=== PATIENT | male | born 1950 | race Caucasian/White ===

== ENCOUNTER 2017-04-26 17:25 | Inpatient (IN) | payer BC ==
[2017-04-26] MEDS ORDERED: NS 0.9% 1000 ML* 1,000 ML IV ONE ×2 (17:33→19:58)
[2017-04-26] MEDS ORDERED: Diltiazem IV* 5 MG/ML 5 ML VIAL (for loading dose/IV Push) (25 MG) IV PUSH ONE (17:33)
--- OUTSIDE RECORDS SUMMARY | 2017-04-26 18:16 | XMS REPORT ---
:1950 External Reference #:[id number] Author Organization [facility] Address [address] [place] [address] Phone [phone] Care Team Providers Name Role Phone HCP/LW on file Primary Care Physician Unavailable Payers Type Date Identification Numbers Payment Provider Subscriber Commercial Effective: Policy Number: [employer] Dereck De La Fuente 2016 [id number] Ppo PayID: [id number] [facility] [address] [place] [address] Problems Date Description Provider Status Onset: 11/15/2012 Cough Miguel Moyer D.O. 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 Active Onset: 11/15/2012 Headache Miguel Moyer D.O. Active Onset: 12/14/2012 Chronic rhinitis Miguel Moyer D.O. Active Onset: 12/14/2012 Tobacco user Miguel Moyer D.O. Active Onset: 01/23/2013 Anxiety state Miguel Moyer D.O. Active Onset: 01/23/2013 Old myocardial infarction Miguel Moyer D.O. Active Onset: 01/23/2013 Type 2 diabetes mellitus Miguel Moyer D.O. Active Onset: 03/21/2013 Acute maxillary sinusitis Miguel Moyer D.O. Active Onset: 05/07/2013 Chest pain Miguel Moyer D.O. Active Onset: 05/07/2013 Weight decreased Miguel Moyer D.O. Active Onset: 05/07/2013 Chronic sinusitis Miguel Moyer D.O. Active Onset: 07/06/2013 Panic disorder with agoraphobia Nader Lu M.D. Active Onset: 08/31/2013 Nasal polyp Miguel Moyer D.O. Active Onset: 08/31/2013 Impacted cerumen Miguel Moyer D.O. Active Onset: 05/16/2014 Difficulty breathing Miguel Moyer D.O. Active Onset: 05/16/2014 Hypoxemia Miguel Moyer D.O. Active Onset: 02/14/2015 Tear film insufficiency Miguel Moyer D.O. Active Onset: 12/14/2012 Chronic obstructive lung disease Miguel Moyer D.O. Inactive Inactive: 07/24/2015 Family History Date Family Member(s) Problem(s) Comments Siblings 8 Social History Type Date Description Comments Education pt states college (nos) Marital Status Samantha De La Fuente or Irma. Work Status Retired last worked 2008 Cigarette Use 07/24/2015 Former Cigarette Smoker SMOKED FROM AGE 14 TO JULY 2015 FOR 51 YEARS AT 1 PPD - 51 PACK YEARS ETOH Use Occassional Alcohol Last drink 1 month ago. Recreational Drug Use Denies Drug Use Smoking Patient is a former smoker SMOKED FROM AGE 14 TO JULY 2015 FOR 51 YEARS AT 1 PPD Daily Caffeine Consumes Caffeine 2 pots of coffee a day Exercise Type/Frequency Exercises regularly 4-5 x/ week walking Sun Exposure Does not use sunscreen Seat Belt/Car Seat Seat Belt Use - Yes Contraceptive Methods None Age 1st [place] 16 Years Old STD's No STD History Additional Info Sexual preference is women Allergies, Adverse Reactions, Alerts Date Description Reaction Status Severity Comments 11/01/2012 NKDA active Medications Medication Date Status Form Strength Qnty SIG Indications Ordering Provider Effexor XR 08/02 Active Caps ER 75mg 90cap 1 by mouth every F41.9 24HR s day Bartolome Rivera Ventolin HFA 06/03 Active Aerosol 108(90Bas 54gm inhale 2 puffs e) by mouth every 4 Miguel, mcg/Act hours as needed D.O. for bronchospasm Azelastine 03/31 Active Solution 0.15% 90ml 1-2 sprays bid J31.0 João, HCL (Nasal) Miguel, D.O. Aspirin Ec 08/27 Active Tablets 81mg 30tab Take One Tablet Sopchak, Low Dose /2015 DR s By Mouth Every Miguel, Day D.O. Famotidine 08/17 Active Tablets 40mg 60tab Take One Tablet Sopchak, s Two Times A Day Miguel, as Needed For D.O. Gastroesophageal Reflux Disease Artificial 02/14 Active Ointment 83-15% 1unit use at night as H04.122 Sopchak, Tears /2014 s directed. Miguel D.O. Atorvastatin 11/15 Active Tablets 20mg 90tab Take One Tablet Sopchak, Calcium s By Mouth Every Miguel, Day For D.O. Prevention Of Heart Attack And Stroke Metoprolol 09/27 Active Tablets 25mg 60tab Take One Tablet Sopchak, Tartrate s By Mouth Twice A Miguel, Day D.O. Montelukast 07/09 Active Tablets 10mg 30tab 1 by mouth every Strominge Sodium s day rRamón MD Klonopin 07/02 Active Tablets 0.5mg 60tab take 1 tablet by F40.01 Sopchak, /2014 s mouth 2 times Miguel, per day as D.O. needed for panic attacks F41.9 Symbicort 07/06/2013 Active Aerosol 160-4.5mcg/Act 10.2units Use 2 J44.9 Sopchak, Inhalations Miguel, By Mouth In D.O. The Morning And In The Evening , Gargle After Use R05 Oxygen NC 03/21/2013 Active 2l nc qhs João, Miguel, D.O. Elianarza Pressair 01/23/2013 Active Aerosol 400 1un Inhale One puff J44 Sopchak, mcg its By Mouth Twice .9 Miguel, D.O. /Ac A Day t Epipen 2-Tyson 11/01/2012 Active Solution 0.3 1un use as directed Z91 Sopsandra, Auto-Inject mg/ its for anaphilaxis .03 Miguel, D.O. 0.3 seek medical 0 ML attention after using. Effexor XR 06/30/2016 - Hx Caps ER 37. 30c Take 1 capsule F41 Sopchak, 08/02/2016 24HR 5mg aps by mouth daily .9 Miguel, D.O. with food for anxiety disorder Clotrimazole/Betam 06/03/2016 - Hx Lotion 1-0 30m [facility] a [facility] 07/03/2016 .05 l day to affected .4 Cruz Rivera. Dipropionate % area Clarithromycin 06/03/2016 - Hx Tablets 500 20t 1 by mouth J20 [facility], 06/13/2016 mg abs twice a day .9 Cruz Rivera. Proair HFA 03/01/2016 - Hx Aerosol 108 18u Inhale Two [facility], 06/03/2016 (90 nit Puffs By Mouth Cruz Rivera. Bas s Every 4 Hours e) as Needed For mcg Bronchospasm /Ac t Citalopram 01/15/2016 - Hx Tablets 20m 90t 1 by mouth F40 [facility], Hydrobromide 03/31/2016 g abs every day .01 Bartolome Rivera F41.9 Ventolin HFA 01/03/2016 - Hx Aerosol 108(90Base) Inhale Two Unknown 03/01/2016 mcg/Act Puffs By Mouth Every 4 Hours as Needed For Bronchospasm Azithromycin 11/24/2015 - Hx Tablets 250mg 6t take 2 tablets J4 [facility] , 11/29/2015 ab by mouth one 4. edvin Rivera time on the 1 D.O. first day then take 1 tablet by mouth daily for 4 days Prednisone 11/24/2015 - Hx Tablets 5mg 5t 1 daily for 5 J4 [facility], 12/05/2015 ab days. 4. edvin Rivera 1 D.O. Zostavax 11/24/2015 - Hx Solution Rec 65053Bqc/0.65 1u 1 dose J4 [facility], 12/24/2015 ML ni intramuscular 1 4. Miguel ts time 9 D.O. Zaditor 09/29/2015 - Hx Solution 0.025% 5m 1 drop left eye H1 [facility], 09/29/2015 l every 12 hours 0. Miguel, as needed. 13 D.O. Proair HFA 08/28/2015 - Hx Aerosol 108(90Base) 18 Inhale Two [facility], 11/23/2015 mcg/Act un Puffs By Mouth Miguel, it Every 4 Hours D.O. s as Needed For Bronchospasm Fluticasone 08/12/2015 - Hx Suspension 50mcg/Act 1 spray each Strominge Propionate 06/03/2016 nostil twice r, daily MD Ramón Qnasl 06/30/2015 - Hx Aerosol 80mcg/Act 17 2 sprays each J3 Sopchak, 08/12/2015 .4 nostril once a 2. thai Rivera day 9 D.O. Cefdinir 06/16/2015 - Hx Capsules 300mg 60 1 cap by mouth J3 [facility]ank, 07/16/2015 ca twice a day x 2. Miguel ps 30 days 9 D.O. Ventolin HFA 04/17/2015 - Hx Aerosol 108(90Base) inhale 2 puffs Unknown 08/28/2015 mcg/Act by mouth every 4 hours as needed for bronchospasm Sulfamethoxazole 02/14/2015 - Hx Tablets 800-160mg 20 1 by mouth J João, /Trimethoprim DS 02/24/2015 ta twice a day 2. edvin Rivera 9 D.O. Triamcinolone 07/02/2014 - Hx Aerosol 55mcg/Act 16 2 sprays J3 João, Acetonide 11/24/2015 .5 bilaterally 2. yonis Rivera twice a day. 9 D.O. it s Amoxicillin/Clav 07/02/2014 - Hx Tablets 875-125mg 20 1 by mouth 47 [facility] ulanate 07/12/2014 ta twice a day 3. Janice Rivera bs 9 D.O. Aspirin Ec Low 10/29/2013 - Hx Tablets DR 81mg 30 Take One Tablet E1 [facility], Dose 2015 ta By Mouth Every 1. edvin Rivera Day 9 D.O. Klonopin 08/31/2013 - Hx Tablets 0.5mg 60 take 1 tablet 30 [facility], 09/17/2013 ta by mouth 2 0. edvin Rivera times per day 00 D.O. as needed for panic attacks 300.21 Boost Diabetic 08/31/2013 - Hx Liquid 30units 1 can every day 783.21 João, 11/15/2013 Paolo RiveraO. Proair HFA 08/23/2013 - Hx Aerosol 108 8.5units Inhale Two J44.9 João, 04/17/2015 (90 Puffs By Mouth Bartolome Rivera Bas Every 4 Hours e) as Needed For mcg Bronchospasm /Ac t Citalopram 07/13/2013 - Hx Tablets 40m 30tabs Take One Tablet F40.01 João, Hydrobromide 01/15/2016 g By Mouth Every Blossom Rivera.O. Day F41.9 Oxygen Fingertip 07/06/2013 - Hx 1units use four J44.9 João, Sensor 05/30/2014 times a day Blossom Rivera.Lesly or as necessary Pantoprazole 07/04/2013 - Hx Tablets DR 40mg 1 by mouth João, Sodium 08/18/2015 once a day Bartolome Rivera Citalopram 06/05/2013 - Hx Tablets 20mg 1 po qd 300.21 Sopsandra, Hydrobromide 07/13/2013 Bartolome Rivera 300.00 Nicotine Step 1 05/31/2013 - Hx Patches 21mg/24HR 30units 1 patch 305.1 [facility], 11/15/2013 24HR daily Miguel, remove D.O. old patch before placing new patch. Citalopram 05/29/2013 - Hx Tablets 20mg 90tabs 1/2 tab 300.21 Kitasandra, Hydrobromide 06/05/2013 po qam Bartolome Rivera 300.00 Metoprolol 05/29/2013 - Hx Tablets ER 25mg 90tabs 1 po qd 412 [facility], Succinate ER 09/17/2013 24HR Bartolome Rivera Prednisone 05/29/2013 - Hx Tablets 5mg 4tabs as directed Unknown 06/01/2013 Azelastine HCL 04/23/2013 - Hx Solution 137mcg/ 3units 1-2 sprays 472.0 [facility], 03/31/2016 [place] bid Bartolome Rivera Aspirin Low 04/23/2013 - Hx Tablets 81mg 90tabs 1 po qd 250.00 [facility], Dose 10/29/2013 Bartolome Rivera Symbicort 03/26/2013 - Hx Aerosol 160-4.5 3units 2 puffs 496 [facility], 07/06/2013 mcg/Act once daily; Bartolome Rivera gargle after use 786.2 305.1 Celexa 01/23/2013 - Hx Tablets 10mg 30tabs Take 1 tablet 300.00 [facility] , 05/29/2013 by mouth daily Miguel D.O. Ventolin HFA 01/23/2013 - Hx Aerosol 108(90Ba 2units Inhale 2 puffs 496 [facility], 08/[facility] se) by mouth every Miguel, D.O. mcg/Act 4 hours as needed for bronchospasm Klonopin 01/23/2013 - Hx Tablets 0.5mg 60tabs Take 1 tablet 300.00 [facility], 08/31/2013 by mouth 2 Miguel, D.O. times per day for panic disorder 300.21 Metoprolol Succinate 01/22/2013 - Hx Tablets ER 25mg 90tabs 1 tab po [facility], ER 05/29/2013 24HR daily Miguel D.O. Methylprednisolone 01/22/2013 - Hx Tablets 4mg as directed Unknown Dose Pack 03/21/2013 Flonase 12/14/2012 - Hx Suspension 50mcg 3units Inhale 2 472. [facility], 10/01/2014 /Act sprays into 0 Miguel, nostril daily D.O. in each nostril for nose inflammation Advair Diskus 12/14/2012 - Hx Aerosol 250-5 1units Inhale 1 puff 496 [facility], 03/26/2013 0mcg/ by mouth 2 Miguel, Dose times per day D.O. for chronic obstructive lung disease Bupropion HCL ER 11/22/2012 - Hx Tablets ER 150mg 60tabs 1 tab po in 305. [facility], 01/21/2013 12HR am for 3 1 Miguel, days anf then D.O. increase to 1 twice a day No Active 11/01/2012 - Hx Unknown Medications 11/01/2012 Azithromycin 11/01/2012 - Hx Tablets 250mg 1tabs 1 z-pack Tad 786. [facility], 11/14/2012 2 Miguel, D.O. Proair HFA 11/01/2012 - Hx Aerosol 108(9 8.5unit Inhale Two 786. [facility], 04/18/2013 0Base s Puffs By 2 Miguel, ) Mouth Every 4 D.O. mcg/A Hours as ct Needed For Bronchospasm Prednisone - Hx Tablets 20mg Unknown 01/09/2016 Immunizations CPT Code Status Date Vaccine Lot # [id number] Given 03/23/2017 Influenza Virus Vaccine, Quadrivalent, Split, [id number] Preservative Free 96393 Given 11/24/2015 Influenza Vaccine Split Virus Preservative Free Im [id number] Use 89274 Given 07/24/2015 Prevnar 13 [id number] 45439 Given 01/27/2015 Influenza Virus Vaccine, Quadrivalent, Split, [id number] Preservative Free 55985 Given 11/19/2013 Influenza Virus Vaccine, Quadrivalent, Split, [id number] Preservative Free 95361 Given 04/23/2013 Pneumococcal Immunization [id number] 63843 Given 11/22/2012 Adacel or Boostrix, TDaP [id number] 53407 Given 11/22/2012 Flu, Split Virus 3Yrs [id number] Vital Signs Date Vital Result Comment 04/26/2017 BP Systolic 100 mmHg With automatic cuff BP Diastolic 80 mmHg With automatic cuff Weight 134.00 lb 08/02/2016 BP Systolic 106 mmHg BP Diastolic 68 mmHg Height 64.75 inches 5'4.75" Weight 138.00 lb BMI (Body Mass Index) 23.1 kg/m2 06/30/2016 BP Systolic 110 mmHg BP Diastolic 70 mmHg Weight 137.00 lb with shoes 06/03/2016 BP Systolic 105 mmHg BP Diastolic 68 mmHg Body Temperature 97.7 F Weight 148.00 lb with shoes 03/31/2016 BP Systolic 104 mmHg BP Diastolic 62 mmHg Weight 141.00 lb w/shoes 01/15/2016 BP Systolic 124 mmHg BP Diastolic 78 mmHg Height 64.75 inches 5'4.75" Weight 145.00 lb BMI (Body Mass Index) 24.3 kg/m2 12/30/2015 BP Systolic 108 mmHg BP Diastolic 64 mmHg Weight 145.00 lb 11/24/2015 BP Systolic 102 mmHg BP Diastolic 70 mmHg Body Temperature 97.7 F Weight 145.00 lb with shoes 09/29/2015 BP Systolic 108 mmHg BP Diastolic 68 mmHg Weight 148.00 lb 08/18/2015 BP Systolic 118 mmHg BP Diastolic 78 mmHg Weight 142.00 lb w/shoes 07/24/2015 BP Systolic 110 mmHg BP Diastolic 70 mmHg Heart Rate 57 /min O2 % BldC Oximetry 96 % 94% P 96 after ambulating Weight 139.00 lb with shoes 06/30/2015 BP Systolic 110 mmHg BP Diastolic 68 mmHg Body Temperature 98.0 F Weight 138.00 lb w/shoes 06/16/2015 BP Systolic 119 mmHg BP Diastolic 68 mmHg Heart Rate 68 /min Height 64.50 inches 5'4.50" Weight 135.00 lb BMI (Body Mass Index) 22.8 kg/m2 02/14/2015 BP Systolic 110 mmHg BP Diastolic 68 mmHg Weight 140.00 lb with shoes 11/15/2014 BP Systolic 113 mmHg BP Diastolic 65 mmHg Heart Rate 63 /min O2 % BldC Oximetry 99 % on Ra Height 64.5 inches 5'4.50" with shoes Weight 131.00 lb with shoes BMI (Body Mass Index) 22.1 kg/m2 10/01/2014 BP Systolic 100 mmHg BP Diastolic 54 mmHg Weight 135.00 lb 08/01/2014 BP Systolic 100 mmHg BP Diastolic 70 mmHg Weight 124.00 lb 07/02/2014 BP Systolic 113 mmHg BP Diastolic 60 mmHg Heart Rate 69 /min Weight 120.00 lb w/shoes 05/16/2014 BP Systolic 104 mmHg BP Diastolic 60 mmHg O2 % BldC Oximetry 99 % after ambulation 96% Height 65 inches 5'5" shoes on Weight 120.00 lb shoes on BMI (Body Mass Index) 20.0 kg/m2 11/16/2013 BP Systolic 116 mmHg BP Diastolic 63 mmHg Heart Rate 64 /min Weight 115.00 lb shoes on 09/17/2013 BP Systolic 96 mmHg BP Diastolic 70 mmHg Weight 109.00 lb 08/31/2013 BP Systolic 96 mmHg BP Diastolic 58 mmHg Height 64.25 inches 5'4.25" Weight 115.00 lb BMI (Body Mass Index) 19.6 kg/m2 07/13/2013 BP Systolic 100 mmHg BP Diastolic 70 mmHg Height 64.25 inches 5'4.25" Weight 121.00 lb BMI (Body Mass Index) 20.6 kg/m2 07/06/2013 BP Systolic 80 mmHg BP Diastolic 64 mmHg O2 % BldC Oximetry 13579 % R 95-96, after walking 92-93 Body Temperature 97.6 F Weight 120.00 lb 05/31/2013 BP Systolic 106 mmHg BP Diastolic 62 mmHg Weight 128.00 lb 05/07/2013 BP Systolic 102 mmHg BP Diastolic 74 mmHg Body Temperature 97.5 F Weight 124.00 lb 04/23/2013 BP Systolic 104 mmHg BP Diastolic 60 mmHg Weight 127.00 lb 03/21/2013 BP Systolic 118 mmHg BP Diastolic 76 mmHg Height 64.25 inches 5'4.25" Weight 133.00 lb BMI (Body Mass Index) 22.6 kg/m2 01/23/2013 BP Systolic 110 mmHg BP Diastolic 54 mmHg Heart Rate 58 /min Weight 136.00 lb 12/14/2012 BP Systolic 100 mmHg BP Diastolic 80 mmHg Weight 136.00 lb 11/22/2012 BP Systolic 130 mmHg BP Diastolic 70 mmHg Body Temperature 98.8 F Weight 138.00 lb 11/15/2012 BP Systolic 122 mmHg BP Diastolic 78 mmHg O2 % BldC Oximetry 92 % Weight 141.00 lb 11/01/2012 BP Systolic Recheck 140 mmHg BP Diastolic Recheck 86 mmHg O2 % BldC Oximetry 96 % 95 walking Height 64.25 inches 5'4.25" Weight 141.00 lb BMI (Body Mass Index) 24.0 kg/m2 Results Test Date Test Result H/L Range Note Laboratory test finding 03/23/2017 Hemoglobin A1c 6.5 CBC Auto Diff 03/23/2017 White Blood Count 7.2 10^3/uL 3.5-10.8 1 Red Blood Count 3.93 10^6/uL Low 4.0-5.4 1 Hemoglobin 13.2 g/dL Low 14.0-18.0 1 Hematocrit 39 % Low 42-52 1 Mean Corpuscular Volume 100 fL High 80-94 1 Mean Corpuscular Hemoglobin 34 pg High 27-31 1 Mean Corpuscular HGB Conc 34 g/dL 31-36 1 Red Cell Distribution Width 13 % 10.5-15 1 Platelet Count 261 10^3/uL 150-450 1 Mean Platelet Volume 7 um3 Low 7.4-10.4 1 Abs Neutrophils 3.7 10^3/uL 1.5-7.7 1 Abs Lymphocytes 1.9 10^3/uL 1.0-4.8 1 Abs Monocytes 0.5 10^3/uL 0-0.8 1 Abs Eosinophils 1.0 10^3/uL High 0-0.6 1 Abs Basophils 0 10^3/uL 0-0.2 1 Abs Nucleated RBC 0 10^3/uL 1 Granulocyte % 51.7 % 38-83 1 Lymphocyte % 26.7 % 25-47 1 Monocyte % 7.2 % 1-9 1 Eosinophil % 13.7 % High 0-6 1 Basophil % 0.7 % 0-2 1 Nucleated Red Blood Cells % 0 1 Comp Metabolic Panel 03/23/2017 Sodium 131 mmol/L Low 133-145 1 Potassium 4.3 mmol/L 3.5-5.0 1 Chloride 95 mmol/L Low 101-111 1 Co2 Carbon Dioxide 28 mmol/L 22-32 1 Anion Gap 8 mmol/L 2-11 1 Glucose 92 mg/dL 70-100 1 Blood Urea Nitrogen 10 mg/dL 6-24 1 Creatinine 0.72 mg/dL 0.67-1.17 1 BUN/Creatinine Ratio 13.9 8-20 1 Calcium 9.2 mg/dL 8.6-10.3 1 Total Protein 6.5 g/dL 6.4-8.9 1 Albumin 3.8 g/dL 3.2-5.2 1 Globulin 2.7 g/dL 2-4 1 Albumin/Globulin Ratio 1.4 1-3 1 Total Bilirubin 0.60 mg/dL 0.2-1.0 1 Alkaline Phosphatase 70 U/L 34-104 1 Alt 27 U/L 7-52 1 Ast 28 U/L 13-39 1 Egfr Non- 109.2 >60 1 Egfr 140.5 >60 1, 2 Laboratory test finding 03/23/2017 TSH (Thyroid Stim Horm) 1.53 mcIU/mL 0.34-5.60 1 Magnesium 1.9 mg/dL 1.9-2.7 1 Vitamin D Total 25(Oh) 11.0 ng/mL Low 20-50 1 Laboratory test finding 06/30/2016 Hemoglobin A1c 6.4 Laboratory test finding 03/31/2016 Hemoglobin A1c 6.2 CKMB 01/05/2016 CKMB ng/mL 8.0 ng/mL High 0.6-6.3 Comp Metabolic Panel 01/05/2016 Sodium 131 mmol/L Low 133-145 Potassium 4.3 mmol/L 3.5-5.0 Chloride 94 mmol/L Low 101-111 Co2 Carbon Dioxide 27 mmol/L 22-32 Anion Gap 10 mmol/L 2-11 Glucose 187 mg/dL High 70-100 Blood Urea Nitrogen 10 mg/dL 6-24 Creatinine 0.82 mg/dL 0.67-1.17 BUN/Creatinine Ratio 12.2 8-20 Calcium 10.0 mg/dL 8.6-10.3 Total Protein 7.9 g/dL 6.4-8.9 Albumin 5.0 g/dL 3.2-5.2 Globulin 2.9 g/dL 2-4 Albumin/Globulin Ratio 1.7 1-3 Total Bilirubin 0.70 mg/dL 0.2-1.0 Alkaline Phosphatase 83 U/L 34-104 Alt 17 U/L 7-52 Ast 19 U/L 13-39 Egfr Non- 94.3 >60 Egfr 121.3 >60 3 Laboratory test finding 01/05/2016 Creatine Kinase(CK) 118 U/L 10-223 Lactic Acid 0.9 mmol/L 0.5-2.0 4 B-Type Natriuretic Peptide BNP 259 pg/mL High 5 Laboratory test finding 01/05/2016 Troponin-I (TnI) 0.01 ng/mL <0.03 6 Inr/Protime 01/05/2016 Inr 0.94 0.89-1.11 CBC Auto Diff 01/05/2016 White Blood Count 9.2 10^3/uL 3.5-10.8 Red Blood Count 4.77 10^6/uL 4.0-5.4 Hemoglobin 15.4 g/dL 14.0-18.0 Hematocrit 46 % 42-52 Mean Corpuscular Volume 97 fL High 80-94 Mean Corpuscular Hemoglobin 32 pg High 27-31 Mean Corpuscular HGB Conc 33 g/dL 31-36 Red Cell Distribution Width 13 % 10.5-15 Platelet Count 341 10^3/uL 150-450 Mean Platelet Volume 8 um3 7.4-10.4 Abs Neutrophils 3.4 10^3/uL 1.5-7.7 Abs Lymphocytes 3.0 10^3/uL 1.0-4.8 Abs Monocytes 0.5 10^3/uL 0-0.8 Abs Eosinophils 2.3 10^3/uL High 0-0.6 Abs Basophils 0.1 10^3/uL 0-0.2 Abs Nucleated RBC 0.01 10^3/uL Granulocyte % 36.4 % Low 38-83 Lymphocyte % 32.2 % 25-47 Monocyte % 5.2 % 1-9 Eosinophil % 25.1 % High 0-6 Basophil % 1.1 % 0-2 Nucleated Red Blood Cells % 0.1 Laboratory test finding 12/30/2015 Hemoglobin A1c 6.3 Laboratory test finding 09/29/2015 Hemoglobin A1c 6.2 Urine Microalbumin Random 08/18/2015 Ur Microalbumin (mg/L) < 5.0 mg/L Urine Creatinine 98.87 mg/dL Urine Microalbumin/Creatinine TNP ug/mg <31 7 Xray 07/24/2015 X-Ray, Chest, 2 Views wnl Comp Metabolic Panel 07/24/2015 Sodium 131 mmol/L Low 133-145 Potassium 4.2 mmol/L 3.5-5.0 Chloride 95 mmol/L Low 101-111 Co2 Carbon Dioxide 28 mmol/L 22-32 Anion Gap 8 mmol/L 2-11 Glucose 116 mg/dL High 70-100 Blood Urea Nitrogen 7 mg/dL 6-24 Creatinine 0.62 mg/dL Low 0.67-1.17 BUN/Creatinine Ratio 11.3 8-20 Calcium 8.5 mg/dL Low 8.6-10.3 Total Protein 6.3 g/dL Low 6.4-8.9 Albumin 3.9 g/dL 3.2-5.2 Globulin 2.4 g/dL 2-4 Albumin/Globulin Ratio 1.6 1-3 Total Bilirubin 0.50 mg/dL 0.2-1.0 Alkaline Phosphatase 71 U/L 34-104 Alt 8 U/L 7-52 Ast 12 U/L Low 13-39 Egfr Non- 130.2 >60 Egfr 167.4 >60 8 CBC Auto Diff 07/24/2015 White Blood Count 4.8 10^3/uL 3.5-10.8 Red Blood Count 3.44 10^6/uL Low 4.0-5.4 Hemoglobin 11.1 g/dL Low 14.0-18.0 Hematocrit 33 % Low 42-52 Mean Corpuscular Volume 96 fL High 80-94 Mean Corpuscular Hemoglobin 32 pg High 27-31 Mean Corpuscular HGB Conc 33 g/dL 31-36 Red Cell Distribution Width 13 % 10.5-15 Platelet Count 264 10^3/uL 150-450 Mean Platelet Volume 7 um3 Low 7.4-10.4 Abs Neutrophils 2.8 10^3/uL 1.5-7.7 Abs Lymphocytes 1.1 10^3/uL 1.0-4.8 Abs Monocytes 0.4 10^3/uL 0-0.8 Abs Eosinophils 0.5 10^3/uL 0-0.6 Abs Basophils 0.1 10^3/uL 0-0.2 Abs Nucleated RBC 0 10^3/uL Granulocyte % 56.9 % 38-83 Lymphocyte % 23.5 % Low 25-47 Monocyte % 8.4 % 1-9 Eosinophil % 10.0 % High 0-6 Basophil % 1.2 % 0-2 Nucleated Red Blood Cells % 0.1 Laboratory test finding 06/16/2015 Hemoglobin A1c 6.5 Laboratory test finding 02/14/2015 Hemoglobin A1c 6.7 Laboratory test finding 11/15/2014 Hemoglobin A1c 6.3 CBC Auto Diff 08/01/2014 White Blood Count 7.7 10^3/uL 4.8-10.8 Red Blood Count 3.79 10^6/uL Low 4.0-5.4 Hemoglobin 13.2 g/dL Low 14.0-18.0 Hematocrit 38 % Low 42-52 Mean Corpuscular Volume 99 fL High 80-94 Mean Corpuscular Hemoglobin 35 pg High 27-31 Mean Corpuscular HGB Conc 35 g/dL 31-36 Red Cell Distribution Width 14 % 10.5-15 Platelet Count 242 10^3/uL 150-450 Mean Platelet Volume 7 um3 Low 7.4-10.4 Abs Neutrophils 6.8 10^3/uL 1.5-7.7 Abs Lymphocytes 0.6 10^3/uL Low 1.0-4.8 Abs Monocytes 0.3 10^3/uL 0-0.8 Abs Eosinophils 0 10^3/uL 0-0.6 Abs Basophils 0 10^3/uL 0-0.2 Abs Nucleated RBC 0 10^3/uL Granulocyte % 88.1 % High 38-83 Lymphocyte % 7.8 % Low 25-47 Monocyte % 3.4 % 1-9 Eosinophil % 0.5 % 0-6 Basophil % 0.2 % 0-2 Nucleated Red Blood Cells % 0.1 Comp Metabolic Panel 08/01/2014 Sodium 133 mmol/L 133-145 Potassium 4.3 mmol/L 3.5-5.0 Chloride 97 mmol/L Low 101-111 Co2 Carbon Dioxide 31 mmol/L 22-32 Anion Gap 5 mmol/L 2-11 Glucose 98 mg/dL 70-100 Blood Urea Nitrogen 10 mg/dL 6-24 Creatinine 0.71 mg/dL 0.67-1.17 BUN/Creatinine Ratio 14.1 8-20 Calcium 9.2 mg/dL 8.6-10.3 Total Protein 6.3 g/dL Low 6.4-8.9 Albumin 4.3 g/dL 3.2-5.2 Globulin 2.0 g/dL 2-4 Albumin/Globulin Ratio 2.2 1-3 Total Bilirubin 0.50 mg/dL 0.2-1.0 Alkaline Phosphatase 44 U/L 34-104 Alt 25 U/L 7-52 Ast 17 U/L 13-39 Egfr Non- 111.7 >60 Egfr 143.6 >60 9 Lipid Profile (Trig/Chol/HDL) 08/01/2014 Triglycerides 75 mg/dL 10 Cholesterol 205 mg/dL 11 HDL Cholesterol 81.9 mg/dL 12 LDL Cholesterol 108 mg/dL 13 Laboratory test finding 08/01/2014 Hemoglobin A1c (Glyco 6.3 % High Less than 6.0 14 HGB) Laboratory test finding 05/16/2014 Hemoglobin A1c 6.4 Laboratory test finding 11/16/2013 Hemoglobin A1c 6.1 Manual Differential 09/07/2013 Neutrophil % 52 % 38-83 15 Lymphocytes % 25 % 25-47 15 Monocytes % 6 % 0-13 15 Eosinophils % 17 % High 0-6 15 RBC Morphology Normal Normal 15 Lipid Profile (Trig/Chol/HDL) 09/07/2013 Triglycerides 79 mg/dL 15, 16 Cholesterol 220 mg/dL 15, 17 HDL Cholesterol 52.0 mg/dL 15, 18 LDL Cholesterol 152 mg/dL 15, 19 Vitamin D, 25 Hydroxy 09/07/2013 25-Hydroxy Vitamin D2 <4.0 ng/mL 15 25-Hydroxy Vitamin D3 28 ng/mL 15 25-Hydroxy Vitamin D Total 28 ng/mL 15, 20 Laboratory test finding 09/07/2013 Hepatitis C Antibody Nonreactive Nonreactive 15 TSH (Thyroid Stimulating Horm) 0.64 IU/mL 0.34-5.60 15, 21 Comp Metabolic Panel 09/07/2013 Sodium 130 mmol/L Low 133-145 15 Potassium 5.0 mmol/L 3.7-5.6 15 Chloride 94 mmol/L Low 101-111 15 Co2 Carbon Dioxide 28 mmol/L 22-32 15 Anion Gap 8 mmol/L 2-11 15 Glucose 75 mg/dL 70-100 15 Blood Urea Nitrogen 9 mg/dL 6-24 15 Creatinine 0.80 mg/dL 0.67-1.17 15 BUN/Creatinine Ratio 11.3 8-20 15 Calcium 9.4 mg/dL 8.6-10.3 15 Total Protein 6.5 g/dL 6.4-8.9 15 Albumin 4.3 g/dL 3.2-5.2 15 Globulin 2.2 g/dL 2-4 15 Albumin/Globulin Ratio 2.0 1-3 15 Total Bilirubin 0.60 mg/dL 0.2-1.0 15 Alkaline Phosphatase 56 U/L 34-104 15 Alt 12 U/L 7-52 15 Ast 16 U/L 13-39 15 Egfr Non- 97.6 >60 15 Egfr 125.6 >60 15, 22 CBC Auto Diff 09/07/2013 White Blood Count 5.7 10^3/uL 4.8-10.8 15 Red Blood Count 4.43 10^6/uL 4.0-5.4 15 Hemoglobin 14.7 g/dL 14.0-18.0 15 Hematocrit 42 % 42-52 15 Mean Corpuscular Volume 96 fL High 80-94 15 Mean Corpuscular Hemoglobin 33 pg High 27-31 15 Mean Corpuscular HGB Conc 35 g/dL 31-36 15 Red Cell Distribution Width 14 % 10.5-15 15 Platelet Count 285 10^3/uL 150-450 15 Mean Platelet Volume 7 um3 Low 7.4-10.4 15 Abs Neutrophils 3.0 10^3/uL 1.5-7.7 15 Abs Lymphocytes 1.5 10^3/uL 1.0-4.8 15 Abs Monocytes 0.4 10^3/uL 0-0.8 15 Abs Eosinophils 0.9 10^3/uL High 0-0.6 15 Abs Basophils 0 10^3/uL 0-0.2 15 Abs Nucleated RBC 0 10^3/uL 15 Laboratory test finding 07/13/2013 Hemoglobin A1c 6.2 Laboratory test finding 07/04/2013 Gastric Biopsy/Polyp See Note 23 Arterial Blood Gas 05/28/2013 Nick's Test Performed? YES Arterial Blood Gas pH 7.37 7.35-7.45 Arterial Blood Gas Pco2 51 mmHg High 35-45 Arterial Blood Gas Po2 149 mmHg High 80-105 ABG Hco3 29 mEq/L High 22-26 ABG Base Excess 2 mEq/L -2-2 ABG O2 Saturation 99 % 90-99 Arterial Blood Gas Type OXYGEN Arterial Blood Gas L/M 4 L/MIN 0-20 Arterial Blood Gas Del. OXYMASK Arterial Blood Gas Site R.RAD.ART. Basic Metabolic Panel 05/28/2013 Glucose 106 mg/dL 76-115 BUN 10 mg/dL 5-23 Creatinine 0.7 mg/dL 0.5-1.4 Glom Filtration Rate, Estimate >60 mL/min >60 If >60 mL/min >60 24 BUN/Creat 14.2 ratio Sodium 139 mmol/L 136-145 Potassium 3.8 mmol/L 3.5-5.1 Chloride 107 mmol/L 98-107 Carbon Dioxide 29 mEq/L 18-29 Anion Gap 7 mEq/L Low 8-16 Calcium 8.2 mg/dL Low 8.5-10.1 Laboratory test finding 05/27/2013 Aot Request See Note 25 Arterial Blood Gas 05/26/2013 Nick's Test Performed? YES Arterial Blood Gas pH 7.17 Low 7.35-7.45 26 Arterial Blood Gas Pco2 89 mmHg High 35-45 Arterial Blood Gas Po2 106 mmHg High 80-105 ABG Hco3 32 mEq/L High 22-26 ABG Base Excess 1 mEq/L -2-2 ABG O2 Saturation 96 % 90-99 Arterial Blood Gas Type OXYGEN Arterial Blood Gas L/M 10 L/MIN 0-20 Arterial Blood Gas Del. OXYMASK Arterial Blood Gas Site R.[facility].ART. Comprehensive Metabolic Panel 05/26/2013 Glucose 190 mg/dL High 76-115 BUN 11 mg/dL 5-23 Creatinine 1.1 mg/dL 0.5-1.4 Glom Filtration Rate, Estimate >60 mL/min >60 If >60 mL/min >60 27 BUN/Creat 10.0 ratio Sodium 138 mmol/L 136-145 Potassium 4.0 mmol/L 3.5-5.1 Chloride 101 mmol/L 98-107 Carbon Dioxide 32 mEq/L High 18-29 Anion Gap 9 mEq/L 8-16 Calcium 8.2 mg/dL Low 8.5-10.1 Total Protein 7.4 g/dL 6.3-8.0 Albumin 3.9 g/dL 3.5-5.0 Globulin 3.5 g/dL 1.9-4.3 Alb/Glob 1.1 ratio Bilirubin,Total 0.3 mg/dL 0.2-1.2 Sgot/Ast 14 U/L Low 16-40 SGPT/Alt 24 U/L Low 30-65 Alkaline Phosphatase 59 U/L 50-136 Laboratory test finding 05/26/2013 D-Dimer, Quantitative 0.73 ug/mL 28 CBC W/Automated Diff 05/26/2013 White Blood Count 8.3 K/uL 3.4-10.5 Red Blood Count 4.32 M/uL 4.20-5.80 Hemoglobin 14.0 gm/dL 12.8-17.0 Hematocrit 41.3 % 38.0-48.0 Mean Cell Volume 95.6 fl 80.0-96.0 Mean Corpuscular HGB 32.4 pg 27.0-33.0 Mean Corpuscular HGB Conc 33.9 g/dL 31.7-36.0 Platelet Count 322 K/uL 150-400 Red Cell Distri Width SD 44.3 fl 36-51 Red Cell Distri Width %CV 13.0 % 11.6-15.8 Mean Platelet Volume 9.1 fL 6.6-10.6 Neut% 43.9 % 33.0-73.0 Lymph % 32.2 % 17.0-56.0 [place] % 6.7 % 0.0-10.0 Eo% 16.6 % High 0.0-5.0 Bas% 0.6 % 0.1-1.0 Neut# 3.64 K/uL 1.8-7.0 Lymph # 2.67 K/uL 1.2-4.0 [place] # 0.56 K/uL 0.0-0.6 Eos # 1.38 K/uL High 0.0-0.5 Baso # 0.05 K/uL Low 0.1-0.2 Laboratory test finding 05/26/2013 CK 97 U/L 26-190 Troponin-I < 0.02 ng/mL 0.00-0.50 29 Urine Microalbumin Random 04/23/2013 Ur Microalbumin (mg/L) < 2 mg/L 30 Urine Creatinine 55.4 mg/dL Urine Microalbumin/Creatinine 3.6 Less Than 31 Laboratory test finding 04/23/2013 Hemoglobin A1c 6.1 Basic Metabolic Panel 01/22/2013 Glucose 234 mg/dL High 76-115 BUN 14 mg/dL 5-23 Creatinine 0.8 mg/dL 0.5-1.4 Glom Filtration Rate, Estimate >60 mL/min >60 If >60 mL/min >60 31 BUN/Creat 17.5 ratio Sodium 136 mmol/L 136-145 Potassium 3.9 mmol/L 3.5-5.1 Chloride 102 mmol/L 98-107 Carbon Dioxide 28 mEq/L 18-29 Anion Gap 10 mEq/L 8-16 Calcium 8.4 mg/dL Low 8.5-10.1 Laboratory test finding 01/22/2013 Magnesium 2.1 mg/dL 1.7-2.3 CBC 01/22/2013 White Blood Count 7.3 K/uL 3.4-10.5 Red Blood Count 4.38 M/uL 4.20-5.80 Hemoglobin 14.0 gm/dL 12.8-17.0 Hematocrit 40.3 % 38.0-48.0 Mean Cell Volume 92.0 fl 80.0-96.0 Mean Corpuscular HGB 32.0 pg 27.0-33.0 Mean Corpuscular HGB Conc 34.7 g/dL 31.7-36.0 Platelet Count 261 K/uL 150-400 Red Cell Distri Width %CV 12.9 % 11.6-15.8 Mean Platelet Volume 9.1 fL 6.6-10.6 Basic Metabolic Panel 01/19/2013 Glucose 195 mg/dL High 76-115 BUN 12 mg/dL 5-23 Creatinine 0.8 mg/dL 0.5-1.4 Glom Filtration Rate, Estimate >60 mL/min >60 If >60 mL/min >60 32 BUN/Creat 15.0 ratio Sodium 135 mmol/L Low 136-145 Potassium 4.0 mmol/L 3.5-5.1 Chloride 103 mmol/L 98-107 Carbon Dioxide 27 mEq/L 18-29 Anion Gap 9 mEq/L 8-16 Calcium 7.7 mg/dL Low 8.5-10.1 Laboratory test finding 01/19/2013 Magnesium 2.1 mg/dL 1.7-2.3 Troponin-I 0.45 ng/mL 0.00-0.50 33 CBC 01/19/2013 White Blood Count 8.3 K/uL 3.4-10.5 Red Blood Count 3.62 M/uL Low 4.20-5.80 Hemoglobin 11.9 gm/dL Low 12.8-17.0 Hematocrit 33.8 % Low 38.0-48.0 Mean Cell Volume 93.4 fl 80.0-96.0 Mean Corpuscular HGB 32.9 pg 27.0-33.0 Mean Corpuscular HGB Conc 35.2 g/dL 31.7-36.0 Platelet Count 246 K/uL 150-400 Red Cell Distri Width %CV 13.0 % 11.6-15.8 Mean Platelet Volume 9.1 fL 6.6-10.6 Basic Metabolic Panel 01/18/2013 Glucose 168 mg/dL High 76-115 BUN 10 mg/dL 5-23 Creatinine 0.9 mg/dL 0.5-1.4 Glom Filtration Rate, Estimate >60 mL/min >60 If >60 mL/min >60 34 BUN/Creat 11.1 ratio Sodium 138 mmol/L 136-145 Potassium 4.4 mmol/L 3.5-5.1 Chloride 105 mmol/L 98-107 Carbon Dioxide 25 mEq/L 18-29 Anion Gap 12 mEq/L 8-16 Calcium 8.6 mg/dL 8.5-10.1 Laboratory test finding 01/18/2013 Magnesium 2.0 mg/dL 1.7-2.3 35 Troponin-I 0.81 ng/mL High 0.00-0.50 36 CBC/Manual Differential 01/18/2013 White Blood Count 8.0 K/uL 3.4-10.5 Red Blood Count 4.16 M/uL Low 4.20-5.80 Hemoglobin 13.4 gm/dL 12.8-17.0 Hematocrit 38.9 % 38.0-48.0 Mean Cell Volume 93.5 fl 80.0-96.0 Mean Corpuscular HGB 32.2 pg 27.0-33.0 Mean Corpuscular HGB Conc 34.4 g/dL 31.7-36.0 Platelet Count 275 K/uL 150-400 Red Cell Distri Width %CV 13.0 % 11.6-15.8 Mean Platelet Volume 9.0 fL 6.6-10.6 Total Cells Counted 100 #CELLS Band% 1 % 0-8 Neutrophils% 85 % High 33-73 Lymph% 8 % Low 17-56 Monocyte% 6 % 0-10 Platelet Estimate NORMAL RBC Morphology NORMAL Laboratory test 01/17/2013 Troponin-I 1.08 ng/mL High 0.00-0.50 37 finding Laboratory test 01/17/2013 Troponin-I 1.06 ng/mL High 0.00-0.50 38 finding Laboratory test 01/17/2013 Aot Request Test(s) added 39 finding Laboratory test 01/17/2013 Aot Request Test(s) added 40 finding Arterial Blood Gas 01/17/2013 Nick's Test YES Performed? Arterial Blood Gas pH 7.32 Low 7.35-7.45 Arterial Blood Gas Pco2 45 mmHg 35-45 Arterial Blood Gas Po2 79 mmHg Low 80-105 ABG Hco3 23 mEq/L 22-26 ABG Base Excess -4 mEq/L Low -2-2 ABG O2 Saturation 95 % 90-99 Arterial Blood Gas Type OXYGEN Arterial Blood Gas L/M 2 L/MIN 0-20 Arterial Blood Gas Del. N/C Arterial Blood Gas Site R.RAD.ART. Arterial Blood Gas 01/17/2013 Nick's Test Performed? YES Arterial Blood Gas pH 7.18 Low 7.35-7.45 Arterial Blood Gas Pco2 62 mmHg High 35-45 Arterial Blood Gas Po2 111 mmHg High 80-105 ABG Hco3 23 mEq/L 22-26 ABG Base Excess -7 mEq/L Low -2-2 ABG O2 Saturation 97 % 90-99 Arterial Blood Gas Type OXYGEN Arterial Blood Gas L/M 10 L/MIN 0-20 Arterial Blood Gas Del. OXYMASK Arterial Blood Gas Site L.RAD.ART. Liver Function Tests 01/17/2013 Total Protein 7.2 g/dL 6.3-8.0 Albumin 3.9 g/dL 3.5-5.0 Globulin 3.3 g/dL 1.9-4.3 Alb/Glob 1.2 ratio Bilirubin,Total 0.5 mg/dL 0.2-1.2 Bilirubin,Direct 0.1 mg/dL 0.1-0.4 Bilirubin,Indirect 0.4 mg/dL 0.0-0.9 Sgot/Ast 28 U/L 16-40 SGPT/Alt 34 U/L 30-65 Alkaline Phosphatase 79 U/L 50-136 Comprehensive Metabolic Panel 01/17/2013 Glucose 372 mg/dL High 76-115 BUN 8 mg/dL 5-23 Creatinine 1.1 mg/dL 0.5-1.4 Glom Filtration Rate, Estimate >60 mL/min >60 If >60 mL/min >60 41 BUN/Creat 7.2 ratio Sodium 133 mmol/L Low 136-145 Potassium 3.4 mmol/L Low 3.5-5.1 Chloride 98 mmol/L 98-107 Carbon Dioxide 23 mEq/L 18-29 Anion Gap 15 mEq/L 8-16 Calcium 8.6 mg/dL 8.5-10.1 Total Protein 7.2 g/dL 6.3-8.0 Albumin 3.9 g/dL 3.5-5.0 Globulin 3.3 g/dL 1.9-4.3 Alb/Glob 1.2 ratio Bilirubin,Total 0.5 mg/dL 0.2-1.2 Sgot/Ast 28 U/L 16-40 SGPT/Alt 34 U/L 30-65 Alkaline Phosphatase 79 U/L 50-136 Laboratory test finding 01/17/2013 Lipase 219 U/L 28-380 CK 206 U/L High 26-190 CK-MB (Mass) 3.5 ng/ml 0.5-8.2 Relative % Index 1.7 % <5 42 Troponin-I 0.02 ng/mL 0.00-0.50 43 CBC W/Automated Diff 01/17/2013 White Blood Count 10.3 K/uL 3.4-10.5 Red Blood Count 4.53 M/uL 4.20-5.80 Hemoglobin 14.7 gm/dL 12.8-17.0 Hematocrit 42.3 % 38.0-48.0 Mean Cell Volume 93.4 fl 80.0-96.0 Mean Corpuscular HGB 32.5 pg 27.0-33.0 Mean Corpuscular HGB Conc 34.8 g/dL 31.7-36.0 Platelet Count 322 K/uL 150-400 Red Cell Distri Width SD 42.9 fl 36-51 Red Cell Distri Width %CV 12.9 % 11.6-15.8 Mean Platelet Volume 8.8 fL 6.6-10.6 Neut% 32.1 % Low 33.0-73.0 Lymph % 42.0 % 17.0-56.0 [place] % 6.3 % 0.0-10.0 Eo% 19.1 % High 0.0-5.0 Bas% 0.5 % 0.1-1.0 Neut# 3.33 K/uL 1.8-7.0 Lymph # 4.34 K/uL High 1.2-4.0 [place] # 0.65 K/uL High 0.0-0.6 Eos # 1.97 K/uL High 0.0-0.5 Baso # 0.05 K/uL Low 0.1-0.2 Glycohemoglobin A1c 01/17/2013 Glycohemoglobin (A1c) 6.7 % High 4.8-6.0 44 eAG 146 mg/dL Laboratory test finding 01/17/2013 Magnesium 2.1 mg/dL 1.7-2.3 Thyroid Stim Hormone 1.68 uIU/mL 0.49-4.67 Alkaline Phos Isoenzymes 11/15/2012 Alkaline Phosphatase 66 U/L 45 - 115 Alp Liver 1% 72.5 % 27.8-76.3 Alp Liver 1 47.9 IU/L 16.2-70.2 Alp Liver 2% 2.0 % 0.0-8.0 Alp Liver 2 1.3 IU/L 0.0-5.8 Alp Bone % 25.5 % 19.1-67.7 Alp Bone 16.8 IU/L 12.1-42.7 Alp Intestine % 0.0 % 0.0-20.6 Alp Intestine 0.0 IU/L 0.0-11.0 Alp Placental NotPresent 45 Xray 11/15/2012 X-Ray, Chest, 2 no acute process 46 Views Laboratory test finding 11/15/2012 Afp Tumor Marker 3.0 ng/mL <6.0 47 Beta HCG Quantitative < 2.1 MIU/ML 0.0-5.0 48 LDH 87 U/L Low 95-185 GGTP 15 U/L 7-50 Comp Metabolic Panel 11/15/2012 Sodium 134 mmol/L 133-145 Potassium 4.1 mmol/L 3.5-5.0 Chloride 98 mmol/L Low 101-111 Co2 Carbon Dioxide 30.0 mmol/L 22-32 Anion Gap 6.0 mmol/L 2-11 Glucose 100 mg/dL 70-100 Blood Urea Nitrogen 4 mg/dL Low 6-24 Creatinine 0.70 mg/dL 0.50-1.40 BUN/Creatinine Ratio 5.7 Low 8-20 Calcium 9.3 mg/dL 8.1-9.9 Total Protein 6.8 g/dL 6.2-8.1 Albumin 4.3 g/dL 3.2-5.2 Globulin 2.5 g/dL 2-4 Albumin/Globulin Ratio 1.7 1-3 Total Bilirubin 0.8 mg/dL 0.4-1.5 Alkaline Phosphatase 63 U/L 30-110 Alt 14 U/L 14-54 Ast 16 U/L 12-42 Egfr Non- 114.3 >60 Egfr 147.0 >60 49 CBC Auto Diff 11/15/2012 White Blood Count 6.1 10^3/uL 4.8-10.8 Red Blood Count 4.40 10^6/uL 4.0-5.4 Hemoglobin 14.6 g/dL 14.0-18.0 Hematocrit 42 % 42-52 Mean Corpuscular Volume 96 fL High 80-94 Mean Corpuscular Hemoglobin 33 pg High 27-31 Mean Corpuscular HGB Conc 35 g/dL 31-36 Red Cell Distribution Width 14 % 10.5-15 Platelet Count 245 10^3/uL 150-450 Mean Platelet Volume 7 um3 Low 7.4-10.4 Abs Neutrophils 3.0 10^3/uL 1.5-7.7 Abs Lymphocytes 1.9 10^3/uL 1.0-4.8 Abs Monocytes 0.4 10^3/uL 0-0.8 Abs Eosinophils 0.8 10^3/uL High 0-0.6 Abs Basophils 0 10^3/uL 0-0.2 Abs Nucleated RBC 0.01 10^3/uL Granulocyte % 49.0 % 38-83 Lymphocyte % 31.6 % 25-47 Monocyte % 6.3 % 1-9 Eosinophil % 12.5 % High 0-6 Basophil % 0.6 % 0-2 Nucleated Red Blood Cells % 0.1 Xray 11/01/2012 X-Ray, Chest, 2 Views Normal chest 1 Per [facility] site, no urine microalbumin testing done. SL 2 Because ethnic data is not always readily available, this report includes an eGFR for both -Americans and non- Americans. The National Kidney Disease Education Program (NKDEP) does not endorse the use of the MDRD equation for patients that are not between the ages of 18 and 70, are , have extremes of body size, muscle mass, or nutritional status, or are non- or non-. According to the National Kidney Foundation, irrespective of diagnosis, the stage of the disease is based on the level of kidney function: Stage Description GFR(mL/min/1.73 m(2)) 1 Kidney damage with normal or decreased GFR 90 2 Kidney damage with mild decrease in GFR 60-89 3 Moderate decrease in GFR 30-59 4 Severe decrease in GFR 15-29 5 Kidney failure <15 (or dialysis) 3 Because ethnic data is not always readily available, this report includes an eGFR for both -Americans and non- Americans. The National Kidney Disease Education Program (NKDEP) does not endorse the use of the MDRD equation for patients that are not between the ages of 18 and 70, are , have extremes of body size, muscle mass, or nutritional status, or are non- or non-. According to the National Kidney Foundation, irrespective of diagnosis, the stage of the disease is based on the level of kidney function: Stage Description GFR(mL/min/1.73 m(2)) 1 Kidney damage with normal or decreased GFR 90 2 Kidney damage with mild decrease in GFR 60-89 3 Moderate decrease in GFR 30-59 4 Severe decrease in GFR 15-29 5 Kidney failure <15 (or dialysis) 4 [facility] Severe Sepsis and Septic Shock Management Bundle Measure requires all lactic acids initially measuring >2.0 mmol/L be repeated. 5 >100 to <200 pg/mL: likely compensated congestive heart failure (CHF) 200 to 400 pg/mL: likely moderate CHF >400 pg/mL: likely moderate to severe CHF 6 Reference Range and Interpretation: TnI (ng/mL) Interpretation Less Than 0.03 ng/mL Not supportive of diagnosis of ND 0.03 - 0.50 ng/mL Indeterminate: suggest serial studies if clinically indicated. Greater than 0.5 ng/mL Consistent with diagnosis of ND 7 Unable to calculate due to low microalbumin 8 Because ethnic data is not always readily available, this report includes an eGFR for both -Americans and non- Americans. The National Kidney Disease Education Program (NKDEP) does not endorse the use of the MDRD equation for patients that are not between the ages of 18 and 70, are , have extremes of body size, muscle mass, or nutritional status, or are non- or non-. According to the National Kidney Foundation, irrespective of diagnosis, the stage of the disease is based on the level of kidney function: Stage Description GFR(mL/min/1.73 m(2)) 1 Kidney damage with normal or decreased GFR 90 2 Kidney damage with mild decrease in GFR 60-89 3 Moderate decrease in GFR 30-59 4 Severe decrease in GFR 15-29 5 Kidney failure <15 (or dialysis) 9 Because ethnic data is not always readily available, this report includes an eGFR for both -Americans and non- Americans. The National Kidney Disease Education Program (NKDEP) does not endorse the use of the MDRD equation for patients that are not between the ages of 18 and 70, are , have extremes of body size, muscle mass, or nutritional status, or are non- or non-. According to the National Kidney Foundation, irrespective of diagnosis, the stage of the disease is based on the level of kidney function: Stage Description GFR(mL/min/1.73 m(2)) 1 Kidney damage with normal or decreased GFR 90 2 Kidney damage with mild decrease in GFR 60-89 3 Moderate decrease in GFR 30-59 4 Severe decrease in GFR 15-29 5 Kidney failure <15 (or dialysis) 10 Desirable <150 Borderline high 150-199 High 200-499 Very High >500 11 Desirable <200 Borderline high 200-239 High >239 12 Low <40 Desirable: 40-60 High: >60 13 Desirable: <100 mg/dL Near Optimal: 100-129 mg/dL Borderline High: 130-159 mg/dL High: 160-189 mg/dL Very High: >189 mg/dL 14 Therapeutic target for the treatment of diabetes Mellitus patients is <7% HBA1C, and in selective patients <6.0%.Please refer to [place] [employer] Diabetic care guidelines for further information. 15 FASTING 16 Desirable <150 Borderline high 150-199 High 200-499 Very High >500 17 Desirable <200 Borderline high 200-239 High >239 18 Low <40 Desirable: 40-60 High: >60 19 Desirable <100 Near Optimal 100-129 Borderline high 130-159 High 160-189 Very High >189 20 -- REFERENCE VALUE -- 25-HYDROXY D TOTAL (D2+D3) Optimum levels in the healthy population are 20-50, patients with bone disease may benefit from higher levels within this range. Test Performed by: [address] [id number] Shoe Cutter: Jose Manuel Castro III, M.D. 21 FASTING 22 Because ethnic data is not always readily available, this report includes an eGFR for both -Americans and non- Americans. The National Kidney Disease Education Program (NKDEP) does not endorse the use of the MDRD equation for patients that are not between the ages of 18 and 70, are , have extremes of body size, muscle mass, or nutritional status, or are non- or non-. According to the National Kidney Foundation, irrespective of diagnosis, the stage of the disease is based on the level of kidney function: Stage Description GFR(mL/min/1.73 m(2)) 1 Kidney damage with normal or decreased GFR 90 2 Kidney damage with mild decrease in GFR 60-89 3 Moderate decrease in GFR 30-59 4 Severe decrease in GFR 15-29 5 Kidney failure <15 (or dialysis) 23 OPERATION/PROCEDURE Colonoscopy, polypectomy and gastroscopy DIAGNOSIS: PART 1: "COLON, RANDOM BIOPSIES": BENIGN, NONDYSPLASTIC AND NONINFLAMED COLONIC MUCOSA. PART 2: "SIGMOID COLON, POLYPECTOMY": EARLY HYPERPLASTIC POLYP. PART 3: "RECTOSIGMOID JUNCTION, POLYPECTOMY": HYPERPLASTIC POLYPS. PART 4: "STOMACH, ANTRUM, BIOPSIES": REACTIVE GASTROPATHY. NO HELICOBACTER SEEN WITH SPECIAL STAIN. JW/ella GROSS Part 1; "RANDOM COLON BIOPSIES". The specimen is received in an appropriately labeled container. This contains six rounded steele colored pieces of soft tissue measuring up to 0.7 cm.; filtered and submitted in toto within a single cassette. Part 2; "SIGMOID POLYP". The specimen is received in an appropriately labeled container. This contains one rounded steele colored piece of soft tissue measuring up to 0.4 cm.; filtered and submitted in toto within a single cassette. Part 3; "RECTOSIGMOID JUNCTION POLYPS". The specimen is received in an appropriately labeled container. This contains six rounded red colored pieces of soft tissue measuring up to 0.4 cm.; filtered and submitted in toto within a single cassette. Part 4; "ANTRAL BIOPSIES". The specimen is received in an appropriately labeled GROSS (Continued) container. This contains two rounded steele colored pieces of soft tissue measuring up to 0.4 cm.; filtered and submitted in toto within a single cassette. RASHAD/ella MICROSCOPIC Part 1: Sections reveal mildly edematous fragments of colonic mucosa. There is no significant inflammation. Part 2: Sections show colonic mucosa with tubular glands lined by goblet type columnar cells with increased mucin production. The glands have an incomplete stellate appearance. Part 3: Sections show colonic mucosa lined by an increased number of goblet cells. The glands have a serrated, saw tooth appearance. The nuclei are bland, and basal. Part 4: Sections show glandular elongation, tortuosity, and hypercellularity of gastric pits, foveolar hyperplasia, and villiform transformation of the mucosa. The glands appear more angular than usual. Foveolar cells show mild mucin depletion and vacuolization. There is capillary congestion, vasodilatation and edema. Smooth muscle fibers extend high into the lamina propria. There are interstitial chronic inflammatory cells. There are no Helicobacter-type bacteria identified with Warthin- Starry staining. The controls are adequate. PRE OPERATIVE DIAGNOSIS Diarrhea, weight loss REVIEW CODE CODE: I Signed Electronically signed CHRISSIE NANCE MD 07/05/13 1243 24 Note: Persistent reduction for 3 months or more in an eGFR <60 mL/min/1.73 m2 defines CKD. Patients with eGFR values >/=60 mL/min/1.73 m2 may also have CKD if evidence of persistent proteinuria is present. The original MDRD equation for estimated GFR is not valid for patients less than 18 years of age. Additional information may be found at [email or web address]. 25 Unable to add tests Tests: MG+, TSH,FT4 Instructions: EDGAR NOTIFIED 26 CALLED SHARI SHAFFER AT 1925 05/26/13 by JAntelmoG 27 Note: Persistent reduction for 3 months or more in an eGFR <60 mL/min/1.73 m2 defines CKD. Patients with eGFR values >/=60 mL/min/1.73 m2 may also have CKD if evidence of persistent proteinuria is present. The original MDRD equation for estimated GFR is not valid for patients less than 18 years of age. Additional information may be found at [email or web address]. 28 <=0.49 ug/mL - Low likelihood of DIC, DVT or Pulmonary Embolism >0.49 ug/mL - Additional testing should be done to rule out DIC, DVT, or Pulmonary embolism as clinically indicated. ([facility] has established a 97.89% negative predictive value for thrombotic disease when a cutoff value of 0.5 ug/mL is used.) 29 0 - 0.5 ng/mL: No evidence of myocardial injury 0.6 - 1.4 ng/mL: Mild elevation, suggesting possible myocardial injury > 1.4 ng/mL: Consistent with myocardial injury 30 Microalbuminuria in a random sample is defined as: Microalbumin/Creatinine ratio of 30-299 ug/mg. 31 Note: Persistent reduction for 3 months or more in an eGFR <60 mL/min/1.73 m2 defines CKD. Patients with eGFR values >/=60 mL/min/1.73 m2 may also have CKD if evidence of persistent proteinuria is present. The original MDRD equation for estimated GFR is not valid for patients less than 18 years of age. Additional information may be found at [email or web address]. 32 Note: Persistent reduction for 3 months or more in an eGFR <60 mL/min/1.73 m2 defines CKD. Patients with eGFR values >/=60 mL/min/1.73 m2 may also have CKD if evidence of persistent proteinuria is present. The original MDRD equation for estimated GFR is not valid for patients less than 18 years of age. Additional information may be found at [email or web address]. 33 0 - 0.5 ng/mL: No evidence of myocardial injury 0.6 - 1.4 ng/mL: Mild elevation, suggesting possible myocardial injury > 1.4 ng/mL: Consistent with myocardial injury 34 Note: Persistent reduction for 3 months or more in an eGFR <60 mL/min/1.73 m2 defines CKD. Patients with eGFR values >/=60 mL/min/1.73 m2 may also have CKD if evidence of persistent proteinuria is present. The original MDRD equation for estimated GFR is not valid for patients less than 18 years of age. Additional information may be found at [email or web address]. 35 CALLED TROP TO MARÍA Motley AT 0504 01/18/13 by [facility] 36 0 - 0.5 ng/mL: No evidence of myocardial injury 0.6 - 1.4 ng/mL: Mild elevation, suggesting possible myocardial injury > 1.4 ng/mL: Consistent with myocardial injury 37 0 - 0.5 ng/mL: No evidence of myocardial injury 0.6 - 1.4 ng/mL: Mild elevation, suggesting possible myocardial injury > 1.4 ng/mL: Consistent with myocardial injury 38 0 - 0.5 ng/mL: No evidence of myocardial injury 0.6 - 1.4 ng/mL: Mild elevation, suggesting possible myocardial injury > 1.4 ng/mL: Consistent with myocardial injury 39 Tests: TSH Instructions: 40 Tests: mg Instructions: 41 Note: Persistent reduction for 3 months or more in an eGFR <60 mL/min/1.73 m2 defines CKD. Patients with eGFR values >/=60 mL/min/1.73 m2 may also have CKD if evidence of persistent proteinuria is present. The original MDRD equation for estimated GFR is not valid for patients less than 18 years of age. Additional information may be found at [email or web address]. 42 < 5%=non AMI 5 - 10%=borderline for AMI > 10%=positive for AMI FOR DIAGNOSTIC PURPOSES, THE CK-MB RESULT (MASS AND RELATIVE PERCENT INDEX) SHOULD BE USED IN CONJUNCTION WITH OTHER PERTINENT CLINICAL DATA. 43 0 - 0.5 ng/mL: No evidence of myocardial injury 0.6 - 1.4 ng/mL: Mild elevation, suggesting possible myocardial injury > 1.4 ng/mL: Consistent with myocardial injury 44 A1c value between 5.7% and 6.4% is considered at increased risk for diabetes. A1c value greater than 6.5 % is considered essentially diagnostic for Type II diabetes. Current guidelines recommend a treatment goal of <7% for diabetic patients. This method will measure glycosylated hemoglobin variants, HbS, HbG, HbH, HbWayne, HbC, HbE, etc. Other hemoglobin- opathies may give incorrect results with this test. 45 -- REFERENCE VALUE -- Not present Test Performed by: [address] [id number] Shoe Cutter: Jose Manuel Castro III, M.D. 46 Thoracic spine DJD, arthrosclerotics of aorta, otherwise normal chest 47 The testing method is an immunoenzymatic assay manufactured by [employer] and performed on the hike DxI 800. Values obtained with different assay methods or kits may be different and cannot be used interchangeably. Test results cannot be interpreted as absolute evidence for the presence or absence of malignant disease. Alpha-Fetoprotein values are not interpretable in females for the investigation of malignant disease. Test Performed by: [address] [address] Shoe Cutter: Jose Manuel Castro III, M.D. 48 Males: < 5.0 miu/ml Non females < 5.0 miu/ml Approx gestational age approx HCG range 0-1 week < 5.0-50 1-2 weeks 50-500 2-3 weeks 100-5000 3-4 weeks 500-10,000 1-2 months 10,000-200,000 2-3 months 15,000-100,000 Please note: The intended use of this assay is the quantitative determination of HCG in human serum or plasma for the early detection of . These assays should not be used to diagnose any condition unrelated to . If an HCG level is inconsistent with, or unsupported by, clinical evidence, results should be confirmed by an alternate HCG method. 49 Because ethnic data is not always readily available, this report includes an eGFR for both -Americans and non- Americans. The National Kidney Disease Education Program (NKDEP) does not endorse the use of the MDRD equation for patients that are not between the ages of 18 and 70, are , have extremes of body size, muscle mass, or nutritional status, or are non- or non-. According to the National Kidney Foundation, irrespective of diagnosis, the stage of the disease is based on the level of kidney function: Stage Description GFR(mL/min/1.73 m(2)) 1 Kidney damage with normal or decreased GFR 90 2 Kidney damage with mild decrease in GFR 60-89 3 Moderate decrease in GFR 30-59 4 Severe decrease in GFR 15-29 5 Kidney failure <15 (or dialysis) Procedures Date CPT Code Description Status Comment 04/26/2017 02056 Electrocardiogram Complete Completed 03/23/2017 Diabetic Foot Exam Completed normal to monofilament bilaterally no sores. 07/24/2015 22852 Oximetry, Multiple Completed Determinations (Eg, During Exercise) 07/24/2015 52880 Bronchospasm Evaluation Pre Completed & Post 07/24/2015 82408 Electrocardiogram Complete Completed 07/24/2015 72378 X-Ray Chest Two Views Completed 05/16/2014 31775 Oximetry, Multiple Completed Determinations (Eg, During Exercise) 08/31/2013 23423 Remove Impact Cerumen Completed Requiring Instrument, Unilateral 07/06/2013 13117 Oximetry, Multiple Completed Determinations (Eg, During Exercise) 07/06/2013 54523 Bronchospasm Evaluation Pre Completed & Post 07/04/2013 Colonoscopy Completed 2013:abnormal - 8 polyps benign or hyperplastic - recheck 2023 Document: 07/04/13 - Colonoscopy Document: 07/19/13 - I Gastroenterology/Dr Worthy 05/07/2013 63455 Electrocardiogram Complete Completed 11/15/2012 80267 Oximetry, Single Completed 11/15/2012 22065 X-Ray Chest Two Views Completed 11/01/2012 01323 Oximetry, Single Completed 11/01/2012 83954 X-Ray Chest Two Views Completed Encounters Type Date Location Provider CPT E/M Dx Office Visit 03/23/2017 2:45p Main Office Miguel Moyer D.O. 21030 E11.59 F41.9 J44.9 I73.9 R09.02 F40.01 H92.03 H65.23 Z23 Office Visit 08/02/2016 2:15p Main Office Miguel Moyer D.O. 71916 E11.59 F41.9 F17.210 Office Visit 06/30/2016 2:30p Main Office Miguel Moyer D.O. 33835 E11.59 J44.9 F17.210 F41.9 I73.9 J33.9 Office Visit 06/03/2016 1:30p Main Office Miguel Moyer D.O. 24250 B35.4 J20.9 F41.9 Office Visit 03/31/2016 2:45p Main Office Miguel Moyer D.O. 39753 F41.9 E11.59 Office Visit 01/15/2016 10:45a Main Office Miguel Moyer D.O. 14072 E11.59 F17.210 J44.9 Office Visit 12/30/2015 2:45p Main Office Miguel Moyer D.O. 38547 E11.9 I73.9 Office Visit 11/24/2015 9:30a Main Office Miguel Moyer D.O. 94245 J33.9 Z23 J44.1 Office Visit 09/29/2015 3:00p Main Office Miguel Moyer D.O. 15959 E11.9 H10.13 J33.9 J44.9 F17.210 R07.9 F41.9 F40.01 R09.02 Office Visit 08/18/2015 12:55p Main Office Miguel Moyer D.O. 43376 J33.9 E11.9 J44.9 F17.210 R07.9 F41.9 F40.01 R09.02 H10.89 Z12.2 Office Visit 07/24/2015 1:45p Main Office Nader Lu M.D. 23435 Z01.818 E11.9 J33.8 J44.9 Z71.6 Z23 J32.4 F17.210 Office Visit 06/30/2015 11:30a Main Office Miguel Moyer D.O. 67165 J32.9 J33.9 Office Visit 06/16/2015 9:15a Main Office Miguel Moyer D.O. 61631 E11.9 J32.9 Office Visit 02/14/2015 4:30p Main Office Miguel Moyer D.O. 57069 E11.9 R07.9 F17.200 J44.9 F41.9 R06.00 J32.9 F40.01 J33.9 R09.02 H04.122 Office Visit 11/15/2014 10:00a Main Office Miguel Moyer D.O. 11162 250.00 786.50 305.1 496 300.00 786.09 473.9 300.21 471.9 Office Visit 10/01/2014 3:45p Main Office Miguel Moyer D.O. 86698 786.50 250.00 305.1 496 300.00 786.09 799.02 473.9 300.21 471.9 Office Visit 08/01/2014 2:00p Main Office Miguel Moyer D.O. 78599 250.00 305.1 496 300.00 786.09 799.02 473.9 300.21 471.9 V72.8 Office Visit 07/02/2014 1:45p Main Office Miguel Moyer D.O. 41603 305.1 496 300.00 786.09 799.02 250.00 473.9 Office Visit 05/16/2014 11:00a Main Office Miguel Moyer D.O. 04213 250.00 305.1 496 300.00 786.09 799.02 Office Visit 11/16/2013 4:00p Main Office Miguel Moyer D.O. 64368 305.1 496 786.09 300.00 V04.81 V07.2 250.00 Office Visit 09/17/2013 1:15p Main Office Miguel Moyer D.O. 57658 305.1 496 786.09 300.00 783.21 786.50 300.21 412 Office Visit 08/31/2013 4:45p Main Office Miguel Moyer D.O. 17577 783.21 786.50 300.00 786.09 496 305.1 300.21 461.0 471.9 380.4 Office Visit 07/13/2013 2:45p Main Office Miguel Moyer D.O. 84081 250.00 472.0 300.00 783.21 786.50 Office Visit 07/06/2013 2:15p Main Office Nader Lu M.D. 48117 786.09 496 471.9 305.1 300.21 Office Visit 05/31/2013 11:30a Main Office Miguel Moyer D.O. 32234 305.1 300.00 496 783.21 786.50 Office Visit 05/07/2013 10:15a Main Office Miguel Moyer D.O. 09405 786.50 783.21 473.9 461.0 Office Visit 04/23/2013 1:15p Main Office Miguel Moyer D.O. 29889 250.00 472.0 305.1 300.00 496 461.0 V76.51 V03.82 V07.2 Office Visit 03/21/2013 2:00p Main Office Miguel Moyer D.O. 67206 461.0 496 300.00 305.1 412 250.00 472.0 Office Visit 01/23/2013 1:30p Main Office Miguel Moyer D.O. 74679 300.00 496 305.1 412 250.00 Office Visit 12/14/2012 2:30p Main Office Miguel Moyer D.O. 89302 496 472.0 305.1 Office Visit 11/22/2012 1:15p Main Office Miguel Moyer D.O. 16005 496 305.1 V04.81 V06.1 V07.2 236.4 Office Visit 11/15/2012 2:00p Main Office Miguel Moyer D.O. 78913 786.2 608.89 784.0 V76.51 786.7 Office Visit 11/01/2012 2:00p Main Office Miguel Moyer D.O. 48158 V15.06 608.89 786.2 786.07 Plan of Care Future Appointment(s):07/25/2017 2:15 pm - Miguel Moyer D.O. at Main [id number]/26/2017 - Miguel Moyer D.O.R00.0 Tachycardia, unspecifiedFollow up: Sending by ambulance to [facility]
[2017-04-26 18:25] LABS: ABS Basophils 0 10^3/ul (0-0.2); ABS Eosinophils 0 10^3/ul (0-0.6); ABS Lymphocytes 1.1 10^3/ul (1.0-4.8); ABS Monocytes 1.1 10^3/ul (0-0.8); ABS Neutrophils 14.3 10^3/ul (1.5-7.7); ABS Nucleated RBC 0 10^3/ul; Eosinophil % 0.1 % (0-6); Hematocrit 39 % (42-52); Hemoglobin 13.1 g/dl (14.0-18.0); Lymphocyte % 6.6 % (25-47); Mean Corpuscular HGB Conc 34 g/dl (31-36); Mean Corpuscular Hemoglobin 33 pg (27-31); Mean Corpuscular Volume 97 fL (80-94); Mean Platelet Volume 8 um3 (7.4-10.4); Nucleated Red Blood Cells % 0; Platelet Count 361 10^3/ul (150-450); Red Cell Distribution Width 15 % (10.5-15); White Blood Count 16.5 10^3/ul (3.5-10.8)
[2017-04-26 18:35] LABS: EGFR Non-African American 73.1 (>60)
--- NOTE | 2017-04-26 18:42 | RAD ---
INDICATION: Chest pain tachycardia COMPARISON: Chest x-ray January 05, 2016 TECHNIQUE: Single AP portable view of the chest was obtained. FINDINGS: Image quality is compromised due to the relative inferiority of a portable chest x-ray. There is a mild degree of cardiomegaly, new since the previous chest x-ray. There is density of securing the right lung base. The left lung is adequately aerated. Visualized bones are normal for the patient's age. IMPRESSION: Depending on the clinical presentation the density of securing the right lung base could represent pneumonia or pulmonary edema with or without effusion.
[2017-04-26] MEDS ORDERED: Diltiazem DRIP* 100 MG/100 ML ADDV.BAG IVPB SCH (19:00)
[2017-04-26] MEDS ORDERED: Azithromycin IV(*) 500 MG in NS 0.9% 250 ML* 250 ML IVPB ONE (19:58)
[2017-04-26] MEDS ORDERED: cefTRIAXone(*) 2 GM in NS 0.9% 100 ML* 100 ML IVPB ONE (19:58)
[2017-04-26] MEDS ORDERED: methylPREDNISolone 125 MG* 2 ML VIAL IV ONE (19:58)
[2017-04-26] MEDS ORDERED: Acetaminophen TAB* 325 MG PO PRN (20:00)
[2017-04-26] MEDS ORDERED: Al Hydrox/Mg Hydrox/Simet LIQ* 30 ML UDC PO PRN (20:00)
[2017-04-26] MEDS ORDERED: Albuterol/Ipratropium NEB.SOL* Albuterol 2.5 MG/Ipratropium 0.5 MG 3 ML INH ONE (20:00)
[2017-04-26] MEDS ORDERED: Morphine INJ* 2 MG/ML 1 ML CARPUJECT IV PRN (20:00)
[2017-04-26] MEDS ORDERED: Diltiazem IV VIAL* 125 MG in NS 0.9% 100 ML* 100 ML IV SCH (20:00)
[2017-04-26] MEDS ORDERED: oxyCODONE/Acetamin 5/325 MG* TAB PO PRN (20:00)
[2017-04-26] MEDS ORDERED: Ondansetron INJ* 2 MG/ML VIAL IV PRN (20:00)
[2017-04-26] MEDS ORDERED: Albuterol 2.5 MG/3 ML NEB.SOL* (0.083%) INH PRN (20:04)
[2017-04-26] MEDS ORDERED: Albuterol/Ipratropium NEB.SOL* Albuterol 2.5 MG/Ipratropium 0.5 MG 3 ML INH PRN (20:04)
[2017-04-26] MEDS ORDERED: Thiamine IV* 100 MG/ML 2 ML VIAL IM ONE (20:20)
[2017-04-26] MEDS ORDERED: Iohexol 350* (CONTRAST) 500 ML MDV IV ONE (20:55)
[2017-04-26] MEDS ORDERED: LORazepam TAB(*) 1 MG PO SCH (21:00)
--- NOTE | 2017-04-26 21:46 | RAD ---
INDICATION: Chest pain COMPARISON: CT of the chest August 22, 2015 TECHNIQUE: Axial source images were acquired following the administration of 62 mL Omnipaque [address] angiographic technique. Coronal and sagittal reconstructed images were constructed and reviewed. FINDINGS: There there are no filling defects in the pulmonary arteries to indicate acute pulmonary embolic disease. Corresponding to the same day chest x-ray there is multifocal consolidation occupying most of the right lower lobe. There is a small right pleural effusion. The left lung is grossly clear. The heart is normal in size. There is no evidence of pericardial effusion. There is no evidence of aortic aneurysm or dissection. There is no mediastinal, hilar, or axillary lymphadenopathy. The visualized osseous structures appear normal. Partially visualized in the right lobe of the liver is a low-attenuation lesion measuring 4.9 x 7 cm, previously 5.7 x 8.1 cm on the August 22, 2015 CT examination. IMPRESSION: 1. No CT of evidence of pulmonary embolism. 2. Right lower lobe pneumonia with small pleural effusion corresponding to same day chest x-ray images.
[2017-04-26] MEDS: Diltiazem IV VIAL* 125 MG in NS 0.9% 100 ML* 100 ML IV SCH (22:08)
[2017-04-26] MEDS: Metoprolol Tartrate TAB* 25 MG PO SCH (22:27)
[2017-04-26] MEDS: Senna TAB PO SCH (22:27)
[2017-04-26] MEDS: Montelukast Sodium TAB* 10 MG PO SCH (22:27)
[2017-04-26] MEDS: Docusate CAP* 100 MG PO SCH (22:27)
[2017-04-26] MEDS: Atorvastatin* 20 MG TAB PO SCH (22:27)
--- NOTE | 2017-04-26 22:42 | HP ---
CC: Dr. Moyer * HISTORY AND PHYSICAL: DATE OF ADMISSION: 04/26/17 TIME OF EVALUATION: 1899. PRIMARY CARE PHYSICIAN: Dr. Moyer. CHIEF COMPLAINT: Shortness of breath. HISTORY OF PRESENT ILLNESS: This is a 66-year-old male with a past medical history of COPD, on 2 L and still smoking, who presented to the emergency room via EMS from his primary care physician's office. The patient and the are at the bedside, provided the history. The patient is chronically short of breath; however, he has gotten worse over the past 3 weeks with productive cough , short of breath. He has been not able to do his very strong robust productive cough over the past few weeks because it is too painful in his chest , so he has been trying to stifle his cough and it has been difficult for him to eat or drink and he even quit smoking 2 weeks ago. He went in to finally see his primary care physician regarding his symptoms. He was found to be in rapid atrial fibrillation and he was brought to the ED via EMS. The patient does not follow a extractor operator. They recently changed his inhalers around because they changed insurance and his insurance would not cover it. He has lost a couple of pounds. He has had no appetite. No lower extremity swelling. No nausea, vomiting, diarrhea. He has had issues with constipation. Denies any urinary issues. He states the last time he needed prednisone was back in the spring. He states he does not like the feeling when he gets prednisone. He states he is still very short of breath and a significant amount of pleuritic pain when coughing. Otherwise, review of systems is negative. In the emergency room, the patient had labs, imaging. He was started on a diltiazem drip and referred to the hospitalist service for further evaluation. PAST MEDICAL HISTORY: 1. Coronary artery disease. 2. COPD/emphysema, on 2 L of oxygen continuously. 3. History of Takotsubo in 2013. 4. Hyperlipidemia. 5. GERD. 6. History of atrial fibrillation, requiring cardioversion several years ago per . MEDICATIONS: 1. Azelastine nasal spray b.i.d. 2. Aspirin 81 mg p.o. daily. 3. Famotidine 40 mg p.o. daily as needed. 4. Artificial tear drops as needed. 5. Atorvastatin 20 mg p.o. daily. 6. Metoprolol tartrate 25 mg p.o. b.i.d. 7. Montelukast 10 mg p.o. daily. 8. Symbicort 160-4.5 inhaled b.i.d. 9. Tudorza Pressair inhaled, he is having challenges getting this with his insurance. ALLERGIES: BEE STING and LATEX. FAMILY HISTORY: Mother from old age. Father at age 72 from Alzheimer's. SOCIAL HISTORY: The patient lives at home with his , Samantha, who is his healthcare proxy. He is a significant heavy smoker, he has cut down, but has been smoking for over 50 years. He has not been able to smoke over the past 1 to 2 weeks. He also recently started drinking again about 6 months ago. The states that when he is well, he drinks about 6 beers a night. Code status is full code. REVIEW OF SYSTEMS: A 14-point review of systems as mentioned in the HPI, otherwise negative. PHYSICAL EXAMINATION GENERAL: Some [id number] discomfort with his at the bedside. VITAL SIGNS: Temp 98.8, pulse rate 110, respiratory rate 18, oxygen saturation 100% on 2 L, blood pressure 122/63. HEENT: Head normocephalic. Pupils equal and reactive. Anicteric. Oropharynx , mucous membranes dry. NECK: Supple. No lymphadenopathy. RESPIRATORY: Poor aeration. Increased work of breathing. Faint rhonchi bilaterally. CARDIAC: Rapid, irregularly irregular rate and rhythm. Soft systolic murmur heard throughout. ABDOMEN: Soft, nontender, nondistended. EXTREMITIES: No clubbing, cyanosis, or edema. +1 DPs. NEUROLOGIC: Alert and oriented x3. No focal neurologic deficits. DIAGNOSTIC STUDIES/LAB DATA: White count 16.5, hemoglobin 13.1, hematocrit 39 , platelets 361,000. Sodium 122, potassium 3.8, chloride 83, bicarb 27, BUN 32 , creatinine 1.02, glucose 187, lactic acid 3.4. Troponin 0.04. BNP 1041. Radiographic data: Chest x-ray shows depending on clinical presentation, the density obscuring the right lung base could represent pneumonia or pulmonary edema with or without effusion. EKG shows atrial flutter with a 4:1 block. ASSESSMENT: This is a 66-year-old male with a past medical history of chronic obstructive pulmonary disease, on 2 L of oxygen, history of paroxysmal atrial fibrillation, who presented to the emergency room with progressive worsening shortness of breath, sent from his primary care office via EMS. Shortness of breath. Assessment: I suspect this likely started the viral illness triggering a chronic obstructive pulmonary disease exacerbation. The patient has been splinting with pleuritic pain contributing to pneumonia in his right lung driving his rapid atrial fibrillation. Chest x-ray does show a significant opacity in the right lung, so there could be other etiologies behind this as well. Plan: We will admit him to the ICU. Continue the diltiazem drip, we will go up on it to 10. Continue his metoprolol. We will start him on anticoagulation in case he does need cardioversion, but if we could treat his underlying chronic obstructive pulmonary disease, it may cover it out. We will gently hydrate him with his elevated BNP and concern for pulmonary edema and we would like to be careful with his IV fluid intake. We will start him on broad-spectrum antibiotics starting with azithromycin and ceftriaxone. Sputum culture. We will give him Solu-Medrol here and start him on prednisone. We will resume his inhaler regimen in addition to DuoNebs and albuterol as needed. I will get a CTA to further identify the effusion and possible mass in the right lung and rule out any underlying pulmonary embolism if he has been sedentary for the past few weeks. We will also check an echocardiogram and trend his troponins. Put him on a baby aspirin. We will get sputum cultures, Legionella pneumococcal antigen. CHRONIC MEDICAL PROBLEMS: 1. Chronic obstructive pulmonary disease. Management as above. I recommend that he gets established with a extractor operator. 2. Coronary artery disease. He has an elevated troponin. I suspect this is demand ischemia in the setting of his infection, but we will get an echo and trend his troponin. 3. Alcohol use. It appears that he has recently increased his alcohol intake over the past 6 months. We will put him on the [facility] protocol for now. 4. Gastroesophageal reflux disease. Place him on omeprazole. 5. Hyperlipidemia. Continue his atorvastatin. 6. FEN. Place him on a heart healthy diet. 7. DVT prophylaxis. The patient scores moderate risk. He will be on Eliquis. 8. Code status: Full code. I think this needs to be readdressed as he was not entirely sure and this conversation has never been brought up before with him. TIME SPENT: Greater than 60 minutes was spent doing the history and physical and critical care time, the patient is going to the ICU, more than half time spent in direct patient contact. [id number]/CPS #: [id number] STEFAN
[2017-04-26] MEDS: Apixaban* 5 MG TAB PO SCH (22:58)
[2017-04-26] MEDS: Mometasone/Formoter 200/5 MDI INH SCH (22:59)
[2017-04-26] MEDS: Aclidinium POWDER MDI(NF) INH SCH (23:11)
[2017-04-27 01:06] LABS: Urine Appearance Clear; Urine Blood Negative (Negative); Urine Color Yellow; Urine Ketones Negative (Negative); Urine Protein Negative (Negative); Urine Specific Gravity 1.039 (1.010-1.030); Urine Urobilinogen Negative (Negative)
[2017-04-27] MEDS: Omeprazole CAP* 20 MG PO SCH (05:53)
[2017-04-27 06:15] LABS: Hematocrit 34 % (42-52); Hemoglobin 11.7 g/dl (14.0-18.0); Mean Corpuscular HGB Conc 34 g/dl (31-36); Mean Corpuscular Hemoglobin 33 pg (27-31); Mean Corpuscular Volume 97 fL (80-94); Mean Platelet Volume 8 um3 (7.4-10.4); Platelet Count 325 10^3/ul (150-450); Red Blood Count 3.55 10^6/ul (4.0-5.4); Red Cell Distribution Width 14 % (10.5-15); White Blood Count 14.1 10^3/ul (3.5-10.8)
[2017-04-27 06:25] LABS: EGFR Non-African American 87.8 (>60)
[2017-04-27 06:37] LABS: ABS Basophils 0 10^3/ul (0-0.2); ABS Eosinophils 0 10^3/ul (0-0.6); ABS Lymphocytes 0.8 10^3/ul (1.0-4.8); ABS Monocytes 0.6 10^3/ul (0-0.8); ABS Neutrophils 12.7 10^3/ul (1.5-7.7); ABS Nucleated RBC 0 10^3/ul; Eosinophil % 0.1 % (0-6); Lymphocyte % 5.4 % (25-47); Nucleated Red Blood Cells % 0
--- NOTE | 2017-04-27 08:53 | ECHO ---
Patient: COLLEEN BRUNER [facility] Rec#: [id number] : 1950 Date: 04/27/2017 Age: 66y Height: 167.64 cm / 66.0 in Weight: 65.77 kg / 145.0 lbs Sex: M BSA: 1.74 Room#: [facility] Admit Date#: 04/26/2017 Type: Inpatient Referring: Abigail Wood Reading: Libia Guo MD Ob Gyn Physician Assistant: Aubree Harding RDCS CC: João COLLINS,Miguel Transthoracic Echocardiogram Indication: Chest pain BP: 97/69 HR: 50 Rhythm: A-Flutter Findings History: CAD, COPD/emphysema, Takotsubo 2014, HLD, GERD, A-fib. Technical Comments: The study quality is fair. The study is technically limited due to poor parasternal windows. Completed at 0820. Left Ventricle: The left ventricular chamber size is moderately dilated. There is global hypokinesis of the left ventricle with minor regional variation.The apex extending to the anterior wall and septum contract, all other areas severely hypokinetic to akietic. There is severely decreased left ventricular systolic function. The estimated ejection fraction is less than 20%. The assessment of diastolic function is non-diagnostic.Shortned E deceleration time suggestive of restrictive diasotlic filling pattern (patient in atrial flutter). Left Atrium: The left atrium is mildly dilated. Right Ventricle: Moderator Band present. The right ventricular cavity size is normal. The right ventricular global systolic function is mildly to moderately reduced. Right Atrium: The right atrial cavity size is normal. Aortic Valve: The aortic valve is trileaflet. The aortic valve leaflets are mildly thickened. There is no evidence of aortic regurgitation. There is no evidence of aortic stenosis. Mitral Valve: The mitral valve leaflets are mildly thickened. There is mild to moderate mitral regurgitation. There is no evidence of mitral stenosis. Tricuspid Valve: The tricuspid valve leaflets are normal. There is moderate tricuspid regurgitation. The right ventricular systolic pressure is estimated at 39 mmHg. There is evidence of mild pulmonary hypertension. There is no tricuspid stenosis. Pulmonic Valve: The pulmonic valve appears normal. There is a trace pulmonic regurgitation. There is no pulmonic stenosis. Pericardium: There is no significant pericardial effusion. Aorta: There is no dilatation of the ascending aorta. There is no dilatation of the aortic arch. The aortic root is normal in size. Pulmonary Artery: The main pulmonary artery is not well visualized. Venous: The inferior vena cava is dilated. There is a greater than 50% respiratory change in the inferior vena cava dimension. Conclusions The left ventricular is moderately dilated. There is severely decreased left ventricular systolic function. The apex extending to the apical anterior wall and septum contract, all other areas severely hypokinetic to akietic. The estimated ejection fraction is less than 20%. Shortned E deceleration time suggestive of restrictive diasotlic filling pattern (patient in atrial flutter). The right ventricular global systolic function is mildly to moderately reduced. Aortic valve sclerosis with normal function. There is mild to moderate mitral regurgitation. There is moderate tricuspid regurgitation. There is evidence of mild pulmonary hypertension: 39 mmHg. No prior echo to compare. Measurements Name Value Normal Range RVIDd (AP) 2D 3.3 cm (0.9 - 2.6) RVDdMajor (2D) 3.1 cm (2.2 - 4.4) RAd ISD 4CH 4.9 cm (3.4 - 4.9) RA (A4C)W 3.8 cm (2.9 - 4.6) IVSd (2D) 0.4 cm (0.6 - 1) LVPWd (2D) 0.7 cm (0.6 - 1) LVIDd (2D) 5.9 cm (3.6 - 5.4) LVIDs (2D) 5.4 cm - LV FS (2D) 8 % (25 - 45) Aortic Annulus 2 cm (1.4 - 2.6) Ao root diameter (2D) 3.4 cm (2.1 - 3.5) Ascending Ao 3.3 cm (2.1 - 3.4) Aortic arch 2.9 cm (1.8 - 3.4) LA dimension (AP) 2D 4.1 cm (2.3 - 3.8) LAd ISD 4CH 5.1 cm (2.9 - 5.3) LA ISD 4CH W 4.4 cm (2.5 - 4.5) Name Value Normal Range LA ESV SP 4CH (A/L) 41 ml - LA ESV SP 2CH (A/L) 61 ml - LA ESV BP (A/L) 54 ml - LA ESV BP (A/L) index 31 ml/m2 - LA ESV SP 4CH (MOD) 40 ml - LA ESV SP 2CH (MOD) 59 ml - Name Value Normal Range MV E-wave Vmax 1.21 m/sec - MV deceleration time 134.5 msec - MV E:A ratio 142.3 ratio - LV septal e' Vmax 0.07 m/sec - LV lateral e' Vmax 0.09 m/sec - LV E:e' septal ratio 17.14 ratio - LV E:e' lateral ratio 13.3 ratio - Name Value Normal Range AV Vmax 1 m/sec - AV VTI 17.6 cm - AV peak gradient 3.64 mmHg - AV mean gradient 2.25 mmHg - LVOT Vmax 0.87 m/sec - LVOT VTI 14.33 cm - LVOT peak gradient 3.19 mmHg - LVOT mean gradient 1.37 mmHg - JESSICA Vmax 0.41 m/sec - Name Value Normal Range MR Vmax 4.14 m/sec - MR VTI 136.3 cm - MR flow (PISA) 27 ml/sec - MR ERO 0.06 cm2 - MR PISA radius 0.3 cm - MR alias Vmax 37.1 cm/sec - Name Value Normal Range TR Vmax 2.8 m/sec - TR peak gradient 31 mmHg - RAP 8 mmHg - RVSP 39 mmHg - IVC diameter 2.2 cm - Name Value Normal Range PV Vmax 0.69 m/sec - PV peak gradient 1.93 mmHg -
[2017-04-27] MEDS: Mometasone/Formoter 200/5 MDI INH SCH ×2 (09:13→20:25)
[2017-04-27] MEDS: Aclidinium POWDER MDI(NF) INH SCH ×2 (09:26→20:27)
[2017-04-27] MEDS ORDERED: NS 0.9% 100 ML* 100 ML ONE (09:50)
[2017-04-27] MEDS: Docusate CAP* 100 MG PO SCH ×2 (09:57→21:12)
[2017-04-27] MEDS: Metoprolol Tartrate TAB* 25 MG PO SCH ×2 (09:57→21:11)
[2017-04-27] MEDS: Thiamine TAB* 100 MG TAB PO SCH (09:57)
[2017-04-27] MEDS: Multivitamins/Minerals TAB PO SCH (09:57)
[2017-04-27] MEDS: Folic Acid TAB* 1 MG PO SCH (09:57)
[2017-04-27] MEDS: predniSONE TAB* 20 MG PO SCH (09:58)
[2017-04-27] MEDS: Aspirin EC Low Dose* 81 MG TAB.EC PO SCH (09:58)
[2017-04-27] MEDS: Apixaban* 5 MG TAB PO SCH ×2 (09:59→21:12)
[2017-04-27] MEDS: Senna TAB PO SCH ×2 (10:00→21:11)
[2017-04-27] MEDS: Diltiazem IV VIAL* 125 MG in NS 0.9% 100 ML* 100 ML IV SCH ×2 (15:00)
[2017-04-27 17:44] LABS: EGFR Non-African American 90.2 (>60)
--- NOTE | 2017-04-27 18:30 | ED ---
Guille Fuentes Angela, scribed for Brady Peguero MD on 04/26/17 at 1736 . Palpitations / Dysrhythmia - HPI Summary HPI Summary: This pt is a 66 y/o male presenting to [facility] c/o intermittent SOB x3 weeks. Pt was at his PCP's office today (Dr. Moyer) when he began to feel SOB and was noticed to be tachycardic. Pt reports his SOB is mostly when he is on exertion. He also complains of right sided chest pain secondary to cough. Pt additionally notes runny nose. He denies fever, sore throat. - History of Current Complaint Time Seen by Provider: 04/26/17 17:28 Hx Obtained From: Patient Onset/Duration: Sudden Onset, Lasting Hours, Still Present Timing: Constant Character: Fast Aggravating: Nothing Alleviating: Nothing Associated Signs & Symptoms: Chest Pain, Shortness of Breath - Allergy/Home Medications Allergies/Adverse Reactions: Allergies Allergy/AdvReac Type Severity Reaction Status Date / Time BEE STINGS Allergy TONGUE Uncoded 01/05/16 14:37 SWELLS, TIGHT THROAT, SITE SWELLS LATEX/ADHESIVE TAPE Allergy REDNESS Uncoded 01/05/16 14:37 SENSITIVITY WITH PROLONG USE Home Medications: Home Medications Albuterol HFA INHALER* [Ventolin HFA Inhaler*] 2 puff INH Q4H PRN 04/26/17 [ History Confirmed 04/26/17] Atorvastatin* [Lipitor*] 20 mg PO DAILY 04/26/17 [History Confirmed 04/26/17] Famotidine TAB* [Pepcid 20 MG TAB*] 40 mg PO BID 04/26/17 [History Confirmed ] Metoprolol Tartrate TAB* [Lopressor TAB*] 25 mg PO BID 04/26/17 [History Confirmed 04/26/17] Montelukast Sodium TAB* [Singulair TAB*] 10 mg PO DAILY 04/26/17 [History Confirmed 04/26/17] Venlafaxine HCl [Venlafaxine HCl ER] 75 mg PO DAILY 04/26/17 [History Confirmed 04/26/17] PMH/Surg Hx/FS Hx/Imm Hx Endocrine/Hematology History: Reports: Hx Diabetes - PRE-DIABETIC, Hx Anemia Cardiovascular History: Reports: Hx Coronary Artery Disease, Hx Hypercholesterolemia - HLD, Other Cardiovascular Problems/Disorders - 05/2013 CHEST PAIN, BUT MAY HAVE BEEN PANIC ATTACK Denies: Hx Pacemaker/ICD Respiratory History: Reports: Hx Chronic Obstructive Pulmonary Disease (COPD), Hx Sleep Apnea - TESTED BY NO DIAGNOSIS, Other Respiratory Problems/Disorders - COPD O2 2L AT NIGHT GI History: Reports: Other GI Disorders - growth/cyst left groin per pt History: Reports: Hx Kidney Infection - HX OF A YOUNG ADULT Musculoskeletal History: Reports: Hx Arthritis - HANDS Sensory History: Reports: Hx Contacts or Glasses - GLASSES Denies: Hx Hearing Aid Opthamlomology History: Reports: Hx Contacts or Glasses - GLASSES Neurological History: Reports: Hx Migraine - "tension headache", Other Neuro Impairments/Disorders - OCC PANIC ATTACKS Psychiatric History: Reports: Hx Anxiety Denies: Hx Panic Disorder - Surgical History Surgery Procedure, Year, and Place: NASAL POLUPS AND COLON POLOPS REMOVED Hx Anesthesia Reactions: No Infectious Disease History: Denies: History Other Infectious Disease - Family History Known Family History: Positive: Cardiac Disease - Social History Alcohol Use: Occasionally Substance Use Type: Reports: None Smoking Status (MU): Current Every Day Smoker Type: Cigarettes Amount Used/How Often: 1/2PPD Length of Time of Smoking/Using Tobacco: 40YRS Have You Smoked in the Last Year: Yes Review of Systems Negative: Fever Positive: Nasal Discharge. Negative: Sore Throat Positive: Chest Pain - secondary to cough Positive: Shortness Of Breath, Cough Neurological: Negative All Other Systems Reviewed And Are Negative: Yes Physical Exam - Summary Physical Exam Summary: VITAL SIGNS: Reviewed. GENERAL: Patient is a well-developed and nourished male who is lying comfortable in the stretcher. Patient is not in any acute respiratory distress. HEAD AND FACE: No signs of trauma. No ecchymosis, hematomas or skull depressions. No sinus tenderness. EYES: PERRLA, EOMI x 2, No injected conjunctiva, no nystagmus. EARS: Hearing grossly intact. Ear canals and tympanic membranes are within normal limits. MOUTH: Oropharynx within normal limits. NECK: Supple, trachea is midline, no adenopathy, no JVD, no carotid bruit, no c- spine tenderness, neck with full ROM. CHEST: Symmetric, no tenderness at palpation LUNGS: Clear to auscultation bilaterally. No wheezing or crackles. CVS: Sinus tachycardia at 149 bpm S1 and S2 present, no murmurs or gallops appreciated. ABDOMEN: Soft, non-tender. No signs of distention. No rebound no guarding, and no masses palpated. Bowel sounds are normal. EXTREMITIES: FROM in all major joints, no edema, no cyanosis or clubbing. NEURO: Alert and oriented x 3. No acute neurological deficits. Speech is normal and follows commands. SKIN: Dry and warm Triage Information Reviewed: Yes Vital Signs On Initial Exam: Initial Vitals Temp Pulse Resp BP Pulse Ox 98.8 F 147 20 112/66 100 04/26/17 17:30 04/26/17 17:30 04/26/17 17:30 04/26/17 17:30 04/26/17 17:30 Vital Signs Reviewed: Yes Diagnostics - Vital Signs Vital Signs Temp Pulse Resp BP Pulse Ox 04/26/17 19:00 57 18 100 04/26/17 18:45 76 18 122/63 100 04/26/17 18:42 44 20 108/84 96 04/26/17 18:39 115 16 104/73 100 04/26/17 18:36 113 22 105/75 100 04/26/17 18:33 118 20 125/80 99 04/26/17 18:30 107 21 113/62 100 04/26/17 18:27 67 18 111/67 100 04/26/17 18:24 65 18 115/78 100 04/26/17 18:21 52 18 109/60 100 04/26/17 18:18 66 20 104/70 99 04/26/17 18:15 50 19 110/79 100 04/26/17 18:12 62 20 106/74 100 04/26/17 18:09 122 20 95/66 99 04/26/17 18:06 85 17 112/64 100 04/26/17 18:03 95 19 118/85 100 04/26/17 18:00 56 21 102/76 100 04/26/17 17:57 49 20 110/63 98 04/26/17 17:54 60 20 116/85 99 04/26/17 17:51 94 19 112/68 98 04/26/17 17:31 146 22 100 04/26/17 17:30 98.8 F 147 20 112/66 100 - Laboratory Lab Results: Lab Results 04/26/17 04/26/17 04/26/17 Range/Units 17:55 17:55 17:55 WBC 16.5 H (3.5-10.8) 10^3/ul RBC 4.00 (4.0-5.4) 10^6/ul Hgb 13.1 L (14.0-18.0) g/dl Hct 39 L (42-52) % MCV 97 H (80-94) fL MCH 33 H (27-31) pg MCHC 34 (31-36) g/dl RDW 15 (10.5-15) % Plt Count 361 (150-450) 10^3/ul MPV 8 (7.4-10.4) um3 Neut % (Auto) 86.5 H (38-83) % Lymph % (Auto) 6.6 L (25-47) % [place] % (Auto) 6.7 (1-9) % Eos % (Auto) 0.1 (0-6) % Baso % (Auto) 0.1 (0-2) % Absolute Neuts (auto) 14.3 H (1.5-7.7) 10^3/ul Absolute Lymphs (auto) 1.1 (1.0-4.8) 10^3/ul Absolute Monos (auto) 1.1 H (0-0.8) 10^3/ul Absolute Eos (auto) 0 (0-0.6) 10^3/ul Absolute Basos (auto) 0 (0-0.2) 10^3/ul Absolute Nucleated RBC 0 10^3/ul Nucleated RBC % 0 APTT 37.1 H (26.0-36.3) seconds Sodium (133-145) mmol/L Potassium (3.5-5.0) mmol/L Chloride (101-111) mmol/L Carbon Dioxide (22-32) mmol/L Anion Gap (2-11) mmol/L BUN (6-24) mg/dL Creatinine (0.67-1.17) mg/dL Est GFR ( Amer) (>60) Est GFR (Non-Af Amer) (>60) BUN/Creatinine Ratio (8-20) Glucose (70-100) mg/dL Lactic Acid (0.5-2.0) mmol/L Calcium (8.6-10.3) mg/dL Magnesium (1.9-2.7) mg/dL Total Bilirubin (0.2-1.0) mg/dL AST (13-39) U/L ALT (7-52) U/L Alkaline Phosphatase (34-104) U/L Total Creatine Kinase (10-223) U/L CK-MB (CK-2) (0.6-6.3) ng/mL Troponin I (<0.04) ng/mL B-Natriuretic Peptide 1041 H ( - 100) pg/mL Total Protein (6.4-8.9) g/dL Albumin (3.2-5.2) g/dL Globulin (2-4) g/dL Albumin/Globulin Ratio (1-3) TSH (0.34-5.60) mcIU/mL 04/26/17 04/26/17 Range/Units 17:55 17:55 WBC (3.5-10.8) 10^3/ul RBC (4.0-5.4) 10^6/ul Hgb (14.0-18.0) g/dl Hct (42-52) % MCV (80-94) fL MCH (27-31) pg MCHC (31-36) g/dl RDW (10.5-15) % Plt Count (150-450) 10^3/ul MPV (7.4-10.4) um3 Neut % (Auto) (38-83) % Lymph % (Auto) (25-47) % [place] % (Auto) (1-9) % Eos % (Auto) (0-6) % Baso % (Auto) (0-2) % Absolute Neuts (auto) (1.5-7.7) 10^3/ul Absolute Lymphs (auto) (1.0-4.8) 10^3/ul Absolute Monos (auto) (0-0.8) 10^3/ul Absolute Eos (auto) (0-0.6) 10^3/ul Absolute Basos (auto) (0-0.2) 10^3/ul Absolute Nucleated RBC 10^3/ul Nucleated RBC % APTT (26.0-36.3) seconds Sodium 122 L (133-145) mmol/L Potassium 3.8 (3.5-5.0) mmol/L Chloride 83 L (101-111) mmol/L Carbon Dioxide 27 (22-32) mmol/L Anion Gap 12 H (2-11) mmol/L BUN 32 H (6-24) mg/dL Creatinine 1.02 (0.67-1.17) mg/dL Est GFR ( Amer) 94.0 (>60) Est GFR (Non-Af Amer) 73.1 (>60) BUN/Creatinine Ratio 31.4 H (8-20) Glucose 187 H (70-100) mg/dL Lactic Acid 3.4 H* (0.5-2.0) mmol/L Calcium 8.7 (8.6-10.3) mg/dL Magnesium 2.9 H (1.9-2.7) mg/dL Total Bilirubin 1.00 (0.2-1.0) mg/dL AST 49 H (13-39) U/L ALT 32 (7-52) U/L Alkaline Phosphatase 77 (34-104) U/L Total Creatine Kinase 24 (10-223) U/L CK-MB (CK-2) 4.8 (0.6-6.3) ng/mL Troponin I 0.04 H* (<0.04) ng/mL B-Natriuretic Peptide ( - 100) pg/mL Total Protein 7.1 (6.4-8.9) g/dL Albumin 3.1 L (3.2-5.2) g/dL Globulin 4.0 (2-4) g/dL Albumin/Globulin Ratio 0.8 L (1-3) TSH 0.81 (0.34-5.60) mcIU/mL Result Diagrams: 04/27/17 05:45 04/27/17 16:58 Lab Statement: Any lab studies that have been ordered have been reviewed, and results considered in the medical decision making process. - Radiology Chest XR Xray Interpretation: Positive (See Comments) - IMPRESSION: Depending on the clinical presentation the density of securing the right lung base could represent pneumonia or pulmonary edema with or without effusion. Dr. Peguero has reviewed this radiology report. Radiology Interpretation Completed By: Radiologist - EKG 17:30 Cardiac Rate: Tachycardia EKG Interpretation: Junctional tachycardia at 148 bpm. I believe the pt has atrial flutter. 17:51 Cardiac Rate: NL EKG Rhythm: Atrial Flutter - at 74 bpm EKG Interpretation: After the pt was given 20 mg of Cardizem. No ST elevation. Course/Dx - Course Assessment/Plan: This pt is a 66 y/o male presenting to [facility] c/o intermittent SOB x3 weeks. Pt was at his PCP's office today (Dr. Moyer) when he began to feel SOB and was noticed to be tachycardic. Pt reports his SOB is mostly when he is on exertion. He also complains of right sided chest pain secondary to cough. Pt additionally notes runny nose. He denies fever, sore throat. Test results without any significant abnormalities except WBC of 16.5, slight anemia , sodium of 122, Bun of 32, probably secondary to dehydration, glucose of 187, lactic acid of 3.4, troponin of 0.04 , BNP of 1041. Chest XR: Depending on the clinical presentation the density of securing the right lung base could represent pneumonia or pulmonary edema with or without effusion. At arrival to the ED the pt was placed on phototypesetting equipment monitor and I obtained 2 IV access, and heart rate was 148 bpm. In the ED course the pt was given 20 mg of Cardizem since he was in atrial flutter with RVR. Pt was placed on a Cardizem drip. Right now the pt is fluctuating between 79-100 bpm. However, because of an increased troponin, hyponatremia, and CHF, I discussed the pts case with Dr. Simon, hospitalist, who accepted the pt for admission. Pt is hemodynamically stable, alert and oriented x3. - Diagnoses Provider Diagnoses: Atrial flutter with rapid ventricular response, CHF exacerbation, Elevated troponin, rule out NSTEMI - Physician Notifications Discussed Care Of Patient With: Yojana Simon Time Discussed With Above Provider: 18:48 Instructed by Provider To: Other - I discussed pt care with Dr. Simon, hospitalist, who has agreed to admit the pt. - Critical Care Time Critical Care Time: 75-104 min Discharge - Discharge Plan Condition: Stable Disposition: ADMITTED TO [facility] documentation as recorded by the Guille soriano Angela accurately reflects the service I personally performed and the decisions made by sc, Brady Peguero MD.
--- NOTE | 2017-04-27 18:57 | PN ---
Subjective Date of Service: 04/27/17 Interval History: On dilt gtt (currently 5) for Afib RVR. BP low of 51/41 recorded overnight. Pt denies chest pain. 3 weeks of SOB. Drinks a lot, especially recently over the holidays. Very poor historian. Followed with Dr. Goodwin ([place]) cardiology but not recently. Can't remember last ECHO. Strep Pna Urine Antigen. / Bcx with GPC. Na fell to 120 from 122. Repeat 121. ECHO with EF less than 20% . likely diastolic dysfunction. Cardiology consulted. Objective Active Medications: Acetaminophen (Tylenol Tab*) 650 mg PO Q4H PRN PRN Reason: FEVER/PAIN Aclidinium [place] (Kenji Peng Mdi(Nf)) 1 puff INH BID [facility] Last Admin: 04/27/17 09:26 Dose: Not Given Al Hydrox/Mg Hydrox/Simethicone (Maalox Plus*) 30 ml PO Q6H PRN PRN Reason: INDIGESTION Albuterol (Ventolin 2.5 Mg/3 Ml Neb.Ana*) 2.5 mg INH Q2H PRN PRN Reason: SOB/WHEEZING Albuterol/Ipratropium (Duoneb (Albuterol 2.5 Mg/Ipratropium 0.5 Mg)) 1 neb INH Q4H PRN PRN Reason: SOB/WHEEZING Apixaban (Eliquis*) 5 mg PO BID [facility] Last Admin: 04/27/17 09:59 Dose: 5 mg Aspirin (Aspirin Ec Low Dose*) 81 mg PO DAILY [facility] Last Admin: 04/27/17 09:58 Dose: 81 mg Atorvastatin Calcium (Lipitor*) 20 mg PO 2100 [facility] Last Admin: 04/26/17 22:27 Dose: 20 mg Captopril (Capoten Tab*) 3.125 mg PO TID [facility] Docusate Sodium (Colace Cap*) 100 mg PO BID [facility] Last Admin: 04/27/17 09:57 Dose: 100 mg Folic Acid (Folvite Tab*) 1 mg PO DAILY [facility] Last Admin: 04/27/17 09:57 Dose: 1 mg Ceftriaxone Sodium 1 gm/ (Sodium Chloride) 50 mls @ 200 mls/hr IVPB Q24H [facility] Azithromycin 250 mg/ Sodium (Chloride) 250 mls @ 250 mls/hr IVPB Q24H [facility] Lorazepam (Ativan Tab(*)) 0 - 6 mg PO .[facility] PROTOCOL [facility] PRN Reason: Protocol Metoprolol Tartrate (Lopressor Tab*) 25 mg PO BID [facility] Last Admin: 04/27/17 09:57 Dose: 25 mg Mometasone Furoate/Formoterol Fumar (Dulera 200/5 Mdi*) 2 puff INH BID [facility] PRN Reason: Protocol Last Admin: 04/27/17 09:13 Dose: 2 puff Montelukast Sodium (Singulair Tab*) 10 mg PO BEDTIME [facility] Last Admin: 04/26/17 22:27 Dose: 10 mg Morphine Sulfate (Morphine Inj (Syringe)*) 2 mg IV Q4H PRN PRN Reason: PAIN Multivitamins/Minerals (Theragran/Minerals Tab*) 1 tab PO DAILY [facility] Last Admin: 04/27/17 09:57 Dose: 1 tab Omeprazole (Prilosec Cap*) 20 mg PO 0600 [facility] Last Admin: 04/27/17 05:53 Dose: 20 mg Ondansetron HCl (Zofran Inj*) 4 mg IV Q4H PRN PRN Reason: NAUSEA/VOMITING Oxycodone/Acetaminophen (Percocet 5/325 Tab*) 1 tab PO Q4H PRN PRN Reason: Pain Prednisone (Deltasone Tab*) 40 mg PO DAILY [facility] Last Admin: 04/27/17 09:58 Dose: 40 mg Senna (Senokot Tab*) 1 tab PO BID [facility] Last Admin: 04/27/17 10:00 Dose: 1 tab Thiamine HCl (Vitamin B-1 Tab*) 100 mg PO DAILY [facility] Last Admin: 04/27/17 09:57 Dose: 100 mg Vital Signs - 8 hr 04/27/17 04/27/17 04/27/17 11:00 11:15 11:30 Temperature Pulse Rate 73 78 75 Respiratory 18 21 20 Rate Blood Pressure 105/70 97/66 100/67 (mmHg) O2 Sat by Pulse 100 98 98 Oximetry 04/27/17 04/27/17 04/27/17 11:45 12:00 12:15 Temperature 98.5 F Pulse Rate 73 78 77 Respiratory 19 15 21 Rate Blood Pressure 95/64 99/67 95/66 (mmHg) O2 Sat by Pulse 97 97 99 Oximetry 04/27/17 04/27/17 04/27/17 12:30 12:45 13:00 Temperature Pulse Rate 73 79 74 Respiratory 18 17 20 Rate Blood Pressure 90/64 93/65 97/65 (mmHg) O2 Sat by Pulse 98 98 97 Oximetry 04/27/17 04/27/17 04/27/17 13:01 13:15 13:31 Temperature Pulse Rate 76 82 85 Respiratory 23 15 19 Rate Blood Pressure 114/68 107/62 (mmHg) O2 Sat by Pulse 98 97 97 Oximetry 04/27/17 04/27/17 04/27/17 13:45 14:00 14:01 Temperature Pulse Rate 75 75 78 Respiratory 16 16 17 Rate Blood Pressure 103/68 101/61 (mmHg) O2 Sat by Pulse 99 97 97 Oximetry 04/27/17 04/27/17 04/27/17 14:15 14:30 14:45 Temperature Pulse Rate 76 78 77 Respiratory 14 15 17 Rate Blood Pressure 96/69 106/69 103/68 (mmHg) O2 Sat by Pulse 99 98 98 Oximetry 04/27/17 04/27/17 04/27/17 15:00 15:01 15:15 Temperature Pulse Rate 77 83 76 Respiratory 15 17 16 Rate Blood Pressure 98/64 100/63 (mmHg) O2 Sat by Pulse 98 98 97 Oximetry 04/27/17 04/27/17 04/27/17 15:30 15:45 16:00 Temperature 98.4 F Pulse Rate 74 84 75 Respiratory 15 18 16 Rate Blood Pressure 100/64 104/67 105/58 (mmHg) O2 Sat by Pulse 98 97 97 Oximetry 04/27/17 04/27/17 04/27/17 16:15 16:31 16:45 Temperature Pulse Rate 86 83 85 Respiratory 15 17 17 Rate Blood Pressure 103/67 104/70 109/66 (mmHg) O2 Sat by Pulse 96 98 98 Oximetry 04/27/17 04/27/17 04/27/17 17:00 17:01 17:15 Temperature Pulse Rate 83 77 82 Respiratory 19 19 14 Rate Blood Pressure 105/66 101/73 (mmHg) O2 Sat by Pulse 97 97 99 Oximetry 04/27/17 04/27/17 04/27/17 17:30 17:45 18:00 Temperature Pulse Rate 80 85 89 Respiratory 19 16 21 Rate Blood Pressure 98/66 108/66 (mmHg) O2 Sat by Pulse 99 98 91 Oximetry 04/27/17 04/27/17 18:01 18:16 Temperature Pulse Rate 94 99 Respiratory 18 16 Rate Blood Pressure 112/79 122/74 (mmHg) O2 Sat by Pulse 99 98 Oximetry Oxygen Devices in Use Now: Nasal Cannula Appearance: NAD Ears/Nose/Mouth/Throat: NL Teeth, Lips, Gums, Mucous Membranes Moist Neck: NL Appearance and Movements; NL JVP Respiratory: Symmetrical Chest Expansion and Respiratory Effort, Clear to Auscultation Cardiovascular: - - irregularly irregular. tachycardic. Extremities: No Edema Skin: No Rash or Ulcers Neurological: Alert and Oriented x 3, NL Sensation, NL Muscle Strength and Tone Nutrition: Taking PO's Result Diagrams: 04/27/17 05:45 04/27/17 16:58 Additional Lab and Data: Laboratory Results - last 24 hr 04/26/17 04/26/17 04/27/17 17:55 20:34 00:50 WBC RBC Hgb Hct MCV MCH MCHC RDW Plt Count MPV Neut % (Auto) Lymph % (Auto) [place] % (Auto) Eos % (Auto) Baso % (Auto) Absolute Neuts (auto) Absolute Lymphs (auto) Absolute Monos (auto) Absolute Eos (auto) Absolute Basos (auto) Absolute Nucleated RBC Nucleated RBC % Sodium Potassium Chloride Carbon Dioxide Anion Gap BUN Creatinine Est GFR ( Amer) Est GFR (Non-Af Amer) BUN/Creatinine Ratio Glucose Uric Acid Calcium Troponin I 0.04 H* 0.07 H* Triglycerides Cholesterol LDL Cholesterol HDL Cholesterol TSH 0.81 Cortisol Urine Color Yellow Urine Appearance Clear Urine pH 6.0 Ur Specific [place] 1.039 H Urine Protein Negative Urine Ketones Negative Urine Blood Negative Urine Nitrate Negative Urine Bilirubin Negative Urine Urobilinogen Negative Ur Leukocyte Esterase Negative Urine Glucose Negative 04/27/17 04/27/17 04/27/17 05:45 05:45 16:58 WBC 14.1 H RBC 3.55 L Hgb 11.7 L Hct 34 L MCV 97 H MCH 33 H MCHC 34 RDW 14 Plt Count 325 MPV 8 Neut % (Auto) 89.8 H Lymph % (Auto) 5.4 L [place] % (Auto) 4.6 Eos % (Auto) 0.1 Baso % (Auto) 0.1 Absolute Neuts (auto) 12.7 H Absolute Lymphs (auto) 0.8 L Absolute Monos (auto) 0.6 Absolute Eos (auto) 0 Absolute Basos (auto) 0 Absolute Nucleated RBC 0 Nucleated RBC % 0 Sodium 120 L 121 L Potassium 3.8 3.6 Chloride 86 L 88 L Carbon Dioxide 25 24 Anion Gap 9 9 BUN 35 H 36 H Creatinine 0.87 0.85 Est GFR ( Amer) 112.9 116.0 Est GFR (Non-Af Amer) 87.8 90.2 BUN/Creatinine Ratio 40.2 H 42.4 H Glucose 201 H 204 H Uric Acid 5.3 Calcium 8.0 L 7.7 L Troponin I 0.05 H* Triglycerides 55 Cholesterol 56 LDL Cholesterol 37 HDL Cholesterol 7.6 TSH Cortisol 22.00 Urine Color Urine Appearance Urine pH Ur Specific [place] Urine Protein Urine Ketones Urine Blood Urine Nitrate Urine Bilirubin Urine Urobilinogen Ur Leukocyte Esterase Urine Glucose Microbiology and Other Data: Microbiology 04/26/17 20:34 Blood Venous Anaerobic Blood Culture - Preliminary 04/27/17 00:50 Sputum Expectorated Gram Stain - Final 04/27/17 00:50 Urine Legionella Urinary Antigen - Final Negative Legionella 04/27/17 00:50 Urine Streptococcus pneumoniae Ag Screen - Final Positive S. Pneumo Antigen 04/26/17 21:44 Nasal Nasal Screen MRSA (PCR)(ALIREZA) - Final Mrsa Not Detected Assess/Plan/Problems-Billing Assessment: 66 yo male COPD, chronic hypoxic respiratory failure (2L), recently quit smoking 2weeks prior, takutsubo's CM (2013), significat EtOH use, p/w 3 weeks SOB. Afib with RVR initially on dilt gtt. RLL pna 2/2 strep pna. ECHO with EF < 20%. Now on Eliquis. Hyponatremic low 120s. Planned NAVDEEP c/v 04/29. - Patient Problems (1) Systolic and diastolic CHF, acute Current Visit: Yes Status: Acute Code(s): I50.41 - ACUTE COMBINED SYSTOLIC AND DIASTOLIC (CONGESTIVE) HRT FAIL SNOMED Code(s): 705023824138538 Comment: EF <20%. Reported Hx of Takutsubo's 2013. Trying to get records from Dr. Juan Goodwin ([place], cardiology) appreciate cardiology recs (Dr. Guo). adding captropil 3.25mg po TID. stop diltizam gtt given reduced EF continue metoprolol 25mg po BID BNP 1041 (2) Atrial fibrillation with RVR Current Visit: Yes Status: Acute Code(s): I48.91 - UNSPECIFIED ATRIAL FIBRILLATION SNOMED Code(s): 771269307936421 Comment: tele, replete lytes. metoprolol. stop dilt. consider digoxin if RVR + hypotension. planned TTE C/V 04/29 after pna and hyponatremia hopefully improved. on eliquis. (3) Sepsis Current Visit: Yes Status: Acute Comment: 04/15 streptococcal pna. plan as above. abx hypotension, leukocytosis, lactic acidosis. (4) Streptococcal pneumonia Current Visit: Yes Status: Acute Code(s): J15.4 - PNEUMONIA DUE TO OTHER STREPTOCOCCI SNOMED Code(s): 80253510 Comment: Continue ceftriaxone f/u cultures. (5) Smoker Current Visit: Yes Status: Acute Code(s): F17.200 - NICOTINE DEPENDENCE, UNSPECIFIED, UNCOMPLICATED SNOMED Code(s): 37612865 Comment: add nicotine patch. 2.5 ppd until could not tolerate during sickness. (6) Hyponatremia Current Visit: Yes Status: Acute Code(s): E87.1 - HYPO-OSMOLALITY AND HYPONATREMIA SNOMED Code(s): 33913045 Comment: added uric acid, serum osm, urine osms, Kaila, cortisol. TSH wnl BMP q12. ?beer potomania vs CHF. Attending: Farhad Nieves
[2017-04-27] MEDS ORDERED: Captopril TAB* 12.5 MG PO SCH (21:00)
[2017-04-27] MEDS: Captopril TAB* 12.5 MG PO SCH (21:11)
[2017-04-27] MEDS: Atorvastatin* 20 MG TAB PO SCH (21:13)
[2017-04-27] MEDS: Montelukast Sodium TAB* 10 MG PO SCH (21:13)
--- NOTE | 2017-04-27 21:54 | CONS ---
CC: Dr. Moyer; Dr. Juan Goodwin, [place]; Hospitalist * CARDIOLOGY CONSULTATION: DATE OF CONSULT: 04/27/17 REASON FOR CONSULTATION: Atrial fibrillation and cardiomyopathy. HISTORY OF PRESENT ILLNESS: Mr. Henao is a 66-year-old gentleman, who presented to our emergency room with progressive increase of shortness of breath and a productive cough, he was transferred from his primary care's office. He presented to his primary care with these complaints, and was found to be in atrial fibrillation with a rapid ventricular rate. The patient states since admission overnight, his breathing has improved. The patient states that he has had a 2 to 3-week history of increasing shortness of breath. He has had a cough productive of yellow and green sputum with red flecks. He has had chills, but denies fevers. The patient denies chest pain, pressure, heaviness, orthopnea, or PND. The patient states he was seen about 6 or 7 years ago in [place] for chest discomfort. While there, he had an episode where the nurses rushed in with a code cart and cardioverted him awake. He states he never underwent a heart catheterization and was not on regular blood thinners and is unaware that he was ever in atrial fibrillation. The patient was drinking 6 beers a day until recently and actively smoking. PAST MEDICAL HISTORY: Based on Dr. Moyer's records, the patient has a past medical history of: 1. Takotsubo syndrome in 2013, details and records not yet available. 2. History of sinusitis. 3. History of depression. 4. COPD. 5. Gastric reflux. 6. Dyslipidemia. MEDICATIONS: Outpatient medications based on Dr. Moyer's record include: 1. Effexor 75 mg a day. 2. Ventolin inhaler. 3. Azelastine sprays b.i.d. 4. Aspirin 81 mg a day. 5. Famotidine 40 mg p.r.n. reflux. 6. Artificial tears. 7. Atorvastatin 20 mg a day. 8. Metoprolol 25 mg b.i.d. 9. Montelukast sodium 10 mg a day. 10. Klonopin 0.5 mg b.i.d. 11. Oxygen 2 L q.h.s. 12. Tudorza Pressair 1 puff b.i.d. 13. EpiPen p.r.n. anaphylaxis, but no known drug allergies are listed. Inpatient medications include: 1. Tylenol p.r.n. 2. Tudorza 1 puff b.i.d. 3. Maalox p.r.n. 4. Albuterol nebulizers p.r.n. 5. Eliquis 5 mg b.i.d. 6. Aspirin 81 mg a day. 7. Lipitor 20 mg a day. 8. Zithromax. 9. Ceftriaxone. 10. Diltiazem drip. 11. Colace. 12. Folic acid. 13. Ativan p.r.n. 14. Lopressor 25 mg b.i.d. 15. Dulera 200/5 two puffs b.i.d. 16. Singulair 10 mg a day. 17. Morphine p.r.n. 18. Theragran with minerals. 19. Prozac 20 mg a day. 20. Zofran p.r.n. 21. Percocet p.r.n. 22. Deltasone 40 mg a day. 23. Senokot. 24. B1. ALLERGIES: Allergies listed in [facility] records include BEE STINGS, ADHESIVE, LATEX. FAMILY HISTORY: He has 1 brother, who had a heart attack in his late 50s. His father of Alzheimer's in his 70s and mother of old age in her 80s. SOCIAL HISTORY: He has been retired since 2008. 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 He is drinking 6 beers a day until about 2 weeks ago when he started to feel poorly and was actively smoking cigarettes. He states he used recreational drugs in the past, but it is in the distant past, he had none since the late 1970s or early 1980s. REVIEW OF SYSTEMS: As above, 2 to 3-week history of productive cough and progressive increase in shortness of breath. Negative for chest pain. Negative for orthopnea. Negative for palpitations, racing of the heart. No syncope or near syncope. He did say his appetite had declined. He denied fevers, but admitted to chills. Denied change in bowel or bladder habits. All other 14-point review of systems unremarkable. PHYSICAL EXAM: The patient is 5 feet 6 inches, weighs 136 pounds with a BMI of 22. Blood pressure was 96/69 with a pulse of 79, oxygen saturation 99% on 2 L nasal cannula. T-max since admission is 99.5. General Appearance: Lean, older gentleman, appearing older than his stated age, lying flat, in no acute distress. Psychologically, pleasant and cooperative, but a little vague. Neurologically, awake, alert, oriented to person and place. I did not evaluate for time. Speech is articulate. Comprehension is good, a little slow to answer. Follows commands well. No gross sensory or motor deficits on exam in bed. Skin: Pale, warm, dry. No cyanosis or rashes. HEENT: Pupils are equal and round. Mucous membranes moist. Neck: Without increased JVP appreciated. Palpable carotid pulses bilaterally. Breath sounds mildly diminished throughout and harder to hear in the right upper lung field. Coronary: S1, S2. Irregularly irregular and tachycardic and no murmurs appreciated. Abdomen: Flat, active bowel sounds, soft, nontender without hepatomegaly. Lower extremities were free of edema and warm. DIAGNOSTIC STUDIES/LAB DATA: The patient's ECG from the emergency department, 04/26/17 at 6 p.m. confirmed atrial flutter, typical with an atrial cycle length of 240 milliseconds. He has a 4:1 block and a ventricular rate of 74 beats a minute. An EKG prior at 1730 on 04/26/17 showed atrial flutter with a 2: 1 block and a ventricular rate of 148 beats a minute. Both EKGs have some nonspecific ST flattening in the lateral leads. Labs on arrival, 04/26/17, white count 16.5, today white count 14.1, hemoglobin 11.7, hematocrit 34, means cell volume 97, and platelets 325. PTT 37. Labs from today: Sodium 120, potassium 3.8, chloride 86, bicarb 25, BUN 35, creatinine 0.87, glucose 201. Lactic acid on arrival yesterday 3.4. Calcium is low today at 8.0. Magnesium 2.9. AST 49, ALT 32. Troponin #1 0.04, troponin #2 0.07, troponin #3 0.05. Lipid panel shows total cholesterol 56, triglycerides 55, LDL cholesterol 37, HDL cholesterol 7.6. Albumin low at 3.1. Total protein 7.1. BNP of 1041. Chest x-ray done on 04/26/17, density in the right lung base, pneumonia versus pulmonary edema and CTA of the chest on 04/26/17 showed no evidence of pulmonary emboli and the right lower lobe pneumonia with small pleural effusion noted. Echocardiogram from 04/27/17 showed a dilated left ventricle with an ejection fraction of 20%. The only area of the myocardium terri with very apex, restrictive diastolic filling pattern, [id number] mitral insufficiency, moderate pulmonic insufficiency, and PA pressure estimated at 39 mmHg. Microbiology, the patient had serology positive for strep pneumoniae ( urine antigen) and anaerobic preliminary Gram stain was positive for gram- positive cocci in chains (probable strep). IMPRESSION: In summary, Dereck Henao is a 66-year-old gentleman presenting with a 2 to 3-week history of increased shortness of breath, productive cough, chills, and evidence of strep pneumoniae on urine antigen and blood cultures and history. The patient's cardiac issues include atrial flutter of variable rates that including tachycardic rates and a severe cardiomyopathy of uncertain duration and uncertain etiology. Comorbidities include the followin. Hyponatremia. 2. Malnutrition. 3. Alcoholism. 4. Chronic obstructive pulmonary disease. 5. Hyperglycemia/diabetes. 6. Macrocytic anemia, mild. For the patient's atrial flutter, ideally we would cardiovert him, which might improve his congestive heart failure and systolic function, but he would need to be anticoagulated for at least 24 hours, require NAVDEEP guidance and he may not maintain sinus rhythm until his sodium is improved/electrolytes optimized. Long -term, he would benefit from flutter ablation. I concur with full anticoagulation with Eliquis. For the patient's cardiomyopathy, I would recommend converting rate lowering from diltiazem to a beta-carolina because of the cardiomyopathy. Unless he develops bronchospasm, I would increase his Lopressor if his blood pressure will tolerate. I do not feel his blood pressure is high enough to allow for Coreg. As blood pressure tolerates, I would start low-dose AURORA inhibitor, consider Captopril, starting a milligram t.i.d. and increase as tolerated. I would avoid Aldactone because of the hyponatremia at this point. We will try to get old records, but I think Mr. Henao deserves a heart catheterization once stabilized to determine if he has an ischemic or nonischemic cardiomyopathy. He has a large differential including alcoholic cardiomyopathy, viral cardiomyopathy, cardiomyopathy secondary to atrial flutter and tachycardic ventricular response and more as well as atherosclerotic heart disease. The patient's alcoholism appears to have led to poor nutrition. It may be worth looking for paraproteins due to the ratio of total protein to albumin. It is possible the hyponatremia is manifestation of this severely depressed ejection fraction; however, it could also be related to alcohol intake with acute infectious illness or more and may want to consider an endocrine evaluation and workup. Additional recommendations will be made pending the patient's response to the above treatments and measures. [id number]/[facility] #: [id number] STEFAN
[2017-04-27] MEDS: cefTRIAXone(*) 1 GM in D5W 50 ML BAG* 50 ML IVPB SCH (22:23)
[2017-04-27] MEDS: Azithromycin IV(*) 250 MG in NS 0.9% 250 ML* 250 ML IVPB SCH (22:57)
[2017-04-28] MEDS: Omeprazole CAP* 20 MG PO SCH (05:16)
[2017-04-28 05:21] LABS: ABS Basophils 0.1 10^3/ul (0-0.2); ABS Eosinophils 0 10^3/ul (0-0.6); ABS Lymphocytes 1.1 10^3/ul (1.0-4.8); ABS Monocytes 0.8 10^3/ul (0-0.8); ABS Neutrophils 10.6 10^3/ul (1.5-7.7); ABS Nucleated RBC 0 10^3/ul; Eosinophil % 0 % (0-6); Hematocrit 32 % (42-52); Lymphocyte % 8.7 % (25-47); Mean Corpuscular HGB Conc 35 g/dl (31-36); Mean Corpuscular Hemoglobin 33 pg (27-31); Mean Corpuscular Volume 96 fL (80-94); Mean Platelet Volume 8 um3 (7.4-10.4); Nucleated Red Blood Cells % 0.1; Platelet Count 352 10^3/ul (150-450); Red Cell Distribution Width 14 % (10.5-15); White Blood Count 12.6 10^3/ul (3.5-10.8)
[2017-04-28 05:43] LABS: EGFR Non-African American 68.4 (>60)
--- NOTE | 2017-04-28 06:10 | PN ---
Progress Note - Progress Note Date of Service: 04/28/17 Note: Paged for sodium of 119 - Patient with high sg on u/a on admission. DId not receive any IVFs for concern for CHF. Suspect he is dry. Will give 500 cc bolus and order repeat labs at 11:00. urine studies re-ordered.
[2017-04-28] MEDS ORDERED: NS 0.9% 500 ML* 500 ML IV SCH (07:00)
[2017-04-28] MEDS: Metoprolol Tartrate TAB* 25 MG PO SCH ×2 (08:02→21:50)
[2017-04-28] MEDS: Apixaban* 5 MG TAB PO SCH ×2 (08:03→21:48)
[2017-04-28] MEDS: Multivitamins/Minerals TAB PO SCH (08:03)
[2017-04-28] MEDS: Thiamine TAB* 100 MG TAB PO SCH (08:03)
[2017-04-28] MEDS: predniSONE TAB* 20 MG PO SCH (08:03)
[2017-04-28] MEDS: Senna TAB PO SCH ×2 (08:03→21:51)
[2017-04-28] MEDS: Docusate CAP* 100 MG PO SCH ×2 (08:03→21:49)
[2017-04-28] MEDS: Folic Acid TAB* 1 MG PO SCH (08:03)
[2017-04-28] MEDS: Aspirin EC Low Dose* 81 MG TAB.EC PO SCH (08:03)
[2017-04-28] MEDS: Nicotine PATCH 14 MG/24 HR* PATCH TRANSDERM SCH (08:04)
[2017-04-28] MEDS: Mometasone/Formoter 200/5 MDI INH SCH ×2 (09:12→19:43)
[2017-04-28] MEDS: Aclidinium POWDER MDI(NF) INH SCH (09:15)
[2017-04-28] MEDS: Captopril TAB* 12.5 MG PO SCH (11:15)
[2017-04-28 11:33] LABS: EGFR Non-African American 67.7 (>60)
[2017-04-28 12:23] LABS: Urine Appearance Clear; Urine Blood Negative (Negative); Urine Color Yellow; Urine Ketones Negative (Negative); Urine Protein Negative (Negative); Urine Specific Gravity 1.016 (1.010-1.030); Urine Urobilinogen Negative (Negative)
[2017-04-28] MEDS: Lisinopril TAB* 5 MG PO SCH (13:15)
[2017-04-28] MEDS ORDERED: Dextrose 50% Syringe 50 ML* 25 GM/50 ML SYRINGE IV PUSH PRN ×3 (13:42→22:29)
--- NOTE | 2017-04-28 14:05 | PN ---
Subjective Date of Service: 04/28/17 Interval History: Na fell from 121 to 119. However Glucose up to 369 so corrected(~124) for Glucose stable to slightly increased. Got 500cc bolus and rechecked Na 117 with Glu 410 (Corrected ~123). Placed on POCT glucose qachs. lispro SSI added. HRs improved, mostly 90s. did get up to 130s while in bathroom. Urine studies pending. Hypotensive 76/53 around midnight. Pt states he drinks about 2 beers a night. Skips breakfast and lunch. Large Dinner. says usually gets around 3 beers a night but they are 40oz each. Strep Pna in 03/17 Bcx confirmed. Afebrile. Objective Active Medications: Acetaminophen (Tylenol Tab*) 650 mg PO Q4H PRN PRN Reason: FEVER/PAIN Aclidinium Sun (Chavezza Danish Mdi(Nf)) 1 puff INH BID [facility] Last Admin: 04/28/17 09:15 Dose: Not Given Al Hydrox/Mg Hydrox/Simethicone (Maalox Plus*) 30 ml PO Q6H PRN PRN Reason: INDIGESTION Albuterol (Ventolin 2.5 Mg/3 Ml Neb.Ana*) 2.5 mg INH Q2H PRN PRN Reason: SOB/WHEEZING Albuterol/Ipratropium (Duoneb (Albuterol 2.5 Mg/Ipratropium 0.5 Mg)) 1 neb INH Q4H PRN PRN Reason: SOB/WHEEZING Apixaban (Eliquis*) 5 mg PO BID [facility] Last Admin: 04/28/17 08:03 Dose: 5 mg Aspirin (Aspirin Ec Low Dose*) 81 mg PO DAILY [facility] Last Admin: 04/28/17 08:03 Dose: 81 mg Atorvastatin Calcium (Lipitor*) 20 mg PO 2100 [facility] Last Admin: 04/27/17 21:13 Dose: 20 mg Dextrose (D50w Syringe 50 Ml*) 12.5 gm IV PUSH .FOR FS < 60 - SS PRN PRN Reason: FS < 60 Digoxin (Lanoxin Tab*) 0.125 mg PO DAILY@1700 [facility] Docusate Sodium (Colace Cap*) 100 mg PO BID [facility] Last Admin: 04/28/17 08:03 Dose: 100 mg Folic Acid (Folvite Tab*) 1 mg PO DAILY [facility] Last Admin: 04/28/17 08:03 Dose: 1 mg Ceftriaxone Sodium 1 gm/ (Dextrose) 50 mls @ 200 mls/hr IVPB Q24H [facility] Last Admin: 04/27/17 22:23 Dose: 200 mls/hr Azithromycin 250 mg/ Sodium (Chloride) 250 mls @ 250 mls/hr IVPB Q24H [facility] Last Admin: 04/27/17 22:57 Dose: 250 mls/hr Insulin Human Lispro (Humalog*) 0 units SUBCUT ACHS [facility] PRN Reason: Protocol Lisinopril (Prinivil Tab*) 2.5 mg PO DAILY [facility] Last Admin: 04/28/17 13:15 Dose: 2.5 mg Lorazepam (Ativan Tab(*)) 0 - 6 mg PO .PER [facility] PROTOCOL [facility] PRN Reason: Protocol Metoprolol Tartrate (Lopressor Tab*) 25 mg PO BID [facility] Last Admin: 04/28/17 08:02 Dose: 25 mg Mometasone Furoate/Formoterol Fumar (Dulera 200/5 Mdi*) 2 puff INH BID [facility] PRN Reason: Protocol Last Admin: 04/28/17 09:12 Dose: 2 puff Montelukast Sodium (Singulair Tab*) 10 mg PO BEDTIME [facility] Last Admin: 04/27/17 21:13 Dose: 10 mg Morphine Sulfate (Morphine Inj (Syringe)*) 2 mg IV Q4H PRN PRN Reason: PAIN Multivitamins/Minerals (Theragran/Minerals Tab*) 1 tab PO DAILY [facility] Last Admin: 04/28/17 08:03 Dose: 1 tab Nicotine (Nicotine Patch 14 Mg/24 Hr*) 1 patch TRANSDERM DAILY [facility] Last Admin: 04/28/17 08:04 Dose: 1 patch Omeprazole (Prilosec Cap*) 20 mg PO 0600 [facility] Last Admin: 04/28/17 05:16 Dose: 20 mg Ondansetron HCl (Zofran Inj*) 4 mg IV Q4H PRN PRN Reason: NAUSEA/VOMITING Oxycodone/Acetaminophen (Percocet 5/325 Tab*) 1 tab PO Q4H PRN PRN Reason: Pain Pharmacy Profile Note (Nicotine Patch Removal Note*) 1 note FOLLOW UP 2100 [facility] Prednisone (Deltasone Tab*) 40 mg PO DAILY [facility] Last Admin: 04/28/17 08:03 Dose: 40 mg Senna (Senokot Tab*) 1 tab PO BID [facility] Last Admin: 04/28/17 08:03 Dose: 1 tab Thiamine HCl (Vitamin B-1 Tab*) 100 mg PO DAILY [facility] Last Admin: 04/28/17 08:03 Dose: 100 mg Vital Signs - 8 hr 04/28/17 04/28/17 04/28/17 06:06 06:20 08:00 Temperature 97.8 F 96.2 F Pulse Rate 60 Respiratory 18 16 Rate Blood Pressure 113/77 (mmHg) O2 Sat by Pulse 99 Oximetry 04/28/17 04/28/17 04/28/17 08:05 10:04 12:10 Temperature 97.4 F 97.3 F 97.5 F Pulse Rate 94 86 92 Respiratory 16 16 16 Rate Blood Pressure 105/74 108/72 103/71 (mmHg) O2 Sat by Pulse 100 100 100 Oximetry Oxygen Devices in Use Now: Nasal Cannula Appearance: NAD. slightly deconditioned appearing. Eyes: No Scleral Icterus, PERRLA Ears/Nose/Mouth/Throat: NL Teeth, Lips, Gums, - - tongue dry. Respiratory: Symmetrical Chest Expansion and Respiratory Effort, Clear to Auscultation Cardiovascular: - - irregularly irregular, slightly fast. no m/r/g. JVD elevated. Extremities: No Edema, No Clubbing, Cyanosis Skin: No Rash or Ulcers, No Nodules or Sclerosis Neurological: Alert and Oriented x 3, NL Sensation, NL Muscle Strength and Tone Nutrition: Taking PO's Result Diagrams: 04/28/17 05:04 04/28/17 10:51 Additional Lab and Data: Laboratory Results - last 24 hr 04/27/17 04/27/17 04/28/17 05:45 16:58 05:04 WBC RBC Hgb Hct MCV MCH MCHC RDW Plt Count MPV Neut % (Auto) Lymph % (Auto) [place] % (Auto) Eos % (Auto) Baso % (Auto) Absolute Neuts (auto) Absolute Lymphs (auto) Absolute Monos (auto) Absolute Eos (auto) Absolute Basos (auto) Absolute Nucleated RBC Nucleated RBC % Sodium 120 L 121 L 119 L* Potassium 3.8 3.6 4.0 Chloride 86 L 88 L 87 L Carbon Dioxide 25 24 24 Anion Gap 9 9 8 BUN 35 H 36 H 48 H Creatinine 0.87 0.85 1.08 Est GFR ( Amer) 112.9 116.0 88.0 Est GFR (Non-Af Amer) 87.8 90.2 68.4 BUN/Creatinine Ratio 40.2 H 42.4 H 44.4 H Glucose 201 H 204 H 369 H Hemoglobin A1c Uric Acid 5.3 Calcium 8.0 L 7.7 L 8.2 L Troponin I 0.05 H* Triglycerides 55 Cholesterol 56 LDL Cholesterol 37 HDL Cholesterol 7.6 Cortisol 22.00 Urine Color Urine Appearance Urine pH Ur Specific [place] Urine Protein Urine Ketones Urine Blood Urine Nitrate Urine Bilirubin Urine Urobilinogen Ur Leukocyte Esterase Ur Random Creatinine Ur Random Sodium Urine Glucose 04/28/17 04/28/17 04/28/17 05:04 05:05 10:51 WBC 12.6 H RBC 3.30 L Hgb 11.0 L Hct 32 L MCV 96 H MCH 33 H MCHC 35 RDW 14 Plt Count 352 MPV 8 Neut % (Auto) 84.3 H Lymph % (Auto) 8.7 L [place] % (Auto) 6.3 Eos % (Auto) 0 Baso % (Auto) 0.7 Absolute Neuts (auto) 10.6 H Absolute Lymphs (auto) 1.1 Absolute Monos (auto) 0.8 Absolute Eos (auto) 0 Absolute Basos (auto) 0.1 Absolute Nucleated RBC 0 Nucleated RBC % 0.1 Sodium 117 L* Potassium 4.3 Chloride 85 L Carbon Dioxide 24 Anion Gap 8 BUN 51 H Creatinine 1.09 Est GFR ( Amer) 87.0 Est GFR (Non-Af Amer) 67.7 BUN/Creatinine Ratio 46.8 H Glucose 410 H Hemoglobin A1c 7.1 H Uric Acid Calcium 8.2 L Troponin I Triglycerides Cholesterol LDL Cholesterol HDL Cholesterol Cortisol Urine Color Urine Appearance Urine pH Ur Specific [place] Urine Protein Urine Ketones Urine Blood Urine Nitrate Urine Bilirubin Urine Urobilinogen Ur Leukocyte Esterase Ur Random Creatinine Ur Random Sodium Urine Glucose 04/28/17 04/28/17 11:45 11:45 WBC RBC Hgb Hct MCV MCH MCHC RDW Plt Count MPV Neut % (Auto) Lymph % (Auto) [place] % (Auto) Eos % (Auto) Baso % (Auto) Absolute Neuts (auto) Absolute Lymphs (auto) Absolute Monos (auto) Absolute Eos (auto) Absolute Basos (auto) Absolute Nucleated RBC Nucleated RBC % Sodium Potassium Chloride Carbon Dioxide Anion Gap BUN Creatinine Est GFR ( Amer) Est GFR (Non-Af Amer) BUN/Creatinine Ratio Glucose Hemoglobin A1c Uric Acid Calcium Troponin I Triglycerides Cholesterol LDL Cholesterol HDL Cholesterol Cortisol Urine Color Yellow Urine Appearance Clear Urine pH 6.0 Ur Specific [place] 1.016 Urine Protein Negative Urine Ketones Negative Urine Blood Negative Urine Nitrate Negative Urine Bilirubin Negative Urine Urobilinogen Negative Ur Leukocyte Esterase Negative Ur Random Creatinine 67.11 Ur Random Sodium < 18 Urine Glucose 3+(>=500 mg/dl) H Microbiology and Other Data: Microbiology 04/26/17 20:34 Blood Venous Aerobic Blood Culture - Preliminary No Growth Day 1 04/26/17 20:34 Blood Venous Anaerobic Blood Culture - Preliminary Streptococcus Pneumoniae 04/26/17 20:45 Blood Venous Aerobic Blood Culture - Preliminary No Growth Day 1 04/26/17 20:45 Blood Venous Anaerobic Blood Culture - Preliminary No Growth Day 1 04/27/17 00:50 Sputum Expectorated Gram Stain - Final 04/27/17 00:50 Urine Legionella Urinary Antigen - Final Negative Legionella 04/27/17 00:50 Urine Streptococcus pneumoniae Ag Screen - Final Positive S. Pneumo Antigen 04/26/17 21:44 Nasal Nasal Screen MRSA (PCR)(ALIREZA) - Final Mrsa Not Detected Assess/Plan/Problems-Billing Assessment: 66 yo male COPD, chronic hypoxic respiratory failure (2L), recently quit smoking 2weeks prior, takutsubo's CM (2013), significat EtOH use (~120oz beer daily), p/w 3 weeks SOB. Afib with RVR initially on dilt gtt (now off, better controlled, digoxin to be added by cardiology). RLL pna 2/2 strep pna. ECHO with EF <20% and diastolic dysfunction, diffusely hypokinetic. Now on Eliquis. Hyponatremic low 120s. Dipped with hypoglycemia but corrected stable. Urine studies pending. - Patient Problems (1) Systolic and diastolic CHF, acute Current Visit: Yes Status: Acute Code(s): I50.41 - ACUTE COMBINED SYSTOLIC AND DIASTOLIC (CONGESTIVE) HRT FAIL SNOMED Code(s): 864474400594717 Comment: EF <20%, diffusely hypokin. Reported Hx of Takutsubo's 2013. Trying to get records from Dr. Juan Goodwin ([place], cardiology). Faxed request yesterday. Called and left a message today. appreciate cardiology recs (Dr. Guo). switch from captropil 3.25mg po TID to lisinopril 2.5mg daily avoid diltizam given reduced EF continue metoprolol 25mg po BID BNP 1041 Alcohol abuse not helping. likely will need C at some point per Dr. Guo. (2) Hyponatremia Current Visit: Yes Status: Acute Code(s): E87.1 - HYPO-OSMOLALITY AND HYPONATREMIA SNOMED Code(s): 84223188 Comment: uric acid wnl (less likely SIADH), serum osm pending(in lab), urine osms pending (in lab), Kaila <17, cortisol not low. TSH wnl BMP q8. Concer for beer potomania(low solute). Na dipped to 119 then 117 but when corrected for Glucose which spiked to 300-400s actually is stable in 123-124 range. (3) Atrial fibrillation with RVR Current Visit: Yes Status: Acute Code(s): I48.91 - UNSPECIFIED ATRIAL FIBRILLATION SNOMED Code(s): 682149121712263 Comment: tele, replete lytes Mg>2, K>4. continue metoprolol 25mg po bid. avoid further dilt given depressed EF <20%. cardiology is starting digoxin continue eliquis consider NAVDEEP/CV once Na better. (4) Sepsis Current Visit: Yes Status: Acute Comment: 2/2 streptococcal pna. plan as above. abx hypotension, leukocytosis, lactic acidosis. (resolving) (5) Streptococcal pneumonia Current Visit: Yes Status: Acute Code(s): J15.4 - PNEUMONIA DUE TO OTHER STREPTOCOCCI SNOMED Code(s): 45161441 Comment: Continue ceftriaxone f/u cultures. (6) Smoker Current Visit: Yes Status: Acute Code(s): F17.200 - NICOTINE DEPENDENCE, UNSPECIFIED, UNCOMPLICATED SNOMED Code(s): 72622665 Comment: continue nicotine patch. 2.5 ppd until could not tolerate during sickness. (7) Paraproteinemia Current Visit: Yes Status: Acute Code(s): D89.2 - HYPERGAMMAGLOBULINEMIA, UNSPECIFIED SNOMED Code(s): 328406218 Comment: TProtein 7.1, Albumin 3.1. Gap 4.0 SPEP UPEP no protein on UA. (8) Diabetes mellitus Current Visit: Yes Status: Acute Code(s): E11.9 - TYPE 2 DIABETES MELLITUS WITHOUT COMPLICATIONS SNOMED Code(s): 93062031 Comment: A1C 7.1, does not previously carry the diagnosis. SSI lispro and POCT qachs added. (9) ETOH abuse Current Visit: Yes Status: Acute Code(s): F10.10 - ALCOHOL ABUSE, UNCOMPLICATED SNOMED Code(s): 51667515 Comment: 120 oz beer nightly peer . continue folate, thiamine not scoring on WAM, decrease frequency likely contributing to cardiomyopathy. Status and Disposition: medicine inpatient. Attending: Farhad Nieves
--- NOTE | 2017-04-28 15:51 | PN ---
Hospitalist Progress Note Fax received from Dr. Goodwin's office: ECHO 01/17/13: LVEF estimated at 35% akinetic anterior wall, hypokinetic inferior wall. hypokinetic septum. no prior studies. no valvular abnormalities. Consult By Dr. Goodwin suspected Takutsubo's. No [facility] recommended. ECHO 01/22/13: LVEF estimated at 60% no obvious regional wall motion abnormalities. no valvular abnormalities Saw Dr. Littlejohn in outpatient f/u 03/19/13. Encouraged smoking cessation. Pt not interested.
[2017-04-28] MEDS ORDERED: Insulin LISPRO* 1 UNITS UNIT SUBCUT SCH (16:30)
[2017-04-28] MEDS ORDERED: Insulin REGULAR(*) 1 UNITS UNIT SUBCUT ONE (17:08)
[2017-04-28] MEDS ORDERED: Spiriva Inhaler DEVICE* 1 EACH DEVICE SCH (18:00)
[2017-04-28 18:16] LABS: EGFR Non-African American 68.4 (>60)
[2017-04-28] MEDS: Digoxin TAB* 0.125 MG PO SCH (18:16)
[2017-04-28] MEDS: Tiotropium CAP.INH* CAP.INH/18 MCG (USE ORDER SET !) INH SCH (18:30)
[2017-04-28] MEDS ORDERED: Insulin REGULAR(*) 1 UNITS UNIT IV PUSH ONE (18:32)
[2017-04-28] MEDS ORDERED: NS 0.9% 1000 ML* 1,000 ML IV SCH (18:45)
[2017-04-28] MEDS: cefTRIAXone(*) 1 GM in D5W 50 ML BAG* 50 ML IVPB SCH (21:45)
[2017-04-28] MEDS: Atorvastatin* 20 MG TAB PO SCH (21:48)
[2017-04-28] MEDS: Montelukast Sodium TAB* 10 MG PO SCH (21:50)
[2017-04-28] MEDS: Nicotine Patch Removal NOTE FOLLOW UP SCH (21:54)
[2017-04-28 22:14] LABS: EGFR Non-African American 72.3 (>60)
[2017-04-28] MEDS ORDERED: Insulin LISPRO* 1 UNITS UNIT SUBCUT ONE (22:29)
--- NOTE | 2017-04-28 22:31 | PN ---
Progress Note - Progress Note Date of Service: 04/28/17 Note: Called for Glucose >500, Lispro 16 units ordered, will start Lantus 20 units and increase IVFs to 125 cc/hr.
[2017-04-28] MEDS: NS 0.9% 1000 ML* 1,000 ML IV SCH (22:51)
[2017-04-28] MEDS ORDERED: Insulin GLARGINE(*) 1 UNITS UNIT SUBCUT SCH (23:00)
[2017-04-28] MEDS: Insulin LISPRO* 1 UNITS UNIT SUBCUT SCH (23:07)
[2017-04-29] MEDS: NS 0.9% 1000 ML* 1,000 ML IV SCH (00:24)
[2017-04-29] MEDS: Azithromycin IV(*) 250 MG in NS 0.9% 250 ML* 250 ML IVPB SCH (00:24)
[2017-04-29] MEDS: Insulin LISPRO* 1 UNITS UNIT SUBCUT SCH ×6 (02:11→22:42)
[2017-04-29] MEDS: Omeprazole CAP* 20 MG PO SCH (06:04)
[2017-04-29 06:32] LABS: EGFR Non-African American 105.8 (>60)
[2017-04-29] MEDS: Senna TAB PO SCH ×2 (08:22→19:59)
[2017-04-29] MEDS: Lisinopril TAB* 5 MG PO SCH (08:22)
[2017-04-29] MEDS: Aspirin EC Low Dose* 81 MG TAB.EC PO SCH (08:22)
[2017-04-29] MEDS: Folic Acid TAB* 1 MG PO SCH (08:22)
[2017-04-29] MEDS: Apixaban* 5 MG TAB PO SCH ×2 (08:22→19:59)
[2017-04-29] MEDS: Docusate CAP* 100 MG PO SCH ×2 (08:22→19:59)
[2017-04-29] MEDS: Thiamine TAB* 100 MG TAB PO SCH (08:22)
[2017-04-29] MEDS: Multivitamins/Minerals TAB PO SCH (08:22)
[2017-04-29] MEDS: Metoprolol Tartrate TAB* 25 MG PO SCH ×2 (08:22→20:00)
[2017-04-29] MEDS: Nicotine PATCH 14 MG/24 HR* PATCH TRANSDERM SCH (08:22)
[2017-04-29] MEDS: Mometasone/Formoter 200/5 MDI INH SCH ×2 (08:35→20:45)
[2017-04-29] MEDS: Tiotropium CAP.INH* CAP.INH/18 MCG (USE ORDER SET !) INH SCH (08:35)
[2017-04-29] MEDS ORDERED: NS 0.9% 1000 ML* 1,000 ML IV SCH (08:45)
[2017-04-29] MEDS ORDERED: Midazolam* 1 MG/ML 10 ML VIAL (10 MG) ONE (11:58)
[2017-04-29] MEDS ORDERED: Naloxone* 0.4 MG/ML 1 ML VIAL ONE (11:58)
[2017-04-29] MEDS ORDERED: fentaNYL* 50 MCG/ML 2 ML VIAL (100 MCG VIAL) ONE (11:58)
[2017-04-29] MEDS ORDERED: Lidocaine 2% VISCOUS* 15 ML UDC ONE (11:59)
[2017-04-29] MEDS ORDERED: Flumazenil* 0.1 MG/ML 5 ML MDV ONE (11:59)
[2017-04-29] MEDS ORDERED: Furosemide IV* 10 MG/ML 2 ML VIAL (20 MG) ONE (12:58)
[2017-04-29 13:02] LABS: Hematocrit 31 % (42-52); Hemoglobin 10.6 g/dl (14.0-18.0); Mean Corpuscular HGB Conc 34 g/dl (31-36); Mean Corpuscular Hemoglobin 33 pg (27-31); Mean Corpuscular Volume 96 fL (80-94); Mean Platelet Volume 8 um3 (7.4-10.4); Platelet Count 370 10^3/ul (150-450); Red Blood Count 3.21 10^6/ul (4.0-5.4); Red Cell Distribution Width 15 % (10.5-15); White Blood Count 13.3 10^3/ul (3.5-10.8)
[2017-04-29 14:09] LABS: ABS Basophils 0 10^3/ul (0-0.2); ABS Eosinophils 0 10^3/ul (0-0.6); ABS Lymphocytes 1.8 10^3/ul (1.0-4.8); ABS Monocytes 0.8 10^3/ul (0-0.8); ABS Neutrophils 10.7 10^3/ul (1.5-7.7); ABS Nucleated RBC 0 10^3/ul; Eosinophil % 0.1 % (0-6); Lymphocyte % 13.5 % (25-47); Nucleated Red Blood Cells % 0.1
--- NOTE | 2017-04-29 14:25 | TEE ---
Patient: COLLEEN BRUNER [facility] Rec#: [id number] : 1950 Date: 04/29/2017 Age: 66y Height: 167.64 cm / 66.0 in Weight: 65.77 kg / 145.0 lbs Sex: M BSA: 1.74 Room#: 435 Type: Inpatient Referring: Farhad Nieves Performing: Erin Burton MD Reading: Erin Burton MD Waxed Bag Machine Operator: Aubree Harding RDCS Nurse: Joaquín Cook RN CC: João COLLINS,Miguel Transesophageal Echocardiogram Indication: A-fib BP: 105/65 HR: 102 Rhythm: A-Fib Findings History: CAD, COPD/ emphysema, Takotsubo 2014, HLD, GERD, a-fib. Technical Comments: The study quality is good. Left Ventricle: The left ventricular chamber size is moderately dilated. There is evidence of a dilated cardiomyopathy. There is global hypokinesis of the left ventricle with minor regional variation. There is severely decreased left ventricular systolic function. The estimated ejection fraction is less than 20%. The assessment of diastolic function is non-diagnostic. Left Atrium: The left atrium is moderately dilated. Spontaneous echo contrast is present in the left atrium cavity and appendage. The left atrial appendage velocity is mildly reduced. No thrombus is visualized within the left atrium. Unable to rule out a mass or thrombus in the left atrial appendage. There is spontaneous contrast and a possible echo-dense mass in the bottom third of the left atrial appendage. Right Ventricle: The right ventricular cavity size is normal. The right ventricular global systolic function is mildly to moderately reduced. Right Atrium: The right atrium is mildly dilated. There is a patent foramen ovale with predominant [id number] shunting. A patent foramen ovale is demonstrated by agitated contrast. Aortic Valve: The aortic valve is trileaflet. The aortic valve leaflets are mildly thickened. There is no evidence of aortic regurgitation. There is no evidence of aortic stenosis. Mitral Valve: The mitral valve leaflets are mildly thickened. There is mild mitral regurgitation. There is no evidence of mitral stenosis. Tricuspid Valve: The tricuspid valve leaflets are normal. There is moderate tricuspid regurgitation. There is no tricuspid stenosis. Pulmonic Valve: The pulmonic valve appears normal. There is a trace pulmonic regurgitation. There is no pulmonic stenosis. Pericardium: There is no significant pericardial effusion. Aorta: There is no dilatation of the ascending aorta. The aortic root is normal in size. There is plaque visualized in the ascending aorta. There is plaque visualized in the descending aorta. There is mild-moderate atherosclerotic plaque in the visualized segements of the aorta. Pulmonary Artery: The main pulmonary artery appears normal. Venous: The bicaval view was obtained and appears normal. The pulmonary veins appear normal. 4 of 4 visualized. The pulmonary veins appear normal in size. NAVDEEP Procedures: All standard views were attempted within the limitations of patient tolerance and safety. History and physical as well as labs were reviewed. The patient was in a fasting state. Risks and benefits of the procedure, including alternatives, were discussed and written informed consent was obtained. The patient and/or their health care customer service representative teacher expressed understanding of the procedure, risks and benefits. Baseline and continuous monitoring of blood pressure, heart rate, pulse oximetry and heart rhythm was performed throughout the procedure. The appropriate time-out procedure was performed as per [facility] protocol. The patient was placed in the left lateral decubitus position. The patient's posterior pharynx was anesthetized with 20ml of 2% viscous lidocaine. The patient received IV Midazolam with a total dose of 3 mg. The patient received IV Fentanyl with a total dose of 50 mcg. An oral bite block was inserted for protection of oral dentition. The multiplane transesophageal echocardiogram probe was inserted through the posterior oropharynx and advanced into the esophagus without difficulty. Multiple 2D images were obtained of the heart and its related structures. Color flow Doppler was used for evaluation. Spectral Doppler was also used. The atrial septum was interrogated with color flow Doppler. At the conclusion of the procedure the probe was removed with continuous suction without complications. The patient tolerated the procedure with no apparent complications. Contrast: Normal saline was used as contrast for the bubble study. Image 38. Intravenous contrast was used to help determine presence of intracardiac shunting. Conclusions The left ventricular chamber size is moderately dilated. There is evidence of a dilated cardiomyopathy. The estimated ejection fraction is less than 20%. There is severely decreased left ventricular systolic function. The assessment of diastolic function is non-diagnostic. The left atrium is moderately dilated. Spontaneous echo contrast is present in the left atrium cavity and appendage. The left atrial appendage velocity is mildly reduced. Unable to rule out a mass or thrombus in the left atrial appendage. There is spontaneous contrast and a possible echo-dense mass in the bottom third of the left atrial appendage. The right atrium is mildly dilated. There is a patent foramen ovale with predominant [id number] shunting. There is mild mitral regurgitation. There is moderate tricuspid regurgitation. There is a trace pulmonic regurgitation. There is plaque visualized in the descending aorta. There is mild-moderate atherosclerotic plaque in the visualized segements of the aorta. Measurements Name Value Normal Range Aortic Annulus 2.1 cm (1.4 - 2.6) Ao root diameter (2D) 3.1 cm (2.1 - 3.5) Ascending Ao 2.9 cm (2.1 - 3.4)
[2017-04-29 15:51] LABS: EGFR Non-African American 114.7 (>60)
--- NOTE | 2017-04-29 17:32 | PN ---
Subjective Date of Service: 04/29/17 Interval History: NAVDEEP performed, not able to cardiovert Aflutter given could not rule out potential thrombus in lower third of [place]. Na 125-126, stable when corrected for hyperglycemic fluctuations, overall slowly improving. Objective Active Medications: Acetaminophen (Tylenol Tab*) 650 mg PO Q4H PRN PRN Reason: FEVER/PAIN Al Hydrox/Mg Hydrox/Simethicone (Maalox Plus*) 30 ml PO Q6H PRN PRN Reason: INDIGESTION Albuterol (Ventolin 2.5 Mg/3 Ml Neb.Ana*) 2.5 mg INH Q2H PRN PRN Reason: SOB/WHEEZING Albuterol/Ipratropium (Duoneb (Albuterol 2.5 Mg/Ipratropium 0.5 Mg)) 1 neb INH Q4H PRN PRN Reason: SOB/WHEEZING Apixaban (Eliquis*) 5 mg PO BID [facility] Last Admin: 04/29/17 08:22 Dose: 5 mg Aspirin (Aspirin Ec Low Dose*) 81 mg PO DAILY [facility] Last Admin: 04/29/17 08:22 Dose: 81 mg Atorvastatin Calcium (Lipitor*) 20 mg PO 2100 [facility] Last Admin: 04/28/17 21:48 Dose: 20 mg Dextrose (D50w Syringe 50 Ml*) 12.5 gm IV PUSH .FOR FS < 60 - SS PRN PRN Reason: FS < 60 Digoxin (Lanoxin Tab*) 0.125 mg PO DAILY@1700 [facility] Last Admin: 04/28/17 18:16 Dose: 0.125 mg Docusate Sodium (Colace Cap*) 100 mg PO BID [facility] Last Admin: 04/29/17 08:22 Dose: 100 mg Folic Acid (Folvite Tab*) 1 mg PO DAILY [facility] Last Admin: 04/29/17 08:22 Dose: 1 mg Ceftriaxone Sodium 1 gm/ (Dextrose) 50 mls @ 200 mls/hr IVPB Q24H [facility] Last Admin: 04/28/17 21:45 Dose: 200 mls/hr Insulin Human Lispro (Humalog*) 0 units SUBCUT Q4HR [facility] PRN Reason: Protocol Last Admin: 04/29/17 13:54 Dose: Not Given Lisinopril (Prinivil Tab*) 2.5 mg PO DAILY [facility] Last Admin: 04/29/17 08:22 Dose: 2.5 mg Lorazepam (Ativan Tab(*)) 0 - 6 mg PO .PER [facility] PROTOCOL [facility] PRN Reason: Protocol Metoprolol Tartrate (Lopressor Tab*) 25 mg PO BID [facility] Last Admin: 04/29/17 08:22 Dose: 25 mg Mometasone Furoate/Formoterol Fumar (Dulera 200/5 Mdi*) 2 puff INH BID [facility] PRN Reason: Protocol Last Admin: 04/29/17 08:35 Dose: 2 puff Montelukast Sodium (Singulair Tab*) 10 mg PO BEDTIME [facility] Last Admin: 04/28/17 21:50 Dose: 10 mg Morphine Sulfate (Morphine Inj (Syringe)*) 2 mg IV Q4H PRN PRN Reason: PAIN Multivitamins/Minerals (Theragran/Minerals Tab*) 1 tab PO DAILY [facility] Last Admin: 04/29/17 08:22 Dose: 1 tab Nicotine (Nicotine Patch 14 Mg/24 Hr*) 1 patch TRANSDERM DAILY [facility] Last Admin: 04/29/17 08:22 Dose: 1 patch Omeprazole (Prilosec Cap*) 20 mg PO 0600 [facility] Last Admin: 04/29/17 06:04 Dose: 20 mg Ondansetron HCl (Zofran Inj*) 4 mg IV Q4H PRN PRN Reason: NAUSEA/VOMITING Oxycodone/Acetaminophen (Percocet 5/325 Tab*) 1 tab PO Q4H PRN PRN Reason: Pain Pharmacy Profile Note (Nicotine Patch Removal Note*) 1 note FOLLOW UP 2100 [facility] Last Admin: 04/28/17 21:54 Dose: 1 note Senna (Senokot Tab*) 1 tab PO BID [facility] Last Admin: 04/29/17 08:22 Dose: 1 tab Thiamine HCl (Vitamin B-1 Tab*) 100 mg PO DAILY [facility] Last Admin: 04/29/17 08:22 Dose: 100 mg Tiotropium Graham (Spiriva Cap.Inh*) 1 cap INH DAILY [facility] Last Admin: 04/29/17 08:35 Dose: 1 cap Vital Signs - 8 hr 04/29/17 04/29/17 04/29/17 10:03 13:47 14:00 Temperature 97.7 F 97.3 F 97.3 F Pulse Rate 78 48 73 Respiratory 20 16 16 Rate Blood Pressure 93/60 91/68 91/68 (mmHg) O2 Sat by Pulse 100 100 100 Oximetry 04/29/17 16:52 Temperature Pulse Rate Respiratory 20 Rate Blood Pressure 132/24 (mmHg) O2 Sat by Pulse 96 Oximetry Oxygen Devices in Use Now: None Appearance: NAD, resting in bed, deconditioned. Eyes: No Scleral Icterus, PERRLA Ears/Nose/Mouth/Throat: NL Teeth, Lips, Gums, Mucous Membranes Moist Neck: - - JVD to angle of mandible Respiratory: Symmetrical Chest Expansion and Respiratory Effort, - - slight rhonchi right midlung, no wheezing or rales. Cardiovascular: NL Sounds; No Murmurs; No JVD, RRR Abdominal: NL Sounds; No Tenderness; No Distention, No Hepatosplenomegaly Extremities: No Edema, No Clubbing, Cyanosis Skin: No Rash or Ulcers, No Nodules or Sclerosis Neurological: Alert and Oriented x 3, NL Sensation Result Diagrams: 04/29/17 05:37 04/29/17 16:52 Additional Lab and Data: Laboratory Results - last 24 hr 04/27/17 04/28/17 04/28/17 16:58 11:45 17:04 WBC RBC Hgb Hct MCV MCH MCHC RDW Plt Count MPV Neut % (Auto) Lymph % (Auto) [place] % (Auto) Eos % (Auto) Baso % (Auto) Absolute Neuts (auto) Absolute Lymphs (auto) Absolute Monos (auto) Absolute Eos (auto) Absolute Basos (auto) Absolute Nucleated RBC Nucleated RBC % Sodium Potassium Chloride Carbon Dioxide Anion Gap BUN Creatinine Est GFR ( Amer) Est GFR (Non-Af Amer) BUN/Creatinine Ratio Glucose POC Glucose (mg/dL) > 444 H* Osmolality 269 L Calcium Phosphorus Magnesium Urine Osmolality 551 Ur Random Sodium 04/28/17 04/28/17 04/28/17 17:50 20:33 21:25 WBC RBC Hgb Hct MCV MCH MCHC RDW Plt Count MPV Neut % (Auto) Lymph % (Auto) [place] % (Auto) Eos % (Auto) Baso % (Auto) Absolute Neuts (auto) Absolute Lymphs (auto) Absolute Monos (auto) Absolute Eos (auto) Absolute Basos (auto) Absolute Nucleated RBC Nucleated RBC % Sodium 119 L* Potassium 4.6 Chloride 87 L Carbon Dioxide 27 Anion Gap 5 BUN 47 H Creatinine 1.08 Est GFR ( Amer) 88.0 Est GFR (Non-Af Amer) 68.4 BUN/Creatinine Ratio 43.5 H Glucose 535 H* POC Glucose (mg/dL) > 444 H* Osmolality Calcium 8.1 L Phosphorus 3.2 Magnesium 2.9 H Urine Osmolality Ur Random Sodium < 18 04/28/17 04/28/17 04/29/17 21:43 23:46 01:55 WBC RBC Hgb Hct MCV MCH MCHC RDW Plt Count MPV Neut % (Auto) Lymph % (Auto) [place] % (Auto) Eos % (Auto) Baso % (Auto) Absolute Neuts (auto) Absolute Lymphs (auto) Absolute Monos (auto) Absolute Eos (auto) Absolute Basos (auto) Absolute Nucleated RBC Nucleated RBC % Sodium 119 L* Potassium 4.4 Chloride 88 L Carbon Dioxide 24 Anion Gap 7 BUN 49 H Creatinine 1.03 Est GFR ( Amer) 92.9 Est GFR (Non-Af Amer) 72.3 BUN/Creatinine Ratio 47.6 H Glucose 509 H* POC Glucose (mg/dL) 329 H 113 H Osmolality Calcium 7.8 L Phosphorus Magnesium Urine Osmolality Ur Random Sodium 04/29/17 04/29/17 04/29/17 04:13 05:37 05:38 WBC 13.3 H RBC 3.21 L Hgb 10.6 L Hct 31 L MCV 96 H MCH 33 H MCHC 34 RDW 15 Plt Count 370 MPV 8 Neut % (Auto) 80.5 Lymph % (Auto) 13.5 L [place] % (Auto) 5.8 Eos % (Auto) 0.1 Baso % (Auto) 0.1 Absolute Neuts (auto) 10.7 H Absolute Lymphs (auto) 1.8 Absolute Monos (auto) 0.8 Absolute Eos (auto) 0 Absolute Basos (auto) 0 Absolute Nucleated RBC 0 Nucleated RBC % 0.1 Sodium 125 L Potassium 3.9 Chloride 94 L Carbon Dioxide 27 Anion Gap 4 BUN 44 H Creatinine 0.74 Est GFR ( Amer) 136.1 Est GFR (Non-Af Amer) 105.8 BUN/Creatinine Ratio 59.5 H Glucose 78 POC Glucose (mg/dL) 91 Osmolality Calcium 7.9 L Phosphorus Magnesium Urine Osmolality Ur Random Sodium 04/29/17 04/29/17 04/29/17 05:50 08:02 13:51 WBC RBC Hgb Hct MCV MCH MCHC RDW Plt Count MPV Neut % (Auto) Lymph % (Auto) [place] % (Auto) Eos % (Auto) Baso % (Auto) Absolute Neuts (auto) Absolute Lymphs (auto) Absolute Monos (auto) Absolute Eos (auto) Absolute Basos (auto) Absolute Nucleated RBC Nucleated RBC % Sodium Potassium Chloride Carbon Dioxide Anion Gap BUN Creatinine Est GFR ( Amer) Est GFR (Non-Af Amer) BUN/Creatinine Ratio Glucose POC Glucose (mg/dL) 92 101 H 78 Osmolality Calcium Phosphorus Magnesium Urine Osmolality Ur Random Sodium 04/29/17 04/29/17 04/29/17 15:24 16:46 16:52 WBC RBC Hgb Hct MCV MCH MCHC RDW Plt Count MPV Neut % (Auto) Lymph % (Auto) [place] % (Auto) Eos % (Auto) Baso % (Auto) Absolute Neuts (auto) Absolute Lymphs (auto) Absolute Monos (auto) Absolute Eos (auto) Absolute Basos (auto) Absolute Nucleated RBC Nucleated RBC % Sodium 125 L Potassium TNP 3.6 Chloride 97 L Carbon Dioxide 21 L Anion Gap 7 BUN 34 H Creatinine 0.69 Est GFR ( Amer) 147.5 Est GFR (Non-Af Amer) 114.7 BUN/Creatinine Ratio 49.3 H Glucose 80 POC Glucose (mg/dL) 185 H Osmolality Calcium 7.7 L Phosphorus Magnesium Urine Osmolality Ur Random Sodium Microbiology and Other Data: Microbiology 04/27/17 00:50 Sputum Expectorated Gram Stain - Final 04/27/17 00:50 Sputum Expectorated Sputum Culture - Final Normal Sruthi 04/26/17 20:34 Blood Venous Aerobic Blood Culture - Preliminary No Growth Day 2 04/26/17 20:34 Blood Venous Anaerobic Blood Culture - Preliminary Streptococcus Pneumoniae 04/26/17 20:45 Blood Venous Aerobic Blood Culture - Preliminary No Growth Day 2 04/26/17 20:45 Blood Venous Anaerobic Blood Culture - Preliminary No Growth Day 2 04/27/17 00:50 Urine Legionella Urinary Antigen - Final Negative Legionella 04/27/17 00:50 Urine Streptococcus pneumoniae Ag Screen - Final Positive S. Pneumo Antigen 04/26/17 21:44 Nasal Nasal Screen MRSA (PCR)(ALIREZA) - Final Mrsa Not Detected Assess/Plan/Problems-Billing Assessment: 66 yo male COPD, chronic hypoxic respiratory failure (2L), recently quit smoking 2weeks prior, takutsubo's CM (2013), significat EtOH use (~120oz beer daily), p/w 3 weeks SOB. Aflutter with RVR initially on dilt gtt (now off, better controlled, digoxin added by cardiology). RLL pna 2/2 strep pna. ECHO with EF <20% and diastolic dysfunction, diffusely hypokinetic. Now on Eliquis. Hyponatremic low 122, slowly improved to 125-126. Unable to attempt CV as could not rule out thrombus in AAA. - Patient Problems (1) Systolic and diastolic CHF, acute Current Visit: Yes Status: Acute Code(s): I50.41 - ACUTE COMBINED SYSTOLIC AND DIASTOLIC (CONGESTIVE) HRT FAIL SNOMED Code(s): 140429746190693 Comment: EF <20%, diffusely hypokinesis. Hx of Takjonathon's 2013. appreciate cardiology recs (Dr. Guo). continue lisinopril 2.5mg daily avoid diltizam given reduced EF increase metoprolol 25mg po BID to TID BNP 1041 Alcohol abuse not helping. likely will need C at some point per Dr. Guo. (2) Hyponatremia Current Visit: Yes Status: Acute Code(s): E87.1 - HYPO-OSMOLALITY AND HYPONATREMIA SNOMED Code(s): 25909190 Comment: uric acid wnl (less likely SIADH, especially as Kaila <17), serum osm pending(send out), urine osms pending (send out), cortisol not low. TSH wnl BMP ~q8. Concern for beer potomania(low solute). stable 122 slow increase to 125-126 when corrected for hyperglycemia. (3) Atrial fibrillation with RVR Current Visit: Yes Status: Acute Code(s): I48.91 - UNSPECIFIED ATRIAL FIBRILLATION SNOMED Code(s): 051257790210288 Comment: tele, replete lytes Mg>2, K>4. continue metoprolol 25mg po bid. avoid further dilt given depressed EF <20%. continue digoxin per cardiology, consider load if RVR continue eliquis consider NAVDEEP/CV after 8 weeks of Eliquis. given can't rule out [place] thrombus (4) Sepsis Current Visit: Yes Status: Acute Comment: 2/2 streptococcal pna. plan as above. abx hypotension, leukocytosis, lactic acidosis. (resolved) (5) Streptococcal pneumonia Current Visit: Yes Status: Acute Code(s): J15.4 - PNEUMONIA DUE TO OTHER STREPTOCOCCI SNOMED Code(s): 00868220 Comment: Continue ceftriaxone. Day 4 sensitive. (6) Smoker Current Visit: Yes Status: Acute Code(s): F17.200 - NICOTINE DEPENDENCE, UNSPECIFIED, UNCOMPLICATED SNOMED Code(s): 62843218 Comment: continue nicotine patch. 2.5 ppd until could not tolerate during sickness. (7) Paraproteinemia Current Visit: Yes Status: Acute Code(s): D89.2 - HYPERGAMMAGLOBULINEMIA, UNSPECIFIED SNOMED Code(s): 559041833 Comment: TProtein 7.1, Albumin 3.1. Gap 4.0 SPEP pending UPEP pending. no protein on UA. (8) Diabetes mellitus Current Visit: Yes Status: Acute Code(s): E11.9 - TYPE 2 DIABETES MELLITUS WITHOUT COMPLICATIONS SNOMED Code(s): 83115671 Comment: A1C 7.1, does not previously carry the diagnosis. SSI lispro and POCT qachs added. rapid spikes yesterday (in setting of prednisone? worsening). got 20U lantus. decrease to 10U (9) ETOH abuse Current Visit: Yes Status: Acute Code(s): F10.10 - ALCOHOL ABUSE, UNCOMPLICATED SNOMED Code(s): 25767923 Comment: 120 oz beer nightly peer . continue folate, thiamine not scoring on WAM, decrease frequency likely contributing to cardiomyopathy. Status and Disposition: medicine inpatient. Pt ordered.
[2017-04-29] MEDS ORDERED: Digoxin IV* 0.5 MG/2 ML AMP (0.25 MG/ML) IV SLOW PU ONE (17:55)
[2017-04-29] MEDS ORDERED: NS 0.9% 500 ML* 500 ML IV ONE (17:56)
[2017-04-29] MEDS ORDERED: Digoxin IV* 0.5 MG/2 ML AMP (0.25 MG/ML) ONE (18:00)
[2017-04-29] MEDS: Digoxin TAB* 0.125 MG PO SCH (18:10)
[2017-04-29] MEDS ORDERED: Metoprolol Tartrate IV* 1 MG/ML 5 ML VIAL ONE (18:38)
[2017-04-29] MEDS ORDERED: Potassium Chloride LIQUID* 20 MEQ PACKET PO ONE (18:55)
[2017-04-29] MEDS ORDERED: Metoprolol Tartrate IV* 1 MG/ML 5 ML VIAL IV SCH (19:00)
[2017-04-29] MEDS: Montelukast Sodium TAB* 10 MG PO SCH (19:59)
[2017-04-29] MEDS: Atorvastatin* 20 MG TAB PO SCH (19:59)
[2017-04-29] MEDS: Metoprolol Tartrate IV* 1 MG/ML 5 ML VIAL IV SCH ×3 (20:04→22:43)
[2017-04-29] MEDS: Nicotine Patch Removal NOTE FOLLOW UP SCH (21:23)
[2017-04-29] MEDS: Insulin GLARGINE(*) 1 UNITS UNIT SUBCUT SCH (22:32)
[2017-04-29] MEDS: cefTRIAXone(*) 1 GM in D5W 50 ML BAG* 50 ML IVPB SCH (22:32)
[2017-04-30] MEDS: Metoprolol Tartrate IV* 1 MG/ML 5 ML VIAL IV SCH ×20 (00:55→22:01)
[2017-04-30] MEDS: Insulin LISPRO* 1 UNITS UNIT SUBCUT SCH ×6 (02:02→21:40)
[2017-04-30] MEDS: Omeprazole CAP* 20 MG PO SCH (04:29)
[2017-04-30 05:33] LABS: Hematocrit 34 % (42-52); Hemoglobin 11.8 g/dl (14.0-18.0); Mean Corpuscular HGB Conc 34 g/dl (31-36); Mean Corpuscular Hemoglobin 33 pg (27-31); Mean Corpuscular Volume 97 fL (80-94); Mean Platelet Volume 8 um3 (7.4-10.4); Platelet Count 436 10^3/ul (150-450); Red Blood Count 3.54 10^6/ul (4.0-5.4); Red Cell Distribution Width 15 % (10.5-15); White Blood Count 10.8 10^3/ul (3.5-10.8)
[2017-04-30 05:52] LABS: EGFR Non-African American 112.8 (>60)
[2017-04-30 06:15] LABS: ABS Basophils 0 10^3/ul (0-0.2); ABS Eosinophils 0 10^3/ul (0-0.6); ABS Lymphocytes 1.9 10^3/ul (1.0-4.8); ABS Monocytes 0.6 10^3/ul (0-0.8); ABS Neutrophils 8.3 10^3/ul (1.5-7.7); ABS Nucleated RBC 0 10^3/ul; Eosinophil % 0.1 % (0-6); Lymphocyte % 17.8 % (25-47); Nucleated Red Blood Cells % 0.1
[2017-04-30] MEDS: Multivitamins/Minerals TAB PO SCH (07:40)
[2017-04-30] MEDS: Nicotine PATCH 14 MG/24 HR* PATCH TRANSDERM SCH (07:40)
[2017-04-30] MEDS: Senna TAB PO SCH ×2 (07:41→21:38)
[2017-04-30] MEDS: Aspirin EC Low Dose* 81 MG TAB.EC PO SCH (07:41)
[2017-04-30] MEDS: Apixaban* 5 MG TAB PO SCH ×2 (07:41→21:39)
[2017-04-30] MEDS: Folic Acid TAB* 1 MG PO SCH (07:41)
[2017-04-30] MEDS: Docusate CAP* 100 MG PO SCH ×2 (07:41→21:39)
[2017-04-30] MEDS: Thiamine TAB* 100 MG TAB PO SCH (07:41)
[2017-04-30] MEDS: Metoprolol Tartrate TAB* 25 MG PO SCH (07:41)
[2017-04-30] MEDS: Tiotropium CAP.INH* CAP.INH/18 MCG (USE ORDER SET !) INH SCH (07:45)
[2017-04-30] MEDS: Mometasone/Formoter 200/5 MDI INH SCH ×2 (07:46→21:00)
--- NOTE | 2017-04-30 11:20 | PN ---
Subjective Date of Service: 04/30/17 - CC: VALERO, fatigue. Interval History: The patient gets winded walking to bathroom. Doesn't feel up to ambulating on the floor. Denies orthopnea or PND, not sleeping well due to noise/hospital. No chest pain, no palpitations. Medications Active Medications: Acetaminophen (Tylenol Tab*) 650 mg PO Q4H PRN PRN Reason: FEVER/PAIN Al Hydrox/Mg Hydrox/Simethicone (Maalox Plus*) 30 ml PO Q6H PRN PRN Reason: INDIGESTION Albuterol (Ventolin 2.5 Mg/3 Ml Neb.Ana*) 2.5 mg INH Q2H PRN PRN Reason: SOB/WHEEZING Albuterol/Ipratropium (Duoneb (Albuterol 2.5 Mg/Ipratropium 0.5 Mg)) 1 neb INH Q4H PRN PRN Reason: SOB/WHEEZING Apixaban (Eliquis*) 5 mg PO BID [facility] Last Admin: 04/30/17 07:41 Dose: 5 mg Aspirin (Aspirin Ec Low Dose*) 81 mg PO DAILY [facility] Last Admin: 04/30/17 07:41 Dose: 81 mg Atorvastatin Calcium (Lipitor*) 20 mg PO 2100 [facility] Last Admin: 04/29/17 19:59 Dose: 20 mg Dextrose (D50w Syringe 50 Ml*) 12.5 gm IV PUSH .FOR FS < 60 - SS PRN PRN Reason: FS < 60 Digoxin (Lanoxin Tab*) 0.125 mg PO DAILY@1700 [facility] Last Admin: 04/29/17 18:10 Dose: 0.125 mg Docusate Sodium (Colace Cap*) 100 mg PO BID [facility] Last Admin: 04/30/17 07:41 Dose: 100 mg Folic Acid (Folvite Tab*) 1 mg PO DAILY [facility] Last Admin: 04/30/17 07:41 Dose: 1 mg Ceftriaxone Sodium 1 gm/ (Dextrose) 50 mls @ 200 mls/hr IVPB Q24H [facility] Last Admin: 04/29/17 22:32 Dose: 200 mls/hr Insulin Glargine (Lantus(*)) 10 units SUBCUT Q24H [facility] Last Admin: 04/29/17 22:32 Dose: 10 units Insulin Human Lispro (Humalog*) 0 units SUBCUT Q4HR [facility] PRN Reason: Protocol Last Admin: 04/30/17 08:46 Dose: Not Given Lorazepam (Ativan Tab(*)) 0 - 6 mg PO .PER [facility] PROTOCOL [facility] PRN Reason: Protocol Metoprolol Tartrate (Lopressor Tab*) 25 mg PO TID [facility] Last Admin: 04/30/17 07:41 Dose: 25 mg Metoprolol Tartrate (Lopressor Iv*) 5 mg IV Q1H [facility] Last Admin: 04/30/17 11:03 Dose: Not Given Mometasone Furoate/Formoterol Fumar (Dulera 200/5 Mdi*) 2 puff INH BID [facility] PRN Reason: Protocol Last Admin: 04/30/17 07:46 Dose: 2 puff Montelukast Sodium (Singulair Tab*) 10 mg PO BEDTIME [facility] Last Admin: 04/29/17 19:59 Dose: 10 mg Morphine Sulfate (Morphine Inj (Syringe)*) 2 mg IV Q4H PRN PRN Reason: PAIN Multivitamins/Minerals (Theragran/Minerals Tab*) 1 tab PO DAILY [facility] Last Admin: 04/30/17 07:40 Dose: 1 tab Nicotine (Nicotine Patch 14 Mg/24 Hr*) 1 patch TRANSDERM DAILY [facility] Last Admin: 04/30/17 07:40 Dose: 1 patch Omeprazole (Prilosec Cap*) 20 mg PO 0600 [facility] Last Admin: 04/30/17 04:29 Dose: 20 mg Ondansetron HCl (Zofran Inj*) 4 mg IV Q4H PRN PRN Reason: NAUSEA/VOMITING Oxycodone/Acetaminophen (Percocet 5/325 Tab*) 1 tab PO Q4H PRN PRN Reason: Pain Pharmacy Profile Note (Nicotine Patch Removal Note*) 1 note FOLLOW UP 2100 [facility] Last Admin: 04/29/17 21:23 Dose: Not Given Senna (Senokot Tab*) 1 tab PO BID [facility] Last Admin: 04/30/17 07:41 Dose: 1 tab Thiamine HCl (Vitamin B-1 Tab*) 100 mg PO DAILY [facility] Last Admin: 04/30/17 07:41 Dose: 100 mg Tiotropium [place] (Spiriva Cap.Inh*) 1 cap INH DAILY [facility] Last Admin: 04/30/17 07:45 Dose: 1 cap Objective Vital Signs: Temp Pulse Resp BP Pulse Ox 98.9 F 79 18 115/59 94 04/30/17 07:43 04/30/17 07:47 04/30/17 08:00 04/30/17 07:43 04/30/17 07:47 Oxygen Devices in Use Now: None Appearance: slight male in NAD lying flat. Eyes: No Scleral Icterus, PERRLA Ears/Nose/Mouth/Throat: Clear Oropharnyx, Mucous Membranes Moist Neck: NL Appearance and Movements; NL JVP, Trachea Midline, No Thyroid Enlargement, Masses Respiratory: Symmetrical Chest Expansion and Respiratory Effort, Clear to Auscultation Cardiovascular: RRR - tachycardic. Abdominal: NL Sounds; No Tenderness; No Distention Extremities: No Edema, No Clubbing, Cyanosis Skin: No Rash or Ulcers - lipomoa on back incidentally noted. Neurological: Alert and Oriented x 3 Lines/Tubes/Other Access: Clean, Dry and Intact Peripheral IV Laboratory Results: 04/30/17 05:04 04/30/17 05:04 APTT 37.1 seconds (26.0-36.3) H 04/26/17 17:55 Total Bilirubin 1.00 mg/dL (0.2-1.0) 04/26/17 17:55 AST 49 U/L (13-39) H 04/26/17 17:55 ALT 32 U/L (7-52) 04/26/17 17:55 Alkaline Phosphatase 77 U/L (34-104) 04/26/17 17:55 CK-MB (CK-2) 4.8 ng/mL (0.6-6.3) 04/26/17 17:55 B-Natriuretic Peptide 1041 pg/mL (-100) H 04/26/17 17:55 Total Protein 7.1 g/dL (6.4-8.9) 04/26/17 17:55 Albumin 3.1 g/dL (3.2-5.2) L 04/26/17 17:55 Globulin 4.0 g/dL (2-4) 04/26/17 17:55 Albumin/Globulin Ratio 0.8 (1-3) L 04/26/17 17:55 Triglycerides 55 mg/dL 04/27/17 05:45 Cholesterol 56 mg/dL 04/27/17 05:45 LDL Cholesterol 37 mg/dL 04/27/17 05:45 HDL Cholesterol 7.6 mg/dL 04/27/17 05:45 TSH 0.81 mcIU/mL (0.34-5.60) 04/26/17 17:55 04/26/17 04/27/17 20:34 05:45 Troponin I 0.07 H* 0.05 H* Diagnostic Imaging: ECHO 01/17/13 ([facility]) EF 35%, anterio wall AK, inferior wall AK. Echo 01/23/16 ([facility]) EF 60%. Echo 02/23/18 [facility] 20%, apex moves best, restrictive filling. NAVDEEP 02/26/18: EF <20%, spontaneous contrast in [place], poss. clot [place], mild MR, mod TR. EKG Data: Atrial flutter persists. Assessment/Plan 66 yo male with severe CM, recurred, in atrial flutter intermittent tachycardia. Uncertain duration of CM and A. flutter. A. flutter: Due to clot in [place], anticoagulate and rate control for now, re try NAVDEEP and CV in 4-8 weeks. Continue Eliquis, convert short acting to long acting Toprol, OK to continue digoxen. With hx alcohol abuse consider Flutter ablation in future. Alcohol discussed with the patient in depth. Hyponatremia improving, but can impact on rhythm. CM: Continue metoprolol Starting Ramapril. Recommend cardiac catheterization Tuesday (mild elevation troponins, severe recurrent CM, CAD risks of DM, dyslipidemia, smoker).
[2017-04-30] MEDS: Digoxin TAB* 0.125 MG PO SCH (17:38)
--- NOTE | 2017-04-30 18:45 | PN ---
Subjective Date of Service: 04/30/17 Interval History: Intermittent lopressor (sometimes tachy to 140s when walking). 2 overnight, 1 today. Denies complaints. walked with PT. Objective Active Medications: Acetaminophen (Tylenol Tab*) 650 mg PO Q4H PRN PRN Reason: FEVER/PAIN Al Hydrox/Mg Hydrox/Simethicone (Maalox Plus*) 30 ml PO Q6H PRN PRN Reason: INDIGESTION Albuterol (Ventolin 2.5 Mg/3 Ml Neb.Ana*) 2.5 mg INH Q2H PRN PRN Reason: SOB/WHEEZING Albuterol/Ipratropium (Duoneb (Albuterol 2.5 Mg/Ipratropium 0.5 Mg)) 1 neb INH Q4H PRN PRN Reason: SOB/WHEEZING Apixaban (Eliquis*) 5 mg PO BID [facility] Last Admin: 04/30/17 07:41 Dose: 5 mg Aspirin (Aspirin Ec Low Dose*) 81 mg PO DAILY [facility] Last Admin: 04/30/17 07:41 Dose: 81 mg Atorvastatin Calcium (Lipitor*) 20 mg PO 2100 [facility] Last Admin: 04/29/17 19:59 Dose: 20 mg Dextrose (D50w Syringe 50 Ml*) 12.5 gm IV PUSH .FOR FS < 60 - SS PRN PRN Reason: FS < 60 Digoxin (Lanoxin Tab*) 0.125 mg PO DAILY@1700 [facility] Last Admin: 04/30/17 17:38 Dose: 0.125 mg Docusate Sodium (Colace Cap*) 100 mg PO BID [facility] Last Admin: 04/30/17 07:41 Dose: 100 mg Folic Acid (Folvite Tab*) 1 mg PO DAILY [facility] Last Admin: 04/30/17 07:41 Dose: 1 mg Ceftriaxone Sodium 1 gm/ (Dextrose) 50 mls @ 200 mls/hr IVPB Q24H [facility] Last Admin: 04/29/17 22:32 Dose: 200 mls/hr Insulin Glargine (Lantus(*)) 10 units SUBCUT Q24H [facility] Last Admin: 04/29/17 22:32 Dose: 10 units Insulin Human Lispro (Humalog*) 0 units SUBCUT Q4HR [facility] PRN Reason: Protocol Last Admin: 04/30/17 17:38 Dose: 2 units Lorazepam (Ativan Tab(*)) 0 - 6 mg PO .PER [facility] PROTOCOL [facility] PRN Reason: Protocol Metoprolol Succinate (Toprol Xl Tab*) 75 mg PO DAILY [facility] Metoprolol Tartrate (Lopressor Iv*) 5 mg IV Q1H [facility] Last Admin: 04/30/17 17:38 Dose: Not Given Mometasone Furoate/Formoterol Fumar (Dulera 200/5 Mdi*) 2 puff INH BID [facility] PRN Reason: Protocol Last Admin: 04/30/17 07:46 Dose: 2 puff Montelukast Sodium (Singulair Tab*) 10 mg PO BEDTIME [facility] Last Admin: 04/29/17 19:59 Dose: 10 mg Morphine Sulfate (Morphine Inj (Syringe)*) 2 mg IV Q4H PRN PRN Reason: PAIN Multivitamins/Minerals (Theragran/Minerals Tab*) 1 tab PO DAILY [facility] Last Admin: 04/30/17 07:40 Dose: 1 tab Nicotine (Nicotine Patch 14 Mg/24 Hr*) 1 patch TRANSDERM DAILY [facility] Last Admin: 04/30/17 07:40 Dose: 1 patch Omeprazole (Prilosec Cap*) 20 mg PO 0600 [facility] Last Admin: 04/30/17 04:29 Dose: 20 mg Ondansetron HCl (Zofran Inj*) 4 mg IV Q4H PRN PRN Reason: NAUSEA/VOMITING Oxycodone/Acetaminophen (Percocet 5/325 Tab*) 1 tab PO Q4H PRN PRN Reason: Pain Pharmacy Profile Note (Nicotine Patch Removal Note*) 1 note FOLLOW UP 2100 [facility] Last Admin: 04/29/17 21:23 Dose: Not Given Ramipril (Altace Cap*) 2.5 mg PO ONCE ONE Stop: 04/30/17 21:01 Senna (Senokot Tab*) 1 tab PO BID [facility] Last Admin: 04/30/17 07:41 Dose: 1 tab Thiamine HCl (Vitamin B-1 Tab*) 100 mg PO DAILY [facility] Last Admin: 04/30/17 07:41 Dose: 100 mg Tiotropium [place] (Spiriva Cap.Inh*) 1 cap INH DAILY [facility] Last Admin: 04/30/17 07:45 Dose: 1 cap Vital Signs - 8 hr 04/30/17 04/30/17 04/30/17 11:40 15:17 17:38 Temperature 99.1 F 97.9 F Pulse Rate 51 52 100 Respiratory 20 16 Rate Blood Pressure 112/66 98/47 (mmHg) O2 Sat by Pulse 95 98 Oximetry Oxygen Devices in Use Now: None Appearance: NAD, Ears/Nose/Mouth/Throat: NL Teeth, Lips, Gums Neck: NL Appearance and Movements; NL JVP Respiratory: Symmetrical Chest Expansion and Respiratory Effort, Clear to Auscultation Cardiovascular: - - JVD elevated. no m/r/g. tachycardic, regular. Abdominal: NL Sounds; No Tenderness; No Distention, No Hepatosplenomegaly Extremities: No Edema, No Clubbing, Cyanosis Skin: No Rash or Ulcers, No Nodules or Sclerosis Neurological: Alert and Oriented x 3, NL Sensation, NL Muscle Strength and Tone Result Diagrams: 04/30/17 05:04 04/30/17 05:04 Additional Lab and Data: Laboratory Results - last 24 hr 04/28/17 04/28/17 04/29/17 11:45 20:33 22:18 WBC RBC Hgb Hct MCV MCH MCHC RDW Plt Count MPV Neut % (Auto) Lymph % (Auto) [place] % (Auto) Eos % (Auto) Baso % (Auto) Absolute Neuts (auto) Absolute Lymphs (auto) Absolute Monos (auto) Absolute Eos (auto) Absolute Basos (auto) Absolute Nucleated RBC Nucleated RBC % Sodium Potassium Chloride Carbon Dioxide Anion Gap BUN Creatinine Est GFR ( Amer) Est GFR (Non-Af Amer) BUN/Creatinine Ratio Glucose POC Glucose (mg/dL) 335 H Calcium PEP Impression See comment Urine Osmolality 544 Ur Random Albumin % 18 U Random Total Protein 11 Ur Albumin/Globulin 0.21 U Random q-6-Zqfwdxqn % 10 U Random l-2-Kgbsasia % 21 U Random b-Globulin % 15 U Random Gamma Glob % 36 Digoxin 04/30/17 04/30/17 04/30/17 01:46 04:32 05:01 WBC RBC Hgb Hct MCV MCH MCHC RDW Plt Count MPV Neut % (Auto) Lymph % (Auto) [place] % (Auto) Eos % (Auto) Baso % (Auto) Absolute Neuts (auto) Absolute Lymphs (auto) Absolute Monos (auto) Absolute Eos (auto) Absolute Basos (auto) Absolute Nucleated RBC Nucleated RBC % Sodium Potassium Chloride Carbon Dioxide Anion Gap BUN Creatinine Est GFR ( Amer) Est GFR (Non-Af Amer) BUN/Creatinine Ratio Glucose POC Glucose (mg/dL) 175 H 99 Calcium PEP Impression Urine Osmolality Ur Random Albumin % U Random Total Protein Ur Albumin/Globulin U Random h-2-Fzidzyjj % U Random l-3-Flzinnbr % U Random b-Globulin % U Random Gamma Glob % Digoxin 0.5 L 04/30/17 04/30/17 04/30/17 05:04 05:04 07:44 WBC 10.8 RBC 3.54 L Hgb 11.8 L Hct 34 L MCV 97 H MCH 33 H MCHC 34 RDW 15 Plt Count 436 MPV 8 Neut % (Auto) 76.8 Lymph % (Auto) 17.8 L [place] % (Auto) 5.1 Eos % (Auto) 0.1 Baso % (Auto) 0.2 Absolute Neuts (auto) 8.3 H Absolute Lymphs (auto) 1.9 Absolute Monos (auto) 0.6 Absolute Eos (auto) 0 Absolute Basos (auto) 0 Absolute Nucleated RBC 0 Nucleated RBC % 0.1 Sodium 128 L Potassium 4.1 Chloride 97 L Carbon Dioxide 28 Anion Gap 3 BUN 29 H Creatinine 0.70 Est GFR ( Amer) 145.1 Est GFR (Non-Af Amer) 112.8 BUN/Creatinine Ratio 41.4 H Glucose 83 POC Glucose (mg/dL) 92 Calcium 7.8 L PEP Impression Urine Osmolality Ur Random Albumin % U Random Total Protein Ur Albumin/Globulin U Random a-3-Qkehmjxg % U Random q-7-Wsjroekj % U Random b-Globulin % U Random Gamma Glob % Digoxin 04/30/17 04/30/17 12:04 16:37 WBC RBC Hgb Hct MCV MCH MCHC RDW Plt Count MPV Neut % (Auto) Lymph % (Auto) [place] % (Auto) Eos % (Auto) Baso % (Auto) Absolute Neuts (auto) Absolute Lymphs (auto) Absolute Monos (auto) Absolute Eos (auto) Absolute Basos (auto) Absolute Nucleated RBC Nucleated RBC % Sodium Potassium Chloride Carbon Dioxide Anion Gap BUN Creatinine Est GFR ( Amer) Est GFR (Non-Af Amer) BUN/Creatinine Ratio Glucose POC Glucose (mg/dL) 224 H 194 H Calcium PEP Impression Urine Osmolality Ur Random Albumin % U Random Total Protein Ur Albumin/Globulin U Random f-7-Ubbvshdk % U Random f-8-Bdkzjnek % U Random b-Globulin % U Random Gamma Glob % Digoxin Microbiology and Other Data: Microbiology 04/26/17 20:34 Blood Venous Aerobic Blood Culture - Preliminary No Growth Day 3 04/26/17 20:34 Blood Venous Anaerobic Blood Culture - Final Streptococcus Pneumoniae 04/26/17 20:45 Blood Venous Aerobic Blood Culture - Preliminary No Growth Day 3 04/26/17 20:45 Blood Venous Anaerobic Blood Culture - Preliminary No Growth Day 3 04/27/17 00:50 Sputum Expectorated Gram Stain - Final 04/27/17 00:50 Sputum Expectorated Sputum Culture - Final Normal Sruthi 04/27/17 00:50 Urine Legionella Urinary Antigen - Final Negative Legionella 04/27/17 00:50 Urine Streptococcus pneumoniae Ag Screen - Final Positive S. Pneumo Antigen 04/26/17 21:44 Nasal Nasal Screen MRSA (PCR)(ALIREZA) - Final Mrsa Not Detected Assess/Plan/Problems-Billing Assessment: 66 yo male COPD, chronic hypoxic respiratory failure (2L), recently quit smoking 2weeks prior, tom's CM (2013), significat EtOH use (~120oz beer daily), p/w 3 weeks SOB. Aflutter with RVR initially on dilt gtt (now off, better controlled, digoxin added by cardiology). RLL pna 2/2 strep pna. ECHO with EF <20% and diastolic dysfunction, diffusely hypokinetic. Now on Eliquis. Hyponatremic low 122, now 128. Unable to attempt CV as could not rule out thrombus in AAA. Planned [facility] 05/02 - Patient Problems (1) Systolic and diastolic CHF, acute Current Visit: Yes Status: Acute Code(s): I50.41 - ACUTE COMBINED SYSTOLIC AND DIASTOLIC (CONGESTIVE) HRT FAIL SNOMED Code(s): 760693630615712 Comment: EF <20%, diffusely hypokinesis. Hx of Tom's 2014. appreciate cardiology recs (Dr. Guo). restart ACEI (was hypotensive yest so order stopped) avoid diltizam given reduced EF change metoprolol succinate 75mg daily BNP 1041 Alcohol abuse not helping. planned [facility] 05/02 tentatively (2) Hyponatremia Current Visit: Yes Status: Acute Code(s): E87.1 - HYPO-OSMOLALITY AND HYPONATREMIA SNOMED Code(s): 96920982 Comment: uric acid wnl (less likely SIADH, especially as Kaila <17), serum osm 269, urine osms 551, cortisol not low. TSH wnl BMP daily now Concern for reset osmostat in setting of alcoholism, poor nutrition. vs CHF. up to 128 (3) Atrial fibrillation with RVR Current Visit: Yes Status: Acute Code(s): I48.91 - UNSPECIFIED ATRIAL FIBRILLATION SNOMED Code(s): 134099531070031 Comment: tele, replete lytes Mg>2, K>4. metoprolol succinate 75mg daily. avoid further dilt given depressed EF <20%. continue digoxin per cardiology, consider load if RVR continue eliquis consider NAVDEEP/CV after 8 weeks of Eliquis. given can't rule out [place] thrombus (4) Sepsis Current Visit: Yes Status: Acute Comment: 2/2 streptococcal pna. plan as above. abx hypotension, leukocytosis, lactic acidosis. (resolved) (5) Streptococcal pneumonia Current Visit: Yes Status: Acute Code(s): J15.4 - PNEUMONIA DUE TO OTHER STREPTOCOCCI SNOMED Code(s): 48860354 Comment: Continue ceftriaxone. Day 5 sensitive. (6) Smoker Current Visit: Yes Status: Acute Code(s): F17.200 - NICOTINE DEPENDENCE, UNSPECIFIED, UNCOMPLICATED SNOMED Code(s): 61715124 Comment: continue nicotine patch. 2.5 ppd until could not tolerate during sickness. (7) Paraproteinemia Current Visit: Yes Status: Acute Code(s): D89.2 - HYPERGAMMAGLOBULINEMIA, UNSPECIFIED SNOMED Code(s): 076631065 Comment: TProtein 7.1, Albumin 3.1. Gap 4.0 SPEP w/o spike. UPEP pending. no protein on UA. (8) Diabetes mellitus Current Visit: Yes Status: Acute Code(s): E11.9 - TYPE 2 DIABETES MELLITUS WITHOUT COMPLICATIONS SNOMED Code(s): 69122034 Comment: A1C 7.1, does not previously carry the diagnosis. SSI lispro and POCT qachs added. rapid spikes yesterday (in setting of prednisone? worsening). got 20U lantus. decrease to 10U (9) ETOH abuse Current Visit: Yes Status: Acute Code(s): F10.10 - ALCOHOL ABUSE, UNCOMPLICATED SNOMED Code(s): 60189226 Comment: 120 oz beer nightly peer . continue folate, thiamine not scoring on WAM, decrease frequency likely contributing to cardiomyopathy. Status and Disposition: medicine inpatient. [facility] 05/02
[2017-04-30] MEDS ORDERED: Ramipril CAP* 2.5 MG PO ONE (21:00)
[2017-04-30] MEDS: Montelukast Sodium TAB* 10 MG PO SCH (21:39)
[2017-04-30] MEDS: Atorvastatin* 20 MG TAB PO SCH (21:39)
[2017-04-30] MEDS: Insulin GLARGINE(*) 1 UNITS UNIT SUBCUT SCH (21:39)
[2017-04-30] MEDS: Nicotine Patch Removal NOTE FOLLOW UP SCH (21:39)
[2017-04-30] MEDS: cefTRIAXone(*) 1 GM in D5W 50 ML BAG* 50 ML IVPB SCH (22:51)
[2017-05-01] MEDS: Metoprolol Tartrate IV* 1 MG/ML 5 ML VIAL IV SCH ×22 (00:59→23:38)
[2017-05-01] MEDS: Insulin LISPRO* 1 UNITS UNIT SUBCUT SCH ×6 (01:00→21:57)
[2017-05-01 05:47] LABS: ABS Basophils 0 10^3/ul (0-0.2); ABS Eosinophils 0 10^3/ul (0-0.6); ABS Lymphocytes 2.1 10^3/ul (1.0-4.8); ABS Monocytes 0.5 10^3/ul (0-0.8); ABS Neutrophils 7.8 10^3/ul (1.5-7.7); ABS Nucleated RBC 0 10^3/ul; Eosinophil % 0.4 % (0-6); Hematocrit 36 % (42-52); Hemoglobin 12.3 g/dl (14.0-18.0); Lymphocyte % 19.9 % (25-47); Mean Corpuscular HGB Conc 34 g/dl (31-36); Mean Corpuscular Hemoglobin 33 pg (27-31); Mean Corpuscular Volume 98 fL (80-94); Mean Platelet Volume 8 um3 (7.4-10.4); Nucleated Red Blood Cells % 0.1; Platelet Count 417 10^3/ul (150-450); Red Cell Distribution Width 15 % (10.5-15); White Blood Count 10.5 10^3/ul (3.5-10.8)
[2017-05-01] MEDS: Omeprazole CAP* 20 MG PO SCH (05:50)
[2017-05-01 06:03] LABS: EGFR Non-African American 127.4 (>60)
[2017-05-01] MEDS: Nicotine PATCH 14 MG/24 HR* PATCH TRANSDERM SCH (07:37)
[2017-05-01] MEDS: Metoprolol Succinate XL TAB* 50 MG PO SCH (07:37)
[2017-05-01] MEDS: Thiamine TAB* 100 MG TAB PO SCH (07:37)
[2017-05-01] MEDS: Aspirin EC Low Dose* 81 MG TAB.EC PO SCH (07:37)
[2017-05-01] MEDS: Senna TAB PO SCH ×2 (07:37→21:55)
[2017-05-01] MEDS: Docusate CAP* 100 MG PO SCH ×2 (07:37→21:55)
[2017-05-01] MEDS: Multivitamins/Minerals TAB PO SCH (07:37)
[2017-05-01] MEDS: Apixaban* 5 MG TAB PO SCH (07:37)
[2017-05-01] MEDS: Folic Acid TAB* 1 MG PO SCH (07:38)
[2017-05-01] MEDS: Tiotropium CAP.INH* CAP.INH/18 MCG (USE ORDER SET !) INH SCH (07:47)
[2017-05-01] MEDS: Mometasone/Formoter 200/5 MDI INH SCH ×2 (07:47→22:19)
--- NOTE | 2017-05-01 12:07 | PN ---
Subjective Date of Service: 05/01/17 - CC: coughing, SOB, weak. Interval History: The patient is ambulating with assistance. +VALERO and feels weak. Coughing persists, sputum less purulent per patient. Sleeping flat. No chest pain, no palpitations. Medications Active Medications: Acetaminophen (Tylenol Tab*) 650 mg PO Q4H PRN PRN Reason: FEVER/PAIN Al Hydrox/Mg Hydrox/Simethicone (Maalox Plus*) 30 ml PO Q6H PRN PRN Reason: INDIGESTION Albuterol (Ventolin 2.5 Mg/3 Ml Neb.Ana*) 2.5 mg INH Q2H PRN PRN Reason: SOB/WHEEZING Albuterol/Ipratropium (Duoneb (Albuterol 2.5 Mg/Ipratropium 0.5 Mg)) 1 neb INH Q4H PRN PRN Reason: SOB/WHEEZING Apixaban (Eliquis*) 5 mg PO BID [facility] Last Admin: 05/01/17 07:37 Dose: 5 mg Aspirin (Aspirin Ec Low Dose*) 81 mg PO DAILY [facility] Last Admin: 05/01/17 07:37 Dose: 81 mg Atorvastatin Calcium (Lipitor*) 20 mg PO 2100 [facility] Last Admin: 04/30/17 21:39 Dose: 20 mg Dextrose (D50w Syringe 50 Ml*) 12.5 gm IV PUSH .FOR FS < 60 - SS PRN PRN Reason: FS < 60 Digoxin (Lanoxin Tab*) 0.125 mg PO DAILY@1700 [facility] Last Admin: 04/30/17 17:38 Dose: 0.125 mg Docusate Sodium (Colace Cap*) 100 mg PO BID [facility] Last Admin: 05/01/17 07:37 Dose: 100 mg Folic Acid (Folvite Tab*) 1 mg PO DAILY [facility] Last Admin: 05/01/17 07:38 Dose: 1 mg Ceftriaxone Sodium 1 gm/ (Dextrose) 50 mls @ 200 mls/hr IVPB Q24H [facility] Last Admin: 04/30/17 22:51 Dose: 200 mls/hr Insulin Glargine (Lantus(*)) 10 units SUBCUT Q24H [facility] Last Admin: 04/30/17 21:39 Dose: 10 units Insulin Human Lispro (Humalog*) 0 units SUBCUT Q4HR [facility] PRN Reason: Protocol Last Admin: 05/01/17 10:26 Dose: Not Given Lorazepam (Ativan Tab(*)) 0 - 6 mg PO .PER [facility] PROTOCOL [facility] PRN Reason: Protocol Metoprolol Succinate (Toprol Xl Tab*) 75 mg PO DAILY [facility] Last Admin: 05/01/17 07:37 Dose: 75 mg Metoprolol Tartrate (Lopressor Iv*) 5 mg IV Q1H [facility] Last Admin: 05/01/17 11:42 Dose: Not Given Mometasone Furoate/Formoterol Fumar (Dulera 200/5 Mdi*) 2 puff INH BID [facility] PRN Reason: Protocol Last Admin: 05/01/17 07:47 Dose: 2 puff Montelukast Sodium (Singulair Tab*) 10 mg PO BEDTIME [facility] Last Admin: 04/30/17 21:39 Dose: 10 mg Morphine Sulfate (Morphine Inj (Syringe)*) 2 mg IV Q4H PRN PRN Reason: PAIN Multivitamins/Minerals (Theragran/Minerals Tab*) 1 tab PO DAILY [facility] Last Admin: 05/01/17 07:37 Dose: 1 tab Nicotine (Nicotine Patch 14 Mg/24 Hr*) 1 patch TRANSDERM DAILY [facility] Last Admin: 05/01/17 07:37 Dose: 1 patch Omeprazole (Prilosec Cap*) 20 mg PO 0600 [facility] Last Admin: 05/01/17 05:50 Dose: 20 mg Ondansetron HCl (Zofran Inj*) 4 mg IV Q4H PRN PRN Reason: NAUSEA/VOMITING Oxycodone/Acetaminophen (Percocet 5/325 Tab*) 1 tab PO Q4H PRN PRN Reason: Pain Pharmacy Profile Note (Nicotine Patch Removal Note*) 1 note FOLLOW UP 2100 [facility] Last Admin: 04/30/17 21:39 Dose: 1 note Senna (Senokot Tab*) 1 tab PO BID [facility] Last Admin: 05/01/17 07:37 Dose: 1 tab Thiamine HCl (Vitamin B-1 Tab*) 100 mg PO DAILY [facility] Last Admin: 05/01/17 07:37 Dose: 100 mg Tiotropium [place] (Spiriva Cap.Inh*) 1 cap INH DAILY [facility] Last Admin: 05/01/17 07:47 Dose: 1 cap Objective Vital Signs: Temp Pulse Resp BP Pulse Ox 97.6 F 74 16 127/66 94 05/01/17 07:34 05/01/17 07:48 05/01/17 07:48 05/01/17 07:34 05/01/17 07:48 Oxygen Devices in Use Now: None Appearance: slight male in NAD lying flat. Eyes: No Scleral Icterus, PERRLA Ears/Nose/Mouth/Throat: Clear Oropharnyx, Mucous Membranes Moist Neck: NL Appearance and Movements; NL JVP, Trachea Midline, No Thyroid Enlargement, Masses Respiratory: Symmetrical Chest Expansion and Respiratory Effort, Clear to Auscultation - + cough, sputum in kidney bowl at bedside yellow color, blood tinged. Cardiovascular: RRR - no murmurs. Abdominal: NL Sounds; No Tenderness; No Distention Extremities: No Edema, No Clubbing, Cyanosis Skin: No Rash or Ulcers - lipomoa on back incidentally noted. Neurological: Alert and Oriented x 3 Lines/Tubes/Other Access: Clean, Dry and Intact Peripheral IV Laboratory Results: 05/01/17 05:15 05/01/17 05:15 APTT 37.1 seconds (26.0-36.3) H 04/26/17 17:55 Total Bilirubin 1.00 mg/dL (0.2-1.0) 04/26/17 17:55 AST 49 U/L (13-39) H 04/26/17 17:55 ALT 32 U/L (7-52) 04/26/17 17:55 Alkaline Phosphatase 77 U/L (34-104) 04/26/17 17:55 CK-MB (CK-2) 4.8 ng/mL (0.6-6.3) 04/26/17 17:55 B-Natriuretic Peptide 1041 pg/mL (-100) H 04/26/17 17:55 Total Protein 7.1 g/dL (6.4-8.9) 04/26/17 17:55 Albumin 3.1 g/dL (3.2-5.2) L 04/26/17 17:55 Globulin 4.0 g/dL (2-4) 04/26/17 17:55 Albumin/Globulin Ratio 0.8 (1-3) L 04/26/17 17:55 Triglycerides 55 mg/dL 04/27/17 05:45 Cholesterol 56 mg/dL 04/27/17 05:45 LDL Cholesterol 37 mg/dL 04/27/17 05:45 HDL Cholesterol 7.6 mg/dL 04/27/17 05:45 TSH 0.81 mcIU/mL (0.34-5.60) 04/26/17 17:55 04/26/17 04/27/17 20:34 05:45 Troponin I 0.07 H* 0.05 H* Diagnostic Imaging: ECHO 01/17/13 ([facility]) EF 35%, anterio wall AK, inferior wall AK. Echo 01/23/16 ([facility]) EF 60%. Echo 02/23/18 [facility] EF 20%, apex moves best, restrictive filling. [facility] 02/26/18: EF <20%, spontaneous contrast in [place], poss. clot [place], mild MR, mod TR. EKG Data: Atrial flutter persists. Assessment/Plan 66 yo male with severe CM, recurred, in atrial flutter intermittent tachycardia. Uncertain duration of CM and A. flutter. This is in the setting of S. pneumonia bacteremia/sepsis. A. flutter with clot in [place]: anticoagulate and rate control for now, re try NAVDEEP and CV in 4-8 weeks. Continue Eliquis, Toprol, digoxen. Hyponatremia improving, but can impact on rhythm. CM: Continue metoprolol ACEI Etiology unclear with differential as outlined on prior notes. Ordered cardiac catheterization Tuesday (mild elevation troponins, severe recurrent CM, CAD risks of DM, dyslipidemia, smoker). ID: Pneumonia/S pneumo sepsis improving with antibiotics. Nutrition: Presumed secondary to alcohol. Taking PO well here.
[2017-05-01] MEDS: Digoxin TAB* 0.125 MG PO SCH (17:11)
--- NOTE | 2017-05-01 18:08 | PN ---
Subjective Date of Service: 05/01/17 Interval History: Without complaint. Still spitting up sputum. Na improved to 131. Eliquis last dose this AM. Discussion about potential LHC tomorrow vs next day. Objective Active Medications: Acetaminophen (Tylenol Tab*) 650 mg PO Q4H PRN PRN Reason: FEVER/PAIN Al Hydrox/Mg Hydrox/Simethicone (Maalox Plus*) 30 ml PO Q6H PRN PRN Reason: INDIGESTION Albuterol (Ventolin 2.5 Mg/3 Ml Neb.Ana*) 2.5 mg INH Q2H PRN PRN Reason: SOB/WHEEZING Albuterol/Ipratropium (Duoneb (Albuterol 2.5 Mg/Ipratropium 0.5 Mg)) 1 neb INH Q4H PRN PRN Reason: SOB/WHEEZING Aspirin (Aspirin Ec Low Dose*) 81 mg PO DAILY [facility] Last Admin: 05/01/17 07:37 Dose: 81 mg Atorvastatin Calcium (Lipitor*) 20 mg PO 2100 [facility] Last Admin: 04/30/17 21:39 Dose: 20 mg Dextrose (D50w Syringe 50 Ml*) 12.5 gm IV PUSH .FOR FS < 60 - SS PRN PRN Reason: FS < 60 Digoxin (Lanoxin Tab*) 0.125 mg PO DAILY@1700 [facility] Last Admin: 05/01/17 17:11 Dose: 0.125 mg Docusate Sodium (Colace Cap*) 100 mg PO BID [facility] Last Admin: 05/01/17 07:37 Dose: 100 mg Enoxaparin Sodium (Lovenox(*)) 60 mg SUBCUT Q12H [facility] Folic Acid (Folvite Tab*) 1 mg PO DAILY [facility] Last Admin: 05/01/17 07:38 Dose: 1 mg Ceftriaxone Sodium 1 gm/ (Dextrose) 50 mls @ 200 mls/hr IVPB Q24H [facility] Last Admin: 04/30/17 22:51 Dose: 200 mls/hr Insulin Glargine (Lantus(*)) 10 units SUBCUT Q24H [facility] Last Admin: 04/30/17 21:39 Dose: 10 units Insulin Human Lispro (Humalog*) 0 units SUBCUT Q4HR [facility] PRN Reason: Protocol Last Admin: 05/01/17 17:11 Dose: 4 units Lorazepam (Ativan Tab(*)) 0 - 6 mg PO .PER [facility] PROTOCOL [facility] PRN Reason: Protocol Metoprolol Succinate (Toprol Xl Tab*) 75 mg PO DAILY [facility] Last Admin: 05/01/17 07:37 Dose: 75 mg Metoprolol Tartrate (Lopressor Iv*) 5 mg IV Q1H [facility] Last Admin: 05/01/17 17:11 Dose: Not Given Mometasone Furoate/Formoterol Fumar (Dulera 200/5 Mdi*) 2 puff INH BID [facility] PRN Reason: Protocol Last Admin: 05/01/17 07:47 Dose: 2 puff Montelukast Sodium (Singulair Tab*) 10 mg PO BEDTIME [facility] Last Admin: 04/30/17 21:39 Dose: 10 mg Morphine Sulfate (Morphine Inj (Syringe)*) 2 mg IV Q4H PRN PRN Reason: PAIN Multivitamins/Minerals (Theragran/Minerals Tab*) 1 tab PO DAILY [facility] Last Admin: 05/01/17 07:37 Dose: 1 tab Nicotine (Nicotine Patch 14 Mg/24 Hr*) 1 patch TRANSDERM DAILY [facility] Last Admin: 05/01/17 07:37 Dose: 1 patch Omeprazole (Prilosec Cap*) 20 mg PO 0600 [facility] Last Admin: 05/01/17 05:50 Dose: 20 mg Ondansetron HCl (Zofran Inj*) 4 mg IV Q4H PRN PRN Reason: NAUSEA/VOMITING Oxycodone/Acetaminophen (Percocet 5/325 Tab*) 1 tab PO Q4H PRN PRN Reason: Pain Pharmacy Profile Note (Nicotine Patch Removal Note*) 1 note FOLLOW UP 2100 [facility] Last Admin: 04/30/17 21:39 Dose: 1 note Senna (Senokot Tab*) 1 tab PO BID [facility] Last Admin: 05/01/17 07:37 Dose: 1 tab Thiamine HCl (Vitamin B-1 Tab*) 100 mg PO DAILY [facility] Last Admin: 05/01/17 07:37 Dose: 100 mg Tiotropium [place] (Spiriva Cap.Inh*) 1 cap INH DAILY [facility] Last Admin: 05/01/17 07:47 Dose: 1 cap Vital Signs - 8 hr 05/01/17 05/01/17 05/01/17 11:10 15:16 17:11 Temperature 97.5 F 98.3 F Pulse Rate 93 88 92 Respiratory 16 20 Rate Blood Pressure 101/62 101/62 (mmHg) O2 Sat by Pulse 98 97 Oximetry Oxygen Devices in Use Now: None Appearance: NAD Eyes: No Scleral Icterus, PERRLA Ears/Nose/Mouth/Throat: NL Teeth, Lips, Gums Neck: NL Appearance and Movements; NL JVP, Trachea Midline Respiratory: Symmetrical Chest Expansion and Respiratory Effort, Clear to Auscultation Cardiovascular: NL Sounds; No Murmurs; No JVD, RRR, - Extremities: No Edema, No Clubbing, Cyanosis Skin: No Rash or Ulcers, No Nodules or Sclerosis Neurological: Alert and Oriented x 3, NL Sensation, NL Muscle Strength and Tone Nutrition: Taking PO's Result Diagrams: 05/01/17 05:15 05/01/17 05:15 Additional Lab and Data: Laboratory Results - last 24 hr 04/28/17 04/30/17 05/01/17 11:45 21:13 00:27 WBC RBC Hgb Hct MCV MCH MCHC RDW Plt Count MPV Neut % (Auto) Lymph % (Auto) Moca % (Auto) Eos % (Auto) Baso % (Auto) Absolute Neuts (auto) Absolute Lymphs (auto) Absolute Monos (auto) Absolute Eos (auto) Absolute Basos (auto) Absolute Nucleated RBC Nucleated RBC % Sodium Potassium Chloride Carbon Dioxide Anion Gap BUN Creatinine Est GFR ( Amer) Est GFR (Non-Af Amer) BUN/Creatinine Ratio Glucose POC Glucose (mg/dL) 183 H 142 H Calcium PEP Impression See comment Ur Random Albumin % 18 U Random Total Protein 11 Ur Albumin/Globulin 0.21 U Random p-8-Bzfzvqpu % 10 U Random h-0-Psokgfdy % 21 U Random b-Globulin % 15 U Random Gamma Glob % 36 05/01/17 05/01/17 05/01/17 04:14 05:15 05:15 WBC 10.5 RBC 3.70 L Hgb 12.3 L Hct 36 L MCV 98 H MCH 33 H MCHC 34 RDW 15 Plt Count 417 MPV 8 Neut % (Auto) 74.5 Lymph % (Auto) 19.9 L Moca % (Auto) 5.1 Eos % (Auto) 0.4 Baso % (Auto) 0.1 Absolute Neuts (auto) 7.8 H Absolute Lymphs (auto) 2.1 Absolute Monos (auto) 0.5 Absolute Eos (auto) 0 Absolute Basos (auto) 0 Absolute Nucleated RBC 0 Nucleated RBC % 0.1 Sodium 131 L Potassium 4.3 Chloride 98 L Carbon Dioxide 28 Anion Gap 5 BUN 19 Creatinine 0.63 L Est GFR ( Amer) 163.9 Est GFR (Non-Af Amer) 127.4 BUN/Creatinine Ratio 30.2 H Glucose 119 H POC Glucose (mg/dL) 131 H Calcium 8.2 L PEP Impression Ur Random Albumin % U Random Total Protein Ur Albumin/Globulin U Random w-3-Zlptxsrg % U Random p-0-Wdhvtyjt % U Random b-Globulin % U Random Gamma Glob % 05/01/17 05/01/17 05/01/17 07:42 11:35 16:29 WBC RBC Hgb Hct MCV MCH MCHC RDW Plt Count MPV Neut % (Auto) Lymph % (Auto) Moca % (Auto) Eos % (Auto) Baso % (Auto) Absolute Neuts (auto) Absolute Lymphs (auto) Absolute Monos (auto) Absolute Eos (auto) Absolute Basos (auto) Absolute Nucleated RBC Nucleated RBC % Sodium Potassium Chloride Carbon Dioxide Anion Gap BUN Creatinine Est GFR ( Amer) Est GFR (Non-Af Amer) BUN/Creatinine Ratio Glucose POC Glucose (mg/dL) 87 164 H 238 H Calcium PEP Impression Ur Random Albumin % U Random Total Protein Ur Albumin/Globulin U Random n-6-Hyhvmqes % U Random p-2-Rokwfhfc % U Random b-Globulin % U Random Gamma Glob % Microbiology and Other Data: Microbiology 04/26/17 20:45 Blood Venous Aerobic Blood Culture - Preliminary No Growth Day 4 04/26/17 20:45 Blood Venous Anaerobic Blood Culture - Preliminary No Growth Day 4 04/26/17 20:34 Blood Venous Aerobic Blood Culture - Preliminary No Growth Day 4 04/26/17 20:34 Blood Venous Anaerobic Blood Culture - Final Streptococcus Pneumoniae 04/27/17 00:50 Sputum Expectorated Gram Stain - Final 04/27/17 00:50 Sputum Expectorated Sputum Culture - Final Normal Sruthi 04/27/17 00:50 Urine Legionella Urinary Antigen - Final Negative Legionella 04/27/17 00:50 Urine Streptococcus pneumoniae Ag Screen - Final Positive S. Pneumo Antigen 04/26/17 21:44 Nasal Nasal Screen MRSA (PCR)(ALIREZA) - Final Mrsa Not Detected Assess/Plan/Problems-Billing Assessment: 66 yo male COPD, chronic hypoxic respiratory failure (2L), recently quit smoking 2weeks prior, tom's CM (2013), significat EtOH use (~120oz beer daily), p/w 3 weeks SOB. Aflutter with RVR initially on dilt gtt (now off, better controlled, digoxin added by cardiology). RLL pna 2/2 strep pna. ECHO with EF <20% and diastolic dysfunction, diffusely hypokinetic. Now on Eliquis. Hyponatremic low 122, improved to 131. Unable to attempt CV as could not rule out thrombus in AAA. Planned LHC 05/02 vs 04/02 - Patient Problems (1) Systolic and diastolic CHF, acute Current Visit: Yes Status: Acute Code(s): I50.41 - ACUTE COMBINED SYSTOLIC AND DIASTOLIC (CONGESTIVE) HRT FAIL SNOMED Code(s): 128693174867397 Comment: EF <20%, diffusely hypokinesis. Hx of Tom's 2014. appreciate cardiology recs (Dr. Guo). ramipril 2.5mg qpm. avoid diltizam given reduced EF metoprolol succinate 75mg daily BNP 1041 Alcohol abuse not helping. planned LHC 05/02 tentatively (2) Hyponatremia Current Visit: Yes Status: Acute Code(s): E87.1 - HYPO-OSMOLALITY AND HYPONATREMIA SNOMED Code(s): 85762282 Comment: uric acid wnl (less likely SIADH, especially as Kaila <17), serum osm 269, urine osms 551, cortisol not low. TSH wnl BMP daily now Concern for reset osmostat in setting of alcoholism, poor nutrition. vs CHF. up to 131 (3) Atrial fibrillation with RVR Current Visit: Yes Status: Acute Code(s): I48.91 - UNSPECIFIED ATRIAL FIBRILLATION SNOMED Code(s): 331197254430791 Comment: tele, replete lytes Mg>2, K>4. metoprolol succinate 75mg daily. avoid further dilt given depressed EF <20%. continue digoxin per cardiology, consider load if RVR eliquis on hold given LHC. lovenox 1mg/kg tonight then q12 but hold AM if LHC in AM consider NAVDEEP/CV after 8 weeks of Eliquis. given can't rule out [place] thrombus (4) Sepsis Current Visit: Yes Status: Acute Comment: 2/2 streptococcal pna. plan as above. abx hypotension, leukocytosis, lactic acidosis. (resolved) (5) Streptococcal pneumonia Current Visit: Yes Status: Acute Code(s): J15.4 - PNEUMONIA DUE TO OTHER STREPTOCOCCI SNOMED Code(s): 18957073 Comment: Continue ceftriaxone. Day 6/ sensitive. (6) Smoker Current Visit: Yes Status: Acute Code(s): F17.200 - NICOTINE DEPENDENCE, UNSPECIFIED, UNCOMPLICATED SNOMED Code(s): 57165235 Comment: continue nicotine patch. 2.5 ppd until could not tolerate during sickness. (7) Paraproteinemia Current Visit: Yes Status: Acute Code(s): D89.2 - HYPERGAMMAGLOBULINEMIA, UNSPECIFIED SNOMED Code(s): 011787271 Comment: TProtein 7.1, Albumin 3.1. Gap 4.0 SPEP w/o spike. UPEP no protein on UA. (8) Diabetes mellitus Current Visit: Yes Status: Acute Code(s): E11.9 - TYPE 2 DIABETES MELLITUS WITHOUT COMPLICATIONS SNOMED Code(s): 04981550 Comment: A1C 7.1, does not previously carry the diagnosis. SSI lispro and POCT qachs added. lantus 10U (9) ETOH abuse Current Visit: Yes Status: Acute Code(s): F10.10 - ALCOHOL ABUSE, UNCOMPLICATED SNOMED Code(s): 28842747 Comment: 120 oz beer nightly peer . continue folate, thiamine not scoring on WAM, decrease frequency likely contributing to cardiomyopathy. (10) COPD (chronic obstructive pulmonary disease) Current Visit: Yes Status: Acute Code(s): J44.9 - CHRONIC OBSTRUCTIVE PULMONARY DISEASE, UNSPECIFIED SNOMED Code(s): 85602160 Comment: dulera, singular, duo nebs q4h prn Status and Disposition: medicine inpatient. [facility] 05/02 vs 05/03 Attending: Farhad Nieves
[2017-05-01] MEDS: Ramipril CAP* 2.5 MG PO SCH (19:29)
[2017-05-01] MEDS: Atorvastatin* 20 MG TAB PO SCH (21:55)
[2017-05-01] MEDS: Montelukast Sodium TAB* 10 MG PO SCH (21:56)
[2017-05-01] MEDS: Enoxaparin(*) 60 MG/0.6 ML SYR SUBCUT SCH (21:56)
[2017-05-01] MEDS: Insulin GLARGINE(*) 1 UNITS UNIT SUBCUT SCH (21:56)
[2017-05-01] MEDS: Nicotine Patch Removal NOTE FOLLOW UP SCH (21:57)
[2017-05-01] MEDS: cefTRIAXone(*) 1 GM in D5W 50 ML BAG* 50 ML IVPB SCH (22:04)
[2017-05-02] MEDS: Metoprolol Tartrate IV* 1 MG/ML 5 ML VIAL IV SCH ×5 (03:49→08:01)
[2017-05-02] MEDS: Omeprazole CAP* 20 MG PO SCH (05:29)
[2017-05-02 05:57] LABS: ABS Basophils 0 10^3/ul (0-0.2); ABS Eosinophils 0 10^3/ul (0-0.6); ABS Monocytes 0.5 10^3/ul (0-0.8); ABS Neutrophils 6.2 10^3/ul (1.5-7.7); ABS Nucleated RBC 0 10^3/ul; Eosinophil % 0.5 % (0-6); Hematocrit 36 % (42-52); Lymphocyte % 22.9 % (25-47); Mean Corpuscular HGB Conc 34 g/dl (31-36); Mean Corpuscular Hemoglobin 33 pg (27-31); Mean Corpuscular Volume 98 fL (80-94); Mean Platelet Volume 7 um3 (7.4-10.4); Nucleated Red Blood Cells % 0; Platelet Count 442 10^3/ul (150-450); Red Blood Count 3.64 10^6/ul (4.0-5.4); Red Cell Distribution Width 15 % (10.5-15); White Blood Count 8.8 10^3/ul (3.5-10.8)
[2017-05-02 06:16] LABS: INR 1.18 (0.77-1.02)
[2017-05-02 06:20] LABS: EGFR Non-African American 114.7 (>60)
[2017-05-02] MEDS: Insulin LISPRO* 1 UNITS UNIT SUBCUT SCH ×4 (07:33→21:29)
[2017-05-02] MEDS: Tiotropium CAP.INH* CAP.INH/18 MCG (USE ORDER SET !) INH SCH (07:51)
[2017-05-02] MEDS: Mometasone/Formoter 200/5 MDI INH SCH ×2 (07:51→20:20)
[2017-05-02] MEDS ORDERED: Metoprolol Tartrate IV* 1 MG/ML 5 ML VIAL IV PRN (08:44)
--- NOTE | 2017-05-02 08:52 | PN ---
Subjective Date of Service: 05/02/17 Interval History: No complaints. 2 small BMs. briefly to 150s but did not need any metoprolol. [facility] planned tomorrow. Na to 129 from 131. Objective Active Medications: Acetaminophen (Tylenol Tab*) 650 mg PO Q4H PRN PRN Reason: FEVER/PAIN Al Hydrox/Mg Hydrox/Simethicone (Maalox Plus*) 30 ml PO Q6H PRN PRN Reason: INDIGESTION Albuterol (Ventolin 2.5 Mg/3 Ml Neb.Ana*) 2.5 mg INH Q2H PRN PRN Reason: SOB/WHEEZING Albuterol/Ipratropium (Duoneb (Albuterol 2.5 Mg/Ipratropium 0.5 Mg)) 1 neb INH Q4H PRN PRN Reason: SOB/WHEEZING Aspirin (Aspirin Ec Low Dose*) 81 mg PO DAILY [facility] Last Admin: 05/01/17 07:37 Dose: 81 mg Atorvastatin Calcium (Lipitor*) 20 mg PO 2100 [facility] Last Admin: 05/01/17 21:55 Dose: 20 mg Dextrose (D50w Syringe 50 Ml*) 12.5 gm IV PUSH .FOR FS < 60 - SS PRN PRN Reason: FS < 60 Digoxin (Lanoxin Tab*) 0.125 mg PO DAILY@1700 [facility] Last Admin: 05/01/17 17:11 Dose: 0.125 mg Docusate Sodium (Colace Cap*) 100 mg PO BID [facility] Last Admin: 05/01/17 21:55 Dose: 100 mg Enoxaparin Sodium (Lovenox(*)) 60 mg SUBCUT Q12H [facility] Last Admin: 05/01/17 21:56 Dose: 60 mg Folic Acid (Folvite Tab*) 1 mg PO DAILY [facility] Last Admin: 05/01/17 07:38 Dose: 1 mg Ceftriaxone Sodium 1 gm/ (Dextrose) 50 mls @ 200 mls/hr IVPB Q24H [facility] Last Admin: 05/01/17 22:04 Dose: 200 mls/hr Insulin Glargine (Lantus(*)) 10 units SUBCUT Q24H [facility] Last Admin: 05/01/17 21:56 Dose: 10 units Insulin Human Lispro (Humalog*) 0 units SUBCUT ACHS [facility] PRN Reason: Protocol Last Admin: 05/02/17 07:33 Dose: Not Given Metoprolol Succinate (Toprol Xl Tab*) 75 mg PO DAILY [facility] Last Admin: 05/01/17 07:37 Dose: 75 mg Metoprolol Tartrate (Lopressor Iv*) 5 mg IV Q1H PRN PRN Reason: TACHYCARDIA Mometasone Furoate/Formoterol Fumar (Dulera 200/5 Mdi*) 2 puff INH BID [facility] PRN Reason: Protocol Last Admin: 05/02/17 07:51 Dose: 2 puff Montelukast Sodium (Singulair Tab*) 10 mg PO BEDTIME [facility] Last Admin: 05/01/17 21:56 Dose: 10 mg Morphine Sulfate (Morphine Inj (Syringe)*) 2 mg IV Q4H PRN PRN Reason: PAIN Multivitamins/Minerals (Theragran/Minerals Tab*) 1 tab PO DAILY [facility] Last Admin: 05/01/17 07:37 Dose: 1 tab Nicotine (Nicotine Patch 14 Mg/24 Hr*) 1 patch TRANSDERM DAILY [facility] Last Admin: 05/01/17 07:37 Dose: 1 patch Omeprazole (Prilosec Cap*) 20 mg PO 0600 [facility] Last Admin: 05/02/17 05:29 Dose: 20 mg Ondansetron HCl (Zofran Inj*) 4 mg IV Q4H PRN PRN Reason: NAUSEA/VOMITING Oxycodone/Acetaminophen (Percocet 5/325 Tab*) 1 tab PO Q4H PRN PRN Reason: Pain Pharmacy Profile Note (Nicotine Patch Removal Note*) 1 note FOLLOW UP 2100 [facility] Last Admin: 05/01/17 21:57 Dose: 1 note Ramipril (Altace Cap*) 2.5 mg PO QPM [facility] Last Admin: 05/01/17 19:29 Dose: 2.5 mg Senna (Senokot Tab*) 1 tab PO BID [facility] Last Admin: 05/01/17 21:55 Dose: 1 tab Thiamine HCl (Vitamin B-1 Tab*) 100 mg PO DAILY [facility] Last Admin: 05/01/17 07:37 Dose: 100 mg Tiotropium [place] (Spiriva Cap.Inh*) 1 cap INH DAILY [facility] Last Admin: 05/02/17 07:51 Dose: 1 cap Vital Signs - 8 hr 02/19/18 02/19/18 02/19/18 04:26 07:15 07:48 Temperature 97.9 F 97.3 F Pulse Rate 83 87 Respiratory 16 15 18 Rate Blood Pressure 117/60 102/67 (mmHg) O2 Sat by Pulse 97 Oximetry Oxygen Devices in Use Now: None Appearance: NAD Eyes: No Scleral Icterus, PERRLA Ears/Nose/Mouth/Throat: NL Teeth, Lips, Gums, Mucous Membranes Moist Respiratory: - - reduced left base. Slightly deeper breaths today. no rhonchi. Cardiovascular: NL Sounds; No Murmurs; No JVD, RRR Abdominal: NL Sounds; No Tenderness; No Distention, No Hepatosplenomegaly Extremities: No Edema, No Clubbing, Cyanosis Skin: No Rash or Ulcers, No Nodules or Sclerosis Neurological: Alert and Oriented x 3, NL Sensation, NL Muscle Strength and Tone Result Diagrams: 05/02/17 05:30 05/02/17 12:50 Additional Lab and Data: Laboratory Results - last 24 hr 05/01/17 05/01/17 05/01/17 11:35 16:29 21:08 WBC RBC Hgb Hct MCV MCH MCHC RDW Plt Count MPV Neut % (Auto) Lymph % (Auto) [place] % (Auto) Eos % (Auto) Baso % (Auto) Absolute Neuts (auto) Absolute Lymphs (auto) Absolute Monos (auto) Absolute Eos (auto) Absolute Basos (auto) Absolute Nucleated RBC Nucleated RBC % INR (Anticoag Therapy) Sodium Potassium Chloride Carbon Dioxide Anion Gap BUN Creatinine Est GFR ( Amer) Est GFR (Non-Af Amer) BUN/Creatinine Ratio Glucose POC Glucose (mg/dL) 164 H 238 H 112 H Calcium 05/02/17 05/02/17 05/02/17 05:30 05:30 05:30 WBC 8.8 RBC 3.64 L Hgb 12.0 L Hct 36 L MCV 98 H MCH 33 H MCHC 34 RDW 15 Plt Count 442 MPV 7 L Neut % (Auto) 70.5 Lymph % (Auto) 22.9 L [place] % (Auto) 5.8 Eos % (Auto) 0.5 Baso % (Auto) 0.3 Absolute Neuts (auto) 6.2 Absolute Lymphs (auto) 2.0 Absolute Monos (auto) 0.5 Absolute Eos (auto) 0 Absolute Basos (auto) 0 Absolute Nucleated RBC 0 Nucleated RBC % 0 INR (Anticoag Therapy) 1.18 H Sodium 129 L Potassium 4.1 Chloride 97 L Carbon Dioxide 27 Anion Gap 5 BUN 18 Creatinine 0.69 Est GFR ( Amer) 147.5 Est GFR (Non-Af Amer) 114.7 BUN/Creatinine Ratio 26.1 H Glucose 110 H POC Glucose (mg/dL) Calcium 8.1 L 05/02/17 07:30 WBC RBC Hgb Hct MCV MCH MCHC RDW Plt Count MPV Neut % (Auto) Lymph % (Auto) [place] % (Auto) Eos % (Auto) Baso % (Auto) Absolute Neuts (auto) Absolute Lymphs (auto) Absolute Monos (auto) Absolute Eos (auto) Absolute Basos (auto) Absolute Nucleated RBC Nucleated RBC % INR (Anticoag Therapy) Sodium Potassium Chloride Carbon Dioxide Anion Gap BUN Creatinine Est GFR ( Amer) Est GFR (Non-Af Amer) BUN/Creatinine Ratio Glucose POC Glucose (mg/dL) 99 Calcium Microbiology and Other Data: Microbiology 04/26/17 20:45 Blood Venous Aerobic Blood Culture - Final No Growth Day 5 04/26/17 20:45 Blood Venous Anaerobic Blood Culture - Final No Growth Day 5 04/26/17 20:34 Blood Venous Aerobic Blood Culture - Final No Growth Day 5 04/26/17 20:34 Blood Venous Anaerobic Blood Culture - Final Streptococcus Pneumoniae 04/27/17 00:50 Sputum Expectorated Gram Stain - Final 04/27/17 00:50 Sputum Expectorated Sputum Culture - Final Normal Sruthi 04/27/17 00:50 Urine Legionella Urinary Antigen - Final Negative Legionella 04/27/17 00:50 Urine Streptococcus pneumoniae Ag Screen - Final Positive S. Pneumo Antigen 04/26/17 21:44 Nasal Nasal Screen MRSA (PCR)(ALIREZA) - Final Mrsa Not Detected Assess/Plan/Problems-Billing Assessment: 66 yo male COPD, chronic hypoxic respiratory failure (2L), recently quit smoking 2weeks prior, car's CM (2013), significat EtOH use (~120oz beer daily), p/w 3 weeks SOB. Aflutter with RVR initially on dilt gtt (now off, better controlled, digoxin added by cardiology). RLL pna 2/2 strep pna. ECHO with EF <20% and diastolic dysfunction, diffusely hypokinetic. Now on Eliquis. Hyponatremic low 122, 129 now. Unable to attempt CV as could not rule out thrombus in AAA. Planned LHC 05/03 - Patient Problems (1) Systolic and diastolic CHF, acute Current Visit: Yes Status: Acute Code(s): I50.41 - ACUTE COMBINED SYSTOLIC AND DIASTOLIC (CONGESTIVE) HRT FAIL SNOMED Code(s): 934649716344734 Comment: EF <20%, diffusely hypokinesis. Hx of Tak[place]o's 2014. appreciate cardiology recs (Dr. Guo). ramipril 2.5mg qpm. avoid diltizam given reduced EF metoprolol succinate 75mg daily BNP 1041 Alcohol abuse not helping. planned LHC 05/03 tentatively , hold AM lovenox. (2) Hyponatremia Current Visit: Yes Status: Acute Code(s): E87.1 - HYPO-OSMOLALITY AND HYPONATREMIA SNOMED Code(s): 62557886 Comment: uric acid wnl (less likely SIADH, especially as Kaila <17), serum osm 269, urine osms 551, cortisol not low. TSH wnl BMP daily now Concern for reset osmostat in setting of alcoholism, poor nutrition. vs CHF. last 129. (3) Atrial fibrillation with RVR Current Visit: Yes Status: Acute Code(s): I48.91 - UNSPECIFIED ATRIAL FIBRILLATION SNOMED Code(s): 075037065417052 Comment: tele, replete lytes Mg>2, K>4. metoprolol succinate 75mg daily. avoid further dilt given depressed EF <20%. continue digoxin per cardiology, consider load if RVR eliquis on hold given LHC planned. lovenox 1mg/kg q12, hold AM if LHC in 05/02 AM consider NAVDEEP/CV after 4-8 weeks of Eliquis. given can't rule out [place] thrombus (4) Sepsis Current Visit: Yes Status: Acute Comment: 04/15 streptococcal pna. plan as above. abx hypotension, leukocytosis, lactic acidosis. (resolved) (5) Streptococcal pneumonia Current Visit: Yes Status: Acute Code(s): J15.4 - PNEUMONIA DUE TO OTHER STREPTOCOCCI SNOMED Code(s): 93453872 Comment: Continue ceftriaxone through today. Day 09/17 sensitive. (6) Smoker Current Visit: Yes Status: Acute Code(s): F17.200 - NICOTINE DEPENDENCE, UNSPECIFIED, UNCOMPLICATED SNOMED Code(s): 57469270 Comment: continue nicotine patch. 2.5 ppd until could not tolerate during sickness. (7) Paraproteinemia Current Visit: Yes Status: Acute Code(s): D89.2 - HYPERGAMMAGLOBULINEMIA, UNSPECIFIED SNOMED Code(s): 594561606 Comment: TProtein 7.1, Albumin 3.1. Gap 4.0 SPEP w/o spike. UPEP no protein on UA. (8) Diabetes mellitus Current Visit: Yes Status: Acute Code(s): E11.9 - TYPE 2 DIABETES MELLITUS WITHOUT COMPLICATIONS SNOMED Code(s): 43132891 Comment: A1C 7.1, does not previously carry the diagnosis. SSI lispro and POCT qachs added. lantus 10U (9) ETOH abuse Current Visit: Yes Status: Acute Code(s): F10.10 - ALCOHOL ABUSE, UNCOMPLICATED SNOMED Code(s): 72481805 Comment: 120 oz beer nightly peer . continue folate, thiamine not scoring on WAM, now stopped. likely contributing to cardiomyopathy. (10) COPD (chronic obstructive pulmonary disease) Current Visit: Yes Status: Acute Code(s): J44.9 - CHRONIC OBSTRUCTIVE PULMONARY DISEASE, UNSPECIFIED SNOMED Code(s): 04933121 Comment: crystal amado duo nebs q4h prn Status and Disposition: medicine inpatient. [facility] 05/02 vs 05/03 Attending: Farhad Nieves
[2017-05-02] MEDS: Metoprolol Succinate XL TAB* 50 MG PO SCH (10:38)
[2017-05-02] MEDS: Multivitamins/Minerals TAB PO SCH (10:38)
[2017-05-02] MEDS: Thiamine TAB* 100 MG TAB PO SCH (10:38)
[2017-05-02] MEDS: Docusate CAP* 100 MG PO SCH ×2 (10:39→21:24)
[2017-05-02] MEDS: Aspirin EC Low Dose* 81 MG TAB.EC PO SCH (10:39)
[2017-05-02] MEDS: Folic Acid TAB* 1 MG PO SCH (10:39)
[2017-05-02] MEDS: Nicotine PATCH 14 MG/24 HR* PATCH TRANSDERM SCH (10:41)
[2017-05-02] MEDS: Senna TAB PO SCH ×2 (10:45→21:24)
[2017-05-02] MEDS: Enoxaparin(*) 60 MG/0.6 ML SYR SUBCUT SCH ×2 (10:46→21:24)
[2017-05-02 14:00] LABS: EGFR Non-African American 129.8 (>60)
[2017-05-02] MEDS: Digoxin TAB* 0.125 MG PO SCH (17:21)
[2017-05-02] MEDS: Ramipril CAP* 2.5 MG PO SCH (17:21)
[2017-05-02] MEDS: Insulin GLARGINE(*) 1 UNITS UNIT SUBCUT SCH (21:24)
[2017-05-02] MEDS: Montelukast Sodium TAB* 10 MG PO SCH (21:24)
[2017-05-02] MEDS: Atorvastatin* 20 MG TAB PO SCH (21:24)
[2017-05-02] MEDS: Nicotine Patch Removal NOTE FOLLOW UP SCH (21:24)
[2017-05-02] MEDS: cefTRIAXone(*) 1 GM in D5W 50 ML BAG* 50 ML IVPB SCH (23:23)
[2017-05-03] MEDS: Omeprazole CAP* 20 MG PO SCH (05:45)
[2017-05-03 06:04] LABS: EGFR Non-African American 134.8 (>60)
[2017-05-03] MEDS: Insulin LISPRO* 1 UNITS UNIT SUBCUT SCH ×4 (08:23→21:13)
[2017-05-03] MEDS: Nicotine PATCH 14 MG/24 HR* PATCH TRANSDERM SCH (08:23)
[2017-05-03] MEDS: Multivitamins/Minerals TAB PO SCH (08:25)
[2017-05-03] MEDS: Docusate CAP* 100 MG PO SCH ×2 (08:25→21:12)
[2017-05-03] MEDS: Aspirin EC Low Dose* 81 MG TAB.EC PO SCH (08:26)
[2017-05-03] MEDS: Thiamine TAB* 100 MG TAB PO SCH (08:26)
[2017-05-03] MEDS: Metoprolol Succinate XL TAB* 50 MG PO SCH (08:26)
[2017-05-03] MEDS: Senna TAB PO SCH ×2 (08:26→21:13)
[2017-05-03] MEDS: Folic Acid TAB* 1 MG PO SCH (08:26)
[2017-05-03] MEDS: Mometasone/Formoter 200/5 MDI INH SCH ×2 (08:39→20:09)
[2017-05-03] MEDS: Tiotropium CAP.INH* CAP.INH/18 MCG (USE ORDER SET !) INH SCH (08:40)
[2017-05-03] MEDS ORDERED: fentaNYL* 50 MCG/ML 2 ML VIAL (100 MCG VIAL) ONE (11:21)
[2017-05-03] MEDS ORDERED: Lidocaine 1% INJ* 10 MG/ML 30 ML SDV ONE (11:21)
[2017-05-03] MEDS ORDERED: Midazolam* 1 MG/ML 10 ML VIAL (10 MG) ONE (11:21)
[2017-05-03] MEDS ORDERED: Heparin 2 UNITS/ML IVPREMIX* 3,000 ML IV ONE (11:21)
[2017-05-03] MEDS ORDERED: Iohexol 350 (CONTRAST) 200 ML MDV IV ONE (11:22)
[2017-05-03] MEDS ORDERED: NS 0.9% 1000 ML* 1,000 ML IV SCH (12:45)
--- NOTE | 2017-05-03 16:30 | PN ---
Subjective Date of Service: 05/03/17 Interval History: No chest pain, cough, SOB. No new c/o. Objective Active Medications: Acetaminophen (Tylenol Tab*) 650 mg PO Q4H PRN PRN Reason: FEVER/PAIN Al Hydrox/Mg Hydrox/Simethicone (Maalox Plus*) 30 ml PO Q6H PRN PRN Reason: INDIGESTION Albuterol (Ventolin 2.5 Mg/3 Ml Neb.Ana*) 2.5 mg INH Q2H PRN PRN Reason: SOB/WHEEZING Albuterol/Ipratropium (Duoneb (Albuterol 2.5 Mg/Ipratropium 0.5 Mg)) 1 neb INH Q4H PRN PRN Reason: SOB/WHEEZING Apixaban (Eliquis*) 5 mg PO BID [facility] Aspirin (Aspirin Ec Low Dose*) 81 mg PO DAILY [facility] Last Admin: 05/03/17 08:26 Dose: 81 mg Atorvastatin Calcium (Lipitor*) 20 mg PO 2100 [facility] Last Admin: 05/02/17 21:24 Dose: 20 mg Dextrose (D50w Syringe 50 Ml*) 12.5 gm IV PUSH .FOR FS < 60 - SS PRN PRN Reason: FS < 60 Digoxin (Lanoxin Tab*) 0.125 mg PO DAILY@1700 [facility] Last Admin: 05/02/17 17:21 Dose: 0.125 mg Docusate Sodium (Colace Cap*) 100 mg PO BID [facility] Last Admin: 05/03/17 08:25 Dose: 100 mg Folic Acid (Folvite Tab*) 1 mg PO DAILY [facility] Last Admin: 05/03/17 08:26 Dose: 1 mg Ceftriaxone Sodium 1 gm/ (Dextrose) 50 mls @ 200 mls/hr IVPB Q24H [facility] Last Admin: 05/02/17 23:23 Dose: 200 mls/hr Sodium Chloride (Ns 0.9% 1000 Ml*) 1,000 mls @ 50 mls/hr IV .PER RATE [facility] Stop: 05/03/17 18:00 Last Admin: 05/03/17 14:07 Dose: 50 mls/hr Insulin Glargine (Lantus(*)) 10 units SUBCUT Q24H [facility] Last Admin: 05/02/17 21:24 Dose: 10 units Insulin Human Lispro (Humalog*) 0 units SUBCUT ACHS [facility] PRN Reason: Protocol Last Admin: 05/03/17 14:07 Dose: Not Given Metoprolol Succinate (Toprol Xl Tab*) 75 mg PO DAILY [facility] Last Admin: 05/03/17 08:26 Dose: 75 mg Metoprolol Tartrate (Lopressor Iv*) 5 mg IV Q1H PRN PRN Reason: TACHYCARDIA Mometasone Furoate/Formoterol Fumar (Dulera 200/5 Mdi*) 2 puff INH BID [facility] PRN Reason: Protocol Last Admin: 05/03/17 08:39 Dose: 2 puff Montelukast Sodium (Singulair Tab*) 10 mg PO BEDTIME [facility] Last Admin: 05/02/17 21:24 Dose: 10 mg Morphine Sulfate (Morphine Inj (Syringe)*) 2 mg IV Q4H PRN PRN Reason: PAIN Multivitamins/Minerals (Theragran/Minerals Tab*) 1 tab PO DAILY [facility] Last Admin: 05/03/17 08:25 Dose: 1 tab Nicotine (Nicotine Patch 14 Mg/24 Hr*) 1 patch TRANSDERM DAILY [facility] Last Admin: 05/03/17 08:23 Dose: 1 patch Omeprazole (Prilosec Cap*) 20 mg PO 0600 [facility] Last Admin: 05/03/17 05:45 Dose: 20 mg Ondansetron HCl (Zofran Inj*) 4 mg IV Q4H PRN PRN Reason: NAUSEA/VOMITING Oxycodone/Acetaminophen (Percocet 5/325 Tab*) 1 tab PO Q4H PRN PRN Reason: Pain Pharmacy Profile Note (Nicotine Patch Removal Note*) 1 note FOLLOW UP 2100 [facility] Last Admin: 05/02/17 21:24 Dose: 1 note Ramipril (Altace Cap*) 2.5 mg PO QPM [facility] Last Admin: 05/02/17 17:21 Dose: 2.5 mg Senna (Senokot Tab*) 1 tab PO BID [facility] Last Admin: 05/03/17 08:26 Dose: 1 tab Thiamine HCl (Vitamin B-1 Tab*) 100 mg PO DAILY [facility] Last Admin: 05/03/17 08:26 Dose: 100 mg Tiotropium [place] (Spiriva Cap.Inh*) 1 cap INH DAILY [facility] Last Admin: 05/03/17 08:40 Dose: 1 cap Vital Signs - 8 hr 05/03/17 05/03/17 05/03/17 08:44 10:01 11:29 Temperature 99.2 F Pulse Rate 54 54 84 Respiratory 16 16 16 Rate Blood Pressure 97/71 (mmHg) O2 Sat by Pulse 96 96 98 Oximetry 05/03/17 05/03/17 13:08 14:20 Temperature 97.7 F 97.9 F Pulse Rate 79 50 Respiratory 18 16 Rate Blood Pressure 110/54 119/59 (mmHg) O2 Sat by Pulse 97 97 Oximetry Oxygen Devices in Use Now: None Appearance: Alert, sl up in bed. In good spirits. Looks comfortable. Eyes: No Scleral Icterus Neck: NL Appearance and Movements; NL JVP, No Thyroid Enlargement, Masses Respiratory: Symmetrical Chest Expansion and Respiratory Effort, Clear to Auscultation, Clear to Percussion Cardiovascular: NL Sounds; No Murmurs; No JVD, RRR, No Edema, - Extremities: No Edema, No Clubbing, Cyanosis, - Skin: No Rash or Ulcers, No Nodules or Sclerosis, - Result Diagrams: 05/02/17 05:30 05/03/17 05:12 Additional Lab and Data: Laboratory Results - last 24 hr 05/01/17 05/01/17 05/01/17 11:35 16:29 21:08 WBC RBC Hgb Hct MCV MCH MCHC RDW Plt Count MPV Neut % (Auto) Lymph % (Auto) [place] % (Auto) Eos % (Auto) Baso % (Auto) Absolute Neuts (auto) Absolute Lymphs (auto) Absolute Monos (auto) Absolute Eos (auto) Absolute Basos (auto) Absolute Nucleated RBC Nucleated RBC % INR (Anticoag Therapy) Sodium Potassium Chloride Carbon Dioxide Anion Gap BUN Creatinine Est GFR ( Amer) Est GFR (Non-Af Amer) BUN/Creatinine Ratio Glucose POC Glucose (mg/dL) 164 H 238 H 112 H Calcium 05/02/17 05/02/17 05/02/17 05:30 05:30 05:30 WBC 8.8 RBC 3.64 L Hgb 12.0 L Hct 36 L MCV 98 H MCH 33 H MCHC 34 RDW 15 Plt Count 442 MPV 7 L Neut % (Auto) 70.5 Lymph % (Auto) 22.9 L [place] % (Auto) 5.8 Eos % (Auto) 0.5 Baso % (Auto) 0.3 Absolute Neuts (auto) 6.2 Absolute Lymphs (auto) 2.0 Absolute Monos (auto) 0.5 Absolute Eos (auto) 0 Absolute Basos (auto) 0 Absolute Nucleated RBC 0 Nucleated RBC % 0 INR (Anticoag Therapy) 1.18 H Sodium 129 L Potassium 4.1 Chloride 97 L Carbon Dioxide 27 Anion Gap 5 BUN 18 Creatinine 0.69 Est GFR ( Amer) 147.5 Est GFR (Non-Af Amer) 114.7 BUN/Creatinine Ratio 26.1 H Glucose 110 H POC Glucose (mg/dL) Calcium 8.1 L 05/02/17 07:30 WBC RBC Hgb Hct MCV MCH MCHC RDW Plt Count MPV Neut % (Auto) Lymph % (Auto) [place] % (Auto) Eos % (Auto) Baso % (Auto) Absolute Neuts (auto) Absolute Lymphs (auto) Absolute Monos (auto) Absolute Eos (auto) Absolute Basos (auto) Absolute Nucleated RBC Nucleated RBC % INR (Anticoag Therapy) Sodium Potassium Chloride Carbon Dioxide Anion Gap BUN Creatinine Est GFR ( Amer) Est GFR (Non-Af Amer) BUN/Creatinine Ratio Glucose POC Glucose (mg/dL) 99 Calcium Microbiology and Other Data: Microbiology 04/26/17 20:45 Blood Venous Aerobic Blood Culture - Final No Growth Day 5 04/26/17 20:45 Blood Venous Anaerobic Blood Culture - Final No Growth Day 5 04/26/17 20:34 Blood Venous Aerobic Blood Culture - Final No Growth Day 5 04/26/17 20:34 Blood Venous Anaerobic Blood Culture - Final Streptococcus Pneumoniae 04/27/17 00:50 Sputum Expectorated Gram Stain - Final 04/27/17 00:50 Sputum Expectorated Sputum Culture - Final Normal Sruthi 04/27/17 00:50 Urine Legionella Urinary Antigen - Final Negative Legionella 04/27/17 00:50 Urine Streptococcus pneumoniae Ag Screen - Final Positive S. Pneumo Antigen 04/26/17 21:44 Nasal Nasal Screen MRSA (PCR)(ALIREZA) - Final Mrsa Not Detected Assess/Plan/Problems-Billing Assessment: 66 yo male COPD, chronic hypoxic respiratory failure (2L), recently quit smoking 2weeks prior, car's CM (2014), significat EtOH use (~120oz beer daily), p/w 3 weeks SOB. Aflutter with RVR initially on dilt gtt (now off, better controlled, digoxin added by cardiology). RLL pna 2/2 strep pna. ECHO with EF <20% and diastolic dysfunction, diffusely hypokinetic. Now on Eliquis. Hyponatremic low 122, 129 now. Unable to attempt CV as could not rule out thrombus in AAA. Planned [facility] 05/03 - Patient Problems (1) Atrial fibrillation with RVR Current Visit: Yes Status: Acute Code(s): I48.91 - UNSPECIFIED ATRIAL FIBRILLATION SNOMED Code(s): 640776223358850 Comment: consider NAVDEEP/CV after 4-8 weeks of Eliquis. given can't rule out [place] thrombus Continue apixaban, digoxin, metoprolol. (2) Cardiomyopathy Current Visit: Yes Status: Acute Code(s): I42.9 - CARDIOMYOPATHY, UNSPECIFIED SNOMED Code(s): 53867993 Comment: LVEF < 20%. ? alcoholic CM. Pt advised to never drink alcohol. LifeVest requested. Discussed with Dr. Correa. (3) ETOH abuse Current Visit: Yes Status: Acute Code(s): F10.10 - ALCOHOL ABUSE, UNCOMPLICATED SNOMED Code(s): 64419669 Comment: 120 oz beer nightly per . continue folate, thiamine not scoring on WAM, now stopped. likely contributing to cardiomyopathy. (4) Hyponatremia Current Visit: Yes Status: Acute Code(s): E87.1 - HYPO-OSMOLALITY AND HYPONATREMIA SNOMED Code(s): 28783033 Comment: serum osm 269, urine osms 551, cortisol not low. TSH wnl BMP daily now Improved as of 05/03. (5) Smoker Current Visit: Yes Status: Acute Code(s): F17.200 - NICOTINE DEPENDENCE, UNSPECIFIED, UNCOMPLICATED SNOMED Code(s): 82963009 Comment: continue nicotine patch. Pt advised to quit smoking and avoid second hand smoke. (6) COPD (chronic obstructive pulmonary disease) Current Visit: Yes Status: Acute Code(s): J44.9 - CHRONIC OBSTRUCTIVE PULMONARY DISEASE, UNSPECIFIED SNOMED Code(s): 14264504 Comment: dulera, singular, tiotropium, duo nebs q4h prn (7) Diabetes mellitus Current Visit: Yes Status: Acute Code(s): E11.9 - TYPE 2 DIABETES MELLITUS WITHOUT COMPLICATIONS SNOMED Code(s): 26833099 Comment: A1C 7.1, does not previously carry the diagnosis. Stop lantus, last dose 10 PM 04/01, observe. (8) Streptococcal pneumonia Current Visit: Yes Status: Acute Code(s): J15.4 - PNEUMONIA DUE TO OTHER STREPTOCOCCI SNOMED Code(s): 45563885 Comment: Pneumococcal. Last (7th) ceftriaxone 05/03 20 PM. Status and Disposition: medicine inpatient. [facility] 05/02 vs 05/03
[2017-05-03] MEDS: Digoxin TAB* 0.125 MG PO SCH (18:03)
[2017-05-03] MEDS: Ramipril CAP* 2.5 MG PO SCH (18:04)
[2017-05-03] MEDS: Apixaban* 5 MG TAB PO SCH (21:12)
[2017-05-03] MEDS: Atorvastatin* 20 MG TAB PO SCH (21:12)
[2017-05-03] MEDS: Montelukast Sodium TAB* 10 MG PO SCH (21:13)
[2017-05-03] MEDS: Nicotine Patch Removal NOTE FOLLOW UP SCH (21:14)
[2017-05-03] MEDS: cefTRIAXone(*) 1 GM in D5W 50 ML BAG* 50 ML IVPB SCH (22:18)
[2017-05-04] MEDS: Omeprazole CAP* 20 MG PO SCH (06:01)
[2017-05-04] MEDS: Tiotropium CAP.INH* CAP.INH/18 MCG (USE ORDER SET !) INH SCH (07:32)
[2017-05-04] MEDS: Mometasone/Formoter 200/5 MDI INH SCH ×2 (07:33→20:11)
[2017-05-04] MEDS: Insulin LISPRO* 1 UNITS UNIT SUBCUT SCH ×4 (08:18→22:03)
[2017-05-04] MEDS: Metoprolol Succinate XL TAB* 50 MG PO SCH (10:12)
[2017-05-04] MEDS: Docusate CAP* 100 MG PO SCH ×2 (10:14→21:54)
[2017-05-04] MEDS: Thiamine TAB* 100 MG TAB PO SCH (10:15)
[2017-05-04] MEDS: Apixaban* 5 MG TAB PO SCH ×2 (10:15→21:54)
[2017-05-04] MEDS: Senna TAB PO SCH ×2 (10:16→21:55)
[2017-05-04] MEDS: Multivitamins/Minerals TAB PO SCH (10:16)
[2017-05-04] MEDS: Aspirin EC Low Dose* 81 MG TAB.EC PO SCH (10:16)
[2017-05-04] MEDS: Folic Acid TAB* 1 MG PO SCH (10:17)
[2017-05-04] MEDS: Nicotine PATCH 14 MG/24 HR* PATCH TRANSDERM SCH (10:18)
--- NOTE | 2017-05-04 12:34 | CATH ---
CARDIAC CATHETERIZATION NOTE: DATE OF PROCEDURE: 05/03/17 - ROOM #[id number] PROCEDURE: Cardiac catheterization including left ventriculogram, left heart catheterization, coronary angiography. INDICATION: Cardiomyopathy, abnormal troponin. The patient is a 66-year-old gentleman who was admitted to the hospital with congestive heart failure. He was found to be in rapid atrial fibrillation with minimally elevated troponin levels. An echocardiogram showed severely reduced LV systolic function and cardiac catheterization was recommended. PROCEDURE IN DETAIL: Patient was brought to the cardiac catheterization lab in a fasting state. Informed consent had been obtained prior to the procedure. All labs had been reviewed. Patient was placed supine on the catheterization table. Both femoral areas are cleaned and draped in the usual fashion. 1% lidocaine was used for local anesthesia. The right femoral artery was entered via modified Seldinger technique and a 6-[place]auritanian sheath introducer was placed. Patient underwent left heart catheterization, coronary angiography using a 6- [place] pigtail catheter, 6-[place]itan[place] JL4 catheter and 6-[place] JR4 catheter. At the end of the procedure, an angiogram of the femoral artery demonstrated normal position of the catheter and a Mynx closure device was deployed. Patient tolerated the procedure well with no complications. A total of 65 cc of Omnipaque dye was used with total of 25 minutes of fluoro time. FINDINGS: Hemodynamics: Central aortic blood pressure 96/52 with mean of 71, left ventricular pressure 95/1 with an end diastolic pressure of 11. Left ventriculogram: Left ventricle was mildly dilated. Overall systolic function of the left ventricle was severely reduced. Estimated ejection fraction 20%. There is global hypokinesis. There is 1+ mitral regurgitation. The aortic valve and the ascending aorta appeared normal. Coronary Arteries: 1. Left main: The left main was normal in size. It bifurcated into the LAD and circumflex. There was no evidence of stenosis. 2. Left anterior descending artery: The LAD was normal in size. It gave off two diagonal vessels. There was no evidence of stenosis. 3. Left circumflex artery: The circumflex artery was normal in size. There is mild calcification of the proximal vessel. The remainder of the vessel is without disease. It gave off two obtuse marginal branches. 4. Right coronary artery: The RCA is a large dominant vessel. It gave off the PDA. There was no evidence of stenosis. IMPRESSION: 1. Severely reduced LV systolic function. 2. No evidence of significant coronary artery disease. 3. Mynx closure device to the right femoral artery. RECOMMENDATION: The patient will continue on maximum medical therapy. He will stay on rate control for his atrial fibrillation. Patient will restart his anticoagulation today. Patient will be discharged from the hospital on LifeVest and followup with Dr. Guo. [id number]/[facility] #: [id number] STEFAN
--- NOTE | 2017-05-04 15:06 | PN ---
Subjective Date of Service: 05/04/17 Interval History: No chest pain, cough, SOB. Appetite OK. No new c/o. Objective Active Medications: Acetaminophen (Tylenol Tab*) 650 mg PO Q4H PRN PRN Reason: FEVER/PAIN Al Hydrox/Mg Hydrox/Simethicone (Maalox Plus*) 30 ml PO Q6H PRN PRN Reason: INDIGESTION Albuterol (Ventolin 2.5 Mg/3 Ml Neb.Ana*) 2.5 mg INH Q2H PRN PRN Reason: SOB/WHEEZING Albuterol/Ipratropium (Duoneb (Albuterol 2.5 Mg/Ipratropium 0.5 Mg)) 1 neb INH Q4H PRN PRN Reason: SOB/WHEEZING Apixaban (Eliquis*) 5 mg PO BID [facility] Last Admin: 05/04/17 10:15 Dose: 5 mg Aspirin (Aspirin Ec Low Dose*) 81 mg PO DAILY [facility] Last Admin: 05/04/17 10:16 Dose: 81 mg Atorvastatin Calcium (Lipitor*) 20 mg PO 2100 [facility] Last Admin: 05/03/17 21:12 Dose: 20 mg Dextrose (D50w Syringe 50 Ml*) 12.5 gm IV PUSH .FOR FS < 60 - SS PRN PRN Reason: FS < 60 Digoxin (Lanoxin Tab*) 0.125 mg PO DAILY@1700 [facility] Last Admin: 05/03/17 18:03 Dose: 0.125 mg Docusate Sodium (Colace Cap*) 100 mg PO BID [facility] Last Admin: 05/04/17 10:14 Dose: 100 mg Folic Acid (Folvite Tab*) 1 mg PO DAILY [facility] Last Admin: 05/04/17 10:17 Dose: 1 mg Insulin Human Lispro (Humalog*) 0 units SUBCUT ACHS [facility] PRN Reason: Protocol Last Admin: 05/04/17 12:19 Dose: 1 units Metoprolol Succinate (Toprol Xl Tab*) 75 mg PO DAILY [facility] Last Admin: 05/04/17 10:12 Dose: 75 mg Metoprolol Tartrate (Lopressor Iv*) 5 mg IV Q1H PRN PRN Reason: TACHYCARDIA Mometasone Furoate/Formoterol Fumar (Dulera 200/5 Mdi*) 2 puff INH BID [facility] PRN Reason: Protocol Last Admin: 05/04/17 07:33 Dose: 2 puff Montelukast Sodium (Singulair Tab*) 10 mg PO BEDTIME [facility] Last Admin: 05/03/17 21:13 Dose: 10 mg Multivitamins/Minerals (Theragran/Minerals Tab*) 1 tab PO DAILY [facility] Last Admin: 05/04/17 10:16 Dose: 1 tab Nicotine (Nicotine Patch 14 Mg/24 Hr*) 1 patch TRANSDERM DAILY [facility] Last Admin: 05/04/17 10:18 Dose: 1 patch Omeprazole (Prilosec Cap*) 20 mg PO 0600 [facility] Last Admin: 05/04/17 06:01 Dose: 20 mg Ondansetron HCl (Zofran Inj*) 4 mg IV Q4H PRN PRN Reason: NAUSEA/VOMITING Pharmacy Profile Note (Nicotine Patch Removal Note*) 1 note FOLLOW UP 2100 [facility] Last Admin: 05/03/17 21:14 Dose: 1 note Ramipril (Altace Cap*) 2.5 mg PO QPM [facility] Last Admin: 05/03/17 18:04 Dose: 2.5 mg Senna (Senokot Tab*) 1 tab PO BID [facility] Last Admin: 05/04/17 10:16 Dose: 1 tab Thiamine HCl (Vitamin B-1 Tab*) 100 mg PO DAILY [facility] Last Admin: 05/04/17 10:15 Dose: 100 mg Tiotropium [place] (Spiriva Cap.Inh*) 1 cap INH DAILY [facility] Last Admin: 05/04/17 07:32 Dose: 1 cap Vital Signs - 8 hr 05/04/17 05/04/17 05/04/17 07:30 07:35 07:36 Temperature 98.6 F Pulse Rate 98 82 83 Respiratory 16 19 18 Rate Blood Pressure 109/56 (mmHg) O2 Sat by Pulse 96 95 95 Oximetry 05/04/17 05/04/17 07:39 11:28 Temperature 97.8 F Pulse Rate 76 Respiratory 16 20 Rate Blood Pressure 111/68 (mmHg) O2 Sat by Pulse 97 Oximetry Oxygen Devices in Use Now: None Appearance: Alert, lying on his side in bed. He appears tired/depressed. Eyes: No Scleral Icterus Extremities: No Edema, No Clubbing, Cyanosis, - Skin: No Rash or Ulcers, No Nodules or Sclerosis, - Neurological: Alert and Oriented x 3, NL Sensation Result Diagrams: 05/02/17 05:30 05/03/17 05:12 Additional Lab and Data: Laboratory Results - last 24 hr 05/01/17 05/01/17 05/01/17 11:35 16:29 21:08 WBC RBC Hgb Hct MCV MCH MCHC RDW Plt Count MPV Neut % (Auto) Lymph % (Auto) [place] % (Auto) Eos % (Auto) Baso % (Auto) Absolute Neuts (auto) Absolute Lymphs (auto) Absolute Monos (auto) Absolute Eos (auto) Absolute Basos (auto) Absolute Nucleated RBC Nucleated RBC % INR (Anticoag Therapy) Sodium Potassium Chloride Carbon Dioxide Anion Gap BUN Creatinine Est GFR ( Amer) Est GFR (Non-Af Amer) BUN/Creatinine Ratio Glucose POC Glucose (mg/dL) 164 H 238 H 112 H Calcium 05/02/17 05/02/17 05/02/17 05:30 05:30 05:30 WBC 8.8 RBC 3.64 L Hgb 12.0 L Hct 36 L MCV 98 H MCH 33 H MCHC 34 RDW 15 Plt Count 442 MPV 7 L Neut % (Auto) 70.5 Lymph % (Auto) 22.9 L [place] % (Auto) 5.8 Eos % (Auto) 0.5 Baso % (Auto) 0.3 Absolute Neuts (auto) 6.2 Absolute Lymphs (auto) 2.0 Absolute Monos (auto) 0.5 Absolute Eos (auto) 0 Absolute Basos (auto) 0 Absolute Nucleated RBC 0 Nucleated RBC % 0 INR (Anticoag Therapy) 1.18 H Sodium 129 L Potassium 4.1 Chloride 97 L Carbon Dioxide 27 Anion Gap 5 BUN 18 Creatinine 0.69 Est GFR ( Amer) 147.5 Est GFR (Non-Af Amer) 114.7 BUN/Creatinine Ratio 26.1 H Glucose 110 H POC Glucose (mg/dL) Calcium 8.1 L 05/02/17 07:30 WBC RBC Hgb Hct MCV MCH MCHC RDW Plt Count MPV Neut % (Auto) Lymph % (Auto) [place] % (Auto) Eos % (Auto) Baso % (Auto) Absolute Neuts (auto) Absolute Lymphs (auto) Absolute Monos (auto) Absolute Eos (auto) Absolute Basos (auto) Absolute Nucleated RBC Nucleated RBC % INR (Anticoag Therapy) Sodium Potassium Chloride Carbon Dioxide Anion Gap BUN Creatinine Est GFR ( Amer) Est GFR (Non-Af Amer) BUN/Creatinine Ratio Glucose POC Glucose (mg/dL) 99 Calcium Microbiology and Other Data: Microbiology 04/26/17 20:45 Blood Venous Aerobic Blood Culture - Final No Growth Day 5 04/26/17 20:45 Blood Venous Anaerobic Blood Culture - Final No Growth Day 5 04/26/17 20:34 Blood Venous Aerobic Blood Culture - Final No Growth Day 5 04/26/17 20:34 Blood Venous Anaerobic Blood Culture - Final Streptococcus Pneumoniae 04/27/17 00:50 Sputum Expectorated Gram Stain - Final 04/27/17 00:50 Sputum Expectorated Sputum Culture - Final Normal Sruthi 04/27/17 00:50 Urine Legionella Urinary Antigen - Final Negative Legionella 04/27/17 00:50 Urine Streptococcus pneumoniae Ag Screen - Final Positive S. Pneumo Antigen 04/26/17 21:44 Nasal Nasal Screen MRSA (PCR)(ALIREZA) - Final Mrsa Not Detected Assess/Plan/Problems-Billing Assessment: 66 yo male COPD, chronic hypoxic respiratory failure (2L), recently quit smoking 2weeks prior, [employer]'s CM (2013), significat EtOH use (~120oz beer daily), p/w 3 weeks SOB. Aflutter with RVR initially on dilt gtt (now off, better controlled, digoxin added by cardiology). RLL pna 2/2 strep pna. ECHO with EF <20% and diastolic dysfunction, diffusely hypokinetic. Now on Eliquis. Hyponatremic low 122, 129 now. Unable to attempt CV as could not rule out thrombus in AAA. Planned [facility] 05/03 - Patient Problems (1) Atrial fibrillation with RVR Current Visit: Yes Status: Acute Code(s): I48.91 - UNSPECIFIED ATRIAL FIBRILLATION SNOMED Code(s): 530338376053644 Comment: consider NAVDEEP/CV after 4 of Eliquis. given can't rule out [place] thrombus Continue apixaban, digoxin, metoprolol. (2) Cardiomyopathy Current Visit: Yes Status: Acute Code(s): I42.9 - CARDIOMYOPATHY, UNSPECIFIED SNOMED Code(s): 73590918 Comment: LVEF < 20%. ? alcoholic CM. Pt advised to never drink alcohol. LifeVest requested. Discussed with Dr. Correa 05/03, with Dr. Guo 05/04. Patient's co-pay not affordable by him. (3) ETOH abuse Current Visit: Yes Status: Acute Code(s): F10.10 - ALCOHOL ABUSE, UNCOMPLICATED SNOMED Code(s): 52376268 Comment: 120 oz beer nightly per . continue folate, thiamine not scoring on WAM, now stopped. likely contributing to cardiomyopathy. (4) Hyponatremia Current Visit: Yes Status: Acute Code(s): E87.1 - HYPO-OSMOLALITY AND HYPONATREMIA SNOMED Code(s): 61191275 Comment: serum osm 269, urine osms 551, cortisol not low. TSH wnl BMP daily now Improved as of 05/03. (5) Smoker Current Visit: Yes Status: Acute Code(s): F17.200 - NICOTINE DEPENDENCE, UNSPECIFIED, UNCOMPLICATED SNOMED Code(s): 57351376 Comment: continue nicotine patch. Pt advised to quit smoking and avoid second hand smoke. (6) COPD (chronic obstructive pulmonary disease) Current Visit: Yes Status: Acute Code(s): J44.9 - CHRONIC OBSTRUCTIVE PULMONARY DISEASE, UNSPECIFIED SNOMED Code(s): 87387064 Comment: dulera, singular, tiotropium, duo nebs q4h prn (7) Diabetes mellitus Current Visit: Yes Status: Acute Code(s): E11.9 - TYPE 2 DIABETES MELLITUS WITHOUT COMPLICATIONS SNOMED Code(s): 65444367 Comment: A1C 7.1, does not previously carry the diagnosis. Stop lantus, last dose 10 PM 04/01, observe. (8) Streptococcal pneumonia Current Visit: Yes Status: Acute Code(s): J15.4 - PNEUMONIA DUE TO OTHER STREPTOCOCCI SNOMED Code(s): 34655653 Comment: Pneumococcal. Last (7th) ceftriaxone 05/03 20 PM. Status and Disposition: medicine inpatient. [facility] 05/02 vs 05/03
--- NOTE | 2017-05-04 16:14 | PN ---
Subjective Date of Service: 05/04/17 - CC: SOB Interval History: The patient is ambulating with his , no c/o post cardiac cath. Per this is the best he has been breathing in over a year. No palpitations. No orthopnea. No PND. Medications Active Medications: Acetaminophen (Tylenol Tab*) 650 mg PO Q4H PRN PRN Reason: FEVER/PAIN Al Hydrox/Mg Hydrox/Simethicone (Maalox Plus*) 30 ml PO Q6H PRN PRN Reason: INDIGESTION Albuterol (Ventolin 2.5 Mg/3 Ml Neb.Ana*) 2.5 mg INH Q2H PRN PRN Reason: SOB/WHEEZING Albuterol/Ipratropium (Duoneb (Albuterol 2.5 Mg/Ipratropium 0.5 Mg)) 1 neb INH Q4H PRN PRN Reason: SOB/WHEEZING Apixaban (Eliquis*) 5 mg PO BID [facility] Last Admin: 05/04/17 10:15 Dose: 5 mg Aspirin (Aspirin Ec Low Dose*) 81 mg PO DAILY [facility] Last Admin: 05/04/17 10:16 Dose: 81 mg Atorvastatin Calcium (Lipitor*) 20 mg PO 2100 [facility] Last Admin: 05/03/17 21:12 Dose: 20 mg Dextrose (D50w Syringe 50 Ml*) 12.5 gm IV PUSH .FOR FS < 60 - SS PRN PRN Reason: FS < 60 Digoxin (Lanoxin Tab*) 0.125 mg PO DAILY@1700 [facility] Last Admin: 05/03/17 18:03 Dose: 0.125 mg Docusate Sodium (Colace Cap*) 100 mg PO BID [facility] Last Admin: 05/04/17 10:14 Dose: 100 mg Folic Acid (Folvite Tab*) 1 mg PO DAILY [facility] Last Admin: 05/04/17 10:17 Dose: 1 mg Insulin Human Lispro (Humalog*) 0 units SUBCUT ACHS [facility] PRN Reason: Protocol Last Admin: 05/04/17 12:19 Dose: 1 units Metoprolol Succinate (Toprol Xl Tab*) 75 mg PO DAILY [facility] Last Admin: 05/04/17 10:12 Dose: 75 mg Metoprolol Tartrate (Lopressor Iv*) 5 mg IV Q1H PRN PRN Reason: TACHYCARDIA Mometasone Furoate/Formoterol Fumar (Dulera 200/5 Mdi*) 2 puff INH BID [facility] PRN Reason: Protocol Last Admin: 05/04/17 07:33 Dose: 2 puff Montelukast Sodium (Singulair Tab*) 10 mg PO BEDTIME [facility] Last Admin: 05/03/17 21:13 Dose: 10 mg Multivitamins/Minerals (Theragran/Minerals Tab*) 1 tab PO DAILY [facility] Last Admin: 05/04/17 10:16 Dose: 1 tab Nicotine (Nicotine Patch 7 Mg/24 Hr*) 1 patch TRANSDERM DAILY [facility] Omeprazole (Prilosec Cap*) 20 mg PO 0600 [facility] Last Admin: 05/04/17 06:01 Dose: 20 mg Ondansetron HCl (Zofran Inj*) 4 mg IV Q4H PRN PRN Reason: NAUSEA/VOMITING Pharmacy Profile Note (Nicotine Patch Removal Note*) 1 note FOLLOW UP 2100 [facility] Last Admin: 05/03/17 21:14 Dose: 1 note Ramipril (Altace Cap*) 2.5 mg PO QPM [facility] Last Admin: 05/03/17 18:04 Dose: 2.5 mg Senna (Senokot Tab*) 1 tab PO BID [facility] Last Admin: 05/04/17 10:16 Dose: 1 tab Thiamine HCl (Vitamin B-1 Tab*) 100 mg PO DAILY [facility] Last Admin: 05/04/17 10:15 Dose: 100 mg Tiotropium [place] (Spiriva Cap.Inh*) 1 cap INH DAILY [facility] Last Admin: 05/04/17 07:32 Dose: 1 cap Objective Vital Signs: Temp Pulse Resp BP Pulse Ox 97.8 F 76 20 111/68 97 05/04/17 11:28 05/04/17 11:28 05/04/17 11:28 05/04/17 11:28 05/04/17 11:28 Oxygen Devices in Use Now: None Appearance: slight male in NAD lying flat. Eyes: No Scleral Icterus, PERRLA Ears/Nose/Mouth/Throat: Clear Oropharnyx, Mucous Membranes Moist Neck: NL Appearance and Movements; NL JVP, Trachea Midline, No Thyroid Enlargement, Masses Respiratory: Symmetrical Chest Expansion and Respiratory Effort, Clear to Auscultation - Mildly decreased BS right base. Cardiovascular: RRR - no murmurs. Abdominal: NL Sounds; No Tenderness; No Distention Extremities: No Edema, No Clubbing, Cyanosis Skin: No Rash or Ulcers - lipomoa on back incidentally noted. Neurological: Alert and Oriented x 3 Lines/Tubes/Other Access: Clean, Dry and Intact Peripheral IV Laboratory Results: 05/02/17 05:30 05/03/17 05:12 INR (Anticoag Therapy) 1.18 (0.77-1.02) H 05/02/17 05:30 APTT 37.1 seconds (26.0-36.3) H 04/26/17 17:55 Total Bilirubin 1.00 mg/dL (0.2-1.0) 04/26/17 17:55 AST 49 U/L (13-39) H 04/26/17 17:55 ALT 32 U/L (7-52) 04/26/17 17:55 Alkaline Phosphatase 77 U/L (34-104) 04/26/17 17:55 CK-MB (CK-2) 4.8 ng/mL (0.6-6.3) 04/26/17 17:55 B-Natriuretic Peptide 1041 pg/mL (-100) H 04/26/17 17:55 Total Protein 7.1 g/dL (6.4-8.9) 04/26/17 17:55 Albumin 3.1 g/dL (3.2-5.2) L 04/26/17 17:55 Globulin 4.0 g/dL (2-4) 04/26/17 17:55 Albumin/Globulin Ratio 0.8 (1-3) L 04/26/17 17:55 Triglycerides 55 mg/dL 04/27/17 05:45 Cholesterol 56 mg/dL 04/27/17 05:45 LDL Cholesterol 37 mg/dL 04/27/17 05:45 HDL Cholesterol 7.6 mg/dL 04/27/17 05:45 TSH 0.81 mcIU/mL (0.34-5.60) 04/26/17 17:55 04/26/17 04/27/17 20:34 05:45 Troponin I 0.07 H* 0.05 H* Diagnostic Imaging: ECHO 01/17/13 ([place]) EF 35%, anterio wall AK, inferior wall AK. Echo 01/23/16 ([place]) EF 60%. Echo 02/23/18 [facility] EF 20%, apex moves best, restrictive filling. NAVDEEP 02/26/18: EF <20%, spontaneous contrast in [place], poss. clot [place], mild MR, mod TR. Cardiac catheterization 05/03/17: normal coronary arteries, EF 20%. EKG Data: Tele: Atrial flutter persists. Assessment/Plan 66 yo male with severe CM, recurred, in atrial flutter intermittent tachycardia. Uncertain duration of CM and A. flutter. This is in the setting of S. pneumonia bacteremia/sepsis. Non ischemic CM based on cardiac catheterization yesterday and on significant improvement in EF to date. A. flutter with clot in [place]: anticoagulate and rate control for now, re try NAVDEEP and CV in a few weeks. Continue Eliquis, Toprol, digoxen. Hyponatremia improving. non isch CM: Continue metoprolol and ACEI Low salt diet. Avoid alcohol, this was discussed. Symptom limited exercise. Discussed Life vest with the patient and his , despite the cost she wants to proceed with this. Stable for discharge in AM from a cardiac standpoint. Follow up with Dr. Guo in 7-10 days.
[2017-05-04] MEDS: Digoxin TAB* 0.125 MG PO SCH (16:39)
[2017-05-04] MEDS: Nicotine PATCH 7 MG/24 HR* PATCH TRANSDERM SCH (16:39)
[2017-05-04] MEDS: Ramipril CAP* 2.5 MG PO SCH (17:41)
[2017-05-04] MEDS: Montelukast Sodium TAB* 10 MG PO SCH (21:54)
[2017-05-04] MEDS: Atorvastatin* 20 MG TAB PO SCH (21:54)
[2017-05-04] MEDS: Nicotine Patch Removal NOTE FOLLOW UP SCH (21:55)
[2017-05-05] MEDS: Omeprazole CAP* 20 MG PO SCH (05:20)
[2017-05-05] MEDS: Folic Acid TAB* 1 MG PO SCH (08:15)
[2017-05-05] MEDS: Apixaban* 5 MG TAB PO SCH (08:15)
[2017-05-05] MEDS: Aspirin EC Low Dose* 81 MG TAB.EC PO SCH (08:15)
[2017-05-05] MEDS: Insulin LISPRO* 1 UNITS UNIT SUBCUT SCH ×3 (08:15→18:30)
[2017-05-05] MEDS: Metoprolol Succinate XL TAB* 50 MG PO SCH (08:15)
[2017-05-05] MEDS: Docusate CAP* 100 MG PO SCH (08:15)
[2017-05-05] MEDS: Multivitamins/Minerals TAB PO SCH (08:15)
[2017-05-05] MEDS: Senna TAB PO SCH (08:15)
[2017-05-05] MEDS: Nicotine PATCH 7 MG/24 HR* PATCH TRANSDERM SCH (08:16)
[2017-05-05] MEDS: Thiamine TAB* 100 MG TAB PO SCH (08:20)
[2017-05-05] MEDS: Mometasone/Formoter 200/5 MDI INH SCH ×2 (08:36→20:10)
[2017-05-05] MEDS: Tiotropium CAP.INH* CAP.INH/18 MCG (USE ORDER SET !) INH SCH (08:37)
--- NOTE | 2017-05-05 11:27 | PN ---
Progress Note - Progress Note Date of Service: 05/05/17 Note: Time spent on discharge 55 minutes.
[2017-05-05 14:04] VITALS: BP 120/74
--- NOTE | 2017-05-05 15:41 | PN ---
Subjective Date of Service: 05/05/17 - CC: VALERO Interval History: The patient is ambulating with his . No new c/o. 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 Medications Active Medications: Acetaminophen (Tylenol Tab*) 650 mg PO Q4H PRN PRN Reason: FEVER/PAIN Al Hydrox/Mg Hydrox/Simethicone (Maalox Plus*) 30 ml PO Q6H PRN PRN Reason: INDIGESTION Albuterol (Ventolin 2.5 Mg/3 Ml Neb.Ana*) 2.5 mg INH Q2H PRN PRN Reason: SOB/WHEEZING Albuterol/Ipratropium (Duoneb (Albuterol 2.5 Mg/Ipratropium 0.5 Mg)) 1 neb INH Q4H PRN PRN Reason: SOB/WHEEZING Apixaban (Eliquis*) 5 mg PO BID [facility] Last Admin: 05/05/17 08:15 Dose: 5 mg Aspirin (Aspirin Ec Low Dose*) 81 mg PO DAILY [facility] Last Admin: 05/05/17 08:15 Dose: 81 mg Atorvastatin Calcium (Lipitor*) 20 mg PO 2100 [facility] Last Admin: 05/04/17 21:54 Dose: 20 mg Dextrose (D50w Syringe 50 Ml*) 12.5 gm IV PUSH .FOR FS < 60 - SS PRN PRN Reason: FS < 60 Digoxin (Lanoxin Tab*) 0.125 mg PO DAILY@1700 [facility] Last Admin: 05/04/17 16:39 Dose: 0.125 mg Docusate Sodium (Colace Cap*) 100 mg PO BID [facility] Last Admin: 05/05/17 08:15 Dose: 100 mg Folic Acid (Folvite Tab*) 1 mg PO DAILY [facility] Last Admin: 05/05/17 08:15 Dose: 1 mg Insulin Human Lispro (Humalog*) 0 units SUBCUT ACHS [facility] PRN Reason: Protocol Last Admin: 05/05/17 12:42 Dose: 4 units Metoprolol Succinate (Toprol Xl Tab*) 75 mg PO DAILY [facility] Last Admin: 05/05/17 08:15 Dose: 75 mg Metoprolol Tartrate (Lopressor Iv*) 5 mg IV Q1H PRN PRN Reason: TACHYCARDIA Mometasone Furoate/Formoterol Fumar (Dulera 200/5 Mdi*) 2 puff INH BID [facility] PRN Reason: Protocol Last Admin: 05/05/17 08:36 Dose: 2 puff Montelukast Sodium (Singulair Tab*) 10 mg PO BEDTIME [facility] Last Admin: 05/04/17 21:54 Dose: 10 mg Multivitamins/Minerals (Theragran/Minerals Tab*) 1 tab PO DAILY [facility] Last Admin: 05/05/17 08:15 Dose: 1 tab Nicotine (Nicotine Patch 7 Mg/24 Hr*) 1 patch TRANSDERM DAILY [facility] Last Admin: 05/05/17 08:16 Dose: 1 patch Omeprazole (Prilosec Cap*) 20 mg PO 0600 [facility] Last Admin: 05/05/17 05:20 Dose: 20 mg Ondansetron HCl (Zofran Inj*) 4 mg IV Q4H PRN PRN Reason: NAUSEA/VOMITING Pharmacy Profile Note (Nicotine Patch Removal Note*) 1 note FOLLOW UP 2100 [facility] Last Admin: 05/04/17 21:55 Dose: 1 note Ramipril (Altace Cap*) 2.5 mg PO QPM [facility] Last Admin: 05/04/17 17:41 Dose: 2.5 mg Senna (Senokot Tab*) 1 tab PO BID [facility] Last Admin: 05/05/17 08:15 Dose: 1 tab Thiamine HCl (Vitamin B-1 Tab*) 100 mg PO DAILY [facility] Last Admin: 05/05/17 08:20 Dose: 100 mg Tiotropium [place] (Spiriva Cap.Inh*) 1 cap INH DAILY [facility] Last Admin: 05/05/17 08:37 Dose: 1 cap Objective Vital Signs: Temp Pulse Resp BP Pulse Ox 97.5 F 73 16 120/74 99 05/05/17 11:26 05/05/17 11:26 05/05/17 11:26 05/05/17 11:26 05/05/17 11:26 Oxygen Devices in Use Now: None Appearance: slight male in NAD lying flat. Eyes: No Scleral Icterus, PERRLA Ears/Nose/Mouth/Throat: Clear Oropharnyx, Mucous Membranes Moist Neck: NL Appearance and Movements; NL JVP, Trachea Midline, No Thyroid Enlargement, Masses Respiratory: Symmetrical Chest Expansion and Respiratory Effort, Clear to Auscultation - Mildly decreased BS right base. Cardiovascular: RRR - no murmurs. Abdominal: NL Sounds; No Tenderness; No Distention Extremities: No Edema, No Clubbing, Cyanosis Skin: No Rash or Ulcers - lipomoa on back incidentally noted. Neurological: Alert and Oriented x 3 Lines/Tubes/Other Access: Clean, Dry and Intact Peripheral IV Laboratory Results: 05/02/17 05:30 05/03/17 05:12 INR (Anticoag Therapy) 1.18 (0.77-1.02) H 05/02/17 05:30 APTT 37.1 seconds (26.0-36.3) H 04/26/17 17:55 Total Bilirubin 1.00 mg/dL (0.2-1.0) 04/26/17 17:55 AST 49 U/L (13-39) H 04/26/17 17:55 ALT 32 U/L (7-52) 04/26/17 17:55 Alkaline Phosphatase 77 U/L (34-104) 04/26/17 17:55 CK-MB (CK-2) 4.8 ng/mL (0.6-6.3) 04/26/17 17:55 B-Natriuretic Peptide 1041 pg/mL (-100) H 04/26/17 17:55 Total Protein 7.1 g/dL (6.4-8.9) 04/26/17 17:55 Albumin 3.1 g/dL (3.2-5.2) L 04/26/17 17:55 Globulin 4.0 g/dL (2-4) 04/26/17 17:55 Albumin/Globulin Ratio 0.8 (1-3) L 04/26/17 17:55 Triglycerides 55 mg/dL 04/27/17 05:45 Cholesterol 56 mg/dL 04/27/17 05:45 LDL Cholesterol 37 mg/dL 04/27/17 05:45 HDL Cholesterol 7.6 mg/dL 04/27/17 05:45 TSH 0.81 mcIU/mL (0.34-5.60) 04/26/17 17:55 04/26/17 04/27/17 20:34 05:45 Troponin I 0.07 H* 0.05 H* Diagnostic Imaging: ECHO 01/17/13 ([place]) EF 35%, anterio wall AK, inferior wall AK. Echo 01/23/16 ([place]) EF 60%. Echo 02/23/18 [facility] EF 20%, apex moves best, restrictive filling. NAVDEEP 02/26/18: EF <20%, spontaneous contrast in [place], poss. clot [place], mild MR, mod TR. Cardiac catheterization 05/03/17: normal coronary arteries, EF 20%. EKG Data: Tele: Atrial flutter persists. Assessment/Plan 66 yo male with severe CM, recurred, in atrial flutter intermittent tachycardia. Uncertain duration of CM and A. flutter. This is in the setting of S. pneumonia bacteremia/sepsis. Non ischemic CM based on cardiac catheterization, no significant improvement in EF. A. flutter with clot in [place]: anticoagulate and rate control for now, re try NAVDEEP and CV in a few weeks. Continue Eliquis, Toprol, digoxen. non isch CM: Continue metoprolol and ACEI Low salt diet. Avoid alcohol. Symptom limited exercise. 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 Follow up with Dr. Guo in 7-10 days.
[2017-05-05] MEDS: Digoxin TAB* 0.125 MG PO SCH (18:35)
[2017-05-05] MEDS: Ramipril CAP* 2.5 MG PO SCH (18:35)
--- NOTE | 2017-05-06 04:27 | DS ---
CC: Dr. Moyer; Dr. Guo * DISCHARGE SUMMARY: DATE OF ADMISSION: 04/26/17 DATE OF DISCHARGE: 05/05/17 HISTORY OF PRESENT ILLNESS: This 66-year-old man presented with shortness of breath. The details are in the admission note. The patient had a known history of COPD and history of paroxysmal atrial fibrillation. He was in rapid atrial fibrillation. He was put on diltiazem drip and admitted to the intensive care unit. He was put on the [facility] protocol because of his heavy alcohol use. He was started on apixaban at the time of admission. Echocardiogram showed severe cardio-myopathy, ejection fraction less than or equal to 20%. The patient underwent cardiac catheterization and it did not show any obstructive coronary disease. The LVgram again showed an estimated ejection fraction of about 20%. The patient is being discharged with a LifeVest. He will stay on apixaban for another 3 to 4 weeks at which time, cardioversion will be attempted. He was started on ramipril as well as digoxin. His metoprolol dose was increased and changed to the succinate form. He will stay on aspirin 81 mg daily. He has a nicotine patch 7 mg for 24 hours at the time of discharge. Hopefully, he will continue to not to smoke. He was advised not to drink at all as well as to quit smoking. He will be on thiamine and folate as well. His atorvastatin dose is left at 20 mg daily. FINAL DIAGNOSES: 1. Cardiomyopathy. 2. Atrial fibrillation with rapid ventricular rate. 3. Alcohol abuse. 4. Hyponatremia. 5. Tobacco abuse. 6. Chronic obstructive pulmonary disease. 7. Diabetes, on diet only. 8. Streptococcal pneumoniae, having completed 7 days of ceftriaxone. DISCHARGE MEDICATIONS: 1. Apixaban 5 mg b.i.d. 2. Aspirin 81 mg daily. 3. Digoxin 0.125 mg daily at 5 p.m. 4. Folic acid 1 mg daily. 5. Metoprolol succinate 50 mg one and a half tablets every morning for total of 75 mg dose. 6. Nicotine patch 7 mg for 24 hours and changed daily. 7. Ramipril 2.5 mg every evening. 8. Thiamine 100 mg daily. 9. Venlafaxine 75 mg daily. 10. Albuterol inhaler 2 puffs every 4 hours p.r.n. 11. Montelukast 10 mg daily. 12. Famotidine 40 mg b.i.d. [id number]/[facility] #: [id number] MTDD
== END 2017-05-05 19:30 | disposition home health service (06) | DRG 201 ==
LOC: ED 17:25 → ICU 20:00 → MEDTELE 04-27 20:03
PROVIDERS: ADMIT Pediatrics; ATTEND Internal Medicine
DX: I48.0 Paroxysmal atrial fibrillation (principal); A41.9 Sepsis, unspecified organism; I50.41 Acute combined systolic (congestive) and diastolic (congestive) heart failure; J96.11 Chronic respiratory failure with hypoxia; J13 Pneumonia due to Streptococcus pneumoniae; E87.2 Acidosis; E11.649 Type 2 diabetes mellitus with hypoglycemia without coma; E87.1 Hypo-osmolality and hyponatremia; J44.0 Chronic obstructive pulmonary disease with (acute) lower respiratory infection; I51.81 Takotsubo syndrome; I42.9 Cardiomyopathy, unspecified; I48.92 Unspecified atrial flutter; E86.0 Dehydration; I25.10 Atherosclerotic heart disease of native coronary artery without angina pectoris; E78.00 Pure hypercholesterolemia, unspecified; G47.30 Sleep apnea, unspecified; M19.042 Primary osteoarthritis, left hand; M19.041 Primary osteoarthritis, right hand; G43.909 Migraine, unspecified, not intractable, without status migrainosus; F41.0 Panic disorder [episodic paroxysmal anxiety]; F17.210 Nicotine dependence, cigarettes, uncomplicated; K59.00 Constipation, unspecified; E78.5 Hyperlipidemia, unspecified; F10.10 Alcohol abuse, uncomplicated; Z91.030 Bee allergy status; Z91.040 Latex allergy status; Z86.010 Personal history of colon polyps; Z81.8 Family history of other mental and behavioral disorders; Z82.49 Family history of ischemic heart disease and other diseases of the circulatory system
CPT/HCPCS: 36415; 71045; 71275; 80048; 80053; 80061; 80162; 81003; 82533; 82550; 82553; 82570; 83036; 83605; 83735; 83880; 83930; 83935; 84100; 84155; 84156; 84165; 84166; 84300; 84443; 84484; 84550; 85025; 85610; 85730; 87040; 87070; 87077; 87184; 87186; 87205; 87641; 87899; 93005; 93306; 93312; 93325; 93458; 94640; 94760; 99156; 99157; 99283; A9270-GY; C1760; C1887; J0456; J0696; J1160; J1644; J1650; J1940; J2250; J2310; J2930; J3010; J3411; J3490; J7512; Q9967

== ENCOUNTER 2017-08-22 11:56 | Observation (INO) | payer MEDICARE ==
[2017-08-22] MEDS ORDERED: ceFAZolin VIAL 1 GM in NS *SYRINGE * * 10 ML ONE (12:30)
[2017-08-22] MEDS ORDERED: ceFAZolin 2 GM in NS PREMIX(*) 2 GM/100 ML BAG IVPB ONE (12:30)
[2017-08-22] MEDS ORDERED: Diazepam TAB(*) 5 MG ONE (12:57)
[2017-08-22 13:01] LABS: ABS Basophils 0 10^3/ul (0-0.2); ABS Eosinophils 0.3 10^3/ul (0-0.6); ABS Lymphocytes 0.9 10^3/ul (1.0-4.8); ABS Monocytes 0.3 10^3/ul (0-0.8); ABS Neutrophils 2.4 10^3/ul (1.5-7.7); ABS Nucleated RBC 0 10^3/ul; Eosinophil % 6.9 % (0-6); Hematocrit 43 % (42-52); Hemoglobin 14.5 g/dl (14.0-18.0); Lymphocyte % 22.5 % (25-47); Mean Corpuscular HGB Conc 34 g/dl (31-36); Mean Corpuscular Hemoglobin 33 pg (27-31); Mean Corpuscular Volume 97 fL (80-94); Mean Platelet Volume 6.8 um3 (7.4-10.4); Nucleated Red Blood Cells % 0; Platelet Count 207 10^3/ul (150-450); Red Blood Count 4.43 10^6/ul (4.00-5.40); Red Cell Distribution Width 15 % (10.5-15); White Blood Count 3.9 10^3/ul (3.5-10.8)
[2017-08-22 13:11] LABS: INR 0.87 (0.77-1.02)
[2017-08-22 13:20] LABS: EGFR Non-African American 96.4 (>60)
[2017-08-22] MEDS ORDERED: Lidocaine 1% INJ* 10 MG/ML 30 ML SDV ONE (13:45)
[2017-08-22] MEDS ORDERED: Midazolam* 1 MG/ML 5 ML VIAL (5 MG) ONE ×2 (13:45→14:08)
[2017-08-22] MEDS ORDERED: fentaNYL* 50 MCG/ML 2 ML VIAL (100 MCG VIAL) ONE (13:46)
[2017-08-22] MEDS ORDERED: Acetaminophen TAB* 325 MG PO PRN (14:44)
[2017-08-22] MEDS ORDERED: Albuterol HFA INHALER* 8 gm MDI INH PRN (14:48)
[2017-08-22] MEDS ORDERED: Zolpidem TAB* 5 MG PO PRN (14:51)
[2017-08-22] MEDS ORDERED: Digoxin TAB* 0.125 MG PO SCH (17:00)
[2017-08-22] MEDS ORDERED: Ramipril CAP* 2.5 MG PO SCH (18:00)
[2017-08-22] MEDS: oxyCODONE/Acetamin 5/325 MG* TAB PO PRN (19:55)
[2017-08-22] MEDS: ceFAZolin 1 GM in Dextrose (*) 1 GM/50 ML BAG IVPB SCH (19:56)
[2017-08-22] MEDS: Famotidine TAB* 20 MG PO SCH (20:20)
--- NOTE | 2017-08-22 22:02 | RAD ---
INDICATION: Status post device implant. COMPARISON: Comparison is made with a prior study from July 04, 2017. TECHNIQUE: A portable view of the chest was obtained. FINDINGS: The heart is within normal limits in size. There is a dual-chamber transvenous pacemaker present. The lungs are clear. No pleural effusion or pneumothorax is seen. IMPRESSION: STATUS POST TRANSVENOUS PACEMAKER PLACEMENT, NO EVIDENCE FOR ACUTE FINDING.
[2017-08-23] MEDS: oxyCODONE/Acetamin 5/325 MG* TAB PO PRN (01:04)
[2017-08-23] MEDS: ceFAZolin 1 GM in Dextrose (*) 1 GM/50 ML BAG IVPB SCH (03:37)
[2017-08-23] MEDS: Famotidine TAB* 20 MG PO SCH (07:52)
[2017-08-23] MEDS ORDERED: Aspirin EC TAB* 81 MG TAB.EC PO SCH (09:00)
[2017-08-23] MEDS ORDERED: Atorvastatin* 20 MG TAB PO SCH (09:00)
[2017-08-23] MEDS ORDERED: Amiodarone TAB* 200 MG PO SCH (09:00)
[2017-08-23] MEDS ORDERED: Metoprolol Succinate XL TAB* 50 MG PO SCH (09:00)
[2017-08-23] MEDS ORDERED: Montelukast Sodium TAB* 10 MG PO SCH (09:00)
[2017-08-23] MEDS ORDERED: Venlafaxine EXT RELEASE CAP* 75 MG PO SCH (09:00)
[2017-08-23] MEDS ORDERED: Folic Acid TAB* 1 MG PO SCH (09:00)
--- NOTE | 2017-08-23 09:14 | RAD ---
INDICATION: Cardiomyopathy. Post pacemaker implant yesterday. COPD. COMPARISON: August 22, 2017 TECHNIQUE: Dual energy PA and routine lateral views of the chest were obtained. REPORT: Elevated lung volumes and rarefaction of the interstitial markings. No focal pulmonary lesion, compelling alveolar consolidation, pleural effusion, pneumothorax. Lesions of the newly placed LEFT chest wall pacemaker device extend to the RIGHT atrium and RIGHT ventricle. Negative for cardiomegaly. Unremarkable central pulmonary vasculature and mediastinal contours. IMPRESSION: 1. No evidence for pneumothorax or pulmonary edema post pacemaker placement. 2. Stigmata of obstructive lung disease. 3. No acute pulmonary or cardiac process evident.
--- NOTE | 2017-08-23 10:54 | DS ---
CC: Dr. Guo; Dr. Moyer DATE OF ADMISSION: 08/22/2017. DATE OF DISCHARGE: 08/23/2017. INDICATION FOR ADMISSION: ICD implantation. HISTORY OF PRESENT ILLNESS: Please see Dr. Guo's office note and history and physical for detail s of his history and presentation. The patient is a 67-year-old gentleman with nonischemic cardiomyo johnie who was first diagnosed in April of 2017. His cardiac catheterization showed no coronary ar renard disease. He was placed on maximum medical therapy. Echocardiogram done on 07/06/2017 showed no significant improvement in his LV function, his ejection fraction was 20 percent with mild to modera te mitral and tricuspid regurgitation. The patient was recommended for ICD implantation. The srinivasaen t does have a history of paroxysmal atrial fibrillation. A dual chamber ICD was recommended. SUMMARY OF HOSPITAL COURSE: The patient was evaluated in the holding area and proceeded with dual ch niyah ICD implantation. The patient has a Medtronic ICD that was implanted without issues. The srinivasa ent was observed overnight. He had no issues overnight. A chest x-ray this morning and ICD interrog ation this morning showed normal function and normal chest x-ray. The patient has no specific compla ints. He has minimal pain at his ICD site. PHYSICAL EXAMINATION: Vital Signs: Temperature 97.4, heart rate 90, blood pressure 124/69, respirat ory rate 16, oxygen saturation 95 percent on room air. Carotids are 2+ without bruits. JVD is normal . Thyroid is normal. Cardiac exam: S1, S2 without any murmurs, rubs, or gallops. Lungs are clear t o auscultation. Extremities show no edema. His ICD site is well-healed. There is minimal ecchymosis . There is no erythema. There is no hematoma. A new dressing was applied. DISPOSITION: The patient will be discharged home with follow-up with me in one week. DISCHARGE MEDICATIONS: 1. Amiodarone 200 mg a day. 2. Atorvastatin 20 mg a day. 3. Digoxin 125 mcg daily. 4. Eliquis 5 mg twice a day which he will start tonight. 5. Famotidine 40 mg a day. 6. Folic acid 1 mg a day. 7. Flonase allergy relief. 8. Metoprolol Succinate 50 mg daily. 9. Omeprazole 20 mg a day. 10. ProAir inhaler as needed. 11. Ramipril 5 mg a day. 12. Venlafaxine 75 mcg a day. 13. Vitamin B1. 14. Symbicort. 15. Keflex 250 mg 3 times a day for the next 3 days. FOLLOW-UP: The patient will follow-up with me in one week for inspection of the incision. [id number]/[facility] #: [id number]
[2017-08-23 11:30] VITALS: BP 104/72
--- NOTE | 2017-08-23 13:32 | OP ---
OPERATIVE NOTE: DATE OF OPERATION: 08/22/17 DATE OF : 50 SURGEON: John Correa MD. ANESTHESIA: Local anesthesia with conscious sedation. PRE-OP DIAGNOSIS: Nonischemic cardiomyopathy, ejection fraction less than 35%. POST-OP DIAGNOSIS: Nonischemic cardiomyopathy, ejection fraction less than 35%. OPERATIVE PROCEDURE: Dual-chamber ICD implantation. INDICATIONS: The patient is a 67-year-old gentleman, followed by Dr. Guo, who had a nonischemic cardiomyopathy. The patient has been on maximal medical therapy for 4 months and despite that still has an ejection fraction of less than 35%. ICD implantation was recommended for prevention of sudden cardiac per national guidelines. ESTIMATED BLOOD LOSS: Nil. COMPLICATIONS: None. DESCRIPTION OF PROCEDURE: The patient was brought to the operating room in a fasting state. Informe d consent had been obtained prior to the procedure. All labs had been reviewed. The patient was jada chicho supine on the procedure table. His left deltopectoral area was cleaned and draped in the usual f ashion. 1% lidocaine was used for local anesthesia. Under ultrasound guidance, the axillary vein wa s entered by a modified technique and a guidewire was placed. A 4-cm incision was made in the pector al area and blunt dissection was carried down to the pectoral fascia. A pocket was fashioned for the ICD. Over the guidewire, a 7-[place]cu[place]orean sheath introducer was placed and a second guidewire was placed under retained wire technique. Over the first guidewire, a 9-[place] sheath introducer was placed; th rough which, a right ventricular ICD lead was passed to the RV apex. The right ventricular lead is a Medtronic model 6935M, serial number [id number], it had an R wave sensitivity of 12, impedance 652 o hms, threshold 0.5 volts at 0.5 msec. The ventricular lead was sutured to the pectoral fascia using 0 silk. Over the second guidewire, a 7-[place] sheath introducer was placed; through which, a right a trial lead was advanced to the high right atrium. The right atrial lead is a Medtronic model 5076, s erial number [id number], it had a P wave sensitivity of 2.9, impedance 709 ohms, threshold 1.9 volts at 0.5 msec. The atrial lead was sutured to the pectoral fascia using 0 silk. The pocket was flushe d with antibiotic infused normal saline and a generator was attached appropriately to the atrial and ventricular leads. The generator is a [employer] model [id number], serial number [id number]. Device was placed in the pocket. The surgical incision was closed in 3 layers. The patient was returned to the holding area in stable condition. [id number]/[facility] #: [id number]
== END 2017-08-23 12:25 | disposition home or self-care (01) ==
LOC: CHICATH 11:56 → MEDTELE 15:08 → INTOOBSV 15:08
PROVIDERS: ADMIT Specialist; ATTEND Specialist
DX: I42.9 Cardiomyopathy, unspecified (principal); I48.91 Unspecified atrial fibrillation; J44.9 Chronic obstructive pulmonary disease, unspecified; E78.5 Hyperlipidemia, unspecified; K21.9 Gastro-esophageal reflux disease without esophagitis; F32.9 Major depressive disorder, single episode, unspecified; Z95.9 Presence of cardiac and vascular implant and graft, unspecified
CPT/HCPCS: 33249; 36415; 71045; 71046; 80048; 85025; 85610; 85730; 93005; 96365; 99156; 99157; A9270-GY; C1721; C1898; G0378; J0690; J2250; J3010

== ENCOUNTER 2018-03-27 16:26 | Emergency (ER) | payer MEDICARE ==
--- OUTSIDE RECORDS SUMMARY | 2018-03-27 17:04 | XMS REPORT | Continuity of Care Document ---
:1950 External Reference #:[id number] Author Name Silvia Serrano Care Team Providers Name Role Phone Royal Clements DO Primary Care Physician Unavailable Payers Type Date Identification Numbers Payment Provider Subscriber Effective: Policy Number: [id number] Medicare Blue Ppo Dereck De La Fuente 2017 PayID: [id number] [address] [address] [place] [address] Expires: 2017 Policy Number: Maya/[employer] Medicaid Dereck De La Fuente [id number] PayID: [id number] [address] [address] [place] [address] Effective: 2016 Policy Number: [id number] [facility] Dereck De La Fuente Expires: 2018 Group Number: 70% [id number] PayID: [id number] [facility] [address] [place] [address] Advance Directives Description No Information Available Problems Date Description Provider Status Onset: 05/24/2017 Paroxysmal atrial fibrillation Libia Guo M.D. Active Onset: 05/24/2017 Mitral valve disorder Libia Guo M.D. Active Onset: 05/24/2017 Tricuspid valve disorder, non-rheumatic Libia Guo M.D. Active Onset: 05/24/2017 Heart failure with reduced ejection Libia Guo M.D. Active fraction Onset: 05/24/2017 Chronic combined systolic and diastolic Libia Guo M.D. Active heart failure Onset: 10/03/2017 Automatic implantable cardiac Libia Guo M.D. Active defibrillator in situ Family History Date Family Member(s) Problem(s) Comments General Diabetes Father Alzheimer's Disease Siblings 1 brother, hx of [place] in his late 50's Social History Type Date Description Comments Sex Unknown Marital Status Lives With Occupation Retired Tobacco Use Start: Unknown Light tobacco smoker (10 or fewer cigarettes/day) Smoking Status Reviewed: 03/03/18 Light tobacco smoker (10 or fewer cigarettes/day) ETOH Use consumed 5-6 beers per until Apr 2017 day Tobacco Use Start: Unknown Light tobacco smoker quit smoking Joey (10 or fewer 2017 cigarettes/day) Recreational Drug Use Denies Drug Use Exercise Type/Frequency Does not exercise Allergies, Adverse Reactions, Alerts Date Description Reaction Status Severity Comments 05/19/2017 NKDA Active 05/24/2017 Bee Sting Active 05/24/2017 Latex Active 05/24/2017 Adhesives Active Medications Medication Date Status Form Strength Qnty SIG Indications Ordering Provider Magox 400 08/30/ Active Tablets 400(241.3m 1 by mouth Bee S. 2017 g) mg twice a Foster, day ( N.P. taking 1 tablet po daily ) Entresto 08/30/ Active Tablets 24-26mg 60tabs take 1 tab I42.9 Bee S. 2018 by mouth [place], twice N.P. daily Proair HFA / Active as need Unknown 0000 Symbicort / Active 160-4.5mcg 2 inhaled Unknown 0000 twice daily Am/PM Azelastine HCL / Active 137mcg as needed Unknown 0000 Tudorza / Active 400mcg 1 puff Unknown Pressair 0000 twice daily Flonase / Active as needed Unknown Allergy Relief 0000 Epipen 2-Tyson / Active as Unknown 0000 directed Famotidine / Active Tablets 40mg 1 by mouth Unknown 0000 daily Metoprolol 00/ Active Tablets ER 50mg 45tabs 1/2 tablet Libia Succinate ER 0000 24HR by mouth Brant, daily (25 M.D. mg). Digoxin / Active Tablets 125mcg 30tabs 1 by mouth Libia 0000 every day Christie Guo Montelukast / Active Tablets 10mg 1 by mouth Unknown Sodium 0000 every day Eliquis / Active Tablets 5mg 60tabs 1 by mouth Bee S. 0000 twice a Foster, day N.P. Folic Acid 00/ Active Tablets 1mg 1 by mouth Unknown 0000 every day Vitamin B1 00/00/ Active Tablets 100mg 1 by mouth Unknown 0000 every day Omeprazole / Active Capsules 20mg 1 cap po [place], 0000 DR daily HANG Turk Atorvastatin / Active Tablets 20mg take 1 Unknown Calcium 0000 tablet at bedtime Docusate 00/ Active Capsules 100mg 2 cap po Unknown Sodium 0000 daily Oxygen / Active Misc 2L via Unknown 0000 nasal cannula used at night Keflex 08/23/ Hx Capsules 250mg 9caps 3 times a John D. 2018 - day for 3 Brand, M.D. 2017 Ramipril 05/24/ Hx Capsules 5mg 90caps 1 tablet I42.9 Libia 2017 - PO qhs [place], M.D. 2017 Amiodarone HCL 05/24/ Hx Tablets 200mg 90tabs 1/2 tablet I48.0 Libia 2017 - by mouth a [place], day (100 M.D. 2018 mg/day) Proair 06/25/ Hx Shell Grimm - M.D. 2017 Aspirin Low / Hx Unknown Strength 0000 - 2017 Citalopram / Hx 40mg Unknown Hydrobromide 0000 - 2017 Pantoprazole / Hx 40mg Unknown Sodium 0000 - 2017 Venlafaxine / Hx Tablets 75mg 1 by mouth Unknown HCL 0000 - every day 2017 Atorvastatin 00/ Hx Tablets 20mg take 1 Unknown Calcium 0000 - tablet at 08/29/ bedtime 2018 Ramipril / Hx Capsules 2.5mg 1 by mouth I42.9 Unknown 0000 - every day 2017 Effexor XR / Hx Caps ER 75mg 1 by mouth Unknown 0000 - 24HR every day 2017 Thiamine HCL 00/ Hx Tablets 100mg 1 by mouth Unknown 0000 - every day 2017 Immunizations Description No Information Available Vital Signs Date Vital Result Comment 03/03/2018 3:35pm Height 64.5 inches 5'4.50" Weight 134.00 lb with shoes Heart Rate 80 /min BP Systolic Sitting 94 mmHg Lue reg cuff BP Diastolic Sitting 60 mmHg Lue reg cuff BP Systolic Standing 90 mmHg Lue reg cuff BP Diastolic Standing 60 mmHg Lue reg cuff Respiratory Rate 16 /min BMI (Body Mass Index) 22.6 kg/m2 Ejection Fraction 20% date 07/06/17 ECHO 01/16/2018 3:21pm Height 64.5 inches 5'4.50" Weight 124.50 lb with shoes Heart Rate 76 /min BP Systolic Sitting 100 mmHg Lue reg cuff BP Diastolic Sitting 60 mmHg Lue reg cuff BP Systolic Standing 94 mmHg Lue reg cuff BP Diastolic Standing 60 mmHg Lue reg cuff Respiratory Rate 16 /min BMI (Body Mass Index) 21.0 kg/m2 Ejection Fraction 20% date 07/06/17 ECHO 11/03/2017 2:53pm Weight 138.00 lb Heart Rate 68 /min BP Systolic Sitting 132 mmHg manual cuff left arm BP Diastolic Sitting 80 mmHg manual cuff left arm BP Systolic Standing 134 mmHg manual cuff left arm BP Diastolic Standing 82 mmHg manual cuff left arm 10/03/2017 4:03pm Height 65.5 inches 5'5.50" Weight 131.00 lb w/ shoes Heart Rate 64 /min BP Systolic Sitting 78 mmHg lue regg cuff BP Diastolic Sitting 56 mmHg lue regg cuff BP Systolic Standing 88 mmHg lue regg cuff BP Diastolic Standing 50 mmHg lue regg cuff Respiratory Rate 16 /min BMI (Body Mass Index) 21.5 kg/m2 Ejection Fraction 20% Echo 07/06/2017 08/30/2017 11:18am Height 65.5 inches 5'5.50" Weight 134.50 lb Heart Rate 64 /min BP Systolic Sitting 124 mmHg BP Diastolic Sitting 64 mmHg Respiratory Rate 18 /min BMI (Body Mass Index) 22.0 kg/m2 Ejection Fraction 20% 07/06/2017 echo 07/28/2017 4:03pm Height 65.5 inches 5'5.50" Weight 130.00 lb with shoes Heart Rate 64 /min BP Systolic Sitting 120 mmHg Lue reg cuff BP Diastolic Sitting 70 mmHg Lue reg cuff BP Systolic Standing 108 mmHg Lue reg cuff BP Diastolic Standing 72 mmHg Lue reg cuff Respiratory Rate 16 /min BMI (Body Mass Index) 21.3 kg/m2 Ejection Fraction 20% date 07/06/17 ECHO 05/24/2017 11:36am Height 66 inches 5'6" Weight 135.00 lb with shoes Heart Rate 66 /min BP Systolic Sitting 120 mmHg Rue reg cuff BP Diastolic Sitting 70 mmHg Rue reg cuff BP Systolic Standing 120 mmHg Rue reg cuff BP Diastolic Standing 72 mmHg Rue reg cuff Respiratory Rate 16 /min BMI (Body Mass Index) 21.8 kg/m2 Ejection Fraction >20% date 04/26/17 ECHO 05/10/2017 1:34pm Height 66 inches 5'6" Weight 132.00 lb w/ shoes Heart Rate 58 /min BP Systolic Sitting 110 mmHg lue reg cuff BP Diastolic Sitting 68 mmHg lue reg cuff Respiratory Rate 18 /min BMI (Body Mass Index) 21.3 kg/m2 Ejection Fraction <20% echo 04/27/17 06/25/2014 1:43pm Height 66 inches 5'6" Weight 118.00 lb Heart Rate 85 /min BP Systolic Sitting 120 mmHg BP Diastolic Sitting 80 mmHg Body Temperature 99.7 F O2 % BldC Oximetry 97 % BMI (Body Mass Index) 19.0 kg/m2 Neck Circumference in inches 14 Results Test Date Facility Test Result H/L Range Note Thyroid Panel 02/17/2018 [facility] Free T4 (Free 0.96 ng/dL N 0.61-1.[address] Thyroxine) [place] [address] [phone] Thyroxine 6.46 ?g/dL N 6.09-12.23 2 TSH (Thyroid Stim Horm) 1.76 mcIU/mL N 0.34-5.60 3 Thyroid Panel 01/10/2018 [facility] Free T4 (Free 1.01 ng/dL N 0.61-1.[address] Thyroxine) [place] [address] [phone] Thyroxine 5.54 g/mL Low 6.09-12.23 5 TSH (Thyroid Stim Horm) 1.26 mcIU/mL N 0.34-5.60 6 Laboratory test 12/08/2017 [facility] Magnesium 1.9 mg/dL N 1.9-2.7 [address] [place] [address] [phone] Basic Metabolic 10/03/2017 [facility] Sodium 129 mmol/L Low 135-145 [address] [place] [address] [phone] Potassium 4.7 mmol/L N 3.5-5.0 Chloride 92 mmol/L Low 101-111 Co2 Carbon Dioxide 30 mmol/L N 22-32 Anion Gap 7 mmol/L N 2-11 Glucose 143 mg/dL High 70-100 Blood Urea Nitrogen 14 mg/dL N 6-24 Creatinine 0.85 mg/dL N 0.67-1.17 BUN/Creatinine Ratio 16.5 N 8-20 Calcium 9.0 mg/dL N 8.6-10.3 Egfr Non- 89.9 >60 Egfr 108.8 >60 9 Inr/Protime 08/22/2017 [facility] Inr 0.87 N 0.77-1.[address] [place] [address] [phone] Laboratory test 08/22/2017 [facility] Partial 34.5 N 26.0- 36.[address] [place] [address] PTT [phone] Basic Metabolic 08/22/2017 [facility] Sodium 132 mmol/L Low 139-[address] [place] [address] [phone] Potassium 4.0 mmol/L N 3.5-5.0 Chloride 97 mmol/L Low 101-111 Co2 Carbon Dioxide 27 mmol/L N 22-32 Anion Gap 8 mmol/L N 2-11 Glucose 178 mg/dL High 70-100 Blood Urea Nitrogen 7 mg/dL N 6-24 Creatinine 0.80 mg/dL N 0.67-1.17 BUN/Creatinine Ratio 8.8 N 8-20 Calcium 9.3 mg/dL N 8.6-10.3 Egfr Non- 96.4 >60 Egfr 124.0 >60 10 CBC Auto Diff 08/22/2017 [facility] White Blood 3.9 10^3/uL N 3.5-10.[address] [place] [address] [phone] Red Blood Count 4.43 10^6/uL N 4.00-5.40 Hemoglobin 14.5 g/dL N 14.0-18.0 Hematocrit 43 % N 42-52 Mean Corpuscular Volume 97 fL High 80-94 Mean Corpuscular Hemoglobin 33 pg High 27-31 Mean Corpuscular HGB Conc 34 g/dL N 31-36 Red Cell Distribution Width 15 % N 10.5-15 Platelet Count 207 10^3/uL N 150-450 Mean Platelet Volume 6.8 um3 Low 7.4-10.4 Abs Neutrophils 2.4 10^3/uL N 1.5-7.7 Abs Lymphocytes 0.9 10^3/uL Low 1.0-4.8 Abs Monocytes 0.3 10^3/uL N 0-0.8 Abs Eosinophils 0.3 10^3/uL N 0-0.6 Abs Basophils 0 10^3/uL N 0-0.2 Abs Nucleated RBC 0 10^3/uL Granulocyte % 62.1 % N 38-83 Lymphocyte % 22.5 % Low 25-47 Monocyte % 7.8 % High 0-7 Eosinophil % 6.9 % High 0-6 Basophil % 0.7 % N 0-2 Nucleated Red Blood Cells % 0 1 1m Copy Result to: ROYAL CLEMENTS ([id number]) 2 1m Copy Result to: ROYAL CLEMENTS ([id number]) 3 1m Copy Result to: ROYAL CLEMENTS ([id number]) 4 Copy Result to: ROYAL CLEMENTS ([id number]) 5 Copy Result to: ROYAL CLEMENTS ([id number]) 6 Copy Result to: ROYAL CLEMENTS ([id number]) 7 Copy Result to: ROYAL CLEMENTS ([id number]) 8 FASTING 9 Because ethnic data is not always [...] 5 Kidney failure <15 (or dialysis) 10 Because ethnic data is not always readily [...] Kidney failure <15 (or dialysis) Procedures Date Code Description Status 03/03/2018 58610 Icd Check Single,Dual Or Multiple In Person W/ Incl Completed Heart Rhyth 02/16/2018 48644 Interrogation Device Eval Remote Up To 30 Days Completed Analysis,Rev,RP 02/16/2018 78916 Interrogation Device Eval Remote Up To 30 Days Completed Analysis,Rev,RP 02/16/2018 03467 Icd Eval Sing,Dual,Multi Lead Remote Recpt Transm Tech Completed Rev Tech S 02/16/2018 08162 Icd Eval Sing,Dual,Multi Lead Remote Recpt Transm Tech Completed Rev Tech S 02/16/2018 88132 Icd Check Remote Up To 90 Days Single,Dual,Multiple Completed Lead 02/16/2018 69479 Icd Check Remote Up To 90 Days Single,Dual,Multiple Completed Lead 01/16/2018 11951 Icd Eval With Inerative Adjustmt Dual Lead System Completed 01/16/2018 97396 Icd Eval With Inerative Adjustmt Dual Lead System Completed 01/16/2018 27989 Interrogation Implant Cardiovasc Monitor System Incl Completed Analysis Int 01/16/2018 70380 Interrogation Implant Cardiovasc Monitor System Incl Completed Analysis Int 12/29/2017 06853 Diffusing Capacity Completed 12/29/2017 62708 Plethysmography Determination Lung Volumes & Per Completed Airway Resist 12/29/2017 62268 Pulmonary Function><Bronchodil Completed 12/05/2017 89223 Interrogation Device Eval Remote Up To 30 Days Completed Analysis,Rev,RP 12/05/2017 63648 Interrogation Device Eval Remote Up To [address] Completed Analysis,Rev,RP 11/03/2017 90864 EKG Tracing & Interpretation Completed 11/02/2017 35159 Icd Eval With Iterative Adjustmt Multiple Lead System Completed 11/02/2017 58766 Icd Eval With Iterative Adjustmt Multiple Lead System Completed 11/02/2017 85354 Interrogation Implant Cardiovasc Monitor System Incl Completed Analysis Int 11/02/2017 29317 Interrogation Implant Cardiovasc Monitor System Incl Completed Analysis Int 09/21/2017 81179 Interrogation Implant Cardiovasc Monitor System Incl Completed Analysis Int 09/21/2017 64597 Interrogation Implant Cardiovasc Monitor System Incl Completed Analysis Int 09/21/2017 83631 Icd Eval With Inerative Adjustmt Dual Lead System Completed 09/21/2017 93022 Icd Eval With Inerative Adjustmt Dual Lead System Completed 08/23/2017 29154 EKG, Interpretation Only Completed 08/22/2017 31702 Insert/Replace Icd W/Generator Completed 07/06/2017 69328 ECHO Transthoracic, Real-Time 2D With Doppler And Completed Color Flow 07/06/2017 78070 ECHO Transthoracic, Real-Time 2D With Doppler And Completed Color Flow 05/24/2017 47108 EKG Tracing & Interpretation Completed 05/24/2017 53569 Echocardiogram, Limited Study Completed 05/24/2017 30232 Echocardiogram, Limited Study Completed 05/19/2017 [id number] Diabetic Retinal Eye Exam Completed 05/03/2017 39324 Left Heart Cath. Incl S/I Coronaries, Angio S/I V Gram Completed If Done 04/29/2017 60208 Moderate Sedation Services; Same Phys Intl 15 Mins; PT Completed >=5 Years 04/29/2017 84980 Color Flow Doppler/Interp & Reprt Completed 04/29/2017 07047 Pulse Wave/Continuous-Interp.RPT Completed 04/29/2017 25126 Echocardiography, Transesophageal, Real Time W/Image Completed 2D W/W/O M-M 04/27/2017 65161 ECHO Transthorasic Realtime 2D W Doppler & Color Flow Completed Hosp 09/02/2014 58859 Polysomnography Sleep Staging 4+ Parameters Completed Encounters Type Date Location Provider Dx Diagnosis Office Visit 03/03/2018 [facility] Libia Guo, I42.9 Cardiomyopathy, 4:00p Of Ivette Soriano unspecified Z95.810 Presence of automatic (implantable) cardiac defibrillator I50.42 Chronic combined systolic and diastolic hrt fail Z72.0 Tobacco use I48.0 Paroxysmal atrial fibrillation Office Visit 01/16/2018 [place] Guo, Z95.810 Presence of 3:40p [facility] automatic Civilian Technician (implantable) cardiac defibrillator I42.9 Cardiomyopathy, unspecified I50.42 Chronic combined systolic and diastolic hrt fail Z72.0 Tobacco use J44.9 Chronic obstructive pulmonary disease, unspecified R06.02 Shortness of breath Office Visit 11/03/2017 [place] I42.Jam Cardiomyopathy, 3:00p [facility] [place], N.P. unspecified Civilian Technician Z95.810 Presence of automatic (implantable) cardiac defibrillator Z72.0 Tobacco use J44.9 Chronic obstructive pulmonary disease, unspecified E87.1 Hypo-osmolality and hyponatremia Office Visit 10/03/2017 [place] Guo I42.Jam Cardiomyopathy, 4:00p [facility] unspecified Civilian Technician I48.0 Paroxysmal atrial fibrillation Z95.810 Presence of automatic (implantable) cardiac defibrillator R06.02 Shortness of breath Z72.0 Tobacco use J44.9 Chronic obstructive pulmonary disease, unspecified E87.1 Hypo-osmolality and hyponatremia Office Visit 08/30/2017 [place] Fuentes42.Jam Cardiomyopathy, 11:30a [facility] [place], N.P. unspecified Civilian Technician I48.0 Paroxysmal atrial fibrillation I34.0 Nonrheumatic mitral (valve) insufficiency I36.1 Nonrheumatic tricuspid (valve) insufficiency Z95.810 Presence of automatic (implantable) cardiac defibrillator Office Visit 07/28/2017 [place] Guo I42.Jam Cardiomyopathy, 3:40p [facility] unspecified Civilian Technician I48.0 Paroxysmal atrial fibrillation I34.0 Nonrheumatic mitral (valve) insufficiency I36.1 Nonrheumatic tricuspid (valve) insufficiency I50.42 Chronic combined systolic and diastolic hrt fail I73.9 Peripheral vascular disease, unspecified Office Visit 05/24/2017 [place] Guo I42Eun Cardiomyopathy, 11:30a [facility] unspecified Civilian Technician I48.0 Paroxysmal atrial fibrillation I34.0 Nonrheumatic mitral (valve) insufficiency I36.1 Nonrheumatic tricuspid (valve) insufficiency E87.1 Hypo-osmolality and hyponatremia I50.42 Chronic combined systolic and diastolic hrt fail Office Visit 05/10/2017 [place] I42.9 Cardiomyopathy, 1:30p Cardiology Michelle Correa M.D. unspecified Civilian Technician AT [facility] [place] I50.1 Left ventricular failure, unspecified I48.92 Unspecified atrial flutter Office Visit 05/05/2017 10:15a [facility] Libia Guo I48.92 Unspecified Of Ivette Soriano atrial flutter I42.9 Cardiomyopathy, unspecified Office Visit 05/05/2017 [facility] I48.91 Unspecified atrial 2:11p Assocbryson M.D. fibrillation Hospitalists J18.9 Pneumonia, unspecified organism I50.21 Acute systolic (congestive) heart failure E87.1 Hypo-osmolality and hyponatremia Office Visit 05/04/2017 [facility] Guo I42.9 Cardiomyopathy, 12:37p Cardiology Michelle Soriano unspecified [facility] I48.92 Unspecified atrial flutter Office Visit 05/04/2017 [facility] I48.91 Unspecified atrial 2:10p Assocbryson M.D. fibrillation Hospitalists J18.9 Pneumonia, unspecified organism E87.1 Hypo-osmolality and hyponatremia I50.21 Acute systolic (congestive) heart failure Office Visit 05/03/2017 [facility] I48.91 Unspecified atrial 2:09p Assbryson snow M.D. fibrillation Hospitalists J18.9 Pneumonia, unspecified organism I50.21 Acute systolic (congestive) heart failure E87.1 Hypo-osmolality and hyponatremia Office Visit 05/02/2017 2:08p [facility] Farhad Nieves, I48.91 Unspecified atrial Assocbryson MD fibrillation Hospitalists J18.9 Pneumonia, unspecified organism I50.21 Acute systolic (congestive) heart failure E87.1 Hypo-osmolality and hyponatremia Office Visit 05/02/2017 [facility] I42.9 Cardiomyopathy, 12:28p Cardiology Michelle Correa M.D. unspecified [facility] I48.91 Unspecified atrial fibrillation A41.9 Sepsis, unspecified organism Office Visit 05/01/2017 2:07p [facility] Farhad Nieves, I48.91 Unspecified atrial Assoc,bryson COLLINS fibrillation Hospitalists J18.9 Pneumonia, unspecified organism I50.21 Acute systolic (congestive) heart failure E87.1 Hypo-osmolality and hyponatremia Office Visit 05/01/2017 2:52p [facility] Libia Guo, I48.92 Unspecified Of Civilian Technician M.DSharri atrial flutter I42.9 Cardiomyopathy, unspecified J15.9 Unspecified bacterial pneumonia A40.3 Sepsis due to Streptococcus pneumoniae E87.1 Hypo-osmolality and hyponatremia Z72.0 Tobacco use Office Visit 04/30/2017 2:33p [facility] Libia Guo, I48.92 Unspecified Of Ivette M.DSharri atrial flutter I42.9 Cardiomyopathy, unspecified J15.9 Unspecified bacterial pneumonia A40.3 Sepsis due to Streptococcus pneumoniae E87.1 Hypo-osmolality and hyponatremia Z72.0 Tobacco use Office Visit 04/30/2017 2:06p [facility] Farhad Nieves, I48.91 Unspecified atrial Assoc,bryson COLLINS fibrillation Hospitalists J18.9 Pneumonia, unspecified organism I50.21 Acute systolic (congestive) heart failure E87.1 Hypo-osmolality and hyponatremia Office Visit 04/29/2017 [place] Qutaybeh S. I48.91 Unspecified atrial 3:18p Keira Burton M.D. fibrillation I42.9 Cardiomyopathy, unspecified Office Visit 04/29/2017 2:05p [facility] Farhad Nieves, I48.91 Unspecified atrial Assoc,bryson COLLINS fibrillation Hospitalists J18.9 Pneumonia, unspecified organism I50.21 Acute systolic (congestive) heart failure E87.1 Hypo-osmolality and hyponatremia Office Visit 04/28/2017 [place] Qutaybeh S. I48.91 Unspecified atrial 2:43p Keira Burton M.D. 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 atrial Hospitalists fibrillation J18.9 Pneumonia, unspecified organism J44.1 Chronic obstructive pulmonary disease w (acute) exacerbation 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 at [facility]04/21/2018 3:00 pm - Ica Pacer Schedule at [facility]03/03/2018 - Libia Guo M.D.I42.9 Cardiomyopathy, unspecifiedFollow up: PO 1-2 months and OV with ACQUISITION COST ESTIMATOR 1-2 months.Z95.810 Presence of automatic ( implantable) cardiac defibrillatorComments:site looks good.I50.42 Chronic combined systolic (congestive) and diastolic (congesComments:I don't appreciate fluid build up.Follow up:Call pt March if he hasn't called us regarding meds/$ $ and possible changes.Recommendations:$$ issues: check with pharmacist if Cozaar 50 mg/day (replacing entresto) and Coumodin 5 mg/day (replacing Eliquis) saves you money.Z72.0 Tobacco useComments:Wheezy, if this gets worse contact Dr Clements.Recommendations:Continue to work on getting off cigarettes and alcohol completely.I48.0 Paroxysmal atrial fibrillationComments:You have only very brief breakthroughs At somepoint you will need another medicine to keep you the normal rhythm.For now continue your current medications.
--- NOTE | 2018-03-27 19:05 | ED ---
Neurological HPI - HPI Summary HPI Summary: A 67 y/o male presents to [facility] with a chief complaint of a possible seizure on 03/27/18. The patient thought he fell asleep, but was told that his eyes rolled back and he was shaking before he went stiff and almost fell out of his chair lasting for about one minute. He denies a headache or biting his tongue. He claims that before his seizure he was feeling fine but since his seizure he has been "feeling off". The patient was working at the [employer] when his seizure occurred. He has a Hx of COPD, asthma and [address] 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 - History of Current Complaint Chief Complaint: EDSeizure Stated Complaint: SEIZURE Time Seen by Provider: 03/27/18 17:44 Hx Obtained From: Patient Onset/Duration: Sudden Onset, Started hours ago, Resolved Timing: Intermittent Episodes Lasting: - 1 episode for about 1 minute Onset Severity: Moderate Current Severity: Mild Seizure Severity: Moderate Number of Seizures: 1 Neurological Deficit Location: Generalized Pain Intensity: 0 Pain Scale Used: 0-10 Numeric Character: Other: - eyes rolled back and he was shaking before he went stiff Syncope Context: Witnessed Aggravating: Nothing Alleviating: Nothing Associated Signs and Symptoms: Negative: Headache - Additional Pertinent History Primary Care Physician: VERO - Allergy/Home Medications Allergies/Adverse Reactions: Allergies Allergy/AdvReac Type Severity Reaction Status Date / Time adhesive Allergy Mild Rash Verified 03/27/18 17:50 bee venom protein (honey bee) Allergy Swelling Verified 03/27/18 17:50 Of Face,Lips,& Throat latex Allergy Facial Verified 03/27/18 17:50 Redness/Flushing Home Medications: Home Medications Aclidinium [place] [Tudorza Pressair] 400 mcg INH BID 03/27/18 [History Confirmed 03/27/18] Docusate Sodium [Stool Softener] 200 mg PO DAILY 03/27/18 [History Confirmed ] Sacubitril/Valsartan (NF) [Entresto (NF)] 1 tab PO BID 03/27/18 [ History Confirmed 03/27/18] Tamsulosin CAP* [Flomax CAP*] 0.4 mg PO DAILY 03/27/18 [History Confirmed ] Venlafaxine EXT RELEASE CAP* [Effexor Xr CAP*] 75 mg PO DAILY 03/27/18 [History Confirmed 03/27/18] PMH/Surg Hx/FS Hx/Imm Hx Endocrine/Hematology History: Reports: Hx Diabetes - DIET CONTROLLED, Hx Anemia Cardiovascular History: Reports: Hx Congestive Heart Failure, Hx Coronary Artery Disease, Hx Hypercholesterolemia - HLD, Hx Hypertension, Hx Pacemaker/ ICD - 08/22/2017, Other Cardiovascular Problems/Disorders - 05/2013 CHEST PAIN, BUT MAY HAVE BEEN PANIC ATTACK Respiratory History: Reports: Hx Chronic Obstructive Pulmonary Disease (COPD), Hx Sleep Apnea - TESTED BY NO DIAGNOSIS, Other Respiratory Problems/Disorders - COPD O2 2L AT NIGHT GI History: Reports: Hx Gastroesophageal Reflux Disease, Other GI Disorders - growth/cyst left groin per pt History: Reports: Hx Kidney Infection - HX OF A YOUNG ADULT Denies: Hx Dialysis, Hx Renal Disease Musculoskeletal History: Reports: Hx Arthritis - HANDS, Hx Back Problems Sensory History: Denies: Hx Contacts or Glasses, Hx Hearing Aid Opthamlomology History: Denies: Hx Contacts or Glasses Neurological History: Reports: Hx Headaches, Hx Migraine - "tension headache", Other Neuro Impairments/Disorders - OCC PANIC ATTACKS Psychiatric History: Reports: Hx Anxiety Denies: Hx Panic Disorder - Surgical History Surgery Procedure, Year, and Place: NASAL POLYPS AND COLON POLYPS REMOVED, TONSILECTOMY, HERNIA Hx Anesthesia Reactions: No Infectious Disease History: No Infectious Disease History: Denies: History Other Infectious Disease, Traveled Outside the [place] in Last 30 Days - Family History Known Family History: Positive: Cardiac Disease - Social History Alcohol Use: Daily Alcohol Amount: six beers Substance Use Type: Reports: None Hx Tobacco Use: Yes Smoking Status (MU): Light Every Day Tobacco Smoker Type: Cigarettes Amount Used/How Often: 1/2PPD Length of Time of Smoking/Using Tobacco: 40YRS Have You Smoked in the Last Year: Yes Review of Systems Negative: Fever Neurological: Negative - biting his tongue, Other - positive: possible seizure "eyes rolled back and he was shaking before he went stiff" Negative: Headache All Other Systems Reviewed And Are Negative: Yes Physical Exam - Summary Physical Exam Summary: Appearance: The patient is well-nourished in no acute distress and in no acute pain. Skin: The skin is warm and dry and skin color reflects adequate perfusion. HEENT: The head is normocephalic and atraumatic. The pupils are equal and reactive. The conjunctivae are clear and without drainage. Nares are patent and without drainage. Mouth reveals moist mucous membranes and the throat is without erythema and exudate. The external ears are intact. The ear canals are patent and without drainage. The tympanic membranes are intact. Neck: The neck is supple with full range of motion and non-tender. There are no carotid bruits. There is no neck vein distension. Respiratory: Chest is non-tender. Lungs are clear to auscultation and breath sounds are symmetrical and equal. Cardiovascular: Heart is regular rate and rhythm. There is no murmur or rub auscultated. There is no peripheral edema and pulses are symmetrical and equal. Abdomen: The abdomen is soft and non-tender. There are normal bowel sounds heard in all four quadrants and there is no organomegaly palpated. Musculoskeletal: There is no back tenderness noted. Extremities are non-tender with full range of motion. There is good capillary refill. There is no peripheral edema or calf tenderness elicited. Neurological: Patient is alert and oriented to person, place and time. The patient has symmetrical motor strength in all four extremities. Cranial nerves are grossly intact. Deep tendon reflexes are symmetrical and equal in all four extremities. Psychiatric: The patient has an appropriate affect and does not exhibit any anxiety or depression. Triage Information Reviewed: Yes Vital Signs On Initial Exam: Initial Vitals Temp Pulse Resp BP Pulse Ox 98.0 F 104 20 117/65 97 03/27/18 16:28 03/27/18 16:28 03/27/18 16:28 03/27/18 16:28 03/27/18 16:28 Vital Signs Reviewed: Yes - [place] Coma Scale Best Eye Response: 4 - Spontaneous Best Motor Response: 6 - Obeys Commands Best Verbal Response: 5 - Oriented Coma Scale Total: 15 Diagnostics - Vital Signs Vital Signs Temp Pulse Resp BP Pulse Ox 03/27/18 18:48 96 03/27/18 18:44 89 114/67 96 03/27/18 18:14 86 112/68 97 03/27/18 18:00 84 97 03/27/18 17:44 93 109/64 97 03/27/18 16:28 98.0 F 104 20 117/65 97 - Laboratory Result Diagrams: 03/27/18 19:25 03/27/18 19:25 Lab Statement: Any lab studies that have been ordered have been reviewed, and results considered in the medical decision making process. - CT Brain CT Interpretation Completed By: Radiologist Summary of CT Findings: No acute intracranial abnormality. Chronic microvascular ischemic changes. Extensive paranasal sinus mucosal disease as described above. ED provider has reviewed this imaging report. - EKG 18:58 Cardiac Rate: NL - 86 bpm EKG Rhythm: Sinus Rhythm ST Segment: Normal Ectopy: None Summary of EKG Findings: Normal sinus rhythm at 86 bpm, normal ST, no ectopy, no STEMI. Re-Evaluation - Re-Evaluation First Eval Re-Evaluation Time: 20:49 Change: Improved Comment: Patient is ready for discharge. Course/Dx - Course Course Of Treatment: Mr. Henao presented to the emergency department after a witnessed seizure. He was nontoxic in appearance his vitals were stable here. His workup including labs and CT scan was negative. New-onset seizure versus syncope with seizure-like activity is the differential. He has an ICD/ pacemaker and this was interrogated and was negative for any dysrhythmia or firing. I recommended follow-up for further workup for seizure. He was stable during his stay here and at discharge. - Diagnoses Provider Diagnoses: New onset seizure - Physician Notifications Time Discussed With Above Provider: 21:10 Instructed by Provider To: Other - [employer] reports a 4 second episode of V-tach 03/06/18 and a short section of SVT on 03/26/18 but no dysrhythmia on 03/27/18. Discharge - Sign-Out/Discharge Documenting (check all that apply): Patient Departure - DC - Discharge Plan Condition: Stable Disposition: HOME Referrals: Miguel Moyer DO [Primary Care Provider] - (2-3 days) Additional Instructions: Return to the ED if you experience any new or worsening symptoms. - Billing Disposition and Condition Condition: STABLE Disposition: Home - Attestation Statements Document Initiated by [place]: Yes Documenting Scribe: Skyler Alcala Provider For Whom Jose G is Documenting (Include Credential): Simone Romero MD Scribe Attestation: Skyler Fuentes scribed for Simone Romero MD on 03/27/18 at [id number]. Scribe Documentation Reviewed: Yes Provider Attestation: The documentation as recorded by the scribe, Skyler Alcala accurately reflects the service I personally performed and the decisions made by me, Simone Romero MD Status of Scribe Document: Viewed
[2018-03-27 19:31] LABS: ABS Basophils 0 10^3/ul (0-0.2); ABS Eosinophils 0.4 10^3/ul (0-0.6); ABS Lymphocytes 0.9 10^3/ul (1.0-4.8); ABS Monocytes 0.5 10^3/ul (0-0.8); ABS Neutrophils 3.4 10^3/ul (1.5-7.7); ABS Nucleated RBC 0 10^3/ul; Eosinophil % 6.8 %; Hematocrit 38 % (42-52); Lymphocyte % 18.1 %; Mean Corpuscular HGB Conc 35 g/dl (31-36); Mean Corpuscular Hemoglobin 35 pg (27-31); Mean Corpuscular Volume 100 fL (80-94); Mean Platelet Volume 6.7 fL (7.4-10.4); Nucleated Red Blood Cells % 0; Platelet Count 198 10^3/ul (150-450); Red Blood Count 3.79 10^6/ul (4.00-5.40); Red Cell Distribution Width 13 % (10.5-15); White Blood Count 5.2 10^3/ul (3.5-10.8)
[2018-03-27 19:40] LABS: INR 1.06 (0.77-1.02)
[2018-03-27 19:49] LABS: ALT 12 U/L (7-52); AST 18 U/L (13-39); Albumin 4.2 g/dL (3.2-5.2); Albumin/Globulin Ratio 1.6 (1-3); Alkaline Phosphatase 72 U/L (34-104); Anion Gap 8 mmol/L (2-11); BUN/Creatinine Ratio 12.7 (8-20); Blood Urea Nitrogen 15 mg/dL (6-24); CO2 Carbon Dioxide 28 mmol/L (22-32); Calcium 9.6 mg/dL (8.6-10.3); Chloride 93 mmol/L (101-111); EGFR Non-African American 61.6 (>60); Globulin 2.7 g/dL (2-4); Glucose 103 mg/dL (70-100); Magnesium 2.2 mg/dL (1.9-2.7); Potassium 4.6 mmol/L (3.5-5.0); Sodium 129 mmol/L (135-145); Total Protein 6.9 g/dL (6.4-8.9)
[2018-03-27 20:20] LABS: Alcohol < 10 mg/dL (<10)
[2018-03-27 20:34] LABS: TSH (Thyroid Stimulating Horm) 0.93 mcIU/mL (0.34-5.60)
[2018-03-27 21:55] VITALS: BP 137/68
== END 2018-03-27 21:54 | disposition home or self-care (01) ==
LOC: ED 16:26
DX: R56.9 Unspecified convulsions (principal); E11.9 Type 2 diabetes mellitus without complications; I25.2 Old myocardial infarction; J44.9 Chronic obstructive pulmonary disease, unspecified; F17.210 Nicotine dependence, cigarettes, uncomplicated
CPT/HCPCS: 36415; 70450; 80053; 80320; 83605; 83735; 84443; 84484; 85025; 85610; 93005; 99283; G0480

== ENCOUNTER 2018-07-17 20:31 | Emergency (ER) | payer MEDICARE ==
--- OUTSIDE RECORDS SUMMARY | 2018-07-17 20:36 | XMS REPORT | Continuity of Care Document ---
:1950 External Reference #:[id number] Author Name Silvia Serrano Care Team Providers Name Role Phone Royal Clements DO Primary Care Physician Unavailable Payers Date Identification Numbers Payment Provider Subscriber Effective: 2017 Policy Number: [id number] Medicare Blue Ppo Dereck De La Fuente PayID: [id number] [address] [address] [place] [address] Expires: 2017 Policy Number: Maya/[employer] Medicaid Dereck De La Fuente [id number] PayID: [id number] [address] [address] [place] [address] Effective: 2016 Policy Number: [id number] [facility] Care Dereck De La Fuente Expires: 2018 Group Number: 70% [id number] PayID: [id number] [facility] [address] [place] [address] Advance Directives Description No Information Available Problems Active Problems Provider Date Paroxysmal atrial fibrillation Libia Guo M.D. Onset: 05/24/2017 Mitral valve disorder Libia Guo M.D. Onset: 05/24/2017 Tricuspid valve disorder, non-rheumatic Libia Guo M.D. Onset: 05/24/2017 Heart failure with reduced ejection fraction Libia Guo M.D. Onset: 2017 Chronic combined systolic and diastolic heart Libia Guo M.D. Onset: 05/24 failure Automatic implantable cardiac defibrillator in Libia Guo M.D. Onset: situ Family History Date Family Member(s) Observation Comments General Diabetes Father Alzheimer's Disease Siblings 1 brother, hx of [place] in his late 50's Social History Type Date Description Comments Sex Unknown Marital Status Lives With Occupation Retired Tobacco Use Start: Unknown Light tobacco smoker (10 or fewer cigarettes/day) Smoking Status Reviewed: 06/30/18 Light tobacco smoker (10 or fewer cigarettes/day) ETOH Use consumed 5-6 beers per until Apr 2017 day Tobacco Use Start: Unknown Light tobacco smoker quit smoking Joey (10 or fewer 2017 cigarettes/day) Recreational Drug Use Denies Drug Use Exercise Type/Frequency Does not exercise Allergies, Adverse Reactions, Alerts Active Allergies Reaction Severity Comments Date NKDA 05/19/2017 Bee Sting 05/24/2017 Latex 05/24/2017 Adhesives 05/24/2017 Medications Active Medications SIG Qnty Indications Ordering Date Provider Entresto take 1 tab by 60tabs I42.9 Bee Rodgers, 08/30/2017 24-26mg mouth twice daily N.P. Tablets Spiriva Handihaler 1 inhalation by Unknown mouth daily 18mcg Capsules Magnesium 1 tablet po daily Unknown 500mg Tablets Oxygen 2L via nasal Unknown Misc cannula used at night Docusate Sodium 2 cap po daily Unknown 100mg Capsules Atorvastatin Calcium take 1 tablet at Unknown bedtime ( taking 20mg Tablets during the day) Omeprazole 1 cap po daily Dana Dudley 20mg HANG Olson Capsules DR Vitamin B1 1 by mouth every Unknown 100mg day Tablets Folic Acid 1 by mouth every Unknown 1mg Tablets day Eliquis 1 by mouth twice a 60tabs Bee Rodgers, 5mg Tablets day N.P. Montelukast Sodium 1 by mouth every Unknown 10mg day Tablets Digoxin 1 by mouth every 30tabs Libia Guo, 125mcg Tablets day M.D. Metoprolol Succinate 1/2 tablet by 45tabs Libia Guo, ER mouth daily (25 M.D. 50mg Tablets ER 24HR mg). Famotidine 1 by mouth daily Unknown 40mg Tablets Epipen 2-Tyson as directed Unknown Flonase Allergy as needed Unknown Relief Azelastine HCL as needed Unknown 137mcg Symbicort 2 inhaled twice Unknown 160-4.5mcg daily Am/PM Proair HFA as need Unknown History Medications Magox 400 1 by mouth twice Bee Rodgers, 08/30/2017 - 400(241.3mg) a day ( taking 1 N.P. 06/30/2018 mg Tablets tablet po daily )( Does Not Take Keflex 3 times a day 9csheila Boone 08/23/2017 - 250mg Capsules for 3 days Brand, Christie 08/30/2017 Amiodarone HCL 1/2 tablet by 90tabs I48.0 Libia Guo, 05/24/2017 - 200mg mouth a day (100 M.D. 01/03/2018 Tablets mg/day) Ramipril 1 tablet PO qhs 90caps I42.9 Libia Guo, 05/24/2017 - 5mg Capsules M.DSharri 08/30/2017 Proair Tres Bales M.D. 06/25/2014 - 05/22/2017 Aspirin Low Strength Unknown - 05/12/2017 Citalopram Unknown - Hydrobromide 05/09/2017 40mg Tudorza Pressair 1 puff twice Unknown - 400mcg daily 06/30/2018 Pantoprazole Sodium Unknown - 05/09/2017 40mg Venlafaxine HCL 1 by mouth every Unknown - 75mg day 08/29/2017 Tablets Atorvastatin Calcium take 1 tablet at Unknown - bedtime 08/29/2017 20mg Tablets Ramipril 1 by mouth every I42.9 Unknown - 2.5mg Capsules day 05/24/2017 Effexor XR 1 by mouth every Unknown - 75mg Caps ER day 03/02/2018 24HR Thiamine HCL 1 by mouth every Unknown - 100mg day 10/02/2017 Tablets Immunizations Description No Information Available Vital Signs Date Vital Result Comment 06/30/2018 1:11pm Height 64.5 inches 5'4.50" Weight 130.00 lb with shoes Heart Rate 74 /min BP Systolic Sitting 120 mmHg Rue reg cuff BP Diastolic Sitting 70 mmHg Rue reg cuff BP Systolic Standing 118 mmHg Rue reg cuff BP Diastolic Standing 70 mmHg Rue reg cuff Respiratory Rate 18 /min BMI (Body Mass Index) 22.0 kg/m2 04/21/2018 2:30pm Height 64.5 inches 5'4.50" Weight 130.00 lb no shoes BP Systolic Sitting 116 mmHg lue reg cuff BP Diastolic Sitting 60 mmHg lue reg cuff BP Systolic Standing 110 mmHg liue reg cuff BP Diastolic Standing 60 mmHg liue reg cuff Respiratory Rate 14 /min BMI (Body Mass Index) 22.0 kg/m2 Ejection Fraction 20% echo.07/06/17 03/03/2018 3:35pm Height 64.5 inches 5'4.50" Weight [...] Date Facility Test Result H/L Range Note Comp Metabolic Panel 06/26/2018 [facility] Sodium 129 mmol/L Low 135-[address] [place] [address] [phone] Potassium 4.6 mmol/L N 3.5-5.0 Chloride 96 mmol/L Low 101-111 Co2 Carbon Dioxide 27 mmol/L N 22-32 Anion Gap 6 mmol/L N 2-11 Glucose 131 mg/dL High 70-100 Blood Urea Nitrogen 12 mg/dL N 6-24 Creatinine 0.80 mg/dL N 0.67-1.17 BUN/Creatinine Ratio 15.0 N 8-20 Calcium 9.0 mg/dL N 8.6-10.3 Total Protein 6.6 g/dL N 6.4-8.9 Albumin 4.4 g/dL N 3.2-5.2 Globulin 2.2 g/dL N 2-4 Albumin/Globulin Ratio 2.0 N 1-3 Total Bilirubin 0.60 mg/dL N 0.2-1.0 Alkaline Phosphatase 65 U/L N 34-104 Alt 17 U/L N 7-52 Ast 24 U/L N 13-39 Egfr Non- 96.4 >60 Egfr 116.7 >60 1 Laboratory test 06/26/2018 [facility] Digoxin 0.5 ng/ml Low 0.8-2.0 [address] [place] [address] [phone] Magnesium 1.8 mg/dL Low 1.9-2.7 3 CBC Auto Diff 06/26/2018 [facility] White Blood 7.1 10^3/uL N 3.5-10.[address] [place] [address] [phone] Red Blood Count 3.82 10^6/uL Low 4.18-5.48 Hemoglobin 13.2 g/dL Low 14.0-18.0 Hematocrit 39 % N 36-46 Mean Corpuscular Volume 101 fL High 80-94 Mean Corpuscular Hemoglobin 35 pg High 27-31 Mean Corpuscular HGB Conc 34 g/dL N 31-36 Red Cell Distribution Width 14 % N 10.5-15 Platelet Count 247 10^3/uL N 150-450 Mean Platelet Volume 6.9 fL Low 7.4-10.4 Abs Neutrophils 4.7 10^3/uL N 1.5-7.7 Abs Lymphocytes 1.6 10^3/uL N 1.0-4.8 Abs Monocytes 0.4 10^3/uL N 0-0.8 Abs Eosinophils 0.4 10^3/uL N 0-0.6 Abs Basophils 0 10^3/uL N 0-0.2 Abs Nucleated RBC 0 10^3/uL Granulocyte % 65.8 % Lymphocyte % 22.0 % Monocyte % 5.8 % Eosinophil % 5.9 % Basophil % 0.5 % Nucleated Red Blood Cells % 0 Thyroid Panel 02/17/2018 [facility] Free T4 (Free 0.96 ng/dL N 0.61-1.[address] Thyroxine) [place] [address] [phone] Thyroxine 6.46 ?g/dL N 6.09-12.23 5 TSH (Thyroid Stim Horm) 1.76 mcIU/mL N 0.34-5.60 6 Thyroid Panel 01/10/2018 [facility] Free T4 (Free 1.01 ng/dL N 0.61-1.[address] Thyroxine) [place] [address] [phone] Thyroxine 5.54 g/mL Low 6.09-12.23 8 TSH (Thyroid Stim Horm) 1.26 mcIU/mL N 0.34-5.60 9 Laboratory test 12/08/2017 [facility] Magnesium 1.9 mg/dL N 1.9-2.[address] [place], [place] [id number] [phone] Basic Metabolic 10/03/2017 [facility] Sodium 129 mmol/L Low 135-[address] [place] [address] [phone] Potassium 4.7 mmol/L N 3.5-5.0 Chloride 92 mmol/L Low 101-111 Co2 Carbon Dioxide 30 mmol/L N 22-32 Anion Gap 7 mmol/L N 2-11 Glucose 143 mg/dL High 70-100 Blood Urea Nitrogen 14 mg/dL N 6-24 Creatinine 0.85 mg/dL N 0.67-1.17 BUN/Creatinine Ratio 16.5 N 8-20 Calcium 9.0 mg/dL N 8.6-10.3 Egfr Non- 89.9 >60 Egfr 108.8 >60 12 Laboratory test 08/22/2017 [facility] Partial 34.5 seconds N 26.0-36.[address] [place] [address] PTT [phone] Basic Metabolic 08/22/2017 [facility] Sodium 132 mmol/L Low 139-[address] [place] [address] [phone] Potassium 4.0 mmol/L N 3.5-5.0 Chloride 97 mmol/L Low 101-111 Co2 Carbon Dioxide 27 mmol/L N 22-32 Anion Gap 8 mmol/L N 2-11 Glucose 178 mg/dL High 70-100 Blood Urea Nitrogen 7 mg/dL N 6-24 Creatinine 0.80 mg/dL N 0.67-1.17 BUN/Creatinine Ratio 8.8 N 8-20 Calcium 9.3 mg/dL N 8.6-10.3 Egfr Non- 96.4 >60 Egfr 124.0 >60 13 Inr/Protime 08/22/2017 [facility] Inr 0.87 N 0.77-1.[address] [place] [address] [phone] CBC Auto Diff 08/22/2017 [facility] White Blood 3.9 10^3/uL N 3.5-10.[address] [place] [address] [phone] Red Blood Count 4.43 10^6/uL N 4.00-5.40 [...] Nucleated Red Blood Cells % 0 1 Because ethnic data is not always readily [...] 15-29 5 Kidney failure <15 (or dialysis) 2 Copy Result to: ROYAL CLEMENTS ([id number]) 3 Copy Result to: ROYAL CLEMENTS ([id number]) 4 1m Copy Result to: ROYAL CLEMENTS ([id number]) 5 1m Copy Result to: ROYAL CLEMENTS ([id number]) 6 1m Copy Result to: ROYAL CLEMENTS ([id number]) 7 Copy Result to: ROYAL CLEMENTS ([id number]) 8 Copy Result to: ROYAL CLEMENTS ([id number]) 9 Copy Result to: ROYAL CLEMENTS ([id number]) 10 Copy Result to: ROYAL CLEMENTS ([id number]) 11 FASTING 12 Because ethnic data is not always readily [...] 15-29 5 Kidney failure <15 (or dialysis) 13 Because ethnic data is not always readily [...] (or dialysis) Procedures Date Code Description Status 05/22/2018 79336 Interrogation Device Eval Remote Up To 30 Days Completed Analysis,Rev,RP 05/22/2018 44715 Interrogation Device Eval Remote Up To 30 Days Completed Analysis,Rev,RP 05/22/2018 11746 Icd Eval Sing,Dual,Multi Lead Remote Recpt Transm Tech Completed Rev Tech S 05/22/2018 73902 Icd Eval Sing,Dual,Multi Lead Remote Recpt Transm Tech Completed Rev Tech S 05/22/2018 00981 Icd Check Remote Up To 90 Days Single,Dual,Multiple Completed Lead 05/22/2018 77789 Icd Check Remote Up To 90 Days Single,Dual,Multiple Completed Lead 05/02/2018 01036 ECHO Transthoracic, Real-Time 2D With Doppler And Completed Color Flow 05/02/2018 49710 ECHO Transthoracic, Real-Time 2D With Doppler And Completed Color Flow 04/21/2018 38030 Interrogation Implant Cardiovasc Monitor System Incl Completed Analysis Int 04/21/2018 41248 Interrogation Implant Cardiovasc Monitor System Incl Completed Analysis Int 04/21/2018 68749 Icd Eval With Inerative Adjustmt Dual Lead System Completed 04/21/2018 79354 Icd Eval With Inerative Adjustmt Dual Lead System Completed 03/20/2018 12890 Interrogation Device Eval Remote Up To 30 Days Completed Analysis,Rev,RP 03/03/2018 79637 Icd Check Single,Dual Or Multiple In Person W/ Incl Completed Heart Rhyth 03/03/2018 09839 Icd Check Single,Dual Or Multiple In Person W/ Incl Completed Heart Rhyth 03/03/2018 77785 Interrogation Implant Cardiovasc Monitor System Incl Completed Analysis Int 03/03/2018 32352 Interrogation Implant Cardiovasc Monitor System Incl Completed Analysis Int 02/16/2018 02492 Interrogation Device Eval Remote Up To 30 Days Completed Analysis,Rev,RP 02/16/2018 79466 Interrogation Device Eval Remote Up To [address] Completed Analysis,Rev,RP 02/16/2018 13453 Icd Eval Sing,Dual,Multi Lead Remote Recpt Transm Tech Completed Rev Tech S 02/16/2018 89675 Icd Eval Sing,Dual,Multi Lead Remote Recpt Transm Tech Completed Rev Tech S 02/16/2018 60719 Icd Check Remote Up To 90 Days Single,Dual,Multiple Completed Lead 02/16/2018 39967 Icd Check Remote Up To 90 Days Single,Dual,Multiple Completed Lead 01/16/2018 85548 Interrogation Implant Cardiovasc Monitor System Incl Completed Analysis Int 01/16/2018 17834 Interrogation Implant Cardiovasc Monitor System Incl Completed Analysis Int 01/16/2018 70947 Icd Eval With Inerative Adjustmt Dual Lead System Completed 01/16/2018 78071 Icd Eval With Inerative Adjustmt Dual Lead System Completed 12/29/2017 73670 Pulmonary Function><Bronchodil Completed 12/29/2017 24840 Plethysmography Determination Lung Volumes & Per Completed Airway Resist 12/29/2017 66019 Diffusing Capacity Completed 12/05/2017 67155 Interrogation Device Eval Remote Up To 30 Days Completed Analysis,Rev,RP 12/05/2017 13758 Interrogation Device Eval Remote Up To [address] Completed Analysis,Rev,RP 11/03/2017 09487 EKG Tracing & Interpretation Completed 11/02/2017 66738 Interrogation Implant Cardiovasc Monitor System Incl Completed Analysis Int 11/02/2017 94826 Interrogation Implant Cardiovasc Monitor System Incl Completed Analysis Int 11/02/2017 08411 Icd Eval With Iterative Adjustmt Multiple Lead System Completed 11/02/2017 52891 Icd Eval With Iterative Adjustmt Multiple Lead System Completed 09/21/2017 05152 Interrogation Implant Cardiovasc Monitor System Incl Completed Analysis Int 09/21/2017 77740 Interrogation Implant Cardiovasc Monitor System Incl Completed Analysis Int 09/21/2017 83840 Icd Eval With Inerative Adjustmt Dual Lead System Completed 09/21/2017 27778 Icd Eval With Inerative Adjustmt Dual Lead System Completed 08/23/2017 96517 EKG, Interpretation Only Completed 08/22/2017 61683 Insert/Replace Icd W/Generator Completed 07/06/2017 93021 ECHO Transthoracic, Real-Time 2D With Doppler And Completed Color Flow 07/06/2017 32642 ECHO Transthoracic, Real-Time 2D With Doppler And Completed Color Flow 05/24/2017 18236 Echocardiogram, Limited Study Completed 05/24/2017 24033 Echocardiogram, Limited Study Completed 05/24/2017 37025 EKG Tracing & Interpretation Completed 05/19/2017 134121978 Diabetic Retinal Eye Exam Completed 05/03/2017 78006 Left Heart Cath. Incl S/I Coronaries, Angio S/I V Gram Completed If Done 04/29/2017 66449 Moderate Sedation Services; Same Phys Intl 15 Mins; PT Completed >=5 Years 04/29/2017 50497 Color Flow Doppler/Interp & Reprt Completed 04/29/2017 13012 Pulse Wave/Continuous-Interp.RPT Completed 04/29/2017 25620 Echocardiography, Transesophageal, Real Time W/Image Completed 2D W/W/O M-M 04/27/2017 31475 ECHO Transthorasic Realtime 2D W Doppler & Color Flow Completed Hosp 09/02/2014 26306 Polysomnography Sleep Staging 4+ Parameters Completed Encounters Type Date Location Provider Dx Diagnosis Office Visit 04/21/2018 [facility] Bee Rodgers, I42.9 Cardiomyopathy, 2:30p Of Mechanical Service Specialist N.P. unspecified Z95.810 Presence of automatic (implantable) cardiac defibrillator I48.0 Paroxysmal atrial fibrillation I50.42 Chronic combined systolic and diastolic hrt fail Z72.0 Tobacco use Office Visit 03/03/2018 [place] Libia Guo I42.9 Cardiomyopathy, 4:00p Cardiology Of M.DSharri unspecified Mechanical Service Specialist Z95.810 Presence of automatic (implantable) cardiac defibrillator I50.42 Chronic combined systolic and diastolic hrt fail Z72.0 Tobacco use I48.0 Paroxysmal atrial fibrillation Office Visit 01/16/2018 [place] Guo, Z95.810 Presence of 3:40p [facility] [place] automatic Mechanical Service Specialist (implantable) cardiac defibrillator I42.9 Cardiomyopathy, unspecified I50.42 Chronic combined systolic and diastolic hrt fail Z72.0 Tobacco use J44.9 Chronic obstructive pulmonary disease, unspecified R06.02 Shortness of breath Office Visit 11/03/2017 [place] Olson I42.9 Cardiomyopathy, 3:00p [facility] [place], N.P. unspecified Mechanical Service Specialist Z95.810 Presence of automatic (implantable) cardiac defibrillator Z72.0 Tobacco use J44.9 Chronic obstructive pulmonary disease, unspecified E87.1 Hypo-osmolality and hyponatremia Office Visit 10/03/2017 [place] Guo I42.Jam Cardiomyopathy, 4:00p [facility] [place] unspecified Mechanical Service Specialist I48.0 Paroxysmal atrial fibrillation Z95.810 Presence of automatic (implantable) cardiac defibrillator R06.02 Shortness of breath Z72.0 Tobacco use J44.9 Chronic obstructive pulmonary disease, unspecified E87.1 Hypo-osmolality and hyponatremia Office Visit 08/30/2017 [place] Olson I42.Jam Cardiomyopathy, 11:30a [facility] [place], N.P. unspecified Mechanical Service Specialist I48.0 Paroxysmal atrial fibrillation I34.0 Nonrheumatic mitral (valve) insufficiency I36.1 Nonrheumatic tricuspid (valve) insufficiency Z95.810 Presence of automatic (implantable) cardiac defibrillator Office Visit 07/28/2017 [place] Guo I42.Jam Cardiomyopathy, 3:40p [facility] [place] unspecified Mechanical Service Specialist I48.0 Paroxysmal atrial fibrillation I34.0 Nonrheumatic mitral (valve) insufficiency I36.1 Nonrheumatic tricuspid (valve) insufficiency I50.42 Chronic combined systolic and diastolic hrt fail I73.9 Peripheral vascular disease, unspecified Office Visit 05/24/2017 Meagan Cox.Jam Cardiomyopathy, 11:30a [facility] [place] unspecified Mechanical Service Specialist I48.0 Paroxysmal atrial fibrillation I34.0 Nonrheumatic mitral (valve) insufficiency I36.1 Nonrheumatic tricuspid (valve) insufficiency E87.1 Hypo-osmolality and hyponatremia I50.42 Chronic combined systolic and diastolic hrt fail Office Visit 05/10/2017 [place] Boone I42.9 Cardiomyopathy, 1:30p Cardiology Michelle Correa M.D. unspecified Mechanical Service Specialist AT [facility] I50.1 Left ventricular failure, unspecified I48.92 Unspecified atrial flutter Office Visit 05/05/2017 10:15a [facility] Libia Guo I48.92 Unspecified Of Ivette Soriano atrial flutter I42.9 Cardiomyopathy, unspecified Office Visit 05/05/2017 [facility] I48.91 Unspecified atrial 2:11p Assoc,bryson Belcher M.D. fibrillation Hospitalists J18.9 Pneumonia, unspecified organism I50.21 Acute systolic (congestive) heart failure E87.1 Hypo-osmolality and hyponatremia Office Visit 05/04/2017 [facility] I48.91 Unspecified atrial 2:10p Assoc,bryson Belcher M.D. fibrillation Hospitalists J18.9 Pneumonia, unspecified organism E87.1 Hypo-osmolality and hyponatremia I50.21 Acute systolic (congestive) heart failure Office Visit 05/04/2017 [place] Libia Guo I42.9 Cardiomyopathy, 12:37p Cardiology Michelle Soriano unspecified [facility] I48.92 Unspecified atrial flutter Office Visit 05/03/2017 [facility] I48.91 Unspecified atrial 2:09p Assoc,bryson Belcher M.D. fibrillation Hospitalists J18.9 Pneumonia, unspecified organism I50.21 Acute systolic (congestive) heart failure E87.1 Hypo-osmolality and hyponatremia Office Visit 05/02/2017 2:08p [facility] Farhad Nieves, I48.91 Unspecified atrial Assoc,bryson COLLINS fibrillation Hospitalists J18.9 Pneumonia, unspecified organism I50.21 Acute systolic (congestive) heart failure E87.1 Hypo-osmolality and hyponatremia Office Visit 05/02/2017 [place] John Boone I42.9 Cardiomyopathy, 12:28p Cardiology Michelle Correa M.D. unspecified Ivette I48.91 Unspecified atrial fibrillation A41.9 Sepsis, unspecified organism Office Visit 05/01/2017 2:52p [facility] Libia Guo I48.92 Unspecified Of Ivette Soriano atrial flutter I42.9 Cardiomyopathy, unspecified J15.9 Unspecified bacterial pneumonia A40.3 Sepsis due to Streptococcus pneumoniae E87.1 Hypo-osmolality and hyponatremia Z72.0 Tobacco use [facility] I[facility].91 Unspecified atrial Assoc,pc fibrillation Hospitalists J18.9 Pneumonia, unspecified organism I50.21 Acute systolic (congestive) heart failure E87.1 Hypo-osmolality and hyponatremia Office Visit 04/30/2017 2:33p [facility] Libia Guo, I48.92 Unspecified Of Ivette Soriano atrial flutter I42.9 Cardiomyopathy, unspecified J15.9 Unspecified bacterial pneumonia A40.3 Sepsis due to Streptococcus pneumoniae E87.1 Hypo-osmolality and hyponatremia Z72.0 Tobacco use Office Visit 04/30/2017 2:06p [facility] Farhad Nieves, I48.91 Unspecified atrial Assoc,pc fibrillation Hospitalists J18.9 Pneumonia, unspecified organism I50.21 Acute systolic (congestive) heart failure E87.1 Hypo-osmolality and hyponatremia Office Visit 04/29/2017 2:05p [facility] Farhad Nieves, I48.91 Unspecified atrial Assoc,pc fibrillation Hospitalists J18.9 Pneumonia, unspecified organism I50.21 Acute systolic (congestive) heart failure E87.1 Hypo-osmolality and hyponatremia Office Visit 04/29/2017 [place] Qutaybeh S. I48.91 Unspecified atrial 3:18p Keira Burton M.D. fibrillation I42.9 Cardiomyopathy, unspecified Office Visit 04/28/2017 2:04p [facility] Farhad Nieves, I48.91 Unspecified atrial Assoc,pc fibrillation Hospitalists J18.9 Pneumonia, unspecified organism E87.1 Hypo-osmolality and hyponatremia I50.21 Acute systolic (congestive) heart failure Office Visit 04/28/2017 [place] Qutaybeh S. I48.91 Unspecified atrial 2:43p Keira Burton M.D. 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 atrial Hospitalists fibrillation J18.9 Pneumonia, unspecified organism J44.1 Chronic obstructive pulmonary disease w (acute) exacerbation Office Visit 01/07/2016 [facility] Jonathan J44.1 Chronic 10:55a bryson Viera MD obstructive Hospitalists pulmonary disease w (acute) exacerbation J31.0 Chronic rhinitis I25.10 Athscl heart disease of [place] coronary artery w/o ang pctrs Office Visit 01/06/2016 [facility] Jonathan J44.1 Chronic 10:55a Assoc,bryson Aguayo MD obstructive Hospitalists pulmonary disease w (acute) exacerbation J31.0 Chronic rhinitis I25.10 Athscl heart disease of [place] coronary artery w/o ang pctrs [facility] 10:54a Assocbryson MD obstructive Hospitalists pulmonary disease w (acute) exacerbation J31.0 Chronic rhinitis I25.10 Athscl heart disease of [place] coronary artery w/o ang pctrs Office Visit 06/25/2014 2:30p Pulmonology And Tres Bales, 327.23 Obstructive Sleep [facility] [place] Apnea Adult & [facility] Pediatric 492.8 Emphysema Other 305.1 Tobacco Use Disorder Plan of Treatment Future Appointment(s):09/22/2018 2:00 pm - Libia Guo M.D. at [facility]09/22/2018 1:30 pm - Ica Pacer Schedule at [facility]01/09/2019 8:30 am - Duglas Gonzales M.D. at [place] [facility]06/30/2018 - Bee Rodgers N.P.I42.9 Cardiomyopathy, unspecifiedFollow up:PO/OV -09/2018 OV SwisherRecommendations:If your breathing worsens, please see PCP consider nebulizer.Z95.810 Presence of automatic ( implantable) cardiac khcrczmzbwpdbJ46.0 Paroxysmal atrial fibrillationRecommendations:Very little afib on pacer. please sent remote transmission when you get home.I50.42 Chronic combined systolic (congestive) and diastolic (congesComments:heart function stable 20-25%
[2018-07-17 20:42] VITALS: BP 102/70
--- NOTE | 2018-07-17 22:03 | UC ---
Skin Complaint HPI - HPI Summary HPI Summary: 67-year-old male 67-year-old male comes in with a chief complaint of a laceration to his right ear. Patient reports that he was leaving his house and then he found himself on the ground with the bleeding right ear. Patient is not sure I got on the ground he believes he passed out. Patient does have a defibrillator. He denies any chest pain shortness of breath he doesn't think it went off. Patient's had syncopal episodes in the past and he's been getting evaluated for that. He is on a blood thinner eliquis. Besides the ear pain he does have scratch on his right hand. Denies any neck pain or headache. Denies any focal weakness or numbness or vision changes or difficulty with speech. When I talked to him about the syncopal episode the patient declined any syncope workup as he says he started in the process of that with his primary care doctor. - History of Current Complaint Chief Complaint: UCLaceration Time Seen by Provider: 07/17/18 21:11 Stated Complaint: EAR LACERATION Pain Intensity: 2 - Allergy/Home Medications Allergies/Adverse Reactions: Allergies Allergy/AdvReac Type Severity Reaction Status Date / Time adhesive Allergy Mild Rash Verified 07/17/18 20:43 bee venom protein (honey bee) Allergy Swelling Verified 07/17/18 20:43 Of Face,Lips,& Throat latex Allergy Facial Verified 07/17/18 20:43 Redness/Flushing Home Medications: Home Medications Spiriva Inhaler DEVICE* [Tiotropium Inhaler DEVICE*] 1 inh PO BID 07/17/18 [ History Confirmed 07/17/18] PMH/Surg Hx/FS Hx/Imm Hx Previously Healthy: Yes - SYNCOPE, HAS IMPLANTED DIFFIBRILLATOR Cardiovascular History: Cardiac Disease Respiratory History: COPD - Surgical History Surgical History: Yes Surgery Procedure, Year, and Place: NASAL POLYPS AND COLON POLYPS REMOVED, TONSILECTOMY, HERNIA, Defibrillatior 07/2017 - Family History Known Family History: Positive: Cardiac Disease - Social History Alcohol Use: Weekly Alcohol Amount: six beers Substance Use Type: None Smoking Status (MU): Light Every Day Tobacco Smoker Type: Cigarettes Amount Used/How Often: 1/2PPD Length of Time of Smoking/Using Tobacco: 40YRS Have You Smoked in the Last Year: Yes When Did the Patient Quit Smoking/Using Tobacco: 2 WEEKS AGO - Immunization History Most Recent Influenza Vaccination: 11/23/16 Most Recent Tetanus Shot: 11/22/12 Most Recent Pneumonia Vaccination: 04/23/13 Review of Systems All Other Systems Reviewed And Are Negative: Yes Constitutional: Positive: Other - SEE HPI Skin: Positive: Other - SEE HPI Eyes: Positive: Negative ENT: Positive: Negative Respiratory: Positive: Negative Cardiovascular: Positive: Negative Gastrointestinal: Positive: Negative Motor: Positive: Negative Neurovascular: Positive: Negative Musculoskeletal: Positive: Negative Neurological: Positive: Negative Psychological: Positive: Negative Is Patient Immunocompromised?: No Physical Exam Triage Information Reviewed: Yes Appearance: Well-Appearing, No Pain Distress, Well-Nourished Vital Signs: Initial Vital Signs Temp 99.6 F 07/17/18 20:38 Pulse 97 07/17/18 20:38 Resp 16 07/17/18 20:38 BP 102/70 07/17/18 20:38 Pulse Ox 98 07/17/18 20:38 Vital Signs Reviewed: Yes Eye Exam: Normal Eyes: Positive: Conjunctiva Clear Neck: Positive: Supple, Nontender Respiratory: Positive: Lungs clear, Normal breath sounds, No respiratory distress Cardiovascular: Positive: RRR Musculoskeletal Exam: Normal Musculoskeletal: Positive: Strength Intact, ROM Intact Neurological Exam: Normal Neurological: Positive: Alert, Muscle Tone Normal Psychological Exam: Normal Psychological: Positive: Age Appropriate Behavior Skin: Positive: Other - 2CM SC LACERATION PINNA OF RT EAR Laceration Repair - Laceration Repair 1 Description: Linear - RT PINNA Laceration Size After Repair: Length (cm) - 2CM Modified For Repair: No Cleansing Completed Via Routine Prep: Yes Irrigation With Pressure Irrigation Device: No Closure Material: Skin Adhesive, Sutures Closure Method: Single Layer Suture Of: Skin - #1 SUTURE Suture Type: Prolene - 6-0 Course/Dx - Course Course Of Treatment: EXAM: CT Head Without Contrast EXAM DATE/TIME: 07/17/2018 9:29 PM CLINICAL HISTORY: 67 years old, male; Pain and injury or trauma; Initial encounter; Blunt trauma (contusions or hematomas) and laceration; With loss of consciousness; Loss of consciousness for 30 minutes or less; Without residual foreign body; Other: Right ear; Other: Right temporal pain; Injury date: Today 07/17/2018; Injury details: Right temporal area pain after fall on head today. Possible loc paient states. No other symptoms; Additional info: Head injury, on eliquis TECHNIQUE: Imaging protocol: Axial computed tomography images of the head/brain without contrast. Radiation optimization: All CT scans at this facility use at least one of these dose optimization techniques: automated exposure control; mA and/or kV adjustment per patient size (includes targeted exams where dose is matched to clinical indication); or iterative reconstruction. COMPARISON: BRAIN WO CT BRAIN WO 03/27/2018 7:13 PM FINDINGS: Brain: There is no acute intracranial hemorrhage, extraaxial collection or mass effect. Horta white differentiation is maintained. Periventricular white matter lucency likely represents small vessel ischemic change. Diffuse cortical volume loss, consistent with patient's age. Ventricles: Normal configuration. No hydrocephalus. Bones/joints: No acute fracture. Sinuses: Significant mucosal thickening is present in the bilateral maxillary , sphenoid, and ethmoid sinuses with complete opacification of the right frontal sinus. Mastoid air cells: No mastoid effusion. Soft tissues: Normal. IMPRESSION: 1. No acute intracranial findings. Mild age-related cortical volume loss and chronic white matter ischemic change. 2. Diop sinus disease, as seen previously, with complete opacification of the right frontal sinus. To contact [facility] with a general question: [facility] - [phone] For direct physician to physician contact: Physician Hotline - [phone] [facility] ([place] Facility ID #[id number]) End of Report Content Attending Doctor: Nader Fitzgerald ([id number]) Brick Tester: Yasmine Omalley ([id number]) Scheme Technician: CHRISTIE . (VR) Report Date: 07/17/2018 21:17:00 Report Status: Final Begin of Report Content Patient Name: COLLEEN BRUNER Medical Record#: [id number] Ordering Physician: Nader Fitzgerald MD Acct.#: [id number] : 1950 Age: 67 Sex: M Location: [facility] Exam Date: 07/17/182116 ADM Status: REG ER Order Information: CT BRAIN WO Accession Number: [id number] CPT: 24109 EXAM: CT Head Without Contrast EXAM DATE/TIME: 07/17/2018 9:29 PM CLINICAL HISTORY: 67 years old, male; Pain and injury or trauma; Initial encounter; Blunt trauma (contusions or hematomas) and laceration; With loss of consciousness; Loss of consciousness for 30 minutes or less; Without residual foreign body; Other: Right ear; Other: Right temporal pain; Injury date: Today 07/17/2018; Injury details: Right temporal area pain after fall on head today. Possible loc paient states. No other symptoms; Additional info: Head injury, on eliquis TECHNIQUE: Imaging protocol: Axial computed tomography images of the head/brain without contrast. Radiation optimization: All CT scans at this facility use at least one of these dose optimization techniques: automated exposure control; mA and/or kV adjustment per patient size (includes targeted exams where dose is matched to clinical indication); or iterative reconstruction. COMPARISON: BRAIN WO CT BRAIN WO 03/27/2018 7:13 PM FINDINGS: Brain: There is no acute intracranial hemorrhage, extraaxial collection or mass effect. Horta white differentiation is maintained. Periventricular white matter lucency likely represents small vessel ischemic change. Diffuse cortical volume loss, consistent with patient's age. Ventricles: Normal configuration. No hydrocephalus. Bones/joints: No acute fracture. Sinuses: Significant mucosal thickening is present in the bilateral maxillary , sphenoid, and ethmoid sinuses with complete opacification of the right frontal sinus. Mastoid air cells: No mastoid effusion. Soft tissues: Normal. IMPRESSION: 1. No acute intracranial findings. Mild age-related cortical volume loss and chronic white matter ischemic change. 2. Diop sinus disease, as seen previously, with complete opacification of the right frontal sinus. To contact [facility] with a general question: [facility] - [phone] For direct physician to physician contact: Physician Hotline - [phone] [facility] ([facility] Facility ID #[id number]) <Electronically signed by Yasmine Omalley MD in OV> 07/17/[address] report with the patient. Patient is aware of the opacification of his sinuses and he has a follow-up with the ear nose and throat doctor on July 21, 2018. We discussed that if he passes out again has any chest pains or any other concerns he needs to go directly to the emergency department for further evaluation. Patient agreed and he also agreed that he will be following his primary care doctor to let him know of the most recent development of passing out. - Diagnoses Provider Diagnosis: Laceration of right ear lobe, Syncope, Head injury Discharge - Sign-Out/Discharge Documenting (check all that apply): Patient Departure All imaging exams completed and their final reports reviewed: Yes - Discharge Plan Condition: Stable Disposition: HOME Patient Education Materials: Syncope (ED), Head Injury (ED), Laceration (ED) Referrals: Miguel Moyer DO [Primary Care Provider] - Additional Instructions: FOLLOW UP WITH YOUR DOCTOR. SUTURE OUT IN 7-10 DAYS. GO TO THE EMERGENCY DEPARTMENT IF YOUR CONDITION WORSENS; WEAKNESS, NUMBNESS, CHANGE IN VISION OR SPEECH, UNEXPLAINED VOMITING, YOU FEEL ILL, YOU PASS OUT, CHEST PAIN, SIGNS OF INFECTION OR ANY QUESTIONS OR CONCERNS. - Billing Disposition and Condition Condition: STABLE Disposition: Home
== END 2018-07-17 22:25 | disposition home or self-care (01) ==
LOC: UCEAST 20:31
DX: S01.311A Laceration without foreign body of right ear, initial encounter (principal); S09.90XA Unspecified injury of head, initial encounter; R55 Syncope and collapse; W18.30XA Fall on same level, unspecified, initial encounter; Y92.007 Garden or yard of unspecified non-institutional (private) residence as the place of occurrence of the external cause; J32.4 Chronic pansinusitis; I51.9 Heart disease, unspecified; J44.9 Chronic obstructive pulmonary disease, unspecified; Z79.01 Long term (current) use of anticoagulants; Z95.810 Presence of automatic (implantable) cardiac defibrillator; Z91.030 Bee allergy status; Z91.040 Latex allergy status; Z91.048 Other nonmedicinal substance allergy status; Z87.891 Personal history of nicotine dependence
CPT/HCPCS: 12011; 70450; 99212; G0463

== ENCOUNTER 2018-10-18 18:26 | Emergency (ER) | payer MEDICARE ==
--- NOTE | 2018-10-18 19:41 | ED ---
Upper Extremity Pain - HPI Summary HPI Summary: A 68 y/o male presents to [facility] with a chief complaint of left arm pain since a mechanical fall on 10/09/18. He saw Dr. Moyer the next day who reportedly said that he was fine. The patient came in today because of new swelling. At triage he rated his pain as a 2/10 in severity. He denies fever, tingling in left hand fingers, SOB or chest pain. He has a Hx of atrial fibrillation, says that he thinks he has had 3 MIs, and is on Eliquis. - History of Current Complaint Chief Complaint: EDExtremityUpper Stated Complaint: DR THINKS I HAVE A BLOOD CLOT IN MY ARM PER PT Time Seen by Provider: 10/18/18 19:01 Hx Obtained From: Patient Mechanism Of Injury: Fall From A Standing Position Onset/Duration: Started Days Ago, Still Present Timing: Constant Severity Initially: Mild Severity Currently: Mild Pain Location: Arm - left Character: Unable to Describe Aggravating Factor(s): Nothing Alleviating Factor(s): Nothing Associated Signs & Symptoms: Positive: Swelling. Negative: Fever, Numbness/ Tingling, Chest Pain, SOB - Allergies/Home Medications Allergies/Adverse Reactions: Allergies Allergy/AdvReac Type Severity Reaction Status Date / Time adhesive Allergy Mild Rash Verified 10/18/18 18:33 bee venom protein (honey bee) Allergy Swelling Verified 10/18/18 18:33 Of Face,Lips,& Throat latex Allergy Facial Verified 10/18/18 18:33 Redness/Flushing Home Medications: Home Medications Digoxin TAB* [Lanoxin TAB*] 125 mcg PO DAILY 10/18/18 [History Confirmed ] PMH/Surg Hx/FS Hx/Imm Hx Endocrine/Hematology History: Reports: Hx Diabetes - DIET CONTROLLED, Hx Anemia Cardiovascular History: Reports: Hx Congestive Heart Failure, Hx Coronary Artery Disease, Hx Hypercholesterolemia - HLD, Hx Hypertension, Hx Pacemaker/ ICD - 08/22/2017, Other Cardiovascular Problems/Disorders - 05/2013 CHEST PAIN, BUT MAY HAVE BEEN PANIC ATTACK Respiratory History: Reports: Hx Chronic Obstructive Pulmonary Disease (COPD), Hx Sleep Apnea - TESTED BY NO DIAGNOSIS, Other Respiratory Problems/Disorders - COPD O2 2L AT NIGHT GI History: Reports: Hx Gastroesophageal Reflux Disease, Other GI Disorders - growth/cyst left groin per pt History: Reports: Hx Kidney Infection - HX OF A YOUNG ADULT Denies: Hx Dialysis, Hx Renal Disease Musculoskeletal History: Reports: Hx Arthritis - HANDS, Hx Back Problems Sensory History: Denies: Hx Contacts or Glasses, Hx Hearing Aid Opthamlomology History: Denies: Hx Contacts or Glasses Neurological History: Reports: Hx Headaches, Hx Migraine - "tension headache", Other Neuro Impairments/Disorders - OCC PANIC ATTACKS Psychiatric History: Reports: Hx Anxiety Denies: Hx Panic Disorder - Surgical History Surgery Procedure, Year, and Place: NASAL POLYPS AND COLON POLYPS REMOVED, TONSILECTOMY, HERNIA, Defibrillatior 07/2017 Hx Anesthesia Reactions: No Infectious Disease History: No Infectious Disease History: Denies: History Other Infectious Disease, Traveled Outside the [place] in Last 30 Days - Family History Known Family History: Positive: Cardiac Disease - Social History Alcohol Use: Weekly Alcohol Amount: six beers Substance Use Type: Reports: None Hx Tobacco Use: Yes Smoking Status (MU): Light Every Day Tobacco Smoker Type: Cigarettes Amount Used/How Often: 1/2PPD Length of Time of Smoking/Using Tobacco: 40YRS Have You Smoked in the Last Year: Yes Review of Systems Negative: Fever Negative: Chest Pain Negative: Shortness Of Breath Positive: Myalgia - left arm, Other - positive: left arm swelling Negative: Paresthesia All Other Systems Reviewed And Are Negative: Yes Physical Exam - Summary Physical Exam Summary: Constitutional: Well-developed, Well-nourished, Alert. (-) Distressed Skin: Warm, Dry HENT: Normocephalic; Atraumatic Eyes: Conjunctiva normal Neck: Musculoskeletal ROM normal neck. (-) JVD, (-) Stridor, (-) Tracheal deviation Cardio: Rhythm regular, rate normal, Heart sounds normal; Intact distal pulses; The pedal pulses are 2+ and symmetric. Radial pulses are 2+ and symmetric. (-) Murmur Pulmonary/Chest wall: Effort normal. (-) Respiratory distress, (-) Wheezes, (-) Rales Abd: Soft, (-) tenderness, (-) Distension, (-) Guarding, (-) Rebound Musculoskeletal: (-) Edema, Deformity and proximal tenderness, no erythema, good ROM of hand, no tenderness of the hand, good pulses, pain with ROM of left arm at the shoulder but Pt is still able to move it. Lymph: (-) Cervical adenopathy Neuro: Alert, Oriented x3 Psych: Mood and affect Normal Triage Information Reviewed: Yes Vital Signs On Initial Exam: Initial Vitals Temp Pulse Resp BP Pulse Ox 98.4 F 85 16 116/96 97 10/18/18 18:29 10/18/18 18:29 10/18/18 18:29 10/18/18 18:29 10/18/18 18:29 Vital Signs Reviewed: Yes Diagnostics - Vital Signs Vital Signs Temp Pulse Resp BP Pulse Ox 10/18/18 18:29 98.4 F 85 16 116/96 97 - Laboratory Lab Statement: Any lab studies that have been ordered have been reviewed, and results considered in the medical decision making process. - Radiology shoulder x-ray Radiology Interpretation Completed By: ED Physician Summary of Radiographic Findings: Proximal humerus shaft fracture. Pending official imaigng report. Humerus x-ray Radiology Interpretation Completed By: ED Physician Summary of Radiographic Findings: Proximal humerus shaft fracture. Pending official imaigng report. Course/Dx - Course Course Of Treatment: A 68 y/o male presents to [facility] with a chief complaint of left arm pain since a mechanical fall on 10/09/18. He saw Dr. Moyer the next day who reportedly said that he was fine. The patient came in today because of new swelling. The physical exam revealed Deformity and proximal tenderness, no erythema, good ROM of hand, no tenderness of the hand, good pulses, pain with ROM of left arm at the shoulder but Pt is still able to move it. Shoulder and humerus x-ray showed proximal humerus shaft fracture. Pending official imaigng report. Discussed case with vianca Sifuentes, who recommended discharge with sling or immobilizer and follow up with her office tomorrow. The patient is agreeable with this plan. - Diagnoses Provider Diagnoses: Fracture of left humerus - Physician Notifications Discussed Care of Patient With: Annette Barragna Time Discussed With Above Provider: 20:57 Instructed by Provider To: Other - Recommended sling or immobilizer and follow up with her office tomorrow Discharge - Sign-Out/Discharge Documenting (check all that apply): Patient Departure - DC Patient Received Moderate/Deep Sedation with Procedure: No - Discharge Plan Condition: Stable Disposition: HOME Patient Education Materials: Proximal Humerus Fracture (ED) Print Language: [place] Referrals: Miguel Moyer DO [Primary Care Provider] - Annette Barragan MD [Medical Doctor] - - Billing Disposition and Condition Condition: STABLE Disposition: Home - Attestation Statements Document Initiated by [place]: Yes Documenting Scribe: Skyler Alcala Provider For Whom Jos eG is Documenting (Include Credential): Mary Sparks MD Scribe Attestation: I, Skyler Alcala, scribed for Mary Tong MD on 10/19/18 at 0747. Scribe Documentation Reviewed: Yes Provider Attestation: The documentation as recorded by the Skyler soriano accurately reflects the service I personally performed and the decisions made by me, Mary Tong MD Status of Scribe Document: Viewed
[2018-10-18 22:06] VITALS: BP 136/92
--- NOTE | 2018-10-19 10:40 | PN ---
Progress Note - Progress Note Date of Service: 10/18/18 Note: Final xay reading per radiology: IMPRESSION: OBLIQUE DISPLACED ANGULATED FRACTURE OF THE PROXIMAL DIAPHYSIS OF THE HUMERUS. R1F Pt. treated appropriately in the ED.
== END 2018-10-18 22:05 | disposition home or self-care (01) ==
LOC: ED 18:26
DX: S42.292A Other displaced fracture of upper end of left humerus, initial encounter for closed fracture (principal); W19.XXXA Unspecified fall, initial encounter; Y92.9 Unspecified place or not applicable; I48.91 Unspecified atrial fibrillation; E11.9 Type 2 diabetes mellitus without complications; D64.9 Anemia, unspecified; I11.0 Hypertensive heart disease with heart failure; I50.9 Heart failure, unspecified; I25.10 Atherosclerotic heart disease of native coronary artery without angina pectoris; E78.00 Pure hypercholesterolemia, unspecified; J44.9 Chronic obstructive pulmonary disease, unspecified; K21.9 Gastro-esophageal reflux disease without esophagitis; F41.9 Anxiety disorder, unspecified; F17.210 Nicotine dependence, cigarettes, uncomplicated; Z79.899 Other long term (current) drug therapy; Z79.01 Long term (current) use of anticoagulants; Z95.810 Presence of automatic (implantable) cardiac defibrillator; Z91.040 Latex allergy status
CPT/HCPCS: 99282

== ENCOUNTER 2018-12-28 18:12 | Emergency (ER) | payer MEDICARE ==
[2018-12-28 19:12] LABS: ABS Lymphocytes 1.1 10^3/ul (1.0-4.8); ABS Monocytes 0.5 10^3/ul (0-0.8); ABS Neutrophils 4.1 10^3/ul (1.5-7.7); Eosinophil % 0.9 %; Hematocrit 37 % (42-52); Hemoglobin 12.8 g/dL (14.0-18.0); Lymphocyte % 18.6 %; Mean Corpuscular HGB Conc 35 g/dL (31-36); Mean Corpuscular Hemoglobin 35 pg (27-31); Mean Corpuscular Volume 101 fL (80-94); Mean Platelet Volume 8.2 fL (7.4-10.4); Platelet Count 177 10^3/uL (150-450); Red Blood Count 3.67 10^6 /uL (4.18-5.48); Red Cell Distribution Width 14 % (10-15); White Blood Count 5.7 10^3/uL (3.5-10.8)
--- OUTSIDE RECORDS SUMMARY | 2018-12-28 19:17 | XMS REPORT | Continuity of Care Document ---
:1950 External Reference #:[id number] Author Name Annette Barragan M.D. (transmitted by agent of provider Anson Dhillon) Address [address] [place] [address] [place] [address] Care Team Providers Name Role Phone Royal Moyer DO - Family Care Team Information Cloud Engagement Partner Medicine Problems Active Problems Provider Date Paroxysmal atrial fibrillation Libia Guo M.D. Onset: 05/24/2017 Mitral valve disorder Libia Guo M.D. Onset: 05/24/2017 Tricuspid valve disorder, non-rheumatic Libia Guo M.D. Onset: 05/24/2017 Heart failure with reduced ejection fraction Libia Guo M.D. Onset: 2017 Chronic combined systolic and diastolic heart Libia Guo M.D. Onset: 05/24 failure Automatic implantable cardiac defibrillator in Libia Guo M.D. Onset: situ Social History Type Date Description Comments Sex Unknown Tobacco Use Start: Unknown Light tobacco smoker (10 or fewer cigarettes/day) Smoking Status Reviewed: 11/02/18 Light tobacco smoker (10 or fewer cigarettes/day) ETOH Use consumed 5-6 beers per until Apr 2017 day Tobacco Use Start: Unknown Light tobacco smoker quit smoking Joey (10 or fewer 2018 cigarettes/day) Recreational Drug Use Denies Drug Use Exercise Type/Frequency Does not exercise Allergies, Adverse Reactions, Alerts Active Allergies Reaction Severity Comments Date NKDA 05/19/2017 Bee Sting 05/24/2017 Latex 05/24/2017 Adhesives 05/24/2017 Medications Active Medications SIG Qnty Indications Ordering Provider Date Left Humerus S42.332A Annette Barragan, 10/19/2018 Yu Long M.D. Entresto take 1 tab by 60tabs I42.9 Bee Rodgers, 08/30/2017 24-26mg mouth twice daily N.P. Tablets Spiriva Handihaler 1 inhalation by Unknown mouth daily 18mcg Capsules Magnesium 1 tablet po daily Unknown 500mg Tablets Oxygen 2L via nasal Unknown Misc cannula used at night Atorvastatin Calcium take 1 tablet at Unknown bedtime ( taking 20mg Tablets during the day) Omeprazole 1 cap po daily Dana Dudley 20mg S., PA Capsules DR Vitamin B1 1 by mouth every Unknown 100mg day Tablets Folic Acid 1 by mouth every Unknown 1mg day Tablets Eliquis 1 by mouth twice a 60tabs Bee Rodgers, 5mg Tablets day N.P. Montelukast Sodium 1 by mouth every Unknown day 10mg Tablets Digoxin 1 by mouth every 30tabs Libia Guo, 125mcg day M.D. Tablets Metoprolol Succinate 1/2 tablet by 45tabs Libia Guo, ER mouth daily (25 M.D. 50mg Tablets ER mg). 24HR Famotidine 1 by mouth daily Unknown 40mg Tablets Epipen 2-Tyson as directed Unknown Flonase Allergy as needed Unknown Relief Azelastine HCL as needed Unknown 137mcg Symbicort 2 inhaled twice Unknown 160-4.5mcg daily Am/PM Proair HFA as need Unknown Immunizations Description No Information Available Vital Signs Date Vital Result Comment 11/02/2018 2:11pm Height 64.5 inches 5'4.50" Weight 134.00 lb BP Systolic 125 mmHg BP Diastolic 66 mmHg Respiratory Rate 14 /min Body Temperature 98.0 F Pain Level 1 BMI (Body Mass Index) 22.6 kg/m2 10/19/2018 4:00pm Height 64.5 inches 5'4.50" Weight 134.00 lb Heart Rate 80 /min BP Systolic 120 mmHg BP Diastolic 60 mmHg Respiratory Rate 16 /min Body Temperature 98.3 F Pain Level 3 BMI (Body Mass Index) 22.6 kg/m2 Results Test Date Facility Test Result H/L Range Note Comp Metabolic Panel 06/26/2018 [facility] Sodium 129 mmol/L Low 135-[address] [place] [address] [phone] Potassium 4.6 mmol/L Normal 3.5-5.0 Chloride 96 mmol/L Low 101-111 Co2 Carbon Dioxide 27 mmol/L Normal 22-32 Anion Gap 6 mmol/L Normal 2-11 Glucose 131 mg/dL High 70-100 Blood Urea Nitrogen 12 mg/dL Normal 6-24 Creatinine 0.80 mg/dL Normal 0.67-1.17 BUN/Creatinine Ratio 15.0 Normal 8-20 Calcium 9.0 mg/dL Normal 8.6-10.3 Total Protein 6.6 g/dL Normal 6.4-8.9 Albumin 4.4 g/dL Normal 3.2-5.2 Globulin 2.2 g/dL Normal 2-4 Albumin/Globulin Ratio 2.0 Normal 1-3 Total Bilirubin 0.60 mg/dL Normal 0.2-1.0 Alkaline Phosphatase 65 U/L Normal 34-104 Alt 17 U/L Normal 7-52 Ast 24 U/L Normal 13-39 Egfr Non- 96.4 >60 Egfr 116.7 >60 1 Laboratory test 06/26/2018 [facility] Digoxin 0.5 ng/ml Low 0.8-2.0 [address] [place] [address] [phone] Magnesium 1.8 mg/dL Low 1.9-2.7 3 CBC Auto 06/26/2018 [facility] White Blood 7.1 10^3/uL Normal 3.5-10.[address] [place] [address] [phone] Red Blood Count 3.82 10^6/uL Low 4.18-5.48 Hemoglobin 13.2 g/dL Low 14.0-18.0 Hematocrit 39 % Normal 36-46 Mean Corpuscular Volume 101 fL High 80-94 Mean Corpuscular Hemoglobin 35 pg High 27-31 Mean Corpuscular HGB Conc 34 g/dL Normal 31-36 Red Cell Distribution Width 14 % Normal 10.5-15 Platelet Count 247 10^3/uL Normal 150-450 Mean Platelet Volume 6.9 fL Low 7.4-10.4 Abs Neutrophils 4.7 10^3/uL Normal 1.5-7.7 Abs Lymphocytes 1.6 10^3/uL Normal 1.0-4.8 Abs Monocytes 0.4 10^3/uL Normal 0-0.8 Abs Eosinophils 0.4 10^3/uL Normal 0-0.6 Abs Basophils 0 10^3/uL Normal 0-0.2 Abs Nucleated RBC 0 10^3/uL Granulocyte % 65.8 % Lymphocyte % 22.0 % Monocyte % 5.8 % Eosinophil % 5.9 % Basophil % 0.5 % Nucleated Red Blood Cells % 0 1 [...] (or dialysis) 2 Copy Result to: ROYAL MOYER ([id number]) 3 Copy Result to: ROYAL MOYER ([id number]) Procedures Date Code Description Status 09/22/2018 87532 Interrogation Implant Cardiovasc Monitor System Incl Completed Analysis Int 09/22/2018 69549 Interrogation Implant Cardiovasc Monitor System Incl Completed Analysis Int 09/22/2018 17855 Icd Eval With Inerative Adjustmt Dual Lead System Completed 09/22/2018 80136 Icd Eval With Inerative Adjustmt Dual Lead System Completed 05/22/2018 38941 Interrogation Device Eval Remote Up To 30 Days Completed Analysis,Rev,RP 05/22/2018 63611 Interrogation Device Eval Remote Up To [address] Completed Analysis,Rev,RP 05/22/2018 12990 Icd Eval Sing,Dual,Multi Lead Remote Recpt Transm Tech Completed Rev Tech S 05/22/2018 58165 Icd Eval Sing,Dual,Multi Lead Remote Recpt Transm Tech Completed Rev Tech S 05/22/2018 58510 Icd Check Remote Up To 90 Days Single,Dual,Multiple Completed Lead 05/22/2018 60830 Icd Check Remote Up To 90 Days Single,Dual,Multiple Completed Lead 05/19/2017 [id number] Diabetic Retinal Eye Exam Completed Medical Devices Description No Information Available Encounters Type Date Location Provider Dx Diagnosis Office Visit 10/19/2018 [facility] S42.332A Displaced oblique fx 3:30p [facility] shaft of humerus, left [facility] arm, init Office Visit 09/22/2018 [place] Guo I42.8 Other cardiomyopathies 2:00p [facility] [employer] Z95.810 Presence of automatic (implantable) cardiac defibrillator I48.0 Paroxysmal atrial fibrillation I50.42 Chronic combined systolic and diastolic hrt fail J44.9 Chronic obstructive pulmonary disease, unspecified Z72.0 Tobacco use I34.0 Nonrheumatic mitral (valve) insufficiency I36.1 Nonrheumatic tricuspid (valve) insufficiency Office Visit 06/30/2018 [place] Olson I42.9 Cardiomyopathy, 1:30p [facility] unspecified [facility] Z95.810 Presence of automatic (implantable) cardiac defibrillator I48.0 Paroxysmal atrial fibrillation I50.42 Chronic combined systolic and diastolic hrt fail Assessments Date Code Description Provider 10/19/2018 S42.332A Displaced oblique fracture of shaft of Annette Barragan M.D. humerus, left arm, initial encounter for closed fracture 09/22/2018 I42.9 Cardiomyopathy, unspecified Libia Guo M.D. 09/22/2018 I42.8 Other cardiomyopathies Libia Guo M.D. 09/22/2018 I42.9 Cardiomyopathy, unspecified Ica Pacer Schedule 09/22/2018 Z95.810 Presence of automatic (implantable) cardiac Libia Guo M.D. defibrillator 09/22/2018 Z95.810 Presence of automatic (implantable) cardiac Libia Guo M.D. defibrillator 09/22/2018 Z95.810 Presence of automatic (implantable) cardiac Ica Pacer Schedule defibrillator 09/22/2018 I48.0 Paroxysmal atrial fibrillation Libia Guo M.D. 09/22/2018 I50.42 Chronic combined systolic (congestive) and Libia Guo M.D. diastolic (conges 09/22/2018 J44.9 Chronic obstructive pulmonary disease, Libia Guo M.D. unspecified 09/22/2018 Z72.0 Tobacco use Libia Guo M.D. 09/22/2018 I34.0 Nonrheumatic mitral (valve) insufficiency Libia Guo M.D. 09/22/2018 I36.1 Nonrheumatic tricuspid (valve) Libia Guo M.D. insufficiency 06/30/2018 I42.9 Cardiomyopathy, unspecified Bee S. Foster, N.P. 06/30/2018 Z95.810 Presence of automatic (implantable) cardiac Bee S. Foster, N.P. defibrillator 06/30/2018 I48.0 Paroxysmal atrial fibrillation Bee S. Foster, N.P. 06/30/2018 I50.42 Chronic combined systolic (congestive) and Bee S. Foster , N.P. diastolic (conges 05/22/2018 I42.9 Cardiomyopathy, unspecified Libia Guo M.D. 05/22/2018 I42.9 Cardiomyopathy, unspecified Remote Device Checks 05/22/2018 I50.9 Heart failure, unspecified Libia Guo M.D. 05/22/2018 I50.9 Heart failure, unspecified Remote Device Checks 05/22/2018 Z95.810 Presence of automatic (implantable) cardiac Libia Guo M.D. defibrillator 05/22/2018 Z95.810 Presence of automatic (implantable) cardiac Remote Device Checks defibrillator Plan of Treatment Future Appointment(s):11/23/2018 2:00 pm - Annette Barragan M[facility]01/09/2019 8:30 am - Duglas Gonzales M.D. at [facility] Functional Status Description No Information Available Mental Status Description No Information Available Referrals Description No Information Available
--- OUTSIDE RECORDS SUMMARY | 2018-12-28 19:17 | XMS REPORT | Continuity of Care Document ---
:1950 External Reference #:[id number] Author Name Royal Moyer D.O. Address [address] [place] [id number] Care Team Providers Name Role Phone [facility] Care Team Information Is Analyst [phone] - Hematology & Oncology [facility] - Care Team Information Is Analyst [phone] Pulmonary Rehabilitation [facility] - Ophthalmology Care Team Information Is Analyst Ramón Kennedy MD - Care Team Information Is Analyst [phone] Otolaryngology Problems Active Problems Provider Date Cough Royal Moyer D.O. Onset: 11/15/2012 Disorder of male genital organ Royal Moyer D.O. Onset: 11/15/2012 Headache Royal Moyer D.O. Onset: 11/15/2012 Chronic rhinitis Royal Moyer D.O. Onset: 12/14/2012 Tobacco user Royal Moyer D.O. Onset: 12/14/2012 Anxiety state Royal Moyer D.O. Onset: 01/23/2013 Old myocardial infarction Royal Moyer D.O. Onset: 01/23/2013 Type 2 diabetes mellitus Royal Moyer D.O. Onset: 01/23/2013 Acute maxillary sinusitis Royal Moyer D.O. Onset: 03/21/2013 Chest pain Royal Moyer D.O. Onset: 05/07/2013 Chronic sinusitis Royal Moyer D.O. Onset: 05/07/2013 Panic disorder with agoraphobia Nader Lu M.D. Onset: 07/06/2013 Nasal polyp Royal Moyer D.O. Onset: 08/31/2013 Difficulty breathing Royal Moyer D.O. Onset: 05/16/2014 Hypoxemia Royal Moyer D.O. Onset: 05/16/2014 Tear film insufficiency Royal Moyer D.O. Onset: 02/14/2015 Type II diabetes mellitus uncontrolled Royal Moyer D.O. Onset: 03/28/2018 Atrial fibrillation Royal Moyer D.O. Onset: 03/28/2018 Cardiomyopathy, unspecified Royal Moyer D.O. Onset: 03/28/2018 Social History Type Date Description Comments Sex Unknown ETOH Use Occassional Alcohol Last drink 1 month ago. Recreational Drug Use Denies Drug Use Tobacco Use Start: Unknown Patient is a current SMOKED FROM AGE 14 smoker, smokes every TO JULY 2015 FOR 51 day YEARS AT 1 PPD - 51 PACK YEARS Smoking Status Reviewed: 12/19/18 Patient is a current SMOKED FROM AGE 14 smoker, smokes every TO JULY 2015 FOR 51 day YEARS AT 1 PPD - 51 PACK YEARS Exercise Type/Frequency Exercises regularly 4-5 x/ week walking Sun Exposure Does not use sunscreen Seat Belt/Car Seat Seat Belt Use - Yes Allergies, Adverse Reactions, Alerts Description No Known Drug Allergies Medications Active Medications SIG Qnty Indications Ordering Date Provider Omeprazole 1 by mouth every day caps [facility], 20mg Bartolmoe Rivera [address] Calcium + D3 1 by mouth every day 90tabs [facility], Bartolome Rivera 9 [phone] Tablets Spiriva Respimat two inhalations (5mcg) 8gm [facility], once daily (maximum: 2 Blossom Rivera.O. 9 2.5mcg/Act Aerosol inhalations per 24 hours). Venlafaxine HCL ER Take One Capsule By [facility], Mouth Every Day Bartolome Rivera 9 75mg Caps ER 24HR Entresto 1 tablet by mouth 60tabs [facility], 24-26mg twice daily Bartolome Rivera 9 Tablets Ventolin HFA inhale 2 puffs [facility], mouth every 4 hours as Bartolome Rivera 9 108(90Base) needed for mcg/Act Aerosol bronchospasm Montelukast Sodium 1 by mouth every day 90tabs [facility], Paolo RiveraO. 8 10mg Tablets Docusate Sodium take 2 capsules by 180caps [facility], mouth every day, as Paolo RiveraOSharri 8 100mg Capsules needed for constipation Magox 400 1-4 tablets every 360tabs [facility], night at bedtime as Paolo RiveraOSharri 8 400(241.3mg) mg directed Tablets Thiamine HCL take 1 tablet by mouth 90tabs [facility], daily. Bartolome Rivera 8 100mg Tablets Folic Acid 1 by mouth every day ta [facility], 1mg Paolo RiveraOSharri 8 Tablets Eliquis take one tablet by 180tabs [facility], 5mg mouth twice a day Bartolome Rivera 8 Tablets Digoxin Take One Tablet By 30tabs [facility], 125mcg Mouth Every Day AT 5PM Bartolome Rivera 8 Tablets Azelastine HCL 1-2 sprays bid 90ml J31.0 [facility], (Nasal) Paolo RiveraOSharri 7 0.15% Solution Famotidine Take One Tablet Two 60tabs [facility], 40mg Times A Day as Needed Bartolome Rivera 6 Tablets For Gastroesophageal Reflux Disease Artificial Tears use at night as 1units H04.122 [facility], directed. Paolo RiveraO. 5 83-15% Ointment Atorvastatin Take One Tablet By 90tabs [facility], Calcium Mouth Every Day For Bartolome Rivera 5 20mg Prevention Of Heart Tablets Attack And Stroke Symbicort use 2 inhalations by 10.2units R05 [facility], mouth in the morning Paolo RiveraO. 4 160-4.5mcg/Act and in the evening , Aerosol gargle after use [facility] 4 Epipen 2-Tyson use as directed for 1units Z91.030 [facility], anaphilaxis seek Bartolome Rivera 3 0.3mg/0.3ML medical attention Solution after using. Auto-Inject Metoprolol 1 by mouth every day 90tabs [facility], / Succinate ER Bartolome Rivera 0 25mg Tablets ER 24HR Immunizations CPT Code Status Date Vaccine Lot # [id number] Given 10/10/2018 Pneumococcal Immunization [id number] 88216 Given 12/08/2017 Influenza Vaccine, Inactivated, Subunit, [id number] Adjuvanted, For Intrmusc 66572 Given 03/23/2017 Influenza Virus Vaccine, Quadrivalent, Split, [id number] Preservative Free 07208 Given 11/24/2015 Influenza Vaccine Split Virus Preservative Free Im [id number] Use 39324 Given 07/24/2015 Prevnar 13 [id number] 06338 Given 01/27/2015 Influenza Virus Vaccine, Quadrivalent, Split, [id number] Preservative Free 36058 Given 11/19/2013 Influenza Virus Vaccine, Quadrivalent, Split, [id number] Preservative Free 38604 Given 04/23/2013 Pneumococcal Immunization [id number] 84120 Given 11/22/2012 Adacel or Boostrix, TDaP [id number] 19937 Given 11/22/2012 Flu, Split Virus [id number] Vital Signs Date Vital Result Comment 12/19/2018 5:30pm BP Systolic 132 mmHg BP Diastolic 80 mmHg 10/10/2018 2:47pm BP Systolic 134 mmHg BP Diastolic 70 mmHg Weight 131.00 lb Results Test Date Facility Test Result H/L Range Note CBC Auto Diff 10/10/2018 [facility] White Blood 5.4 10^3/uL Normal 3.5-10.8 [phone] Count Red Blood Count 3.80 10^6/uL Low 4.18-5.48 Hemoglobin 13.0 g/dL Low 14.0-18.0 Hematocrit 38 % Low 42-52 Mean Corpuscular Volume 101 fL High 80-94 Mean Corpuscular Hemoglobin 34 pg High 27-31 Mean Corpuscular HGB Conc 34 g/dL Normal 31-36 Red Cell Distribution Width 13 % Normal 10-15 Platelet Count 279 10^3/uL Normal 150-450 Mean Platelet Volume 7.6 fL Normal 7.4-10.4 Abs Neutrophils 4.1 10^3/uL Normal 1.5-7.7 Abs Lymphocytes 0.8 10^3/uL Low 1.0-4.8 Abs Monocytes 0.5 10^3/uL Normal 0-0.8 Abs Eosinophils 0.1 10^3/uL Normal 0-0.6 Abs Basophils 0.0 10^3/uL Normal 0-0.2 Abs Nucleated RBC 0.0 10^3/uL Granulocyte % 75.0 % Lymphocyte % 14.7 % Monocyte % 8.8 % Eosinophil % 1.0 % Basophil % 0.5 % Nucleated Red Blood Cells % 0.1 Comp Metabolic Panel 10/10/2018 [facility] Sodium 129 mmol/L Low 135- 145 [phone] Potassium 4.7 mmol/L Normal 3.5-5.0 Chloride 93 mmol/L Low 101-111 Co2 Carbon Dioxide 27 mmol/L Normal 22-32 Anion Gap 9 mmol/L Normal 2-11 Glucose 130 mg/dL High 70-100 Blood Urea Nitrogen 7 mg/dL Normal 6-24 Creatinine 0.71 mg/dL Normal 0.67-1.17 BUN/Creatinine Ratio 9.9 Normal 8-20 Calcium 9.4 mg/dL Normal 8.6-10.3 Total Protein 7.0 g/dL Normal 6.4-8.9 Albumin 4.5 g/dL Normal 3.2-5.2 Globulin 2.5 g/dL Normal 2-4 Albumin/Globulin Ratio 1.8 Normal 1-3 Total Bilirubin 0.70 mg/dL Normal 0.2-1.0 Alkaline Phosphatase 103 U/L Normal 34-104 Alt 24 U/L Normal 7-52 Ast 24 U/L Normal 13-39 Egfr Non- 110.3 >60 Egfr 133.5 >60 1 Laboratory test finding 10/10/2018 [facility] Magnesium 1.7 mg/dL Low 1.9-2.7 [phone] TSH (Thyroid Stim Horm) 0.72 mcIU/mL Normal 0.34-5.60 Vitamin B12 260 pg/mL Normal 180-914 2 Manual Differential 10/10/2018 [facility] Neutrophil % 79.0 % [phone] Lymphocytes % 15.0 % Monocytes % 5.0 % Eosinophils % 1.0 % RBC Morphology Normal Normal Laboratory test 10/10/2018 [facility] Pathologist (SEE NOTE) 3 finding [phone] Review Laboratory test 10/10/2018 In House Hemoglobin A1c 5.5 finding Laboratory test 07/11/2018 In House Hemoglobin A1c 5.8 finding CBC Auto Diff 06/26/2018 [facility] White Blood Count 7.1 10^3/uL Normal 3.5-10 [phone] Red Blood Count 3.82 10^6/uL Low 4.18-5.48 [...] % Nucleated Red Blood Cells % 0 Comp Metabolic Panel 06/26/2018 [facility] Sodium 129 mmol/L Low 135- 145 [phone] Potassium 4.6 mmol/L Normal 3.5-5.0 Chloride 96 [...] Egfr Non- 96.4 >60 Egfr 116.7 >60 4 Laboratory test finding 06/26/2018 [facility] Magnesium 1.8 mg/dL Low 1.9-2.7 5 [phone] Digoxin 0.5 ng/ml Low 0.8-2.0 6 1 Because ethnic data is not always [...] 5 Kidney failure <15 (or dialysis) 2 Normal Range 180 to 914 Indeterminate Range 145 to 180 Deficient Range <145 3 Macrocytic anemia. Reviewed by Flor Arango MD 4 Because ethnic data is not always readily [...] 15-29 5 Kidney failure <15 (or dialysis) 5 Copy Result to: ROYAL MOYER ([id number]) 6 Copy Result to: ROYAL MOYER ([id number]) Procedures Date Code Description Status 04/12/2018 [id number] Diabetic Foot Exam Completed 05/19/2017 [id number] Diabetic Retinal Eye Exam Completed 07/04/2013 [id number] Colonoscopy Completed Medical Devices Description No Information Available Encounters Type Date Location Provider Dx Diagnosis Office Visit 12/19/2018 Main Office Royal Moyer, S42.332G Displ oblique fx 4:45p D.O. 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 humerus, left arm, subsequent encounter for fracture with delayed healing 12/19/2018 E11.65 Type 2 diabetes mellitus with hyperglycemia Royal Moyer D.O. 12/19/2018 W18.30xD Fall on same level, unspecified, subsequent Royal Moyer D.O. encounter 12/19/2018 F17.210 Nicotine dependence, cigarettes, Royal Moyer D.O. uncomplicated 12/19/2018 I48.91 Unspecified atrial fibrillation Royal Moyer D.O. 12/19/2018 F41.9 Anxiety disorder, unspecified Royal Moyer D.O. 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 12/19/2018 I42.9 Cardiomyopathy, unspecified JoãoRoyal, D.O. 12/19/2018 J44.9 Chronic obstructive pulmonary disease, João Royal, D.O. unspecified 12/19/2018 M25.512 Pain in left shoulder JoãoRoyal D.O. 12/19/2018 Z91.81 History of falling JoãoRoyal D.O. 12/19/2018 R29.6 Repeated falls João Royal, D.O. 12/19/2018 R42 Dizziness and giddiness Royal Moyer, D.O. 10/18/2018 S42.332A Displaced oblique fracture of shaft of JoãoRoyal D.O. humerus, left arm, initial encounter for closed fracture 10/10/2018 E11.65 Type 2 diabetes mellitus with hyperglycemia Royal Moyer D.O. 10/10/2018 W18.30xA Fall on same level, unspecified, initial KitabeltrantelmaRoyal D.O. encounter 10/10/2018 F17.210 Nicotine dependence, cigarettes, HusamRoyal hollis, D.O. uncomplicated 10/10/2018 I48.91 Unspecified atrial fibrillation Royal Moyer D.O. 10/10/2018 F41.9 Anxiety disorder, unspecified Royal Moyer D.O. 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 10/10/2018 J44.9 Chronic obstructive pulmonary disease, JoãoRoyal, D.O. unspecified 10/10/2018 I42.9 Cardiomyopathy, unspecified JoãoKathyon, D.O. 10/10/2018 M25.512 Pain in left shoulder JoãoRoyal D.O. 10/10/2018 Z91.81 History of falling JoãoRoyal D.O. 10/10/2018 R29.6 Repeated falls HusamRoyal hollis D.O. 10/10/2018 R42 Dizziness and giddiness Royal Moyer D.O. 10/10/2018 Z23 Encounter for immunization Royal Moyer D.O. 08/03/2018 S01.311A Laceration without foreign body of right Royal Moyer D.O. ear, initial encoun 08/03/2018 W18.30xA Fall on same level, unspecified, initial Royal Moyer D.O. encounter 08/03/2018 E11.65 Type 2 diabetes mellitus with hyperglycemia Royal Moyer D.O. 08/03/2018 F17.210 Nicotine dependence, cigarettes, Royal Moyer D.O. uncomplicated 08/03/2018 I48.91 Unspecified atrial fibrillation Royal Moyer D.O. 08/03/2018 F41.9 Anxiety disorder, unspecified Royal Moyer D.O. 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 08/03/2018 J44.9 Chronic obstructive pulmonary disease, Royal Moyer D.O. unspecified 08/03/2018 Z95.810 Presence of automatic (implantable) cardiac Royal Moyer D.O. defibrillator 08/03/2018 I42.9 Cardiomyopathy, unspecified Royal Moyer D.O. 08/03/2018 Z82.49 Family history of ischemic heart disease and Royal Moyer D.O. other diseases 08/03/2018 Z79.01 FPC (current) use of anticoagulants Royal Moyer D.O. 08/03/2018 R09.81 Nasal congestion Royal Moyer D.O. 07/11/2018 E11.65 Type 2 diabetes mellitus with hyperglycemia Royal Moyer D.O. 07/11/2018 F17.210 Nicotine dependence, cigarettes, Royal Moyer D.O. uncomplicated 07/11/2018 I48.91 Unspecified atrial fibrillation Royal Moyer D.O. 07/11/2018 F41.9 Anxiety disorder, unspecified Royal Moyer D.O. 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 07/11/2018 G40.89 Other seizures Royal Moyer D.O. 07/11/2018 J44.9 Chronic obstructive pulmonary disease, Royal Moyer D.O. unspecified 07/11/2018 Z95.810 Presence of automatic (implantable) cardiac Royal Moyer D.O. defibrillator 07/11/2018 I42.9 Cardiomyopathy, unspecified Royal Moyer D.O. 07/11/2018 Z82.49 Family history of ischemic heart disease and Royal Moyer D.O. other diseases 07/11/2018 Z79.01 FPC (current) use of anticoagulants Royal Moyer D.O. 07/11/2018 I50.42 Chronic combined systolic (congestive) and Royal Moyer D.O. diastolic (conges 07/11/2018 R06.02 Shortness of breath Royal Moyer D.O. 07/11/2018 R53.83 Other fatigue Royal Moyer D.O. Plan of Treatment Future Appointment(s):01/12/2019 11:00 am - Nurse's Schedule at Main Ejimcg5801/12 11:00 am - Royal Moyer D.O. at Main Fvojsr1212/19/2018 - Royal Moyer D.O.S42.332G Displaced oblique fracture of shaft of humerus, left arm, subsequent encounter for fracturewith delayed owpgjasG59.65 Type 2 diabetes mellitus with hyperglycemiaFollow up:as scheduled w/ flu vaxW18.30xD Fall on same level, unspecified, subsequent bvbcjwfgtN63.210 Nicotine dependence, cigarettes, gziqyhrkobxaaC48.91 Unspecified atrial bbvwkmlnzzhdA96.9 Anxiety disorder, iyxvylxaehzL69.01 Agoraphobia with panic bciqwwhpZ76.9 Cardiomyopathy , ewipfrfqbyxK37.9 Chronic obstructive pulmonary disease, zlvgousyexdQ51.512 Pain in left tmdohiukQ00.81 History of zcunsczP02.6 Repeated qfsowB71 Dizziness and giddiness Functional Status Description No Information Available Mental Status Description No Information Available Referrals Description No Information Available
--- OUTSIDE RECORDS SUMMARY | 2018-12-28 19:17 | XMS REPORT | Continuity of Care Document ---
:1950 External Reference #:[id number] Author Name Miguel Moyer D.O. Address [address] [place] [id number] Care Team Providers Name Role Phone [facility] Care Team Information Lime [facility]er - Hematology & Oncology [facility] - Care Team Information [facility] Pulmonary Rehabilitation [facility] [place]mology Care Team Information Lime Mixer Ramón Kennedy MD - Care Team Information L[facility] Mixer [phone] Otolaryngology Problems Active Problems Provider Date Cough Miguel Moyer D.O. Onset: 11/15/2012 Disorder of male genital organ Miguel Moyer D.O. Onset: 11/15/2012 Headache Miguel Moyer D.O. Onset: 11/15/2012 Chronic rhinitis Miguel Moyer D.O. Onset: 12/14/2012 Tobacco user Miguel Moyer D.O. Onset: 12/14/2012 Anxiety state Miguel Moyer D.O. Onset: 01/23/2013 Old myocardial infarction Miguel Moyer D.O. Onset: 01/23/2013 Type 2 diabetes mellitus Miguel Moyer D.O. Onset: 01/23/2013 Acute maxillary sinusitis Miguel Moyer D.O. Onset: 03/21/2013 Chest pain Miguel Moyer D.O. Onset: 05/07/2013 Chronic sinusitis Miguel Moyer D.O. Onset: 05/07/2013 Panic disorder with agoraphobia Nader Lu M.D. Onset: 07/06/2013 Nasal polyp Miguel Moyer D.O. Onset: 08/31/2013 Difficulty breathing Miguel Moyer D.O. Onset: 05/16/2014 Hypoxemia Miguel Moyer D.O. Onset: 05/16/2014 Tear film insufficiency Miguel Moyer D.O. Onset: 02/14/2015 Type II diabetes mellitus uncontrolled Miguel Moyer D.O. Onset: 03/28/2018 Atrial fibrillation Miguel Moyer D.O. Onset: 03/28/2018 Cardiomyopathy, unspecified Miguel Moyer D.O. Onset: 03/28/2018 Social History Type Date Description Comments Sex Unknown ETOH Use Occassional Alcohol Last drink 1 month ago. Recreational Drug Use Denies Drug Use Tobacco Use Start: Unknown Patient is a current SMOKED FROM AGE 14 smoker, smokes every TO JULY 2015 FOR 51 day YEARS AT 1 PPD - 51 PACK YEARS Smoking Status Reviewed: 12/28/18 Patient is a current SMOKED FROM AGE [...] Provider Omeprazole 1 by mouth every day [facility], 20mg Bartolome Rivera [address] Calcium + D3 1 by mouth every day 90tabs [facility], Bartolome Rivera 9 [id number] Tablets Spiriva Respimat two inhalations (5mcg) 8gm [facility], once daily (maximum: 2 Blossom Rivera.O. 9 2.5mcg/Act Aerosol inhalations per 24 hours). Venlafaxine HCL ER Take One Capsule By [facility], Mouth Every Day Bartolome Rivera 9 75mg Caps ER 24HR Entresto 1 tablet by mouth 60tabs [facility], 24-26mg twice daily Bartolome Rivera 9 Tablets Ventolin HFA inhale 2 puffs by [facility], mouth every 4 hours as Bartolome Rivera 9 108(90Base) needed for mcg/Act Aerosol bronchospasm Montelukast Sodium 1 by mouth every day 90tabs [facility], Paolo RiveraO. 8 10mg Tablets Docusate Sodium take 2 capsules by 180caps [facility], mouth every day, as Paolo RiveraOSharri 8 100mg Capsules needed for constipation Magox 400 1-4 tablets every 360tabs [facility], night at bedtime as Paolo RiveraOSharri 8 400(241.3mg) mg directed Tablets Thiamine HCL take 1 tablet by mouth 90tabs [facility], daily. Bartolome Rivera 8 100mg Tablets Folic Acid 1 by mouth every day ta [facility], 1mg Paolo RiveraOSharri 8 Tablets Eliquis take one tablet by 180tabs [facility], 5mg mouth twice a day Bartolome Rivera 8 Tablets Digoxin Take One Tablet By 30tabs [facility], 125mcg Mouth Every Day AT 5PM Bartolome Rivera 8 Tablets Azelastine HCL 1-2 sprays bid 90ml J31.0 [facility], (Nasal) Paolo RiveraOSharri 7 0.15% Solution Famotidine Take One Tablet Two 60tabs [facility], 40mg Times A Day as Needed Bartolome Rivera 6 Tablets For Gastroesophageal Reflux Disease Artificial Tears use at night as 1units H04.122 [facility], directed. Paolo RiveraO. 5 83-15% Ointment Atorvastatin Take One Tablet By 90tabs [facility], Calcium Mouth Every Day For Bartolome Rivera 5 20mg Prevention Of Heart Tablets Attack And Stroke Symbicort use 2 inhalations by 10.2units R05 [facility], mouth in the morning Paolo RiveraO. 4 160-4.5mcg/Act and in the evening , Aerosol gargle after use Oxygen NC [facility] Bart[facility]ome [facility] 4 Epipen 2-Tyson use as directed for 1units Z91.030 [facility], anaphil[facility] seek Bartolome Rivera 3 0.3mg/0.3ML medical attention Solution after using. Auto-Inject Metoprolol 1 by mouth every day 90tabs [facility], / Succinate ER Bartolome Rivera 0 25mg Tablets ER 24HR Immunizations CPT Code Status Date Vaccine Lot # [id number] Given 10/10/2018 Pneumococcal Immunization [id number] 26798 Given 12/08/2017 Influenza Vaccine, Inactivated, Subunit, [id number] Adjuvanted, For Intrmusc 51941 Given 03/23/2017 Influenza Virus Vaccine, Quadrivalent, Split, [id number] Preservative Free 02299 Given 11/24/2015 Influenza Vaccine Split Virus Preservative Free Im [id number] Use 11407 Given 07/24/2015 Prevnar 13 [id number] 06794 Given 01/27/2015 Influenza Virus Vaccine, Quadrivalent, Split, [id number] Preservative Free 82590 Given 11/19/2013 Influenza Virus Vaccine, Quadrivalent, Split, [id number] Preservative Free 24002 Given 04/23/2013 Pneumococcal Immunization [id number] 77859 Given 11/22/2012 Adacel or Boostrix, TDaP [id number] 18768 Given 11/22/2012 Flu, Split Virus 3Yrs [id number] Vital Signs Date Vital Result Comment 12/28/2018 4:24pm BP Systolic 91 mmHg BP Diastolic 66 mmHg Heart Rate 103 /min O2 % BldC Oximetry 97 % Height 64.50 inches 5'4.50" Weight 163.00 lb BMI (Body Mass Index) 27.5 kg/m2 12/19/2018 5:30pm BP Systolic 132 mmHg BP Diastolic 80 mmHg Results Test Acquired Date Facility Test Result H/L Range Note Xray 12/28/2018 [facility] X-Ray, <pending> Chest, 2 Views CBC Auto 10/10/2018 [facility] White Blood 5.4 10^3/uL Normal 3.5- 10.8 Diff [phone] Count Red Blood Count 3.80 10^6/uL Low [...] Cells % 0.1 Comp Metabolic Panel 10/10/2018 [facility] Sodium 129 mmol/L Low 135- 145 [phone] Potassium 4.7 mmol/L Normal 3.5-5.0 Chloride 93 [...] 133.5 >60 1 Laboratory test finding 10/10/2018 [facility] Magnesium 1.7 mg/dL Low 1.9-2.7 [phone] TSH (Thyroid Stim Horm) 0.72 mcIU/mL Normal 0.34-5.60 Vitamin B12 260 pg/mL Normal 180-914 2 Manual Differential 10/10/2018 [facility] Neutrophil % 79.0 % [phone] Lymphocytes % 15.0 % Monocytes % 5.0 % Eosinophils % 1.0 % RBC Morphology Normal Normal Laboratory test 10/10/2018 [facility] Pathologist Review (SEE NOTE) 3 finding [phone] Laboratory test 10/10/2018 In House Hemoglobin A1c 5.5 finding Laboratory test 07/11/2018 In House Hemoglobin A1c 5.8 finding 1 Because ethnic data is not always [...] Macrocytic anemia. Reviewed by Flor Arango MD Procedures Date Code Description Status 12/28/2018 81371 Electrocardiogram Complete Completed 12/28/2018 38844 X-Ray Chest 2 V Completed 04/12/2018 608928626 Diabetic Foot Exam Completed 05/19/2017 063805310 Diabetic Retinal Eye Exam Completed 07/04/2013 69266472 Colonoscopy Completed Medical Devices Description No Information Available Encounters Type Date Location Provider Dx Diagnosis Office Visit 12/28/2018 Main Office Miguel Moyer, F40.01 Agoraphobia with 4:30p D.O. panic disorder F41.9 Anxiety disorder, unspecified I48.91 Unspecified atrial fibrillation F17.210 Nicotine dependence, cigarettes, uncomplicated K59.00 Constipation, unspecified R60.9 Edema, unspecified E11.65 Type 2 diabetes mellitus with hyperglycemia I42.9 Cardiomyopathy, unspecified I42.9 Cardiomyopathy, unspecified J44.9 Chronic obstructive pulmonary disease, unspecified M25.512 Pain in left shoulder Z91.81 History of falling R29.6 Repeated falls W18.30xD Fall on same level, unspecified, subsequent encounter R42 Dizziness and giddiness R06.02 Shortness of breath Z68.27 Body mass index (BMI) 27.0-27.9, adult Office Visit 12/19/2018 4:45p Main Office Miguel Moyer, S42.332G Displ oblique fx D.O. shaft of humer, l arm, 7thG [...] giddiness Office Visit 10/10/2018 2:30p Main Office Miguel Moyer, E11.65 Type 2 diabetes D.O. mellitus [...] immunization Office Visit 08/03/2018 4:00p Main Office Miguel Moyer, S01.311A Laceration D.O. without foreign body [...] oth dis of the circ sys Z79.01 long-term (current) use of anticoagulants R09.81 Nasal congestion Office Visit 07/11/2018 4:00p Main Office Miguel Moyer, E11.65 Type 2 diabetes D.O. 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 12/28/2018 I42.9 Cardiomyopathy, unspecified Miguel Moyer D.O. 12/28/2018 E11.65 Type 2 diabetes mellitus with hyperglycemia Miguel Moyer D.O. 12/28/2018 R60.9 Edema, unspecified Miguel Moyer D.O. 12/28/2018 K59.00 Constipation, unspecified Miguel Moyer D.O. 12/28/2018 F17.210 Nicotine dependence, cigarettes, Miguel Moyer D.O. uncomplicated 12/28/2018 I48.91 Unspecified atrial fibrillation Miguel Moyer D.O. 12/28/2018 F41.9 Anxiety disorder, unspecified Miguel Moyer D.O. 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 12/28/2018 J44.9 Chronic obstructive pulmonary disease, João Blossom Rivera.O. unspecified 12/28/2018 M25.512 Pain in left shoulder KitabeltranMiguel hollis D.O. 12/28/2018 Z91.81 History of falling JoãoMiguel D.O. 12/28/2018 R29.6 Repeated falls Miguel Moyer D.O. 12/28/2018 W18.30xD Fall on same level, unspecified, subsequent Miguel Moyer D.O. encounter 12/28/2018 R42 Dizziness and giddiness Miguel Moyer D.O. 12/28/2018 R06.02 Shortness of breath Miguel Moyer D.O. 12/28/2018 Z68.27 Body mass index (BMI) 27.0-27.9, adult Miguel Moyer D.O. 12/19/2018 S42.332G Displaced oblique fracture of shaft of Miguel Moyer D.O. humerus, left arm, subsequent encounter for fracture with delayed healing 12/19/2018 E11.65 Type 2 diabetes mellitus with hyperglycemia Miguel Moyer D.O. 12/19/2018 W18.30xD Fall on same level, unspecified, subsequent Miguel Moyer D.O. encounter 12/19/2018 F17.210 Nicotine dependence, cigarettes, Miguel Moyer D.O. uncomplicated 12/19/2018 I48.91 Unspecified atrial fibrillation Miguel Moyer D.O. 12/19/2018 F41.9 Anxiety disorder, unspecified Miguel Moyer D.O. 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 12/19/2018 I42.9 Cardiomyopathy, unspecified Miguel Moyer D.O. 12/19/2018 J44.9 Chronic obstructive pulmonary disease, Miguel Moyer D.O. unspecified 12/19/2018 M25.512 Pain in left shoulder Miguel Moyer D.O. 12/19/2018 Z91.81 History of falling Miguel Moyer D.O. 12/19/2018 R29.6 Repeated falls Miguel Moyer D.O. 12/19/2018 R42 Dizziness and giddiness Miguel Moyer D.O. 10/18/2018 S42.332A Displaced oblique fracture of shaft of Miguel Moyer D.O. humerus, left arm, initial encounter for closed fracture 10/10/2018 E11.65 Type 2 diabetes mellitus with hyperglycemia Miguel Moyer D.O. 10/10/2018 W18.30xA Fall on same level, unspecified, initial Miguel Moyer D.O. encounter 10/10/2018 F17.210 Nicotine dependence, cigarettes, Miguel Moyer D.O. uncomplicated 10/10/2018 I48.91 Unspecified atrial fibrillation Miguel Moyer D.O. 10/10/2018 F41.9 Anxiety disorder, unspecified Miguel Moyer D.O. 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 10/10/2018 J44.9 Chronic obstructive pulmonary disease, Miguel Moyer D.O. unspecified 10/10/2018 I42.9 Cardiomyopathy, unspecified Miguel Moyer D.O. 10/10/2018 M25.512 Pain in left shoulder Miguel Moyer D.O. 10/10/2018 Z91.81 History of falling Miguel Moyer D.O. 10/10/2018 R29.6 Repeated falls Miguel Moyer D.O. 10/10/2018 R42 Dizziness and giddiness Miguel Moyer D.O. 10/10/2018 Z23 Encounter for immunization Miguel Moyer D.O. 08/03/2018 S01.311A Laceration without foreign body of right Miguel Moyer D.O. ear, initial encoun 08/03/2018 W18.30xA Fall on same level, unspecified, initial Miguel Moyer D.O. encounter 08/03/2018 E11.65 Type 2 diabetes mellitus with hyperglycemia Miguel Moyer D.O. 08/03/2018 F17.210 Nicotine dependence, cigarettes, SopchakKathyon, D.O. uncomplicated 08/03/2018 I48.91 Unspecified atrial fibrillation Kathy Moyeron, D.O. 08/03/2018 F41.9 Anxiety disorder, unspecified Sopchak Miguel, D.O. 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 08/03/2018 J44.9 Chronic obstructive pulmonary disease, Sopchak Miguel, D.O. unspecified 08/03/2018 Z95.810 Presence of automatic (implantable) cardiac SopchakKathyon, D.O. defibrillator 08/03/2018 I42.9 Cardiomyopathy, unspecified SopbeltrankKathyon, D.O. 08/03/2018 Z82.49 Family history of ischemic heart disease and SopKathy floreson, D.O. other diseases 08/03/2018 Z79.01 long-term (current) use of anticoagulants Miguel Moyer, D.O. 08/03/2018 R09.81 Nasal congestion Kathy Moyeron, D.O. 07/11/2018 E11.65 Type 2 diabetes mellitus with hyperglycemia Miguel Moyer , D.O. 07/11/2018 F17.210 Nicotine dependence, cigarettes, SopbeltrankKathyon, D.O. uncomplicated 07/11/2018 I48.91 Unspecified atrial fibrillation Kathy Moyeron, D.O. 07/11/2018 F41.9 Anxiety disorder, unspecified SopchakKathyon, D.O. 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 07/11/2018 G40.89 Other seizures HusamkKathyon, D.O. 07/11/2018 J44.9 Chronic obstructive pulmonary disease, SopchakKathyon, D.O. unspecified 07/11/2018 Z95.810 Presence of automatic (implantable) cardiac KitachakKathyon, D.O. defibrillator 07/11/2018 I42.9 Cardiomyopathy, unspecified Sopchak Miguel, D.O. 07/11/2018 Z82.49 Family history of ischemic heart disease and Miguel Moyer D.O. other diseases 07/11/2018 Z79.01 long-term (current) use of anticoagulants Miguel Moyer D.O. 07/11/2018 I50.42 Chronic combined systolic (congestive) and Miguel Moyer D.O. diastolic (conges 07/11/2018 R06.02 Shortness of breath Miguel Moyer D.O. 07/11/2018 R53.83 Other fatigue Miguel Moyer D.O. Plan of Treatment Future Appointment(s):01/12/2019 11:00 am - Nurse's Schedule at Main [place]0001/12 11:00 am - Miguel Moyer D.O. at Main [place]2812/28/2018 - Miguel Moyer D.O.F40.01 Agoraphobia with panic oobprcgfK01.9 Anxiety disorder, pglschrtpqcO56.91 Unspecified atrial irvmcwtbndecN43.210 Nicotine dependence, cigarettes, txeyfvcxbeowxJ40.00 Constipation, anstywauckzU67.9 Edema, qsxuvfnzrvbS37.65 Type 2 diabetes mellitus with rvfbenvjoyfziH57.9 Cardiomyopathy, unspecifiedComments:CXR showed left pulmonary effusion 6cm in depth to costophrenic angle; cardiomegally with ACDF;Follow up:ER now for worsening heart failure symptoms and left sided pulmonary gsjvjikqU95.9 Cardiomyopathy, unspecifiedComments:CXR showed left pulmonary effusion 6cm in depth to costophrenic angle; cardiomegally with ACDF;Follow up:ER now for worsening heart failure symptoms and left sided pulmonary dclnrgqnP52.9 Chronic obstructive pulmonary disease, xoqbmearmhbG60.512 Pain in left tptacsbqZ14.81 History of laohzuqV69.6 Repeated slhviH68.30xD Fall on same level, unspecified, subsequent exdvusgmbY78 Dizziness and qtejcfxpgK45.02 Shortness of zygpskZ26.27 Body mass index (BMI) 27.0-27.9, adult Functional Status Description No Information Available Mental Status Description No Information Available Referrals Description No Information Available
--- OUTSIDE RECORDS SUMMARY | 2018-12-28 19:17 | XMS REPORT | Continuity of Care Document ---
:1950 External Reference #:[id number] Author Name Annette Barragan M.D. (transmitted by agent of provider Ermelinda Garcia) Address [address] [place] [address] Care Team Providers Name Role Phone Miguel Moyer DO - Family Care Team Information Compliance Review Officer Medicine Problems Active Problems Provider Date Paroxysmal [...] (10 or fewer cigarettes/day) Smoking Status Reviewed: 12/27/18 Light tobacco smoker (10 or fewer cigarettes/day) [...] Qnty Indications Ordering Provider Date Left Humerus Size small dx: 1units S42.332A Annette Barragan, 10/19/2018 Fracture Brace s42.332D M.D. Entresto take 1 tab by 60tabs I42.9 Bee Rodgers, 08/30/2017 24-26mg mouth twice daily N.P. Tablets Spiriva Handihaler 1 inhalation by Unknown mouth daily 18mcg Capsules Magnesium 1 tablet po daily Unknown 500mg Tablets Oxygen 2L via nasal Unknown Misc cannula used at night Atorvastatin Calcium take 1 tablet at Unknown bedtime ( taking 20mg Tablets during the day) Omeprazole 1 cap by mouth 90caps Bee Rodgers, 20mg daily N.P. Capsules DR Vitamin B1 1 by mouth [...] Available Vital Signs Date Vital Result Comment 12/27/2018 2:07pm Height 65.5 inches 5'5.50" Weight 142.00 lb BP Systolic 116 mmHg BP Diastolic 68 mmHg Body Temperature 97.8 F BMI (Body Mass Index) 23.3 kg/m2 12/14/2018 2:40pm Height 64.5 inches 5'4.50" Weight 134.00 lb Heart Rate 70 /min Respiratory Rate 14 /min Pain Level 1 BMI (Body Mass Index) 22.6 kg/m2 Results Description No Information Available Procedures Date Code Description Status 12/25/2018 06739 Interrogation Device Eval Remote Up To [address] Completed Analysis,Rev,RP 12/25/2018 87097 Icd Eval Sing,Dual,Multi Lead Remote Recpt Transm Tech Completed Rev Tech S 12/25/2018 65947 Icd Check Remote Up To 90 Days Single,Dual,Multiple Completed Lead 09/22/2018 02185 Interrogation Implant Cardiovasc Monitor System Incl Completed Analysis Int 09/22/2018 25249 Interrogation Implant Cardiovasc Monitor System Incl Completed Analysis Int 09/22/2018 58092 Icd Eval With Inerative Adjustmt Dual Lead System Completed 09/22/2018 79892 Icd Eval With Inerative Adjustmt Dual Lead System Completed 05/19/2017 213002565 Diabetic Retinal Eye Exam Completed Medical Devices Description No Information Available Encounters Type Date Location Provider Dx Diagnosis Office Visit 11/23/2018 [facility], S42.332D Displ oblique fx shaft 1:45p Orthopedics at [facility] of jim frances arm, 7thD [place] Office Visit 11/02/2018 [facility] Bryant S42.332D Displ oblique fx shaft 2:15p [facility] at [facility] of jim frances arm, 7thD [place] Office Visit 10/19/2018 [facility] Bryant S42.332A Displaced oblique fx 3:30p [facility]oped[facility] at [facility] shaft of humerus, left [place] arm, init Office Visit 09/22/2018 [facility] Libia Guo, I42.8 Other cardiomyopathies 2:00p Of Ivtete Soriano Z95.810 Presence of automatic (implantable) cardiac defibrillator I48.0 Paroxysmal atrial fibrillation I50.42 Chronic combined systolic and diastolic hrt fail J44.9 Chronic obstructive pulmonary disease, unspecified Z72.0 Tobacco use I34.0 Nonrheumatic mitral (valve) insufficiency I36.1 Nonrheumatic tricuspid (valve) insufficiency Office Visit 06/30/2018 [place] Bee Olson I42.9 Cardiomyopathy, 1:30p [facility] unspecified [facility] [address] Z95.810 Presence of automatic (implantable) cardiac defibrillator I48.0 Paroxysmal atrial fibrillation I50.42 Chronic combined systolic and diastolic hrt fail Assessments Date Code Description Provider 12/27/2018 S42.332D Displaced oblique fracture of shaft of Annette Barragan M.D. humerus, left arm, subsequent encounter for fracture with routine healing 12/25/2018 I42.9 Cardiomyopathy, unspecified Remote Device Checks 12/25/2018 Z95.810 Presence of automatic (implantable) cardiac Remote Device Checks defibrillator 12/25/2018 I48.0 Paroxysmal atrial fibrillation Remote Device Checks 12/14/2018 S42.332D Displaced oblique fracture of shaft of Stacey Heredia, RPA-C humerus, left arm, subsequent encounter for fracture with routine healing 11/23/2018 S42.332D Displaced oblique fracture of shaft of Stacey Heredia, RPA-C humerus, left arm, subsequent encounter for fracture with routine healing 11/02/2018 S42.332D Displaced oblique fracture of shaft of Annetteeverardo Barragan M.D. humerus, left arm, subsequent encounter for fracture with routine healing 10/19/2018 S42.332A Displaced oblique fracture of shaft [...] Bee S. Foster , N.P. diastolic (conges Plan of Treatment Future Appointment(s):01/15/2019 2:45 pm - Annette Barragan M.D. at [facility] at [facility]7601/09/2019 8:30 am - Duglas Gonzales M.D. at [facility]12/27/2018 - Annette Barragan M.D.S42.332D Displaced oblique fracture of shaft of humerus, left arm, subsequent encounter for fracturewith routine healingNew Xrays:Humerus Left, Ordered: 12/27/18Follow up: Follow up: 3 weeks Functional Status Description No Information Available Mental Status Description No Information Available Referrals Description No Information Available
--- OUTSIDE RECORDS SUMMARY | 2018-12-28 19:17 | XMS REPORT | Continuity of Care Document ---
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 Entresto take 1 tab by 60tabs [...] Available Vital Signs Date Vital Result Comment 11/23/2018 2:13pm Height 64.5 inches 5'4.50" Weight 134.00 lb Heart Rate 100 /min BP Systolic 126 mmHg BP Diastolic 72 mmHg Respiratory Rate 16 /min Body Temperature 97.7 F Pain Level 0 BMI (Body Mass Index) 22.6 kg/m2 11/02/2018 2:11pm Height 64.5 inches 5'4.50" Weight 134.00 lb BP Systolic 125 mmHg BP Diastolic 66 mmHg Respiratory Rate 14 /min Body Temperature 98.0 F Pain Level 1 BMI (Body Mass Index) 22.6 kg/m2 Results Test Date Facility Test Result H/L Range Note Comp Metabolic Panel 06/26/2018 [facility] Sodium 129 mmol/L Low 135-[address] [place] [address] [phone] Potassium 4.6 mmol/L Normal 3.5-5.0 Chloride 96 [...] Egfr 116.7 >60 1 Laboratory test 06/26/2018 [facility] Digoxin 0.5 ng/ml Low 0.8-2.0 [address] [place] [address] [phone] Magnesium 1.8 mg/dL Low 1.9-2.7 3 CBC Auto 06/26/2018 [facility] White Blood 7.1 10^3/uL Normal 3.5-10.[address] [place] [address] [phone] Red Blood Count 3.82 10^6/uL Low 4.18-5.48 [...] <15 (or dialysis) 2 Copy Result to: MIGUEL MOYER ([id number]) 3 Copy Result to: MIGUEL MOYER ([id number]) Procedures Date Code Description Status 09/22/2018 30608 Interrogation Implant Cardiovasc Monitor System Incl Completed Analysis Int 09/22/2018 01971 Interrogation Implant Cardiovasc Monitor System Incl Completed Analysis Int 09/22/2018 42601 Icd Eval With Inerative Adjustmt Dual Lead System Completed 09/22/2018 12215 Icd Eval With Inerative Adjustmt Dual Lead System Completed 05/19/2017 036682933 Diabetic Retinal Eye Exam Completed Medical Devices Description No Information Available Encounters Type Date Location Provider Dx Diagnosis Office Visit 11/02/2018 [facility] S42.332D Displ oblique fx shaft 2:15p [facility] Barragan of humer, l arm, 7thD [facility] Office Visit 10/19/2018 [facility] Annette S42.332A Displaced oblique fx 3:30p [facility] Barragan shaft of humerus, left [facility] arm, init Office Visit 09/22/2018 [place] [facility]ia Guo, I42.8 Other cardiomyopathies 2:00p [facility] Z95.810 Presence of automatic (implantable) cardiac defibrillator I48.0 Paroxysmal atrial fibrillation I50.42 Chronic combined systolic and diastolic hrt fail J44.9 Chronic obstructive pulmonary disease, unspecified Z72.0 Tobacco use I34.0 Nonrheumatic mitral (valve) insufficiency I36.1 Nonrheumatic tricuspid (valve) insufficiency Office Visit 06/30/2018 [place] Olson I42.9 Cardiomyopathy, 1:30p [facility] unspecified [facility] Z95.810 Presence of automatic (implantable) cardiac defibrillator I48.0 Paroxysmal atrial fibrillation I50.42 Chronic combined systolic and diastolic hrt fail Assessments Date Code Description Provider 11/23/2018 S42.332D Displaced oblique fracture of shaft [...] N.P. diastolic (conges Plan of Treatment Future Appointment(s):12/14/2018 2:30 pm - Annette Barragan M.D. at [facility]01/09/2019 8:30 am - Duglas Gonzales M.D. at [facility]11/23/2018 - Stacey Heredia, [facility]-CS42.332D Displaced oblique fracture of shaft of humerus, left arm, subsequent encounter for fracturewith routine healingNew Xrays:Humerus Left, Ordered: 11/23/18Follow up: Follow up: 3 weeks Functional Status Description No Information Available Mental Status Description No Information Available Referrals Description No Information Available
--- OUTSIDE RECORDS SUMMARY | 2018-12-28 19:17 | XMS REPORT | Continuity of Care Document ---
:1950 External Reference #:[id number] Author Name Miguel Moyer D.O. (transmitted by agent of provider Dori Pearce) Address [address] [place] [address] Care Team Providers Name Role Phone [facility] Care Team Information Screen Printing Cloth Spreader - Hematology & Oncology [facility] - Care Team Information Screen Printing Cloth Spreader [place] [facility] Care Team Information Screen Printing Cloth Spreader Ramón Kennedy MD - Care Team Information Screen Printing Cloth Spreader [phone] Otolaryngology Problems Active Problems Provider Date Cough [...] Omeprazole 1 by mouth every day caps [facility], [facility] Paolo RiveraOSharri [address] Calcium + D3 1 by mouth every day 90tabs [facility], Paolo RiveraOSharri 9 [phone] Tablets Spiriva Respimat two inhalations (5mcg) 8gm [facility], once daily (maximum: 2 Blossom Rivera.O. 9 2.5mcg/Act Aerosol inhalations per 24 hours). Venlafaxine HCL ER Take One Capsule By caps João, Mouth Every Day Bartolome Rivera 9 75mg Caps ER 24HR Entresto 1 tablet by mouth 60tabs [facility], 24-26mg twice daily Bartolome Rivera 9 Tablets Ventolin HFA inhale 2 puffs by 54gm [facility], mouth every 4 hours as Bartolome Rivera 9 108(90Base) needed for mcg/Act Aerosol bronchospasm Montelukast Sodium 1 by mouth every day 90tabs [facility], Paolo RiveraOSharri 8 10mg Tablets Docusate Sodium take 2 capsules by 180caps [facility], mouth every day, as Bartolome Rivera 8 100mg Capsules needed for constipation Magox 400 1-4 tablets every 360tabs [facility], night at bedtime as Bartolome Rivera 8 400(241.3mg) mg directed Tablets Thiamine HCL take 1 tablet by mouth 90tabs [facility], daily. Bartolome Rivera 8 100mg Tablets Folic Acid 1 by mouth every day 90tabs [facility], 1mg Bartolome Rivera 8 Tablets Eliquis take one tablet by 180tabs [facility], 5mg mouth twice a day Bartolome Rivera 8 Tablets Digoxin Take One Tablet By 30tabs [facility], 125mcg Mouth Every Day AT 5PM Bartolome Rivera 8 Tablets Azelastine HCL 1-2 sprays bid 90ml J31.0 [facility], (Nasal) Bartolome Rivera 7 0.15% Solution Famotidine Take One Tablet Two 60tabs [facility], 40mg Times A Day as Needed Bartolome Rivera 6 Tablets For Gastroesophageal Reflux Disease Artificial Tears use at night as 1units H04.122 [facility], directed. Bartolome Rivera 5 83-15% Ointment Atorvastatin Take One Tablet By 90tabs [facility], Calcium Mouth Every Day For Bartolome Rivera 5 20mg Prevention Of Heart Tablets Attack And Stroke Symbicort use 2 inhalations by 10.2units R05 [facility], mouth in the morning Bartolome Rivera 4 160-4.5mcg/Act and in the evening , Aerosol gargle after use Oxygen NC 2l nc qhs Sopchak, Bartolome Rivera 4 Epipen 2-Tyson use as directed for 1units Z91.030 [facility], anaphilaxis seek Bartolome Rivera 3 0.3mg/0.3ML medical attention Solution after using. Auto-Inject Metoprolol 1 by mouth every day 90tabs [facility], Succinate ER Bartolome Rivera 0 25mg Tablets ER 24HR Immunizations CPT Code Status Date Vaccine Lot # [id number] Given 10/10/2018 Pneumococcal Immunization [id number] 18757 Given 12/08/2017 Influenza Vaccine, Inactivated, Subunit, [id number] Adjuvanted, For Intrmusc 06519 Given 03/23/2017 Influenza Virus Vaccine, Quadrivalent, Split, [id number] Preservative Free 17461 Given 11/24/2015 Influenza Vaccine Split Virus Preservative Free Im [id number] Use 91751 Given 07/24/2015 Prevnar 13 [id number] 67876 Given 01/27/2015 Influenza Virus Vaccine, Quadrivalent, Split, [id number] Preservative Free 06426 Given 11/19/2013 Influenza Virus Vaccine, Quadrivalent, Split, [id number] Preservative Free 95662 Given 04/23/2013 Pneumococcal Immunization [id number] 04877 Given 11/22/2012 Adacel or Boostrix, TDaP [id number] 42183 Given 11/22/2012 Flu, Split Virus 3Yrs [id number] Vital Signs Date Vital Result Comment 12/28/2018 4:24pm BP Systolic 91 mmHg BP Diastolic 66 mmHg Heart Rate 103 /min O2 % BldC Oximetry 97 % Height 64.50 inches 5'4.50" Weight 163.00 lb BMI (Body Mass Index) 27.5 kg/m2 12/19/2018 5:30pm BP Systolic 132 mmHg BP Diastolic 80 mmHg Results Test Acquired Date Facility Test Result H/L Range Note Xray 12/28/2018 [facility] Medicine X-Ray, <pending> Chest, 2 Views CBC Auto 10/10/2018 [facility] White Blood 5.4 10^3/uL Normal 3.5- 10.8 Diff [phone] Count Red Blood Count 3.80 10^6/uL Low [...] Cells % 0.1 Comp Metabolic Panel 10/10/2018 [facility] Sodium 129 mmol/L Low 135- 145 [phone] Potassium 4.7 mmol/L Normal 3.5-5.0 Chloride 93 [...] 133.5 >60 1 Laboratory test finding 10/10/2018 [facility] Magnesium 1.7 mg/dL Low 1.9-2.7 [phone] TSH (Thyroid Stim Horm) 0.72 mcIU/mL Normal 0.34-5.60 Vitamin B12 260 pg/mL Normal 180-914 2 Manual Differential 10/10/2018 [facility] Neutrophil % 79.0 % [phone] Lymphocytes % 15.0 % Monocytes % 5.0 % Eosinophils % 1.0 % RBC Morphology Normal Normal Laboratory test 10/10/2018 [facility] Pathologist Review (SEE NOTE) 3 finding [phone] Laboratory test 10/10/2018 In House Hemoglobin A1c [...] MD Procedures Date Code Description Status 12/28/2018 02920 Electrocardiogram Complete Completed 12/28/2018 36942 X-Ray Chest 2 V Completed 04/12/2018 [id number] Diabetic Foot Exam Completed 05/19/2017 [id number] Diabetic Retinal Eye Exam Completed 07/04/2013 [id number] Colonoscopy Completed Medical Devices Description No Information [...] Office Visit 10/10/2018 2:30p Main Office Miguel Myoer, E11.65 Type 2 diabetes D.O. 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 12/28/2018 J44.9 Chronic obstructive pulmonary disease, Miguel Moyer D.O. unspecified 12/28/2018 M25.512 Pain in left shoulder Miguel Moyer D.O. 12/28/2018 Z91.81 History of falling Miguel Moyer D.O. 12/28/2018 R29.6 Repeated falls Miguel Moyer [...] mellitus with hyperglycemia Miguel Moyer , D.O. 08/03/2018 F17.210 Nicotine dependence, cigarettes, SopKathy floreson, D.O. uncomplicated 08/03/2018 I48.91 Unspecified atrial fibrillation Miguel Moyer, D.O. 08/03/2018 F41.9 Anxiety disorder, unspecified [place]ak Miguel, D.O. 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 08/03/2018 J44.9 Chronic obstructive pulmonary disease, [place]ak Miguel, D.O. unspecified 08/03/2018 Z95.810 Presence of automatic (implantable) cardiac HusamkMiguel, D.O. defibrillator 08/03/2018 I42.9 Cardiomyopathy, unspecified SopbeltrankKathyon, D.O. 08/03/2018 Z82.49 Family history of ischemic heart disease and Migule Moyer, D.O. other diseases 08/03/2018 Z79.01 prison (current) use of anticoagulants Miguel Moyer, D.O. 08/03/2018 R09.81 Nasal congestion Kathy Moyeron, D.O. 07/11/2018 E11.65 Type 2 diabetes mellitus with hyperglycemia Miguel Moyer , D.O. 07/11/2018 F17.210 Nicotine dependence, cigarettes, Miguel Moyer, D.O. uncomplicated 07/11/2018 I48.91 Unspecified atrial fibrillation Miguel Moyer, D.O. 07/11/2018 F41.9 Anxiety disorder, unspecified Sopchak, Miguel, D.O. 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 07/11/2018 G40.89 Other seizures Kathy Moyeron, D.O. 07/11/2018 J44.9 Chronic obstructive pulmonary disease, SopchakKathyon, D.O. unspecified 07/11/2018 Z95.810 Presence of automatic (implantable) cardiac HusamkKathyon, D.O. defibrillator 07/11/2018 I42.9 Cardiomyopathy, unspecified SopchakKathyon, D.O. 07/11/2018 Z82.49 Family history of ischemic heart disease and Miguel Moyer D.O. other diseases 07/11/2018 Z79.01 prison (current) use of anticoagulants Miguel Moyer D.O. 07/11/2018 I50.42 Chronic combined systolic (congestive) and Miguel Moyer D.O. diastolic (conges 07/11/2018 R06.02 Shortness of breath Miguel Moyer D.O. 07/11/2018 R53.83 Other fatigue Miguel Moyer D.O. Plan of Treatment Future Appointment(s):01/12/2019 11:00 am - Nurse's Schedule at Main Dpwmhk8601/12 11:00 am - Miguel Moyer D.O. at Main Etznmj8312/28/2018 - Miguel Moyer D.O.F40.01 Agoraphobia with panic wlbqddazA82.9 Anxiety disorder, hibkliwkeetW00.91 Unspecified atrial ovuzstzyctvsN96.210 Nicotine dependence, cigarettes, nsbncqorwvbacT72.00 Constipation, xfchknewjnmU79.9 Edema, vqatabqyiisX46.65 Type 2 diabetes mellitus with okdkvrezsfykwP91.9 Cardiomyopathy, jiiujbdliixP97.9 Cardiomyopathy, hlqpkganpaxN10.9 Chronic obstructive pulmonary disease, bdbtoyebcspZ24.512 Pain in left micdacbiO01.81 History of pvzjjeiN90.6 Repeated bichpN35.30xD Fall on same level, unspecified, subsequent drrcuhtvpA75 Dizziness and vsitoubzmN40.02 Shortness of ytpgpnZ11.27 Body mass index (BMI) 27.0-27.9, adult Functional Status Description No Information Available Mental Status Description No Information Available Referrals Description No Information Available
--- NOTE | 2018-12-28 19:26 | ED ---
Palpitations / Dysrhythmia - HPI Summary HPI Summary: Patient sent by primary care to the ED for evaluation of "abnormal EKG". Patient also complains of bilateral pedal edema 1 week, weight gain, distended stomach, mild shortness of breath with exertion 1 week. Patient also has history of humerus fracture from 11/10, pending surgery. Denies orthopnea, fever , cough, sore throat, CP, and/V/V abdominal pain, change in urine, change in BM. Medical history COPD, CAD, CHF, A. fib, DM, EtOH. Patient on Eliquis. Manager Of Finance Dr. Guo. - History of Current Complaint Chief Complaint: EDDysrhythmPalp Time Seen by Provider: 12/28/18 18:34 Hx Obtained From: Patient Onset/Duration: Gradual Onset, Lasting Days Timing: Constant Severity Initially: Mild Severity Currently: Mild Aggravating: Exertion Alleviating: Rest Associated Signs & Symptoms: Shortness of Breath - Allergy/Home Medications Allergies/Adverse Reactions: Allergies Allergy/AdvReac Type Severity Reaction Status Date / Time adhesive Allergy Mild Rash Verified 12/28/18 18:27 bee venom protein (honey bee) Allergy Swelling Verified 12/28/18 18:27 Of Face,Lips,& Throat latex Allergy Facial Verified 12/28/18 18:27 Redness/Flushing PMH/Surg Hx/FS Hx/Imm Hx Endocrine/Hematology History: Reports: Hx Diabetes - DIET CONTROLLED, Hx Anemia Cardiovascular History: Reports: Hx Congestive Heart Failure, Hx Coronary Artery Disease, Hx Hypercholesterolemia - HLD, Hx Hypertension, Hx Pacemaker/ ICD - 08/22/2017, Other Cardiovascular Problems/Disorders - 05/2013 CHEST PAIN, BUT MAY HAVE BEEN PANIC ATTACK Respiratory History: Reports: Hx Chronic Obstructive Pulmonary Disease (COPD), Hx Sleep Apnea - TESTED BY NO DIAGNOSIS, Other Respiratory Problems/Disorders - COPD O2 2L AT NIGHT GI History: Reports: Hx Gastroesophageal Reflux Disease, Other GI Disorders - growth/cyst left groin per pt History: Reports: Hx Kidney Infection - HX OF A YOUNG ADULT Denies: Hx Dialysis, Hx Renal Disease Musculoskeletal History: Reports: Hx Arthritis - HANDS, Hx Back Problems Sensory History: Denies: Hx Contacts or Glasses, Hx Hearing Aid Opthamlomology History: Denies: Hx Contacts or Glasses Neurological History: Reports: Hx Headaches, Hx Migraine - "tension headache", Other Neuro Impairments/Disorders - OCC PANIC ATTACKS Psychiatric History: Reports: Hx Anxiety Denies: Hx Panic Disorder - Surgical History Surgery Procedure, Year, and Place: NASAL POLYPS AND COLON POLYPS REMOVED, TONSILECTOMY, HERNIA, Defibrillatior 07/2017 Hx Anesthesia Reactions: No - Immunization History Immunizations Up to Date: Yes Infectious Disease History: No Infectious Disease History: Denies: History Other Infectious Disease, Traveled Outside the [place] in Last 30 Days - Family History Known Family History: Positive: Cardiac Disease - Social History Alcohol Use: Weekly Alcohol Amount: six beers Substance Use Type: Reports: None Hx Tobacco Use: Yes Smoking Status (MU): Light Every Day Tobacco Smoker Type: Cigarettes Amount Used/How Often: 1/2PPD Length of Time of Smoking/Using Tobacco: 40YRS Have You Smoked in the Last Year: Yes Review of Systems Constitutional: Negative Eyes: Negative ENT: Negative Cardiovascular: Negative Positive: Shortness Of Breath Gastrointestinal: Negative Genitourinary: Negative Positive: Edema Skin: Negative Neurological: Negative Psychological: Normal All Other Systems Reviewed And Are Negative: Yes Physical Exam - Summary Physical Exam Summary: 2+ pitting edema bilaterally lower extremities. Irregular cardiac rhythm of A. fib with controlled rate. Bilateral expiratory wheezing. No crackles or rales. Soft distended nontender abdomen. Triage Information Reviewed: Yes Vital Signs On Initial Exam: Initial Vitals Temp Pulse Resp BP Pulse Ox 99.4 F 112 20 117/76 99 12/28/18 18:23 12/28/18 18:23 12/28/18 18:23 12/28/18 18:23 12/28/18 18:23 Vital Signs Reviewed: Yes Appearance: Positive: Well-Appearing Skin: Positive: Warm Head/Face: Positive: Normal Head/Face Inspection Eyes: Positive: Normal Neck: Positive: Supple Respiratory/Lung Sounds: Positive: Wheezes. Negative: Rales Cardiovascular: Positive: IRR Abdomen Description: Positive: Nontender Musculoskeletal: Positive: Normal Neurological: Positive: Normal Psychiatric: Positive: Normal AVPU Assessment: Alert - Gibran Coma Scale Best Eye Response: 4 - Spontaneous Best Motor Response: 6 - Obeys Commands Best Verbal Response: 5 - Oriented Coma Scale Total: 15 Procedures - Sedation Patient Received Moderate/Deep Sedation with Procedure: No Diagnostics - Vital Signs Vital Signs Temp Pulse Resp BP Pulse Ox 12/28/18 18:37 103 25 109/88 93 12/28/18 18:35 21 12/28/18 18:23 99.4 F 112 20 117/76 99 - Laboratory Lab Results: Lab Results 12/28/18 Range/Units 19:06 WBC 5.7 (3.5-10.8) 10^3/uL RBC 3.67 L (4.18-5.48) 10^6 /uL Hgb 12.8 L (14.0-18.0) g/dL Hct 37 L (42-52) % MCV 101 H (80-94) fL MCH 35 H (27-31) pg MCHC 35 (31-36) g/dL RDW 14 (10-15) % Plt Count 177 (150-450) 10^3/uL MPV 8.2 (7.4-10.4) fL Neut % (Auto) 72.1 % Lymph % (Auto) 18.6 % [place] % (Auto) 7.9 % Eos % (Auto) 0.9 % Baso % (Auto) 0.5 % Absolute Neuts (auto) 4.1 (1.5-7.7) 10^3/ul Absolute Lymphs (auto) 1.1 (1.0-4.8) 10^3/ul Absolute Monos (auto) 0.5 (0-0.8) 10^3/ul Absolute Eos (auto) 0.0 (0-0.6) 10^3/ul Absolute Basos (auto) 0.0 (0-0.2) 10^3/ul Absolute Nucleated RBC 0.0 10^3/ul Nucleated RBC % 0.0 Result Diagrams: 12/28/18 19:06 12/28/18 19:06 Lab Statement: Any lab studies that have been ordered have been reviewed, and results considered in the medical decision making process. Course/Dx - Course Course Of Treatment: Patient sent by primary care to the ED for evaluation of "abnormal EKG". Patient also complains of bilateral pedal edema 1 week, weight gain, distended stomach, mild shortness of breath with exertion 1 week. Patient also has history of humerus fracture from 11/10, pending surgery. Denies orthopnea, fever, cough, sore throat, CP, and/V/V abdominal pain, change in urine, change in BM. Medical history COPD, CAD, CHF, A. fib, DM, EtOH. Patient on Eliquis. Manager Of Finance Dr. Guo. Vital signs within normal limits. BNP 1300. Chest x-ray negative for pulmonary edema, possible small left pleural effusion. Left pleural effusion per lung ultrasound performed by Dr. Panchal attending. Potassium 3.3. 40 MEQ potassium by mouth administered. Sodium 122, near patient's baseline. EKG A. fib with rate of 104. New T- wave inversion in V4 through V6. History of cardiac catheter 2018. Patient evaluated as well by attending Dr. Panchal who agreed patient could be discharged with follow-up with PCP for low sodium monitoring, diuresis. Patient understands and approves of plan. - Diagnoses Provider Diagnoses: COPD (chronic obstructive pulmonary disease), Pleural effusion on left, Afib, Edema of both legs Discharge ED - Sign-Out/Discharge Documenting (check all that apply): Patient Departure - Discharge Plan Condition: Stable Disposition: HOME Patient Education Materials: Pleural Effusion (ED), Leg Edema (ED) Referrals: Miguel Moyer DO [Primary Care Provider] - Additional Instructions: Follow-up with primary care for management of diuresis, and further monitoring of sodium levels. Follow-up with your purchasing internship Dr. Guo regarding EKG changes in V4 through V6. Return to the ED for any new or worsening symptoms. - Billing Disposition and Condition Condition: STABLE Disposition: Home - Attestation Statements Provider Attestation: Patient was presented to me by the APAP. Patient was sent from clinic due to an normal EKG. Patient does have T-wave inversions in his lateral leads which are new. However, patient has no chest pain. Upon my examination, patient is overall well-appearing with some wheezing bilaterally. Patient is a history of COPD and was given a breathing treatment. Patient does not appear fluid overloaded on chest x-ray, physical exam, or bedside ultrasound. Patient does have an elevated BNP but clinically is not in a severe heart failure exacerbation. Patient did not meet inpatient requirements and was discharged with PCP follow-up.
[2018-12-28 19:28] LABS: INR 1.62 (0.82-1.09)
[2018-12-28 19:33] LABS: Albumin 3.6 g/dL (3.2-5.2); Albumin/Globulin Ratio 1.4 (1-3); BUN/Creatinine Ratio 11.9 (8-20); C Reactive Protein 13.13 mg/L (<8.01); Calcium 8.3 mg/dL (8.6-10.3); EGFR Non-African American 90.9 (>60); Globulin 2.5 g/dL (2-4); Potassium 3.3 mmol/L (3.5-5.0); Total Bilirubin 0.9 mg/dL (0.2-1.0); Total Protein 6.1 g/dL (6.4-8.9)
[2018-12-28 19:34] LABS: Troponin I 0.03 ng/mL (<0.04)
[2018-12-28] MEDS ORDERED: Potassium Chlor TAB* 20 MEQ TAB.ER PO ONE (19:42)
[2018-12-28] MEDS ORDERED: Albuterol/Ipratropium NEB.SOL* Albuterol 2.5 MG/Ipratropium 0.5 MG 3 ML INH ONE (20:21)
[2018-12-28 21:27] VITALS: BP 106/78
== END 2018-12-28 21:27 | disposition home or self-care (01) ==
LOC: ED 18:12
DX: J44.9 Chronic obstructive pulmonary disease, unspecified (principal); J90 Pleural effusion, not elsewhere classified; I48.91 Unspecified atrial fibrillation; R60.0 Localized edema; I50.9 Heart failure, unspecified; I25.10 Atherosclerotic heart disease of native coronary artery without angina pectoris; E11.9 Type 2 diabetes mellitus without complications; D64.9 Anemia, unspecified; K21.9 Gastro-esophageal reflux disease without esophagitis; J98.11 Atelectasis; F41.9 Anxiety disorder, unspecified; F17.210 Nicotine dependence, cigarettes, uncomplicated; Z95.810 Presence of automatic (implantable) cardiac defibrillator; Z79.01 Long term (current) use of anticoagulants; Z91.040 Latex allergy status; Z79.899 Other long term (current) drug therapy
CPT/HCPCS: 36415; 71046; 80053; 83880; 84484; 85025; 85610; 86140; 93005; 99282; A9270-GY

== ENCOUNTER 2019-01-26 21:23 | Emergency (ER) | payer MEDICARE ==
--- OUTSIDE RECORDS SUMMARY | 2019-01-26 22:08 | XMS REPORT | Continuity of Care Document ---
:1950 External Reference #:[id number] Author Name Bee Rodgers N.P. (transmitted by agent of provider Tri Kyle) Address [address] 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 Onset: 05/24/2017 Mitral valve disorder [...] (10 or fewer cigarettes/day) Smoking Status Reviewed: 01/19/19 Light tobacco smoker (10 or fewer cigarettes/day) ETOH Use consumes 3-4 beers per day Tobacco Use Start: Unknown Light tobacco smoker quit smoking Joey (10 or fewer 2018 cigarettes/day) Recreational Drug Use Denies Drug Use Exercise Type/Frequency Does not exercise Allergies, Adverse Reactions, Alerts Active Allergies Reaction Severity Comments Date NKDA 05/19/2017 Bee Sting 05/24/2017 Latex 05/24/2017 Adhesives 05/24/2017 Medications Active Medications SIG Qnty Indications Ordering Date Provider Potassium Chloride 1 by mouth every 90tabs I50.42 Bee Rodgers, 2018 [place] ER day N.P. 20Meq Tablets ER Magnesium Oxide 2 tab by mouth 60tabs I50.42 Bee Rodgers, 01/19/2019 400mg every day N.P. Tablets Metoprolol Succinate 1 by mouth every Cardiac-Island 01/18/2019 ER [facility] [employer] 25mg Tablets ER 24HR Torsemide 1 by mouth every 30tabs I50.42 Bee Rodgers, 01/11/2019 20mg Tablets day N.P. Entresto take 1 tab by 60tabs I42.9 Bee Rodgers, 08/30/2017 24-26mg mouth twice daily N.P. Tablets Spiriva Handihaler 1 inhalation by Unknown mouth daily 18mcg Capsules Oxygen 2L via nasal Unknown Misc cannula [...] 30tabs Libia Guo, 125mcg Tablets day M.D. Famotidine 1 by mouth daily Unknown 40mg Tablets Epipen 2-Tyson as directed Unknown Flonase Allergy as needed Unknown Relief Azelastine HCL as needed Unknown 137mcg Symbicort 2 inhaled twice Unknown 160-4.5mcg daily Am/PM History Medications Left Humerus Size small dx: 1units S42.332A Annette Barragan, 10/19/2018 - Fracture Brace s42.332D M.DSharri 01/19/2019 Immunizations Description No Information Available Vital Signs Date Vital Result Comment 01/19/2019 12:59pm Height 65.5 inches 5'5.50" Weight 160.25 lb clothes and shoes Heart Rate 116 /min apical BP Systolic Sitting 114 mmHg ure reg cuff BP Diastolic Sitting 66 mmHg ure reg cuff O2 % BldC Oximetry 97 % room air BMI (Body Mass Index) 26.3 kg/m2 Ejection Fraction 20-25% Echo 05/02/18 01/15/2019 3:00pm Height 65.5 inches 5'5.50" Weight 160.00 lb Heart Rate 66 /min BP Systolic Sitting 127 mmHg BP Diastolic Sitting 77 mmHg Respiratory Rate 16 /min Pain Level 0 O2 % BldC Oximetry 88 % BMI (Body Mass Index) 26.2 kg/m2 Results Test Acquired Date Facility Test Result H/L Range Note Basic Metabolic 01/18/2019 [facility] Sodium 125 mmol/L Low 135-145 Panel [address] [place] [address] [phone] Potassium 3.8 mmol/L Normal 3.5-5.0 Chloride 86 mmol/L Low 101-111 Co2 Carbon Dioxide 32 mmol/L Normal 22-32 Anion Gap 7 mmol/L Normal 2-11 Glucose 137 mg/dL High 70-100 Blood Urea Nitrogen 7 mg/dL Normal 6-24 Creatinine 0.86 mg/dL Normal 0.67-1.17 BUN/Creatinine Ratio 8.1 Normal 8-20 Calcium 8.5 mg/dL Low 8.6-10.3 Egfr Non- 88.4 >60 Egfr 107.0 >60 1 Laboratory test 01/18/2019 [facility] Magnesium 1.3 mg/dL Low 1.9-2.[address] [place] [address] [phone] B-Type Natriuretic Peptide BNP > 1300 pg/mL High <=100 Laboratory test 01/11/2019 [facility] B-Type Natriuretic < pending> finding [address] [facility] [place] [address] [phone] Laboratory test 01/11/2019 [facility] Magnesium <pending> finding [address] [place] [address] [phone] 1 Because ethnic data is not always [...] (or dialysis) Procedures Date Code Description Status 01/11/2019 39815 EKG Tracing & Interpretation Completed 12/25/2018 14463 Interrogation Device Eval Remote Up To 30 Days Completed Analysis,Rev,RP 12/25/2018 13750 Interrogation Device Eval Remote Up To [address] Completed Analysis,Rev,RP 12/25/2018 45924 Icd Eval Sing,Dual,Multi Lead Remote Recpt Transm Tech Completed Rev Tech S 12/25/2018 23237 Icd Eval Sing,Dual,Multi Lead Remote Recpt Transm Tech Completed Rev Tech S 12/25/2018 79950 Icd Check Remote Up To 90 Days Single,Dual,Multiple Completed Lead 12/25/2018 51124 Icd Check Remote Up To 90 Days Single,Dual,Multiple Completed Lead 09/22/2018 25014 EKG Tracing & Interpretation Completed 09/22/2018 04346 Interrogation Implant Cardiovasc Monitor System Incl Completed Analysis Int 09/22/2018 42439 Interrogation Implant Cardiovasc Monitor System Incl Completed Analysis Int 09/22/2018 23080 Icd Eval With Inerative Adjustmt Dual Lead System Completed 09/22/2018 44638 Icd Eval With Inerative Adjustmt Dual Lead System Completed 05/19/2017 384257830 Diabetic Retinal Eye Exam Completed Medical Devices Description No Information Available Encounters Type Date Location Provider Dx Diagnosis Office Visit 01/11/2019 [facility] Bee Rodgers, I42.9 Cardiomyopathy, 3:00p Of Huc N.P. unspecified Z95.810 Presence of automatic (implantable) cardiac defibrillator I48.0 Paroxysmal atrial fibrillation I50.42 Chronic combined systolic and diastolic hrt fail Z72.0 Tobacco use J44.9 Chronic obstructive pulmonary disease, unspecified Office Visit 12/27/2018 2:15p [facility] Annette S42.332D Displ oblique at [place] Barragan M.D. fx shaft of humer, l arm, 7thD S42.332K Displ oblique fx shaft of humer, l arm, 7thK Office Visit 12/14/2018 [facility] Heredia S42.332D Displ oblique 2:15p Orthopedics at [facility] fx shaft of [place] humer, l arm, 7thD Office Visit 11/23/2018 [facility] Heredia S42.332D Displ oblique 1:45p Orthopedics at [facility] fx shaft of [place] humer, l arm, 7thD Office Visit 11/02/2018 [facility] S42.332D Displ oblique 2:15p [facility] at [place] Barragan fx shaft of [place] humer, l arm, 7thD Office Visit 10/19/2018 [facility] Bryant S42.332A Displaced 3:30p [facility] at [place] Barragan oblique fx [place] shaft of humerus, left arm, init Assessments Date Code Description Provider 01/19/2019 I48.0 Paroxysmal atrial fibrillation Bee S. Vishal, N.P. 01/19/2019 I50.42 Chronic combined systolic (congestive) and Bee S. Foster , N.P. diastolic (conges 01/19/2019 Z95.810 Presence of automatic (implantable) cardiac Bee S. Vishal, N.P. defibrillator 01/19/2019 I42.9 Cardiomyopathy, unspecified Bee S. Foster, N.P. 01/15/2019 S42.332K Displaced oblique fracture of shaft of Annette Barragan M.D. humerus, left arm, subsequent encounter for fracture with nonunion 01/11/2019 R94.31 Abnormal electrocardiogram [ECG] [EKG] Libia Guo M.D. 01/11/2019 I42.9 Cardiomyopathy, unspecified Bee S. Vishal, N.P. 01/11/2019 Z95.810 Presence of automatic (implantable) cardiac Bee S. Foster, N.P. defibrillator 01/11/2019 I48.0 Paroxysmal atrial fibrillation Bee S. Foster, N.P. 01/11/2019 I50.42 Chronic combined systolic (congestive) and Bee S. Foster , N.P. diastolic (conges 01/11/2019 Z72.0 Tobacco use Bee Rodgers, N.P. 01/11/2019 J44.9 Chronic obstructive pulmonary disease, Bee Rodgers, N.P. unspecified 12/27/2018 S42.332D Displaced oblique fracture of shaft of Annette Barragan Gricel.D. humerus, left arm, subsequent encounter for fracture with routine healing 12/27/2018 S42.332K Displaced oblique fracture of shaft of Annette Barragan Gricel.D. humerus, left arm, subsequent encounter for fracture with nonunion 12/25/2018 I42.9 Cardiomyopathy, unspecified Libia Guo M.D. 12/25/2018 I42.9 Cardiomyopathy, unspecified Remote Device Checks 12/25/2018 Z95.810 Presence of automatic (implantable) cardiac Libia Guo M.D. defibrillator 12/25/2018 Z95.810 Presence of automatic (implantable) cardiac Remote Device Checks defibrillator 12/25/2018 I48.0 Paroxysmal atrial fibrillation Libia Guo M.D. 12/25/2018 I48.0 Paroxysmal atrial fibrillation Remote Device Checks 12/14/2018 S42.332D Displaced oblique fracture of shaft of Stacey Heredia, RPA-C humerus, left arm, subsequent encounter for fracture with routine healing 11/23/2018 S42.332D Displaced oblique fracture of shaft of Stacey Heredia, RPA-C humerus, left arm, subsequent encounter for fracture with routine healing 11/02/2018 S42.332D Displaced oblique fracture of shaft of Annette Barragan Gricel.D. humerus, left arm, subsequent encounter for fracture with routine healing 10/19/2018 S42.332A Displaced oblique fracture of shaft of Annette Barragan Gricel.D. humerus, left arm, initial encounter for closed [...] Nonrheumatic tricuspid (valve) Libia Guo M.D. insufficiency Plan of Treatment Future Appointment(s):01/26/2019 4:00 pm - Libia Gu[facility] M.D. at [facility]01/19/2019 - Bee Rodgers N.P.I48.0 Paroxysmal atrial ttkpxwhlewxsQ46.42 Chronic combined systolic (congestive) and diastolic ( congesNew Medication:Potassium Chloride [place] ER 20 Meq - 1 by mouth every dayMagnesium Oxide 400 mg - 2 tab by mouth every dayFollow up:OV w/ LS on Tuesday 01/23 or add on with me 01/23 in AM when LS there.Recommendations:Start KCl and Magnesium supplements. Take 1.5 tab of Torsemide on Sat and Sun, go back to 1 tab daily If weight is going up by 2-3 lbs call us.Z95.810 Presence of automatic (implantable) cardiac njzjvvthhctvjS84.9 Cardiomyopathy, unspecified Functional Status Description No Information Available Mental Status Description No Information Available Referrals Description No Information Available
--- OUTSIDE RECORDS SUMMARY | 2019-01-26 22:09 | XMS REPORT | Continuity of Care Document ---
:1950 External Reference #:[id number] Author Name Bee Rodgers N.P. (transmitted by agent of provider Silvia Serrano) Address [address] 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 Tablets Left Humerus Size small dx: 1units S42.332A [...] 2 inhaled twice Unknown 160-4.5mcg daily Am/PM Immunizations Description No Information Available Vital Signs Date Vital Result Comment 01/11/2019 2:52pm Height 65.5 inches 5'5.50" Weight 160.50 lb with shoes Heart Rate 104 /min BP Systolic Sitting 100 mmHg Ra BP Diastolic Sitting 80 mmHg Ra BP Systolic Standing 102 mmHg Ra BP Diastolic Standing 80 mmHg Ra O2 % BldC Oximetry 97 % BMI (Body Mass Index) 26.3 kg/m2 Ejection Fraction 20-25% Echo 2/19/19 12/27/2018 2:07pm Height 65.5 inches 5'5.50" Weight 142.00 lb BP Systolic 116 mmHg BP Diastolic 68 mmHg Body Temperature 97.8 F BMI (Body Mass Index) 23.3 kg/m2 Results Description No Information Available Procedures Date Code Description Status 01/11/2019 63055 EKG Tracing & Interpretation Completed 12/25/2018 38305 Interrogation Device Eval Remote Up To 30 Days Completed Analysis,Rev,RP 12/25/2018 99856 Interrogation Device Eval Remote Up To 30 Days Completed Analysis,Rev,RP 12/25/2018 58847 Icd Eval Sing,Dual,Multi Lead Remote Recpt Transm Tech Completed Rev Tech S 12/25/2018 66355 Icd Eval Sing,Dual,Multi Lead Remote Recpt Transm Tech Completed Rev Tech S 12/25/2018 46230 Icd Check Remote Up To 90 Days Single,Dual,Multiple Completed Lead 12/25/2018 24657 Icd Check Remote Up To 90 Days Single,Dual,Multiple Completed Lead 09/22/2018 68289 EKG Tracing & Interpretation Completed 09/22/2018 75207 Interrogation Implant Cardiovasc Monitor System Incl Completed Analysis Int 09/22/2018 38145 Interrogation Implant Cardiovasc Monitor System Incl Completed Analysis Int 09/22/2018 31806 Icd Eval With Inerative Adjustmt Dual Lead System Completed 09/22/2018 14089 Icd Eval With Inerative Adjustmt Dual Lead System Completed 05/19/2017 729685052 Diabetic Retinal Eye Exam Completed Medical Devices Description No Information Available Encounters Type Date Location Provider Dx Diagnosis Office Visit 01/11/2019 [facility] Bee Rodgers, I42.9 Cardiomyopathy, 3:00p Of [place] Hanger N.P. unspecified Z95.810 Presence of automatic (implantable) cardiac defibrillator I48.0 Paroxysmal atrial fibrillation I50.42 Chronic combined systolic and diastolic hrt fail Z72.0 Tobacco use J44.9 Chronic obstructive pulmonary disease, unspecified Office Visit 12/27/2018 2:15p [facility] Annette S42.332D Displ oblique at [place] Barragan M.D. fx shaft of humer, l arm, 7thD S42.332K Displ oblique fx shaft of humer, l arm, 7thK Office Visit 12/14/2018 [facility] Hightowerabdifatah, S42.332D Displ oblique 2:15p Orthopedics at [facility]- fx shaft of [place] frances, l arm, 7thD Office Visit 11/23/2018 [facility] Heredia, S42.332D Displ oblique 1:45p Orthopedics at [facility] fx shaft of [place] frances, l arm, 7thD Office Visit 11/02/2018 [facility] Fowler[place]te S42.332D Displ oblique 2:15p [facility]oped[facility] at [place] Barragan fx shaft of [place] frances, l arm, 7thD Office Visit 10/19/2018 [facility] Fowlerhanie S42.332A Displaced 3:30p [facility] at [place] Barragan oblique fx [employer] shaft of humerus, left arm, init Assessments Date Code Description Provider 01/11/2019 I42.9 Cardiomyopathy, unspecified Bee Rodgers, N.P. 01/11/2019 Z95.810 Presence of automatic (implantable) cardiac Bee Rodgers, N.P. defibrillator 01/11/2019 I48.0 Paroxysmal atrial fibrillation Bee SSharri Rodgers, N.P. 01/11/2019 I50.42 Chronic combined systolic (congestive) and Bee S. Vishal , N.P. diastolic (conges 01/11/2019 Z72.0 Tobacco [...] Displaced oblique fracture of shaft of Annette [place] Barragan humerus, left arm, subsequent encounter for fracture [...] Guo M.D. insufficiency Plan of Treatment Future Appointment(s):01/19/2019 1:00 pm - Bee Rodgers N.P. at [facility]27/04/2019 2:45 pm - Annette Barragan M.D. at [facility] at [facility]2001/11/2019 - Bee Rodgers N.P.I42.9 Cardiomyopathy, unspecifiedRecommendations:we would like to refer you to a heart failure specialist once you are more stable.Z95.810 Presence of automatic (implantable) cardiac cjalwrzmciscmA79.0 Paroxysmal atrial avsfwpxiymmkB04.42 Chronic combined systolic (congestive) and diastolic (congesNew Medication:Torsemide 20 mg - 1 by mouth every dayNew Labs:B-Type Natriuretic Peptide BNP, Ordered: 01/11Basic Metabolic Panel, Ordered: 01/11/19Magnesium, Ordered: 01/11/19Follow up :OV w/ me next week. ok to add on Tuesday 1245 p 1p my time.Recommendations:Stop Lasix Start Torsemide 20mg daily Have labs checked in 1 week Take weights daily and check in with us on Tuesday to see how breathing is.Z72.0 Tobacco useJ44.9 Chronic obstructive pulmonary disease, unspecified Functional Status Description No Information Available Mental Status Description No Information Available Referrals Description No Information Available
--- OUTSIDE RECORDS SUMMARY | 2019-01-26 22:09 | XMS REPORT | Continuity of Care Document ---
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 [phone] Medicine Problems Active Problems Provider Date Paroxysmal [...] S42.332A Annette Barragan, 10/19/2018 Fracture Brace s42.332D [place] Entresto take 1 tab by 60tabs I42.9 [...] Available Procedures Date Code Description Status 12/25/2018 55564 Interrogation Device Eval Remote Up To 30 Days Completed Analysis,Rev,RP 12/25/2018 42865 Interrogation Device Eval Remote Up To 30 Days Completed Analysis,Rev,RP 12/25/2018 34076 Icd Eval Sing,Dual,Multi Lead Remote Recpt Transm Tech Completed Rev Tech S 12/25/2018 20794 Icd Eval Sing,Dual,Multi Lead Remote Recpt Transm Tech Completed Rev Tech S 12/25/2018 18032 Icd Check Remote Up To 90 Days Single,Dual,Multiple Completed Lead 12/25/2018 08237 Icd Check Remote Up To 90 Days Single,Dual,Multiple Completed Lead 09/22/2018 18329 Interrogation Implant Cardiovasc Monitor System Incl Completed Analysis Int 09/22/2018 34821 Interrogation Implant Cardiovasc Monitor System Incl Completed Analysis Int 09/22/2018 40135 Icd Eval With Inerative Adjustmt Dual Lead System Completed 09/22/2018 59956 Icd Eval With Inerative Adjustmt Dual Lead System Completed 05/19/2017 901209278 Diabetic Retinal Eye Exam Completed Medical Devices Description No Information Available Encounters Type Date Location Provider Dx Diagnosis Office Visit 12/27/2018 [facility] Annette Barragan S42.332D Displ oblique fx 2:15p at [place] shaft of humer, l arm, 7thD S42.332K Displ oblique fx shaft of humer, l arm, 7thK Office 12/14/2018 [facility] Ibarra S42.332D Displ oblique fx Visit 2:15p Orthopedics at [facility] shaft of humer, l Schaller arm, 7thD Office 11/23/2018 [facility] Ibarra S42.332D Displ oblique fx Visit 1:45p Orthopedics at [facility] shaft of humer, l Schaller arm, 7thD Office 11/02/2018 [facility] Bryant S42.332D Displ oblique fx Visit 2:15p [facility] at [place] Barr[facility] shaft of humer, l Schaller arm, 7thD Office 10/19/2018 [facility] Bryant S42.332A Displaced oblique fx Visit 3:30p [facility] at [place] Barragan shaft of humerus, Schaller left arm, init Office 09/22/2018 [place] [facility] I42.8 Other Visit 2:00p [facility] cardiomyopathies [facility] Z95.810 Presence of automatic (implantable) cardiac defibrillator I48.0 Paroxysmal atrial fibrillation I50.42 Chronic combined systolic and diastolic hrt fail J44.9 Chronic obstructive pulmonary disease, unspecified Z72.0 Tobacco use I34.0 Nonrheumatic mitral (valve) insufficiency I36.1 Nonrheumatic tricuspid (valve) insufficiency Assessments Date Code Description Provider 12/27/2018 S42.332D [...] Displaced oblique fracture of shaft of Stacey Hightowerting, RPA-C humerus, left arm, subsequent encounter for [...] Guo M.D. insufficiency Plan of Treatment Future Appointment(s):01/15/2019 2:45 pm - Annette Barragan M.D. at [facility] at [facility]0112/27/2018 - Annette Barragan M.D.S42.332D Displaced oblique fracture of shaft of humerus, left arm, subsequent encounter for fracturewith routine healingFollow up:Follow up: 3 vzpfyE40.332K Displaced oblique fracture of shaft of humerus, left arm, subsequent encounter for fracturewith nonunionFollow up:Follow up: 3 weeks Functional Status Description No Information Available Mental Status Description No Information Available Referrals Description No Information Available
--- OUTSIDE RECORDS SUMMARY | 2019-01-26 22:09 | XMS REPORT | Continuity of Care Document ---
:1950 External Reference #:[id number] Author Name Miguel Moyer D.O. Address [address] [place] [id number] Care Team Providers Name Role Phone [facility] Care Team Information Head And Neck Surgeon - Hematology & Oncology [facility] - Care Team Information Head And Neck Surgeon Pulmonary Rehabilitation [facility] - Ophthalmology Care Team Information Head And Neck Surgeon [phone] Ramón Kennedy MD - Care Team Information Head And Neck Surgeon [phone] Otolaryngology Problems Active Problems Provider Date Cough [...] - 51 PACK YEARS Smoking Status Reviewed: 01/12/19 Patient is a current SMOKED FROM AGE [...] Medications SIG Qnty Indications Ordering Date Provider Torsemide one po daily in am Unknown 20mg 9 Tablets Polyethylene 17-34 g of powder (~1 1581gm [facility], Glycol 3350 heaping tablespoon) Bartolome Rivera 9 dissolved in 4-8 3350NF Powder ounces of beverage, once daily Furosemide take 1 tablet by mouth ta [facility], 20mg daily. Bartolome Rivera 9 Tablets Potassium Chloride 2 by mouth every day [facility], ER with each tablet of Bartolome Rivera 9 10Meq Capsules furosemide ER Omeprazole 1 by mouth every day [facility], 20mg Bartolome Rivera [address] Calcium + D3 1 by mouth every day ta [facility], Bartolome Rivera 9 [id number] Tablets Spiriva Respimat two inhalations (5mcg) 8gm [facility], once daily (maximum: 2 Miguel D.O. 9 2.5mcg/Act Aerosol inhalations per 24 hours). Venlafaxine HCL ER Take One Capsule By 90caps [facility], Mouth Every Day Paolo RiveraOSharri 9 75mg Caps ER 24HR Entresto 1 tablet by mouth 60tabs [facility], 24-26mg twice daily Paolo RiveraOSharri 9 Tablets Ventolin HFA inhale 2 puffs by 54gm [facility], mouth every 4 hours as Paolo RiveraOSharri 9 108(90Base) needed for mcg/Act Aerosol bronchospasm Montelukast Sodium 1 by mouth every day 90tabs [facility], Paolo RiveraO. 8 10mg Tablets Magox 400 1-4 tablets every 360tabs [facility], night at bedtime as Bartolome Rivera 8 400(241.3mg) mg directed Tablets Docusate Sodium take 2 capsules by 180caps [facility], mouth every day, as Paolo RiveraOSharri 8 100mg Capsules needed for constipation Digoxin Take One Tablet By 30tabs [facility], 125mcg Mouth Every Day AT 5PM Paolo RiveraOSharri 8 Tablets Eliquis take one tablet by 180tabs [facility], 5mg mouth twice a day Paolo RiveraOSharri 8 Tablets Folic Acid 1 by mouth every day 90tabs [facility], 1mg Paolo RiveraOSharri 8 Tablets Thiamine HCL take 1 tablet by mouth 90tabs [facility], daily. Paolo RiveraO. 8 100mg Tablets Azelastine HCL 1-2 sprays bid 90ml J31.0 [facility], (Nasal) Paolo RiveraO. 7 0.15% Solution Famotidine Take One Tablet Two 60tabs [facility], 40mg Times A Day as Needed Paolo RiveraOSharri 6 Tablets For Gastroesophageal Reflux Disease Artificial Tears use at night as 1units H04.122 [facility], directed. Bartolome Rivera 5 83-15% Ointment Atorvastatin Take One Tablet By 90tabs [facility], Calcium Mouth Every Day For Bartolome Rivera 5 20mg Prevention Of Heart Tablets Attack And Stroke Symbicort use 2 inhalations by 10.2units R05 [facility], mouth in the morning Bartolome Rivera 4 160-4.5mcg/Act and in the evening , Aerosol gargle after use Oxygen NC 2l nc qhs [facility], Bartolome Rivera 4 Epipen 2-Tyson use as directed for 1units Z91.030 [facility], anaphilaxis seek Bartolome Rivera 3 0.3mg/0.3ML medical attention Solution after using. Auto-Inject Metoprolol 1 by mouth every day 90tabs [facility], / Succinate ER Bartolome Rivera 0 25mg Tablets ER 24HR Immunizations CPT Code Status Date Vaccine Lot # [id number] Given 01/12/2019 Influenza Vaccine, Inactivated, Subunit, [id number] Adjuvanted, For [facility] 43584 Given 10/10/2018 Pneumococcal Immunization [id number] 89893 Given 12/08/2017 Influenza Vaccine, Inactivated, Subunit, [id number] Adjuvanted, For [facility] 13433 Given 03/23/2017 Influenza Virus Vaccine, Quadrivalent, Split, [id number] Preservative Free 69399 Given 11/24/2015 Influenza Vaccine Split Virus Preservative Free Im [id number] Use 86329 Given 07/24/2015 Prevnar 13 [id number] 57255 Given 01/27/2015 Influenza Virus Vaccine, Quadrivalent, Split, [id number] Preservative Free 37690 Given 11/19/2013 Influenza Virus Vaccine, Quadrivalent, Split, [id number] Preservative Free 48499 Given 04/23/2013 Pneumococcal Immunization [id number] 21800 Given 11/22/2012 Adacel or Boostrix, TDaP [id number] 72083 Given 11/22/2012 Flu, Split Virus 3Yrs [id number] Vital Signs Date Vital Result Comment 01/12/2019 11:39am BP Systolic 104 mmHg BP Diastolic 62 mmHg Weight 164.00 lb 01/01/2019 4:22pm BP Systolic 104 mmHg BP Diastolic 64 mmHg Weight 166.00 lb Results Test Acquired Date Facility Test Result H/L Range Note Laboratory test 01/12/2019 In House Hemoglobin A1c 6.3 finding Basic Metabolic 01/08/2019 [facility] Sodium 130 mmol/L Low 135-145 Panel [phone] Potassium 4.3 mmol/L Normal 3.5-5.0 Chloride 92 mmol/L Low 101-111 Co2 Carbon Dioxide 30 mmol/L Normal 22-32 Anion Gap 8 mmol/L Normal 2-11 Glucose 171 mg/dL High 70-100 Blood Urea Nitrogen 5 mg/dL Low 6-24 Creatinine 0.82 mg/dL Normal 0.67-1.17 BUN/Creatinine Ratio 6.1 Low 8-20 Calcium 9.1 mg/dL Normal 8.6-10.3 Egfr Non- 93.4 >60 Egfr 113.1 >60 1 CBC Auto Diff 12/28/2018 [facility] White Blood 5.7 10^3/uL Normal 3.5-10.8 [phone] Count Red Blood Count 3.67 10^6/uL Low 4.18-5.48 Hemoglobin 12.8 g/dL Low 14.0-18.0 Hematocrit 37 % Low 42-52 Mean Corpuscular Volume 101 fL High 80-94 Mean Corpuscular Hemoglobin 35 pg High 27-31 Mean Corpuscular HGB Conc 35 g/dL Normal 31-36 Red Cell Distribution Width 14 % Normal 10-15 Platelet Count 177 10^3/uL Normal 150-450 Mean Platelet Volume 8.2 fL Normal 7.4-10.4 Abs Neutrophils 4.1 10^3/uL Normal 1.5-7.7 Abs Lymphocytes 1.1 10^3/uL Normal 1.0-4.8 Abs Monocytes 0.5 10^3/uL Normal 0-0.8 Abs Eosinophils 0.0 10^3/uL Normal 0-0.6 Abs Basophils 0.0 10^3/uL Normal 0-0.2 Abs Nucleated RBC 0.0 10^3/uL Granulocyte % 72.1 % Lymphocyte % 18.6 % Monocyte % 7.9 % Eosinophil % 0.9 % Basophil % 0.5 % Nucleated Red Blood Cells % 0.0 Inr/Protime 12/28/2018 [facility] Inr 1.62 High 0.82-1.09 2 [phone] Comp Metabolic Panel 12/28/2018 [facility] Sodium 122 mmol/L Low 135- 145 [phone] Potassium 3.3 mmol/L Low 3.5-5.0 Chloride 87 mmol/L Low 101-111 Co2 Carbon Dioxide 27 mmol/L Normal 22-32 Anion Gap 8 mmol/L Normal 2-11 Glucose 111 mg/dL High 70-100 Blood Urea Nitrogen 10 mg/dL Normal 6-24 Creatinine 0.84 mg/dL Normal 0.67-1.17 BUN/Creatinine Ratio 11.9 Normal 8-20 Calcium 8.3 mg/dL Low 8.6-10.3 Total Protein 6.1 g/dL Low 6.4-8.9 Albumin 3.6 g/dL Normal 3.2-5.2 Globulin 2.5 g/dL Normal 2-4 Albumin/Globulin Ratio 1.4 Normal 1-3 Total Bilirubin 0.90 mg/dL Normal 0.2-1.0 Alkaline Phosphatase 139 U/L High 34-104 Alt 34 U/L Normal 7-52 Ast 38 U/L Normal 13-39 Egfr Non- 90.9 >60 Egfr 110.0 >60 3 Laboratory test 12/28/2018 [facility] C Reactive 13.13 mg/L High < 8.01 finding [phone] Protein Troponin-I (TnI) 0.03 ng/mL <0.04 4 B-Type Natriuretic Peptide BNP > 1300 pg/mL High <=100 CBC Auto Diff 10/10/2018 [facility] White Blood 5.4 10^3/uL Normal 3.5-10.8 [phone] Count Red Blood Count 3.80 10^6/uL Low [...] Cells % 0.1 Comp Metabolic Panel 10/10/2018 [facility] Sodium 129 mmol/L Low 135- 145 [phone] Potassium 4.7 mmol/L Normal 3.5-5.0 Chloride 93 [...] Egfr Non- 110.3 >60 Egfr 133.5 >60 5 Laboratory test finding 10/10/2018 [facility] Magnesium 1.7 mg/dL Low 1.9-2.7 [phone] TSH (Thyroid Stim Horm) 0.72 mcIU/mL Normal 0.34-5.60 Vitamin B12 260 pg/mL Normal 180-914 6 Manual Differential 10/10/2018 [facility] Neutrophil % 79.0 % [phone] Lymphocytes % 15.0 % Monocytes % 5.0 % Eosinophils % 1.0 % RBC Morphology Normal Normal Laboratory test 10/10/2018 [facility] Review (SEE NOTE) 7 finding [phone] Laboratory test 10/10/2018 In House Hemoglobin A1c 5.5 finding 1 Because ethnic data is not [...] 5 Kidney failure <15 (or dialysis) 2 Standard intensity warfarin therapeutic range: 2.0-3.0 High intensity warfarin therapeutic range: 2.5-3.5 3 Because ethnic data is not always [...] 5 Kidney failure <15 (or dialysis) 4 Troponin-I testing on Plasma Separator Tubes (PST) has a known false positive rate of 0.20-0.40%. All positive troponins reflex immediately to secondary confirmatory testing. Using the [employer] DxI 800 Access Immunoassay systems, the 99th percentile upper reference limit was demonstrated to be < 0.03 ng/mL. 5 Because ethnic data is not always readily [...] 15-29 5 Kidney failure <15 (or dialysis) 6 Normal Range 180 to 914 Indeterminate Range 145 to 180 Deficient Range <145 7 Macrocytic anemia. Reviewed by Flor Arango MD Procedures Date Code Description Status 12/28/2018 19173 Electrocardiogram Complete Completed 12/28/2018 51335 X-Ray Chest 2 V Completed 04/12/2018 [id number] Diabetic Foot Exam Completed 05/19/2017 047119291 Diabetic Retinal Eye Exam Completed 07/04/2013 [id number] Colonoscopy Completed Medical Devices Description No Information Available Encounters Type Date Location Provider Dx Diagnosis Office Visit 01/12/2019 Main Office Miguel Moyer, E11.65 Type 2 diabetes 11:00a D.O. mellitus with hyperglycemia F17.210 Nicotine dependence, cigarettes, uncomplicated I42.9 Cardiomyopathy, unspecified I48.91 Unspecified atrial fibrillation J44.9 Chronic obstructive pulmonary disease, unspecified K59.00 Constipation, unspecified I50.42 Chronic combined systolic and diastolic hrt fail S42.332D Displ oblique fx shaft of humer, l arm, 7thD Z23 Encounter for immunization Office Visit 01/01/2019 3:45p Main Office Miguel Moyer, J90 Pleural effusion, D.O. 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 breath J44.9 Chronic obstructive pulmonary disease, unspecified I48.91 Unspecified atrial fibrillation F17.210 Nicotine dependence, cigarettes, uncomplicated K59.00 Constipation, unspecified R60.9 Edema, unspecified E11.65 Type 2 diabetes mellitus with hyperglycemia I42.9 Cardiomyopathy, unspecified I42.9 Cardiomyopathy, unspecified Z68.27 Body mass index (BMI) 27.0-27.9, adult [...] sys Z79.01 FPC (current) use of anticoagulants R09.81 Nasal congestion Assessments Date Code Description Provider 01/12/2019 E11.65 Type 2 diabetes mellitus with hyperglycemia Miguel Moyer D.O. 01/12/2019 F17.210 Nicotine dependence, cigarettes, Miguel Moyer D.O. uncomplicated 01/12/2019 I42.9 Cardiomyopathy, unspecified Miguel Moyer, D.O. 01/12/2019 I48.91 Unspecified atrial fibrillation Miguel Moyer D.O. 01/12/2019 J44.9 Chronic obstructive pulmonary disease, Miguel Moyer, D.O. unspecified 01/12/2019 K59.00 Constipation, unspecified Kathy Moyeron, D.O. 01/12/2019 I50.42 Chronic combined systolic (congestive) and Miguel Moyer D.O. diastolic (congestive) heart failure 01/12/2019 S42.332D Displaced oblique fracture of shaft of Miguel Moyer D.O. humerus, left arm, subsequent encounter for fracture with routine healing 01/12/2019 Z23 Encounter for immunization Miguel Moyer D.O. 01/01/2019 J90 Pleural effusion, not elsewhere classified Miguel Moyer D.O. 01/01/2019 E11.65 Type 2 diabetes mellitus with hyperglycemia Miguel Moyer D.O. 01/01/2019 F17.210 Nicotine dependence, cigarettes, Miguel Moyer, D.O. 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 01/01/2019 F41.9 Anxiety disorder, unspecified Miguel Moyer D.O. 01/01/2019 I42.9 Cardiomyopathy, unspecified Miguel Moyer D.O. 01/01/2019 I48.91 Unspecified atrial fibrillation Miguel Moyer D.O. 01/01/2019 J44.9 Chronic obstructive pulmonary disease, Miguel Moyer D.O. unspecified 01/01/2019 K59.00 Constipation, unspecified Miguel Moyer D.O. 01/01/2019 M25.512 Pain in left shoulder Miguel Moyer D.O. 01/01/2019 R29.6 Repeated falls Miguel Moyer D.O. 01/01/2019 R60.9 Edema, unspecified Miguel Moyer D.O. 01/01/2019 Z91.81 History of falling Miguel Moyer D.O. 01/01/2019 W18.30xD Fall on same level, unspecified, subsequent SopMiguel flores D.O. encounter 12/28/2018 R06.02 Shortness of breath Miguel Moyer D.O. 12/28/2018 J44.9 Chronic obstructive pulmonary disease, Miguel Moyer, D.O. unspecified 12/28/2018 I48.91 Unspecified atrial fibrillation Miguel Moyer D.O. 12/28/2018 F17.210 Nicotine dependence, cigarettes, Miguel Moyer, D.O. uncomplicated 12/28/2018 K59.00 Constipation, unspecified Miguel Moyer, D.O. 12/28/2018 R60.9 Edema, unspecified Miguel Moyer, D.O. 12/28/2018 E11.65 Type 2 diabetes mellitus with hyperglycemia Miguel Moyer D.O. 12/28/2018 I42.9 Cardiomyopathy, unspecified Miguel Moyer, D.O. 12/28/2018 I42.9 Cardiomyopathy, unspecified [place], Miguel, D.O. 12/28/2018 Z68.27 Body mass index (BMI) 27.0-27.9, adult Miguel Moyer D.O. 12/19/2018 S42.332G Displaced oblique fracture of shaft of João Blossom Rivera.O. humerus, left arm, subsequent encounter for fracture [...] M25.512 Pain in left shoulder Miguel Moyer D.OSharri 10/10/2018 Z91.81 History of falling Miguel Moyer [...] Type 2 diabetes mellitus with hyperglycemia Miguel Moyre D.O. 08/03/2018 F17.210 Nicotine dependence, cigarettes, Miguel Moyer D.O. uncomplicated 08/03/2018 I48.91 Unspecified atrial fibrillation Miguel Moyer D.O. 08/03/2018 F41.9 Anxiety disorder, unspecified Miguel Moyer D.O. 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 08/03/2018 J44.9 Chronic obstructive pulmonary disease, Miguel Moyer D.O. unspecified 08/03/2018 Z95.810 Presence of automatic (implantable) cardiac Miguel Moyer D.O. defibrillator 08/03/2018 I42.9 Cardiomyopathy, unspecified Miugel Moyer D.O. 08/03/2018 Z82.49 Family history of ischemic heart disease and Miguel Moyer D.O. other diseases 08/03/2018 Z79.01 FPC (current) use of anticoagulants Miguel Moyer D.O. 08/03/2018 R09.81 Nasal congestion Miguel Moyer D.O. Plan of Treatment Future Appointment(s):04/17/2019 1:45 pm - Miguel Moyer D.O. at Main Bvlzru5601/12/2019 - Miguel Moyer D.O.E11.65 Type 2 diabetes mellitus with hyperglycemiaFollow up:3 mo DM w/ A1cF17.210 Nicotine dependence, cigarettes, mammxzmwxitmxK43.9 Cardiomyopathy, jozfjdbmjzwK63.91 Unspecified atrial wzvnchogoselV01.9 Chronic obstructive pulmonary disease, zznbvgyokwuU48.00 Constipation, qwgnlqzqaqcC01.42 Chronic combined systolic (congestive) and diastolic (congestive) heart failureFollow up:Start Torosemide today.S42.332D Displaced oblique fracture of shaft of humerus, left arm, subsequent encounter for fracturewith routine cdcskihT92 Encounter for immunization Goals 01/12/2019 - Miguel Moyer D.O.E11.65 Type 2 diabetes mellitus with hyperglycemiaToday's A1c is 6.3 Hemoglobin A1C (average glucose) < 7.0 - this is checked every 3 months. Avoid/limit carbohydrates: foods like Potatoes , Wheat (bread,pasta,cookies,crackers,pretzels,dough), Rice, [place], and Sugar Limit sweetened beverages. Check eyes yearly with a dialated exam with an superintendent building Check for diabetic kidney disease yearly with urine microalbumin test Check your feet by looking at all sides daily; once a year at least have them checked by a doctor.I50.42 Chronic combined systolic ( congestive) and diastolic (congestive) heart failureStop smoking Be aware of salt content and avoid excess aim for 2-4grams of sodium daily. Maintain potassium supplement and intake with diuretic. Functional Status Description No Information Available Mental Status Description No Information Available Referrals Description No Information Available
--- OUTSIDE RECORDS SUMMARY | 2019-01-26 22:09 | XMS REPORT | Continuity of Care Document ---
:1950 External Reference #:[id number] Author Name Miguel Moyer D.O. Address [address] [place] [id number] Care Team Providers Name Role Phone [facility] Care Team Information Remote Sensing Surveyor - Hematology & Oncology [facility] - Care Team Information Remote Sensing Surveyor [facility] [place] - Ophthalmology Care Team Information Remote Sensing Surveyor Ramón Kennedy MD - Care Team Information Remote Sensing Surveyor [phone] Otolaryngology Problems Active Problems Provider Date Cough [...] - 51 PACK YEARS Smoking Status Reviewed: 01/01/19 Patient is a current SMOKED FROM AGE [...] Medications SIG Qnty Indications Ordering Date Provider Polyethylene 17-34 g of powder (~1 1581gm [facility], Glycol 3350 heaping tablespoon) Bartolome Rivera 9 dissolved in 4-8 3350NF Powder ounces of beverage, once daily Furosemide take 1 tablet by mouth ta [facility], 20mg daily. Bartolome Rivera 9 Tablets Potassium Chloride 2 by mouth every day caps [facility], ER with each tablet of Bartolome Rivera 9 10Meq Capsules furosemide ER Omeprazole 1 by mouth every day cap [facility], 20mg Bartolome Rivera [address] Calcium + D3 1 by mouth every day 90tabs [facility], Bartolome Rivera 9 [phone] Tablets Spiriva Respimat two inhalations (5mcg) 8gm [facility], once daily (maximum: 2 Miguel D.O. 9 2.5mcg/Act Aerosol inhalations per 24 hours). Venlafaxine HCL ER Take One Capsule By 90caps [facility], Mouth Every Day Paolo RiveraO. 9 75mg Caps ER 24HR Entresto 1 tablet by mouth 60tabs [facility], 24-26mg twice daily Paolo RiveraO. 9 Tablets Ventolin HFA inhale 2 puffs by 54gm [facility], mouth every 4 hours as Blossom Rivera.O. 9 108(90Base) needed for mcg/Act Aerosol bronchospasm Montelukast Sodium 1 by mouth every day 90tabs [facility], Blossom Rivera.O. 8 10mg Tablets Docusate Sodium take 2 capsules by 180caps [facility], mouth every day, as Paolo RiveraOSharri 8 100mg Capsules needed for constipation Magox 400 1-4 tablets every 360tabs [facility], night at bedtime as Paolo RiveraOSharri 8 400(241.3mg) mg directed Tablets Thiamine HCL take 1 tablet by mouth 90tabs [facility], daily. Paolo RiveraO. 8 100mg Tablets Folic Acid 1 by mouth every day 90tabs [facility], 1mg Paolo RiveraO. 8 Tablets Eliquis take one tablet by 180tabs [facility], 5mg mouth twice a day Paolo RiveraO. 8 Tablets Digoxin Take One Tablet By 30tabs [facility], 125mcg Mouth Every Day AT 5PM Paolo RiveraO. 8 Tablets Azelastine HCL 1-2 sprays bid 90ml J31.0 [facility], (Nasal) Paolo RiveraO. 7 0.15% Solution Famotidine Take One Tablet Two 60tabs [facility], 40mg Times A Day as Needed Paolo RiveraO. 6 Tablets For Gastroesophageal Reflux Disease Artificial Tears use at night as 1units H04.122 [facility], directed. Bartolome Rivera 5 83-15% Ointment Atorvastatin Take One Tablet By 90tabs [facility], Calcium Mouth Every Day For Bartolome Rivera 5 20mg Prevention Of Heart Tablets Attack And Stroke Symbicort use 2 inhalations by 10.2units R05 [facility], mouth in the morning Bartolome Rivera 4 160-4.5mcg/Act and in the evening , Aerosol gargle after use Oxygen NC 2l nc qhs [facility], Bartolome Rivera 4 Epipen 2-Tyson use as directed for 1units Z91.030 [facility], anaphilaxis seek Bartolome Rivera 3 0.3mg/0.3ML medical attention Solution after using. Auto-Inject Metoprolol 1 by mouth every day 90tabs [facility], / Succinate ER Bartolome Rivera 0 25mg Tablets ER 24HR Immunizations CPT Code Status Date Vaccine Lot # [id number] Given 10/10/2018 Pneumococcal Immunization [id number] 56608 Given 12/08/2017 Influenza Vaccine, Inactivated, Subunit, [id number] Adjuvanted, For Intrmus 52654 Given 03/23/2017 Influenza Virus Vaccine, Quadrivalent, Split, [id number] Preservative Free 73518 Given 11/24/2015 Influenza Vaccine Split Virus Preservative Free Im [id number] Use 03722 Given 07/24/2015 Prevnar 13 [id number] 27514 Given 01/27/2015 Influenza Virus Vaccine, Quadrivalent, Split, [id number] Preservative Free 02662 Given 11/19/2013 Influenza Virus Vaccine, Quadrivalent, Split, [id number] Preservative Free 47153 Given 04/23/2013 Pneumococcal Immunization [id number] 95062 Given 11/22/2012 Adacel or Boostrix, TDaP [id number] 07645 Given 11/22/2012 Flu, Split Virus 3Yrs [id number] Vital Signs Date Vital Result Comment 01/01/2019 4:22pm BP Systolic 104 mmHg BP Diastolic 64 mmHg Weight 166.00 lb 12/28/2018 4:24pm BP Systolic 91 mmHg BP Diastolic 66 mmHg Heart Rate 103 /min O2 % dC Oximetry 97 % Height 64.50 inches 5'4.50" Weight 163.00 lb BMI (Body Mass Index) 27.5 kg/m2 Results Test Acquired Date Facility Test Result H/L Range Note CBC Auto 12/28/2018 [facility] White Blood 5.7 10^3/uL Normal 3.5- 10.8 Diff [phone] Count Red Blood Count 3.67 10^6/uL Low [...] Red Blood Cells % 0.0 Inr/Protime 12/28/2018 [facility] Inr 1.62 High 0.82-1.09 5 [phone] Comp Metabolic Panel 12/28/2018 [facility] Sodium 122 mmol/L Low 135- 145 [phone] Potassium 3.3 mmol/L Low 3.5-5.0 Chloride 87 [...] Egfr Non- 90.9 >60 Egfr 110.0 >60 2 Laboratory test 12/28/2018 [facility] C Reactive 13.13 mg/L High < 8.01 finding [phone] Protein Troponin-I (TnI) 0.03 ng/mL <0.04 3 B-Type Natriuretic Peptide BNP > 1300 pg/mL High <=100 CBC Auto Diff 10/10/2018 [facility] White Blood 5.4 10^3/uL Normal 3.5-10.8 [phone] Count Red Blood Count 3.80 10^6/uL Low [...] Cells % 0.1 Comp Metabolic Panel 10/10/2018 [facility] Sodium 129 mmol/L Low 135- 145 [phone] Potassium 4.7 mmol/L Normal 3.5-5.0 Chloride 93 [...] Egfr Non- 110.3 >60 Egfr 133.5 >60 4 Laboratory test finding 10/10/2018 [facility] Magnesium 1.7 mg/dL Low 1.9-2.7 [phone] TSH (Thyroid Stim Horm) 0.72 mcIU/mL Normal 0.34-5.60 Vitamin B12 260 pg/mL Normal 180-914 5 Manual Differential 10/10/2018 [facility] Neutrophil % 79.0 % [phone] Lymphocytes % 15.0 % Monocytes % 5.0 % Eosinophils % 1.0 % RBC Morphology Normal Normal Laboratory test 10/10/2018 [facility] Pathologist Review (SEE NOTE) 6 finding [phone] Laboratory test 10/10/2018 [facility] House Hemoglobin A1c 5.5 finding Laboratory test 07/11/2018 In House Hemoglobin A1c 5.8 finding 1 Standard intensity warfarin therapeutic range: 2.0-3.0 High intensity warfarin therapeutic range: 2.5-3.5 2 Because ethnic data is not always [...] 5 Kidney failure <15 (or dialysis) 3 Troponin-I testing on Plasma Separator Tubes (PST) has a known false positive rate of 0.20-0.40%. All positive troponins reflex immediately to secondary confirmatory testing. Using the [employer] Access Immunoassay systems, the 99th percentile upper reference limit was demonstrated to be < 0.03 ng/mL. 4 Because ethnic data is not always [...] 5 Kidney failure <15 (or dialysis) 5 Normal Range 180 to 914 Indeterminate Range 145 to 180 Deficient Range <145 6 Macrocytic anemia. Reviewed by Flor Arango MD Procedures Date Code Description Status 12/28/2018 83009 Electrocardiogram Complete Completed 12/28/2018 51370 X-Ray Chest 2 V Completed 04/12/2018 259940518 Diabetic Foot Exam Completed 05/19/2017 623100023 Diabetic Retinal Eye Exam Completed 07/04/2013 97269056 Colonoscopy Completed Medical Devices Description No Information Available Encounters Type Date Location Provider Dx Diagnosis Office Visit 01/01/2019 Main Office Miguel Moyer J90 Pleural effusion, not 3:45p D.O. elsewhere classified E11.65 Type 2 diabetes mellitus [...] S42.332G Displ oblique fx D.O. shaft of jim frances arm, 7thG E11.65 Type 2 diabetes mellitus [...] dis of the circ sys Z79.01 terminal gauger (current) use of anticoagulants R09.81 Nasal congestion [...] oth dis of the circ sys Z79.01 FDC (current) use of anticoagulants I50.42 Chronic combined systolic and diastolic hrt fail R06.02 Shortness of breath R53.83 Other fatigue Assessments Date Code Description Provider 01/01/2019 J90 Pleural effusion, not elsewhere classified Miguel Moyer D.O. 01/01/2019 E11.65 Type 2 diabetes mellitus with hyperglycemia Migule Moyer D.O. 01/01/2019 F17.210 Nicotine dependence, cigarettes, Miguel Moyer D.O. 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 01/01/2019 F41.9 Anxiety disorder, unspecified Miguel Moyer, D.O. 01/01/2019 I42.9 Cardiomyopathy, unspecified Miguel Moyer, D.O. 01/01/2019 I48.91 Unspecified atrial fibrillation KitabeltranMiguel hollis, D.O. 01/01/2019 J44.9 Chronic obstructive pulmonary disease, KitaMiguel flores D.O. unspecified 01/01/2019 K59.00 Constipation, unspecified SopbeltrankKathyon, D.O. 01/01/2019 M25.512 Pain in left shoulder Miguel Moyer D.O. 01/01/2019 R29.6 Repeated falls Miguel Moyer D.O. 01/01/2019 R60.9 Edema, unspecified HusamkKathyon, D.O. 01/01/2019 Z91.81 History of falling Miguel Moyer D.O. 01/01/2019 W18.30xD Fall on same level, unspecified, subsequent Miguel Moyer, D.O. encounter 12/28/2018 R06.02 Shortness of breath Miguel Moyer, D.O. 12/28/2018 J44.9 Chronic obstructive pulmonary disease, Miguel Moyer, D.O. unspecified 12/28/2018 I48.91 Unspecified atrial fibrillation Miguel Moyer, D.O. 12/28/2018 F17.210 Nicotine dependence, cigarettes, Miguel Moyer, D.O. uncomplicated 12/28/2018 K59.00 Constipation, unspecified KitachakKathyon, D.O. 12/28/2018 R60.9 Edema, unspecified SopchakKathyon, D.O. 12/28/2018 E11.65 Type 2 diabetes mellitus with hyperglycemia Miguel Moyer D.O. 12/28/2018 I42.9 Cardiomyopathy, unspecified HusamkKathyon, D.O. 12/28/2018 I42.9 Cardiomyopathy, unspecified SopchakKathyon, D.O. 12/28/2018 Z68.27 Body mass index (BMI) 27.0-27.9, adult Miguel Moyer D.O. 12/19/2018 S42.332G Displaced oblique fracture of shaft of Kitabeltrantelma Miguel D.O. humerus, left arm, subsequent encounter for [...] Moyer D.O. 10/10/2018 F41.9 Anxiety disorder, unspecified Sopchak, Miguel, D.O. 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 08/03/2018 F17.210 Nicotine dependence, cigarettes, Miguel Moyer D.O. uncomplicated 08/03/2018 I48.91 Unspecified atrial fibrillation Miguel Moyer D.O. 08/03/2018 F41.9 Anxiety disorder, unspecified Miguel Moyer D.O. 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 08/03/2018 J44.9 Chronic obstructive pulmonary disease, Miguel Moyer D.O. unspecified 08/03/2018 Z95.810 Presence of automatic (implantable) cardiac Miguel Moyer D.O. defibrillator 08/03/2018 I42.9 Cardiomyopathy, unspecified Miguel Moyer D.O. 08/03/2018 Z82.49 Family history of ischemic heart disease and Miguel Moyer D.O. other diseases 08/03/2018 Z79.01 terminal gauger (current) use of anticoagulants Miguel Moyer D.O. 08/03/2018 R09.81 Nasal congestion Miguel Moyer D.O. 07/11/2018 E11.65 Type 2 diabetes mellitus with hyperglycemia Miguel Moyer D.O. 07/11/2018 F17.210 Nicotine dependence, cigarettes, Miguel Moyer D.O. uncomplicated 07/11/2018 I48.91 Unspecified atrial fibrillation Miguel Moyer D.O. 07/11/2018 F41.9 Anxiety disorder, unspecified Miguel Moyer D.O. 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 07/11/2018 G40.89 Other seizures Miguel Moyer D.O. 07/11/2018 J44.9 Chronic obstructive pulmonary disease, Miguel Moyer D.O. unspecified 07/11/2018 Z95.810 Presence of automatic (implantable) cardiac Miguel Moyer D.O. defibrillator 07/11/2018 I42.9 Cardiomyopathy, unspecified Miguel Moyer D.O. 07/11/2018 Z82.49 Family history of ischemic heart disease and Miguel Moyer D.O. other diseases 07/11/2018 Z79.01 FDC (current) use of anticoagulants Miguel Moyer D.O. 07/11/2018 I50.42 Chronic combined systolic (congestive) and Miguel Moyer D.O. diastolic (conges 07/11/2018 R06.02 Shortness of breath Miguel Moyer D.O. 07/11/2018 R53.83 Other fatigue Miguel Moyer D.O. Plan of Treatment Future Appointment(s):01/10/2019 2:45 pm - Miguel Moyer D.O. at Main Ekxvso8501/12/2019 11:00 am - Nurse's Schedule at Main Mqdxuf8801/12/2019 11:00 am - Miguel Moyer D.O. at Main Szlxng2701/01/2019 - Miguel Moyer D.O.J90 Pleural effusion, not elsewhere swwunuuxazU48.65 Type 2 diabetes mellitus with mlyugmbdiarwqK47.210 Nicotine dependence, cigarettes, ysuliesqoiwkxM61.01 Agoraphobia with panic hocphnudF46.9 Anxiety disorder, doqgssnpnaxF77.9 Cardiomyopathy, unspecifiedFollow up:1 week Afib, llqvyD86.91 Unspecified atrial ztizkejkawqrC99.9 Chronic obstructive pulmonary disease, zlbvaxshildG11.00 Constipation, ybgyrrqfqcjW66.512 Pain in left ptktsqapB14.6 Repeated oqkmiP55.9 Edema, leyzbtdvozmQ31.81 History of jpuzczdJ31.30xD Fall on same level, unspecified, subsequent encounter Functional Status Description No Information Available Mental Status Description No Information Available Referrals Description No Information Available
--- OUTSIDE RECORDS SUMMARY | 2019-01-26 22:09 | XMS REPORT | Continuity of Care Document ---
:1950 External Reference #:[id number] Author Name Annette Barragan M.D. (transmitted by agent of provider Anson Dhillon) Address [address] [place] [address] [place] [address] Care Team Providers Name Role Phone Miguel Moyer DO - Family Care Team Information Deli Worker Medicine Problems Active Problems Provider Date Paroxysmal [...] (10 or fewer cigarettes/day) Smoking Status Reviewed: 01/15/19 Light tobacco smoker (10 or fewer cigarettes/day) [...] Tablets Metoprolol Succinate 1/2 tablet by 45tabs Lbiia Guo, ER mouth daily (25 M.D. 50mg Tablets ER mg). 24HR Famotidine 1 by mouth daily Unknown 40mg Tablets Epipen 2-Tyson as directed Unknown Flonase Allergy as needed Unknown Relief Azelastine HCL as needed Unknown 137mcg Symbicort 2 inhaled twice Unknown 160-4.5mcg daily Am/PM Immunizations Description No Information Available Vital Signs Date Vital Result Comment 01/15/2019 3:00pm Height 65.5 inches 5'5.50" Weight 160.00 lb Heart Rate 66 /min BP Systolic Sitting 127 mmHg BP Diastolic Sitting 77 mmHg Respiratory Rate 16 /min Pain Level 0 O2 % BldC Oximetry 88 % BMI (Body Mass Index) 26.2 kg/m2 01/11/2019 2:52pm Height 65.5 inches 5'5.50" Weight 160.50 lb with shoes Heart Rate 104 /min BP Systolic Sitting 100 mmHg Ra BP Diastolic Sitting 80 mmHg Ra BP Systolic Standing 102 mmHg Ra BP Diastolic Standing 80 mmHg Ra O2 % BldC Oximetry 97 % BMI (Body Mass Index) 26.3 kg/m2 Ejection Fraction 20-25% Echo 05/02/18 Results Test Acquired Date Facility Test Result H/L Range Note Laboratory test 01/11/2019 [facility] B-Type <pending> finding [address] [place] [address] Peptide BNP [phone] Laboratory test 01/11/2019 [facility] Magnesium <pending> finding [address] [place] [address] [phone] Procedures Date Code Description Status 01/11/2019 59528 EKG Tracing & Interpretation Completed 12/25/2018 41350 Interrogation Device Eval Remote Up To 30 Days Completed Analysis,Rev,RP 12/25/2018 30706 Interrogation Device Eval Remote Up To 30 Days Completed Analysis,Rev,RP 12/25/2018 23853 Icd Eval Sing,Dual,Multi Lead Remote Recpt Transm Tech Completed Rev Tech S 12/25/2018 77227 Icd Eval Sing,Dual,Multi Lead Remote Recpt Transm Tech Completed Rev Tech S 12/25/2018 81342 Icd Check Remote Up To 90 Days Single,Dual,Multiple Completed Lead 12/25/2018 14626 Icd Check Remote Up To 90 Days Single,Dual,Multiple Completed Lead 09/22/2018 45903 EKG Tracing & Interpretation Completed 09/22/2018 92945 Interrogation Implant Cardiovasc Monitor System Incl Completed Analysis Int 09/22/2018 84003 Interrogation Implant Cardiovasc Monitor System Incl Completed Analysis Int 09/22/2018 69452 Icd Eval With Inerative Adjustmt Dual Lead System Completed 09/22/2018 95969 Icd Eval With Inerative Adjustmt Dual Lead System Completed 05/19/2017 [id number] Diabetic Retinal Eye Exam Completed Medical Devices Description No Information Available Encounters Type Date Location Provider Dx Diagnosis Office Visit 01/11/2019 [facility] Bee Rodgers, I42.9 Cardiomyopathy, 3:00p Of School Admissions Representative N.P. unspecified Z95.810 Presence of automatic (implantable) cardiac defibrillator I48.0 Paroxysmal atrial fibrillation I50.42 Chronic combined systolic and diastolic hrt fail Z72.0 Tobacco use J44.9 Chronic obstructive pulmonary disease, unspecified Office Visit 12/27/2018 2:15p [facility] Annette S42.332D Displ oblique at [place] Barragan M.D. fx shaft of humer, l arm, 7thD S42.332K Displ oblique fx shaft of humer, l arm, 7thK Office Visit 12/14/2018 [facility] S42.332D Displ oblique 2:15p Orthopedics at [facility] fx shaft of [place] humer, l arm, 7thD Office Visit 11/23/2018 [facility], S42.332D Displ oblique 1:45p Orthopedics at [facility] fx shaft of [place] humer, l arm, 7thD Office Visit 11/02/2018 [facility] S42.332D Displ oblique 2:15p [facility] Barragan fx shaft of [place] humer, l arm, 7thD Office Visit 10/19/2018 [facility] S42.332A Displaced 3:30p [facility] Barragan oblique fx [place] shaft of humerus, left arm, init Assessments Date Code Description Provider 01/11/2019 R94.31 Abnormal electrocardiogram [ECG] [EKG] Libia Guo M.D. 01/11/2019 I42.9 Cardiomyopathy, unspecified Bee Rodgers, N.P. 01/11/2019 Z95.810 Presence of automatic (implantable) cardiac Bee Rodgers, N.P. defibrillator 01/11/2019 I48.0 Paroxysmal atrial fibrillation Bee Rodgers, N.P. 01/11/2019 I50.42 Chronic combined systolic [...] 09/22/2018 Z95.810 Presence of automatic (implantable) cardiac Libai Guo M.D. defibrillator 09/22/2018 Z95.810 Presence of [...] 1:00 pm - Bee Rodgers N.P. at [facility] Functional Status Description No Information Available Mental Status Description No Information Available Referrals Description No Information Available
[2019-01-27] MEDS ORDERED: Albuterol/Ipratropium NEB.SOL* Albuterol 2.5 MG/Ipratropium 0.5 MG 3 ML INH ONE (00:01)
[2019-01-27] MEDS ORDERED: Furosemide IV* 10 MG/ML VIAL (40 MG) IV SLOW PU ONE (00:01)
[2019-01-27] MEDS ORDERED: methylPREDNISolone 125 MG* 2 ML VIAL IV ONE (00:02)
--- NOTE | 2019-01-27 00:21 | ED ---
Shortness of Breath - HPI Summary HPI Summary: 68-year-old male presents with shortness of breath for the past 2 weeks. states sob has been getting worst. He admits to more edema to his legs and abdomen. denies any chest pain. States every time he moves develops worsening shortness of breath. States he felt feverish. He admits to occasional cough. No nausea or vomiting. Has not been eating much. patient denies a history of CHF but per chart has such. he has not followed up with anyone about such. he is only suppose to use oxygen at night but has been using it throughout the day (2 liters). no headache, urinary symptoms, or abdominal pain. denies any other symptoms. he has history of stents, pacemaker, copd, chf, a fib, DM. no history of liver issues. - History of Current Complaint Chief Complaint: EDShortnessOfBreath Time Seen by Provider: 01/26/19 23:40 - Allergy/Home Medications Allergies/Adverse Reactions: Allergies Allergy/AdvReac Type Severity Reaction Status Date / Time adhesive Allergy Mild Rash Verified 12/28/18 18:27 bee venom protein (honey bee) Allergy Swelling Verified 12/28/18 18:27 Of Face,Lips,& Throat latex Allergy Facial Verified 12/28/18 18:27 Redness/Flushing Home Medications: Home Medications Atorvastatin* [Lipitor*] 20 mg PO 1700 01/27/19 [History Confirmed 01/27/19] Folic Acid TAB* [Folvite TAB*] 1 mg PO DAILY 01/27/19 [History Confirmed ] Furosemide 20 mg PO DAILY 01/27/19 [History Confirmed 01/27/19] Metoprolol Succinate XL TAB* [Toprol XL TAB*] 25 mg PO DAILY 01/27/19 [History Confirmed 01/27/19] Omeprazole 20 mg PO DAILY 01/27/19 [History Confirmed 01/27/19] Potassium Chlor TAB* [Klor Con ER TAB*] 20 meq PO DAILY 01/27/19 [History Confirmed 01/27/19] Torsemide TAB* [Demadex 20 MG*] 20 mg PO DAILY 01/27/19 [History Confirmed 01/27] PMH/Surg Hx/FS Hx/Imm Hx Endocrine/Hematology History: Reports: Hx Anticoagulant Therapy, Hx Diabetes - DIET CONTROLLED, Hx Anemia Cardiovascular History: Reports: Hx Congestive Heart Failure, Hx Coronary Artery Disease, Hx Hypercholesterolemia - HLD, Hx Hypertension, Hx Pacemaker/ ICD - 08/22/2017, Other Cardiovascular Problems/Disorders - 05/2013 CHEST PAIN, BUT MAY HAVE BEEN PANIC ATTACK Respiratory History: Reports: Hx Chronic Obstructive Pulmonary Disease (COPD), Hx Sleep Apnea - TESTED BY NO DIAGNOSIS, Other Respiratory Problems/Disorders - COPD O2 2L AT NIGHT Denies: Hx Asthma GI History: Reports: Hx Gastroesophageal Reflux Disease, Other GI Disorders - growth/cyst left groin per pt History: Reports: Hx Kidney Infection - HX OF A YOUNG ADULT Denies: Hx Dialysis, Hx Renal Disease Musculoskeletal History: Reports: Hx Arthritis - HANDS, Hx Back Problems Sensory History: Denies: Hx Contacts or Glasses, Hx Hearing Aid Opthamlomology History: Denies: Hx Contacts or Glasses Neurological History: Reports: Hx Headaches, Hx Migraine - "tension headache", Other Neuro Impairments/Disorders - OCC PANIC ATTACKS Psychiatric History: Reports: Hx Anxiety Denies: Hx Panic Disorder - Surgical History Surgery Procedure, Year, and Place: NASAL POLYPS AND COLON POLYPS REMOVED, TONSILECTOMY, HERNIA, Defibrillatior 07/2017 Hx Anesthesia Reactions: No Infectious Disease History: No Infectious Disease History: Denies: History Other Infectious Disease, Traveled Outside the [place] in Last 30 Days - Family History Known Family History: Positive: Cardiac Disease - Social History Alcohol Use: Occasionally Alcohol Amount: six beers Substance Use Type: Reports: None Hx Tobacco Use: Yes Smoking Status (MU): Light Every Day Tobacco Smoker Type: Cigarettes Amount Used/How Often: 1/2PPD Length of Time of Smoking/Using Tobacco: 40YRS Have You Smoked in the Last Year: Yes Review of Systems Negative: Fever Negative: Chest Pain Positive: Shortness Of Breath, Cough Positive: Edema All Other Systems Reviewed And Are Negative: Yes Physical Exam Triage Information Reviewed: Yes Vital Signs On Initial Exam: Initial Vitals Temp Pulse Resp BP Pulse Ox 97.5 F 80 20 98/68 98 01/26/19 21:27 01/26/19 21:27 01/26/19 21:27 01/26/19 21:27 01/26/19 21:27 Vital Signs Reviewed: Yes Skin: Positive: Warm, Dry Head/Face: Positive: Normal Head/Face Inspection Eyes: Positive: Normal, Conjunctiva Clear ENT: Positive: Pharynx normal Respiratory/Lung Sounds: Positive: Decreased Breath Sounds Cardiovascular: Positive: Normal, RRR Abdomen Description: Positive: Nontender, Soft, Other: - fluid felt on abd Bowel Sounds: Positive: Present Musculoskeletal: Positive: Edema Left, Edema Right, Other - good pulses Neurological: Positive: Normal, Sensory/Motor Intact, Alert, Oriented to Person Place, Time Psychiatric: Positive: Normal Procedures - Sedation Patient Received Moderate/Deep Sedation with Procedure: No Diagnostics - Vital Signs Vital Signs Temp Pulse Resp BP Pulse Ox 01/26/19 21:27 97.5 F 80 20 98/68 98 - Laboratory Result Diagrams: 01/27/19 00:13 01/27/19 00:13 Lab Statement: Any lab studies that have been ordered have been reviewed, and results considered in the medical decision making process. - Radiology chest Radiology Interpretation Completed By: ED Physician Summary of Radiographic Findings: left side pleural effusion - CT chest, abd CT Interpretation Completed By: Radiologist Summary of CT Findings: 1. Acute segmental and subsegmental branch pulmonary emboli left lower lobe. Borderline findings of right heart strain, although pulmonary emboli burden unlikely to cause elevated right-sided pressures. 2. Large left pleural effusion and associated left lung volume loss.\\1. Findings of third spacing. 2. Simple hepatic cyst. No followup imaging indicated per ACR guidelines. 3. Distal colonic diverticulosis. 4. Bilateral inguinal hernias. No strangulation. - EKG No standard instances Cardiac Rate: NL EKG Rhythm: Sinus Rhythm EKG Comparison: No Significant Change Summary of EKG Findings: sinus rhythm Re-Evaluation - Re-Evaluation First Eval Re-Evaluation Time: 01:10 Change: Improved Comment: feeling better after lasix and steriods Second Eval Re-Evaluation Time: 03:01 Change: Worse Comment: patient went to bathroom and became hypoxia requiring intubation Course/Dx - Course Course Of Treatment: 68-year-old male w/ history of COPD, CHF, and CAD presents with shortness of breath for the past 2 weeks. Only uses oxygen at night and has been using during the day. States every time he moves develops worsening shortness of breath. States he felt feverish. He admits to occasional cough. Has not been eating much. no abdominal pain. On exam decreased breath sounds heard. bilateral edema noted. initially stats above 95 on 2 liters of oxygen. blood pressure was 100/70. wbc 12.7. h/h similiar to previous. platelet low at 95 which is new. sodium is 126 which is chronic. renal function elevated with cr at 2.09 which is new. lactic 5. troponin .12. bmp >1050. ekg shows sinus rhythm similiar to previous. bilirubin is 4.2. ast 6903. alt 3054 which is new. does have drinking history but has not been drinking recently per friend. discussed case with dr mccallum. will give fluids slowly with chf. was given breathing treatment, lasix and solumedrol with improvement. patient went to bathroom and almost passed out and became hypoxia. patient was placed on oxymask and continued to detoriated becoming altered and nose and ears becoming blue. dr mccallum decided to intubate. patient was successfully intubated. will hold on anticoagulation at this time as inr is 9. discussed with hospitalist who states needs to be transferred to facility that has potential for hepatology. discussed case with [facility] who agrees to accept - Diagnoses Differential Diagnosis/HQI/PQRI: Positive: CHF, COPD Exacerbation, [place] Provider Diagnoses: COPD exacerbation, Systolic and diastolic CHF, acute, Pulmonary embolism, Liver failure, acute, Acute kidney injury, Respiratory failure - Critical Care Time Critical Care Time: 75-104 min - 90 mins Discharge ED - Sign-Out/Discharge Documenting (check all that apply): Patient Departure - Discharge Plan Condition: Guarded Disposition: TRANS HIGHER LVL OF CARE FAC Referrals: Miguel Moyer DO [Primary Care Provider] - - Billing Disposition and Condition Condition: GUARDED Disposition: Trans Higher Lvl of Care Fac
[2019-01-27 00:45] LABS: ABS Lymphocytes 1.2 10^3/ul (1.0-4.8); ABS Monocytes 0.6 10^3/ul (0-0.8); ABS Neutrophils 10.8 10^3/ul (1.5-7.7); Hematocrit 41 % (42-52); Hemoglobin 13.6 g/dL (14.0-18.0); Lymphocyte % 9.4 %; Mean Corpuscular HGB Conc 33 g/dL (31-36); Mean Corpuscular Hemoglobin 33 pg (27-31); Mean Corpuscular Volume 100 fL (80-94); Mean Platelet Volume 11.2 fL (7.4-10.4); Nucleated Red Blood Cells % 0.1; Platelet Count 95 10^3/uL (150-450); Red Blood Count 4.12 10^6 /uL (4.18-5.48); Red Cell Distribution Width 15 % (10-15); White Blood Count 12.7 10^3/uL (3.5-10.8)
[2019-01-27 00:47] LABS: Albumin 3.9 g/dL (3.2-5.2); Albumin/Globulin Ratio 1.5 (1-3); Alkaline Phosphatase 187 U/L (34-104); Anion Gap 16 mmol/L (2-11); BUN/Creatinine Ratio 16.3 (8-20); Blood Urea Nitrogen 34 mg/dL (6-24); C Reactive Protein 55.61 mg/L (<8.01); CO2 Carbon Dioxide 24 mmol/L (22-32); Chloride 86 mmol/L (101-111); EGFR African American 38.4 (>60); EGFR Non-African American 31.7 (>60); Globulin 2.6 g/dL (2-4); Glucose 124 mg/dL (70-100); Magnesium 1.5 mg/dL (1.9-2.7); Sodium 126 mmol/L (135-145); Total Protein 6.5 g/dL (6.4-8.9)
[2019-01-27 00:51] LABS: Troponin I 0.12 ng/mL (<0.04)
[2019-01-27] MEDS ORDERED: NS 0.9% 1000 ML** 1,000 ML IV ONE (01:05)
[2019-01-27 01:08] LABS: INR 9.53 (0.82-1.09)
[2019-01-27 01:25] LABS: ALT 3054 U/L (7-52); AST 6903 U/L (13-39)
[2019-01-27] MEDS ORDERED: Iodixanol* (CONTRAST) 320 MG/ML 100 ML SDV IV ONE (01:25)
[2019-01-27] MEDS ORDERED: Succinylcholine* 20 MG/ML 10 ML VIAL ONE (02:52)
[2019-01-27] MEDS ORDERED: Etomidate* 2 MG/ML 20 ML VIAL (40 MG) ONE (02:52)
--- NOTE | 2019-01-27 03:08 | ED ---
Progress - Progress Note Progress Note: This pt was signed out to Dr. Pedroza from [facility] at shift change 0300 01/27/19 pending intubation and disposition. Pt was intubated following medications that were given at 0252 of 20 mgs etomidate and 100 mgs succinylcholine. Pt was intubated successfully at 0254. Re-Evaluation - Re-Evaluation First Eval Re-Evaluation Time: 01:10 Change: Improved Comment: feeling better after lasix and steriods Second Eval Re-Evaluation Time: 03:01 Course/Dx - Course Course Of Treatment: This pt was signed out to Dr. Pedroza from [facility] at shift change 0300 01/27/19 pending intubation and disposition. Pt was intubated following medications that were given at 0252 of 20 mgs etomidate and 100 mgs succinylcholine. Pt was intubated successfully at 0254 with a 7.5 mm oraltracheal intubation tube. He then received a CXR to see if the intubation tube was in place. The CXR taken at 0302 shows that the IT tube is in good position and his lungs are clear. After the pt was signed out, he had a re- draw of his lactic acid which increased to a 6.9, a troponin of .12, and ammonia of 188. He was diagnosed with PE, acute kidney injury, acute liver failure, respiratory failure, COPD exacerbation, and acute systolic and diastolic CHF. He will be transfered to [facility] and placed under the care of Dr. Potts, general lithographic worker, for further investigations. - Diagnoses Provider Diagnoses: COPD exacerbation, Systolic and diastolic CHF, acute, Pulmonary embolism, Liver failure, acute, Acute kidney injury, Respiratory failure - Provider Notifications Discussed Care Of Patient With: Lexy Potts MD Time Discussed With Above Provider: 04:45 Instructed by Provider To: Transfer - Dr. Potts, Head Cager, will accept the pt to [facility] for further investigations. Admit/Transition Orders Completed By ED Provider: Yes - Critical Care Time Critical Care Time: 30-74 min - 40 minutes Discharge ED - Sign-Out/Discharge Documenting (check all that apply): Patient Departure - admitted ICU - Discharge Plan Condition: Guarded Disposition: TRANS HIGHER LVL OF CARE FAC Referrals: Miguel Moyer DO [Primary Care Provider] - - Billing Disposition and Condition Condition: GUARDED Disposition: Trans Higher Lvl of Care Fac - Attestation Statements Document Initiated by Jose G: Yes Documenting Scribe: Pritesh Amado Provider For Whom Jose G is Documenting (Include Credential): Simone Pedroza MD Scribe Attestation: Pritesh Fuentes, scribed for Simone Pedroza MD on 01/27/19 at 1942. Scribe Documentation Reviewed: Yes Provider Attestation: The documentation as recorded by the Pritesh soriano accurately reflects the service I personally performed and the decisions made by Simone juan MD Status of Scribe Document: Viewed Procedures - Sedation Patient Received Moderate/Deep Sedation with Procedure: No - Intubation Time of Intubation: 02:54 Intubation Method: orotracheal Tube Size (cm): 7.5 mm Medications: Succinylcholine Breath Sounds after Intubation: equal Intubation Complications: no complications Post Intubation Xray: Yes
[2019-01-27] MEDS: Propofol* 100 ML IV ONE ×2 (03:32→04:00)
[2019-01-27] MEDS ORDERED: Propofol* 100 ML IV ONE (03:37)
[2019-01-27 04:47] LABS: Troponin I 0.12 ng/mL (<0.04)
[2019-01-27] MEDS ORDERED: fentaNYL* 50 MCG/ML 2 ML VIAL (100 MCG VIAL) IV SLOW PU ONE (05:30)
[2019-01-27] MEDS ORDERED: Midazolam IV for DRIP* 100 MG in NS 0.9% 100 ML* 80 ML IV SCH (06:00)
[2019-01-27 06:40] VITALS: BP 77/60
== END 2019-01-27 07:02 | disposition short-term general hospital (02) ==
LOC: ED 21:23
DX: J44.1 Chronic obstructive pulmonary disease with (acute) exacerbation (principal); I50.43 Acute on chronic combined systolic (congestive) and diastolic (congestive) heart failure; I26.99 Other pulmonary embolism without acute cor pulmonale; K72.90 Hepatic failure, unspecified without coma; N17.9 Acute kidney failure, unspecified; J96.90 Respiratory failure, unspecified, unspecified whether with hypoxia or hypercapnia; E11.9 Type 2 diabetes mellitus without complications; D64.9 Anemia, unspecified; I25.10 Atherosclerotic heart disease of native coronary artery without angina pectoris; E78.00 Pure hypercholesterolemia, unspecified; I11.0 Hypertensive heart disease with heart failure; K21.9 Gastro-esophageal reflux disease without esophagitis; F41.9 Anxiety disorder, unspecified; F17.210 Nicotine dependence, cigarettes, uncomplicated; Z79.899 Other long term (current) drug therapy; Z91.040 Latex allergy status
CPT/HCPCS: 36415; 71045; 71046; 71275; 74177; 80053; 80162; 82140; 83605; 83735; 83880; 84484; 85025; 85060; 85379; 85610; 86140; 87040; 93005; 96365; 96366; 96375; 99285; A9270-GY; J0330; J1940; J2250; J2704; J2930; J3010; Q9967